=== PATIENT | female | born 1955 | race Two or more races ===

== ENCOUNTER → 2020-02-27 14:37 | Outpatient (BNVA) | payer OTHER, SELFPAY | PROVIDERS: PCP Internal Medicine; Visit Provider Internal Medicine Cardiovascular Disease | DX: R07.89 Other chest pain (principal) | CPT/HCPCS: Q3014 ==

== ENCOUNTER 2020-04-01 10:39 | Outpatient (REF) | payer OTHER, SELFPAY ==
--- NOTE | 2020-04-01 | MM_ITS ---
EXAMINATION: MM SCREENING DIGITAL BREAST TOMOSYNTHESIS, BILATERAL CLINICAL INFORMATION: Screening. Asymptomatic. The lifetime risk of breast cancer based on the Tyrer-Cuzick Model is 5.8%. COMPARISON: Mammography: None TECHNIQUE: Digital breast tomosynthesis is performed in both the craniocaudal and mediolateral oblique views along with computer-aided detection (CAD). Synthesized 2D images are generated from the tomosynthesis. FINDINGS: There are scattered areas of fibroglandular density (ACR BI-RADS breast composition Category b). There is multiplicity and bilaterality of calcifications within both breasts. Within the right breast inferiorly approximately 5 cm from nipple there is a lobulated density which is well-circumscribed measuring approximately 7 x 3 mm in size. There are at least 3 well-circumscribed densities within the left breast one deep laterally measuring approximately 7 cm from the nipple, one centrally to approximately 3 cm from nipple, and a third medially approximately 6 cm from the nipple. MM/MM tomosynthesis screening BI IMPRESSION: Multiplicity and bilaterality of similar-appearing calcifications some of which are scattered and some which are grouped. Bilateral circumscribed densities for which ultrasound evaluation is recommended. ASSESSMENT: BI-RADS 0: Incomplete - Need Additional Imaging Evaluation RECOMMENDATION: Targeted ultrasound of both breasts. Radiology department staff will contact the patient for additional imaging.
== END 2020-04-01 10:40 | disposition home or self-care (01) ==
LOC: HO.MAMMO 10:39
PROVIDERS: Visit Provider Internal Medicine
DX: Z12.31 Encounter for screening mammogram for malignant neoplasm of breast (principal)
CPT/HCPCS: 77063; 77067

== ENCOUNTER 2020-04-12 13:21 | Outpatient (REF) | payer OTHER, SELFPAY ==
--- NOTE | ~2020-04-12 | US_ITS ---
EXAMINATION: US DIAGNOSTIC ULTRASOUND BREAST, RIGHT US DIAGNOSTIC ULTRASOUND BREAST, LEFT CLINICAL INFORMATION: Recall from screening for small bilateral nodularity. COMPARISON: Digital breast tomosynthesis 04/01/2020. TECHNIQUE: Ultrasound of the bilateral breasts is performed using grayscale imaging and color Doppler without and with harmonics. Right breast is targeted to the 6:00 to 7:00 position and left breast is targeted to the 3:00, 7:00, 9:00 position, respectively. FINDINGS: Right: There is an incidental circumscribed cyst 7:00 position 4 cm from nipple measuring 6 mm in greatest dimension. There is a punctate peripheral calcification. No internal solid component. There is increased through-transmission of sound and no associated color flow. There is no focal suspicious finding. There is no solid mass, architectural abnormality, duct ectasia, or edema in the soft tissue planes. Left: There are scattered small circumscribed cysts left breast at the targeted areas, most under 5 mm and anechoic, circumscribed, with increased through-transmission of sound and no color flow. The largest cyst has a punctate rim calcification and measures 7 x 3 mm. There is no focal suspicious finding. There is no solid mass, architectural abnormality, duct ectasia, or edema in the soft tissue planes. Results are discussed with the patient and her daughter at time of visit. Patient has prior outside mammography from [facility]. If the outside exams are made available, we will be able to provide mammographic comparison in an addendum report. Otherwise, the ultrasound findings are unremarkable and routine annual mammography is recommended in one year. US/US breast LT limited IMPRESSION: Incidental small bilateral cysts corresponding to the fibronodular parenchymal pattern on recent mammography. ASSESSMENT: BI-RADS 2: Benign RECOMMENDATION: 1. Routine annual mammography screening. 2. If prior outside mammography is made available, comparison will be performed in an addendum report. This patient's information was entered into a reminder system with a target due date for their next mammogram.
[2020-04-12 14:31] LABS: Hematocrit 40.7 % (37-47); Mean Corpuscular HGB Conc 31.9 g/dl (31.0-35.0); Mean Corpuscular Volume 87.7 fL (80-98); Mean Platelet Volume 12.4 fL (9.4-12.3); Platelet Count 257 X10*3/uL (160-400); Red Blood Count 4.64 X10*6/uL (4.20-5.50); Red Cell Distribution Width 13.6 % (11.0-16.0); White Blood Count 7.1 X10*3/uL (4.8-10.8)
[2020-04-12 15:01] LABS: Alanine Aminotransferase 11 U/L (0-31); Albumin Level 4.3 g/dL (3.5-5.0); Alkaline Phosphatase 102 U/L (39-117); Anion Gap 13 (12-20); Aspartate Amino Transferase 17 U/L (5-31); Bilirubin Direct 0.2 mg/dL (0.0-0.5); Bilirubin Total 0.6 mg/dL (0.0-1.0); Blood Urea Nitrogen 13 mg/dL (9-16); Calcium 9.7 mg/dL (8.4-10.2); Carbon Dioxide 28 mmol/L (22-29); Chloride 106 mmol/L (96-108); Cholesterol 191 mg/dL; Estimated Glomerular Filt Rate > 60; Glucose Random 95 mg/dL (60-115); HDL Cholesterol 55 mg/dL; LDL Cholesterol Calculated 115 mg/dl; Potassium 4.9 mmol/L (3.3-5.1); Sodium 142 mmol/L (135-145); Total Protein 7.6 g/dL (6.5-8.0); Triglycerides 105 mg/dL
[2020-04-12 15:22] LABS: Thyroid Stimulating Hormone 1.22 uIU/mL (0.32-4.0)
== END 2020-04-12 13:22 | disposition home or self-care (01) ==
LOC: HO.MAMMO 13:21
PROVIDERS: Visit Provider Internal Medicine
DX: R92.2 Inconclusive mammogram (principal); E78.00 Pure hypercholesterolemia, unspecified
CPT/HCPCS: 36415; 76642; 80048; 80061; 80076; 84443; 85027

== ENCOUNTER 2020-05-21 23:06 | Outpatient (REF) | payer OTHER, SELFPAY ==
[2020-05-22 00:55] LABS: Influenza A PCR NEGATIVE (Negative); Influenza B PCR NEGATIVE (Negative); Resp Syncy Virus RNA Qual PCR NEGATIVE (Negative); SARS COV2 PCR INHOUSE NEGATIVE (Negative)
== END 2020-05-21 23:07 | disposition home or self-care (01) ==
LOC: HO.LAB 23:06
PROVIDERS: Visit Provider Internal Medicine
DX: Z20.822 Contact with and (suspected) exposure to COVID-19 (principal)
CPT/HCPCS: 0241U; 36415

== ENCOUNTER 2020-11-05 11:11 | Outpatient (RCR) | payer OTHER, SELFPAY ==
--- NOTE | 2020-11-05 12:50 | MHC.PT.EP ---
[facility] [place] [facility] [place] [facility] [place] [facility] [address] [place] [address] Dr Tish Banegas [address] [phone] F: [phone] F: [phone] F: [phone] F: [phone] Physical Therapy Plan of Care Date of Evaluation: Date of Surgery: NA . HX OF SURGERY TO REMOVE LIPOMA R UT AREA IN PAST Diagnosis: CERVICAL SPINE SPRAIN Assessment: Pt IS 65 YO F REFERRED TO PT FROM DR WESTFALL WITH CERVICAL STRAIN. PRESENTS WITH POOR POSTURE, GOOD CERV ROM AND SHLDER ROM , WKNESS L UE, PAIN L UT AND L SHLDER WITH REPORT OF REFERRAL INTO L UE. Pt ALSO REPORTS SOME MILLER SXS TO L SIDE OF HEAD, L EYE, AND L EAR. Pt REPORTS SIMILAR SXS IN PAST WITH INJECTIONS/PT WITHOUT RELIEF FOR A PERIOD OF TIME AND THEN FOUND TO HAVE A LIPOMA AND AFTER IT WAS REMOVED PROGRESSED TO IMPROVEMENT. SHOULD BENEFIT FROM PT TO ADDRESS THESE ISSUES WITH ST WORK, STRETCH/STRENGTHEN PROGRAM AND POSTURE WORK. SHOULD BENEFIT FROM MRI TO R/O LIPOMA (PAST HX) Frequency and Duration: The patient will be seen 2X/WK X 4 WKS Short Term Goals: 1. IMPROVED POSTURE AWARENESS AND AWARNESS NECK CARE 2. CENTRALIZE SXS 3. IMPROVED SLEEP System Configuration Specialist Goals: 1. I HEP WITH DC EX PLAN 2. DECREASED PAIN AT LEAST 50% L UT/CERV AREA WITH ADLS Treatment Plan: Modalities to reduce pain, spasms and effusion. Manual therapy to restore motion and function. Therapeutic exercise to improve strength and flexibility. Neuromuscular re-education for posture and balance. Therapeutic activities to return to functional activities of daily living. Electronically signed by: ENDY REYES PT Please sign and return to therapist. Thank you for your referral.
--- NOTE | 2020-12-26 10:04 | MHC.PT.DC ---
[facility] [place] Office [place] Office [place] Office [address] [place] [address] Dr Tish Banegas [address] [phone] F: [phone] F: [phone] F: [phone] F: [phone] Physical Therapy Discharge Report Diagnosis: CERVICAL SPINE SPRAIN Date of Surgery: NA . HX OF SURGERY TO REMOVE LIPOMA R UT AREA IN PAST Date of Evaluation: 11/05/20 Date of Discharge: 12/26/20 Treatments to Date: 1 Cancellations to Date: No Shows to Date: Discharge Status: Discharge Summary: Pt SEEN FOR INITIAL EVALUATION ONLY. SAW DR BHATT A WALK IN AFTER PT EVAL (PER REQUEST FROM HER SON). NO FURTHER PT VISITS MADE. PER ASSESSMENT FROM EVAL: 'Pt IS 65 YO F REFERRED TO PT FROM DR WESTFALL WITH CERVICAL STRAIN. PRESENTS WITH POOR POSTURE, GOOD CERV ROM AND SHLDER ROM , WKNESS L UE, PAIN L UT AND L SHLDER WITH REPORT OF REFERRAL INTO L UE. Pt ALSO REPORTS SOME MILLER SXS TO L SIDE OF HEAD, L EYE, AND L EAR. Pt REPORTS SIMILAR SXS IN PAST WITH INJECTIONS/PT WITHOUT RELIEF FOR A PERIOD OF TIME AND THEN FOUND TO HAVE A LIPOMA AND AFTER IT WAS REMOVED PROGRESSED TO IMPROVEMENT. SHOULD BENEFIT FROM PT TO ADDRESS THESE ISSUES WITH ST WORK, STRETCH/STRENGTHEN PROGRAM AND POSTURE WORK. SHOULD BENEFIT FROM MRI TO R/O LIPOMA (PAST HX)' Electronically signed by: ENDY REYES PT Please sign and return to therapist. Thank you for your referral.
== END 2020-12-26 10:05 | disposition home or self-care (01) ==
LOC: HO.PTWFD 11:11
PROVIDERS: PCP Internal Medicine; Visit Provider Internal Medicine
DX: S13.9XXD Sprain of joints and ligaments of unspecified parts of neck, subsequent encounter (principal)
CPT/HCPCS: 97110; 97162; 97535

== ENCOUNTER 2020-11-05 14:55 | Outpatient (REF) | payer OTHER, SELFPAY ==
--- NOTE | ~2020-11-05 | XR_ITS ---
EXAMINATION: CERVICAL SPINE AND LEFT SHOULDER. CLINICAL INFORMATION: Neck pain and left shoulder pain. COMPARISON: None TECHNIQUE: 3 views left shoulder and three-view cervical spine. FINDINGS: CERVICAL SPINE: There is normal cervical lordosis. The vertebral heights and alignment is normal. There is no visible acute fracture, dislocation or subluxation seen. There is a small anterior C5-C6 enthesophyte. Fracture, dislocation or subluxation seen. The prevertebral soft tissues are normal. LEFT SHOULDER: The glenohumeral joint space is normal. There is loss of left AC joint space with spurring. No visible acute fracture or dislocation seen. There is no lytic process. XR/XR cervical spine 2V IMPRESSION: Small anterior inferior C5-C6 vertebral enthesophyte. Otherwise unremarkable cervical spine exam.
--- NOTE | ~2020-11-05 | XR_ITS ---
EXAMINATION: CERVICAL SPINE AND LEFT SHOULDER. CLINICAL INFORMATION: Neck pain and left shoulder pain. COMPARISON: None TECHNIQUE: 3 views left shoulder and three-view cervical spine. FINDINGS: CERVICAL SPINE: There is normal cervical lordosis. The vertebral heights and alignment is normal. There is no visible acute fracture, dislocation or subluxation seen. There is a small anterior C5-C6 enthesophyte. Fracture, dislocation or subluxation seen. The prevertebral soft tissues are normal. LEFT SHOULDER: The glenohumeral joint space is normal. There is loss of left AC joint space with spurring. No visible acute fracture or dislocation seen. There is no lytic process. XR/XR shoulder LT min 2V IMPRESSION: Small anterior inferior C5-C6 vertebral enthesophyte. Otherwise unremarkable cervical spine exam.
== END 2020-11-05 14:56 | disposition home or self-care (01) ==
LOC: HO.HMGCX 14:55
PROVIDERS: PCP Internal Medicine; Visit Provider Family Medicine
DX: Z13.89 Encounter for screening for other disorder (principal)
CPT/HCPCS: 72040; 73030

== ENCOUNTER 2020-12-04 21:22 | Emergency (ER) | payer OTHER, SELFPAY ==
--- NOTE | ~2020-12-04 | CT_ITS ---
EXAMINATION: CT ABDOMEN AND PELVIS WITH CONTRAST CLINICAL INFORMATION: Left lower quadrant pain and rectal bleeding. COMPARISON: None TECHNIQUE: Multidetector volumetric images were obtained from the superior aspect of the liver through the pubic symphysis following administration 85 mL of Omnipaque 350 intravenous contrast. Sagittal and coronal reformatted images were obtained on the technologist's workstation. Oral contrast: No This CT examination was performed using dose optimization techniques as appropriate, variously including the following: *Automated exposure control *Adjustment of mA and/or kV according to patient size (this includes techniques or standardized protocols for targeted exams where dose is matched to indication/reason for exam; i.e. extremities or head) *Use of iterative reconstruction technique DLP: 636 mGy-cm FINDINGS: LUNG BASES: Subtle cystic lucencies in the lung bases are indeterminate and could be related with early emphysematous changes. There is a small calcified granuloma in the right lower lobe (200, 4). Mild subsegmental atelectasis. No focal airspace opacity or pleural effusion. LIVER, GALLBLADDER, AND BILIARY TREE: There is an indeterminate 3.3 cm lesion in the liver adjacent to the gallbladder demonstrating heterogeneous enhancement which appears somewhat peripheral and discontinuous. No other focal liver lesions. The gallbladder is unremarkable. There is no intrahepatic biliary ductal dilatation. The CBD is slightly dilated measuring up to 8 mm and at the level of the ampulla, there is indeterminate soft tissue fullness (images 32 and 33:6) that narrows the lumen of the CBD. PANCREAS: Tiny indeterminate hypodensity in the uncinate process (33:3). No pancreatic ductal dilatation. No peripancreatic free fluid or fat stranding. SPLEEN: Unremarkable. ADRENAL GLANDS: Unremarkable. KIDNEYS AND URETERS: A too small to characterize hypodensity in the lateral surface of the upper pole of the right kidney (30:3) appears to measure fat in attenuation and could represent a small angiomyolipoma. The kidneys are normal in size, shape and attenuation. No hydronephrosis or renal calculi. No perinephric fat stranding. BLADDER: Unremarkable. GASTROINTESTINAL TRACT: Small hiatal hernia. There are a few hyperemic and fluid-filled loops of small bowel in the mid abdomen (for instance coronal image 22:6) which could be seen in the setting of gastroenteritis. There are no significant associated inflammatory changes. In the upper abdomen there is subtle swirling of the mesenteric vessels (38:3) which could reflect some degree of malrotation or internal hernia. However, there is no bowel obstruction. The distal colon is under distended which limits assessment of wall thickening but there are no associated inflammatory changes to suspect colitis or diverticulitis. The appendix is unremarkable. ABDOMINAL WALL: Midline surgical scar. Small fat-containing umbilical hernia. LYMPH NODES: No lymphadenopathy by size criteria. VASCULAR: Scattered atherosclerotic disease. No aneurysmal dilatation of the abdominal aorta. PELVIC VISCERA: Unremarkable. OSSEOUS STRUCTURES: No acute or aggressive osseous abnormalities. CT/CT abdomen pelvis w con IMPRESSION: Mildly hyperemic and fluid distended loops of the small bowel could be seen with gastroenteritis in the appropriate clinical setting. No active pericolic inflammatory changes to suggest diverticulitis or colitis. No bowel obstruction. Indeterminate enhancing liver lesion which could represent a hemangioma, although it is incompletely characterize in this single phase study and should be further evaluated with a dynamic MR of the liver. There is mild dilatation of the CBD up to the periampullary region where there is a questionable soft tissue lesion. As above, this could be further characterize with a dynamic abdominal MR with MRCP. Tiny hypodensity in the uncinate process of the pancreas could be related with a dilated side branch or volume averaging. This could be also further evaluated with the above recommended dynamic abdominal MR/MRCP.
[2020-12-04 21:35] VITALS: BP 112/76; PULSE 94; RESP 16; TEMP 37; O2SAT 97; BMI 28.0
[2020-12-04 22:25] LABS: MANUAL DIFF FLAG NO
[2020-12-04 22:27] LABS: Basophils Percent Auto 0.3 % (0-2); Eosinophils Absolute Auto 0.2 X10*3/uL (0.0-0.4); Eosinophils Percent Auto 2.5 % (0-4); Hematocrit 39.7 % (37-47); Hemoglobin 13.2 g/dl (12.0-16.0); Imm Gran Abs Auto 0.02 X10*3/uL (0.00-0.03); Imm Gran Pct Auto 0.3 % (0.0-0.4); Lymphocytes Absolute Auto 2.1 X10*3/uL (1.2-4.9); Lymphocytes Percent Auto 28.2 % (20-40); Mean Corpuscular HGB Conc 33.2 g/dl (31.0-35.0); Mean Corpuscular Hemoglobin 28.5 pg (27.0-33.0); Mean Corpuscular Volume 85.7 fL (80-98); Mean Platelet Volume 11.6 fL (9.4-12.3); Monocytes Absolute Auto 0.7 X10*3/uL (0.1-1.2); Neutrophils Absolute Auto 4.5 X10*3/uL (2.0-8.3); Neutrophils Percent Auto 59.7 % (45-73); Platelet Count 235 X10*3/uL (160-400); Red Blood Count 4.63 X10*6/uL (4.20-5.50); Red Cell Distribution Width 13.2 % (11.0-16.0); White Blood Count 7.5 X10*3/uL (4.8-10.8)
[2020-12-04 22:35] LABS: INTERNATIONAL NORM RATIO 1.1 (0.9-1.1); Prothrombin Time 12.5 SEC (9.9-13.0)
[2020-12-04 22:45] LABS: Alanine Aminotransferase 18 U/L (0-31); Albumin Level 4.1 g/dL (3.5-5.0); Alkaline Phosphatase 102 U/L (39-117); Anion Gap 11 (12-20); Aspartate Amino Transferase 21 U/L (5-31); Bilirubin Total 0.2 mg/dL (0.0-1.0); Blood Urea Nitrogen 11 mg/dL (9-16); Calcium 9.5 mg/dL (8.4-10.2); Carbon Dioxide 28 mmol/L (22-29); Chloride 106 mmol/L (96-108); Creatinine Clr Calc Pharmacy 70.9; Estimated Glomerular Filt Rate > 60; Glucose Random 124 mg/dL (60-115); Potassium 5.3 mmol/L (3.3-5.1); Sodium 140 mmol/L (135-145); Total Protein 7.4 g/dL (6.5-8.0)
[2020-12-04 22:49] VITALS: BP 133/60; PULSE 70; RESP 16; TEMP 36.7; O2SAT 97
--- NOTE | 2020-12-04 22:52 | ED_ITS ---
HPI - General Adult General Chief complaint: General Medical Stated complaint: Rectal bleeding Time Seen by Provider: 12/04/20 21:26 Source: patient Mode of arrival: ambulatory Limitations: no limitations History of Present Illness HPI narrative: Patient has history of chronic constipation been having increased constipation last 3-4 days history of hemorrhoids but not bleeding in the past, noticed increased bright red blood for last 3 days whenever she moves her bowels. Getting worse last bowel movement was soft with some clots also patient complaining of lower abdominal pain mostly on the left side felt dizzy and weak. Patient never had colonoscopy in the past plan to have pronounced copy next week no history of ulcers no melena Related Data Previous Rx's Medication Instructions Recorded multivitamin with minerals-folic 1 tab PO .QD #90 tab 05/10/20 acid 0.4 mg tablet (Adult One Daily Multivitamin) cholecalciferol (vitamin D3) 1,250 1,250 mcg PO QWEEK #14 cap 09/16/20 mcg (50,000 unit) capsule docusate sodium 100 mg capsule 100 mg PO DAILY #90 cap 09/16/20 multivitamin (Daily Multi-Vitamin) 1 tab PO DAILY #90 tab 09/16/20 naproxen 500 mg tablet 500 mg PO BID #28 tab 09/16/20 gabapentin 300 mg capsule 300 mg PO BID 30 Days #60 cap 11/05/20 hydrocortisone acetate 25 mg 25 mg DE BEDTIME #12 ea 12/03/20 rectal suppository (Anusol-HC) polyethylene glycol 3350 17 17 g PO DAILY #510 g 12/05/20 gram/dose oral powder (Miralax) Allergies Allergy/AdvReac Type Severity Reaction Status Date / Time paraben Allergy Severe urticaria Verified 11/13/20 13:47 Sulfa (Sulfonamide Allergy Mild HIVES Verified 11/13/20 13:47 Antibiotics) [SULFA (SULFONAMIDE ANTIBIOTICS)] sulfacetamide Allergy Unknown hives Verified 11/13/20 13:47 sulfur Allergy Unknown hives Verified 11/13/20 13:47 Latex, Natural Rubber AdvReac Unknown Verified 11/13/20 13:47 Review of Systems Review of Systems: Yes all other systems are reviewed and are negative PMFSH Past Medical History Medical History Hypercholesterolemia Surgical History History of cataract surgery Hx of cardiac cath Family History Family History Mother No problems noted. Father No problems noted. Father CVD (cardiovascular disease) Mother CVD (cardiovascular disease) Social History Social History Housing: House Alcohol intake: never Patient Tobacco Use Status: Never used Tobacco Use of substances other than those prescribed or required for medical reasons: No Advance Directives: No Advance Directives Information Provided: No service: No Current occupational status: retired Physical Exam Vital Signs: Vital Signs: Last Vital Signs Temp 98 F 12/05/20 00:05 Pulse 69 12/05/20 00:05 Resp 18 12/05/20 00:05 BP 122/69 12/05/20 00:05 Pulse Ox 98 12/05/20 00:05 Body Mass Index 28.0 Appearance: Alert. Oriented X3. No acute distress. Eyes: No pallor or icterus ENT: Pharynx normal. Oral Mucosa moist Neck: Normal inspection. Neck supple. CVS: Normal heart rate and rhythm. Pulses normal. Respiratory: No respiratory distress. Equal air entry bilateral, no wheezing/rales/rhonchi Abdomen: Soft and mild tenderness left lower quadrant no rebound tenderness or guarding Bowel sounds are present, no mass palpable, no CVA tenderness Skin: Skin warm and dry. Normal skin color. Normal skin turgor. Extremities: No lower extremity edema. No calf tenderness Rectal: Deferred per patient request Neuro: Oriented X 3. Medical Decision Making [facility] Narrative Medical decision making narrative: Patient with lower GI bleed likely hemorrhoidal possible AV malformation H&H is stable blood pressure stable patient plan to see material preparation worker next week advised to continue MiraLax and report to ER in case bleeding gets worse Lab Data Lab results reviewed: Yes I reviewed the patient's lab results. Result diagrams: 12/04/20 22:22 12/04/20 22:22 Labs: Lab Results 12/04/20 12/04/20 12/04/20 Range/Units 22:22 22:22 22:22 WBC 7.5 (4.8-10.8) X10*3/uL RBC 4.63 (4.20-5.50) X10*6/uL Hgb 13.2 (12.0-16.0) g/dl Hct 39.7 (37-47) % MCV 85.7 (80-98) fL MCH 28.5 (27.0-33.0) pg MCHC 33.2 (31.0-35.0) g/dl RDW 13.2 (11.0-16.0) % Plt Count 235 (160-400) X10*3/uL MPV 11.6 (9.4-12.3) fL Immature Gran % (Auto) 0.3 (0.0-0.4) % Neut % (Auto) 59.7 (45-73) % Lymph % (Auto) 28.2 (20-40) % [place] % (Auto) 9.0 (2-11) % Eos % (Auto) 2.5 (0-4) % Baso % (Auto) 0.3 (0-2) % Lymph # (Auto) 2.1 (1.2-4.9) X10*3/uL [place] # (Auto) 0.7 (0.1-1.2) X10*3/uL Eos # (Auto) 0.2 (0.0-0.4) X10*3/uL Baso # (Auto) 0.0 (0.0-0.2) X10*3/uL Abs Immat Gran (auto) 0.02 (0.00-0.03) X10*3/uL Absolute Neuts (auto) 4.5 (2.0-8.3) X10*3/uL Absolute Nucleated RBC 0.000 (0.0-0.012) X10*3/uL Nucleated RBC % (auto) 0.0 (0.0-0.2) /100WBC PT 12.5 (9.9-13.0) SEC INR 1.1 (0.9-1.1) APTT 36.0 (24.1-38.0) SEC Sodium 140 (135-145) mmol/L Potassium 5.3 H (3.3-5.1) mmol/L Chloride 106 (96-108) mmol/L Carbon Dioxide 28 (22-29) mmol/L Anion Gap 11 L (12-20) BUN 11 (9-16) mg/dL Creatinine 0.78 (0.5-1.4) mg/dL Estim Creat Clear Calc 70.9 Estimated GFR > 60 Random Glucose 124 H (60-115) mg/dL Calcium 9.5 (8.4-10.2) mg/dL Total Bilirubin 0.2 (0.0-1.0) mg/dL AST 21 (5-31) U/L ALT 18 (0-31) U/L Alkaline Phosphatase 102 (39-117) U/L Total Protein 7.4 (6.5-8.0) g/dL Albumin 4.1 (3.5-5.0) g/dL Discharge Plan Discharge Clinical Impression: Rectal bleeding Patient Disposition: Home, Self-Care Instructions: Rectal Bleeding (ED) Additional Instructions: Avoid constipation Stool softener as advised Your bleeding is likely from hemorrhoids but need further evaluation including Colonoscopy Follow-up with material preparation worker as scheduled Report to the ER/PCP if increased rectal bleed Prescriptions: New polyethylene glycol 3350 [Miralax] 17 gram/dose powder 17 g PO DAILY Qty: 510 RF: 0 No Action Adult One Daily Multivitamin 0.4 mg tablet 1 tab PO .QD Qty: 90 RF: 1 hydrocortisone acetate [Anusol-HC] 25 mg suppository 25 mg DE BEDTIME Qty: 12 RF: 0 naproxen 500 mg tablet 500 mg PO BID Qty: 28 RF: 0 cholecalciferol (vitamin D3) 1,250 mcg (50,000 unit) capsule 1,250 mcg PO QWEEK Qty: 14 RF: 0 docusate sodium 100 mg capsule 100 mg PO DAILY Qty: 90 RF: 0 multivitamin [Daily Multi-Vitamin] Tablet 1 tab PO DAILY Qty: 90 RF: 0 gabapentin 300 mg capsule 300 mg PO BID 30 Days Qty: 60 RF: 0 Interventions: ED Discharge Assessment Last Done: 12/05/20 00:12 Discharge Date/Time: 12/05/20 00:17
[2020-12-04] MEDS: iohexoL 350 MG/ML 100 ML INFUS..BTL IV (23:49)
[2020-12-05 00:05] VITALS: BP 122/69; PULSE 69; RESP 18; TEMP 36.6; O2SAT 98
--- NOTE | 2020-12-05 00:16 | PC.NURSE ---
Pt alert and oriented x4, calm and cooperative. Pt denies pain. Pt states she is ready for dc. IV removed, vitals stable. Pt educated on results and dc teaching. Pt ambulated out to private car with family member.
== END 2020-12-05 00:17 | disposition home or self-care (01) ==
PROVIDERS: Emergency Provider Internal Medicine; PCP Family Medicine
DX: K62.5 Hemorrhage of anus and rectum (principal); K59.00 Constipation, unspecified
CPT/HCPCS: 36415; 74177; 80053; 85025; 85610; 85730; 99284; Q9967

== ENCOUNTER 2020-12-08 22:37 | Inpatient (IN) | payer OTHER, SELFPAY ==
--- NOTE | ~2020-12-08 | CT_ITS ---
EXAMINATION: CT ANGIOGRAM ABDOMEN AND PELVIS CLINICAL INFORMATION: Bright red blood per rectum COMPARISON: None TECHNIQUE: Multiple axial images were obtained through the abdomen and pelvis following the administration of 80 mL of Omnipaque 350 intravenous contrast. Maximal intensity projection images were created on an independent workstation. This CT examination was performed using dose optimization techniques as appropriate, variously including the following: *Automated exposure control *Adjustment of mA and/or kV according to patient size (this includes techniques or standardized protocols for targeted exams where dose is matched to indication/reason for exam; i.e. extremities or head) *Use of iterative reconstruction technique DLP: 503 mGy-cm FINDINGS: VASCULAR: Aorta is atherosclerotic but normal caliber. No dissection. Patent celiac axis, superior mesenteric and inferior mesenteric arteries. Patent bilateral single renal arteries. HEPATOBILIARY: Liver normal in size, contour and morphology. There is a 3.2 cm hypodense lesion within hepatic segment 5 inferiorly demonstrating discontinuous peripheral nodular enhancement matching that of blood pool most compatible with a hemangioma. No suspicious lesions. No intrahepatic biliary dilation. Common bile duct measures up to 10 mm tapering to the ampulla. Gallbladder unremarkable. PANCREAS: The previously seen 3 mm cyst within the uncinate is faintly appreciated. SPLEEN: Unremarkable. ADRENAL GLANDS: Unremarkable. KIDNEYS: Kidneys normal in size, axis and morphology demonstrating symmetric enhancement. No suspicious renal cysts or masses. No hydronephrosis or perinephric abnormality.. GASTROINTESTINAL TRACT: There is hyperdensity along the right lateral aspect of the low rectum as seen on series 6, image 656. Unfortunately, unenhanced images were not obtained to confirm whether this represents a site of active bleeding. No additional sites of intraluminal hypodensity identified within the colon to suggest an alternative etiology of the patient's primary blood per rectum. Stomach and small bowel unremarkable. PELVIC VISCERA: Uterus and adnexa unremarkable. LYMPH NODES: No lymphadenopathy. PERITONEUM/BODY WALL: Unremarkable. OSSEOUS STRUCTURES: No acute or suspicious osseous abnormalities. CT/CT angio abdomen pelvis IMPRESSION: * There is hyperdensity along the low rectum along the right lateral aspect likely representing site of active bleeding, perhaps related to internal hemorrhoids. Further assessment limited in the absence of a nonenhanced phase of the examination. * There is a 3.2 cm hemangioma within hepatic segment 5, benign. * Mild dilatation of the common bile duct to 10 mm, tapering to the ampulla. Faint 3 mm cyst within the uncinate. As recommended previously, these findings can be further assessed by MRI/MRCP without and with contrast on a nonemergent basis.
[2020-12-08 22:39] VITALS: BP 121/77; PULSE 99; RESP 16; TEMP 36.4; O2SAT 98; BMI 28.0
--- NOTE | 2020-12-08 22:46 | ED_ITS ---
HPI - GI Bleed General Chief complaint: GI Bleed Stated complaint: Rectal bleeding Time Seen by Provider: 12/08/20 22:46 Source: patient Mode of arrival: ambulatory Limitations: no limitations History of Present Illness HPI Narrative: Patient history of constipation been having bright red rectal bleeding for last 4 days was seen here on 12/04 for same. Since then patient continued to have rectal bleeding , having soft bowel movements blood is mostly bright red with some clots also has some left lower abdominal discomfort patient not been eating much having only soft diet only and today she did have any food have a clear liquids patient never had colonoscopy in the past. No history of diverticulitis or hemorrhoids in the past. 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 Sutherland appointment on 12/12 who advised her to come to the hospital as bleeding is heavy and continued. Patient not on any anticoagulant or antiplatelet medication and never had similar episode in the p ast Related Data Home Medications Medication Instructions Recorded Confirmed cholecalciferol (vitamin D3) 1,250 1 cap PO QWEEK 12/09/20 12/09/20 mcg (50,000 unit) capsule docusate sodium 100 mg capsule 1 cap PO DAILY 12/09/20 12/09/20 (Stool Softener) hydrocortisone acetate 25 mg 1 supp IA BEDTIME 12/09/20 12/09/20 rectal suppository multivitamin with folic acid 400 1 tab PO DAILY 12/09/20 12/09/20 mcg tablet (Daily-Josue (with folic acid)) Allergies Allergy/AdvReac Type Severity Reaction Status Date / Time paraben Allergy Severe urticaria Verified 12/09/20 00:21 Sulfa (Sulfonamide Allergy Mild HIVES Verified 12/09/20 00:21 Antibiotics) [SULFA (SULFONAMIDE ANTIBIOTICS)] sulfacetamide Allergy Unknown hives Verified 12/09/20 00:21 sulfur Allergy Unknown hives Verified 12/09/20 00:21 Latex, Natural Rubber AdvReac Unknown Verified 12/09/20 00:21 Review of Systems Review of Systems: Yes all other systems are reviewed and are negative [facility] Past Medical History Medical History Hypercholesterolemia Surgical History History of cataract surgery Hx of cardiac cath Family History Family History Mother No problems noted. Father No problems noted. Father CVD (cardiovascular disease) Mother CVD (cardiovascular disease) Social History Social History Housing: House Alcohol intake: never Patient Tobacco Use Status: Never used Tobacco Advance Directives: No Advance Directives Information Provided: No service: No Current occupational status: retired Physical Exam Vital Signs: Vital Signs: Last Vital Signs Temp 98.0 F 12/09/20 00:20 Pulse 77 12/09/20 00:20 Resp 14 12/09/20 00:20 BP 133/72 12/09/20 00:20 Pulse Ox 99 12/09/20 00:20 Body Mass Index 28.0 Appearance: Alert. Oriented X3. No acute distress. Eyes: Pallor+ ENT: Pharynx normal. Oral Mucosa moist Neck: Normal inspection. Neck supple. CVS: Normal heart rate and rhythm. Pulses normal. Respiratory: No respiratory distress. Equal air entry bilateral, no wheezing/rales/rhonchi Abdomen: Soft, mild tenderness left lower quadrant Bowel sounds are present, no mass palpable, no CVA tenderness Rectal: Deferred per family request. Pictures of blood seen on the cellphone Skin: Skin warm and dry. Normal skin color. Normal skin turgor. Extremities: No lower extremity edema. No calf tenderness Neuro: Oriented X 3. MDM - GI Bleed MDM Narrative Medical decision making narrative: Patient with lower GI bleed with significant drop in H&H from 13.2/39.7 on 12/04 to 9.3/28.8 today. Not on any anti coagulant, Case discussed with Dr. lopez route rider supervisor plan to do colonoscopy in the morning will prep for the colonoscopy tonight. NPO after 04:00 patient INR was 1.1 on 12/04 Differential Diagnosis Differential diagnosis: Likely Lower gastrointestinal hemorrhage Lab Data Attestation: I reviewed the patient's lab results. Result diagrams: 12/08/20 23:10 12/08/20 23:10 Labs: Lab Results 12/08/20 12/08/20 12/08/20 Range/Units 23:10 23:10 23:10 WBC 9.7 (4.8-10.8) X10*3/uL RBC 3.27 L D (4.20-5.50) X10*6/uL Hgb 9.3 L D (12.0-16.0) g/dl Hct 28.8 L D (37-47) % MCV 88.1 (80-98) fL MCH 28.4 (27.0-33.0) pg MCHC 32.3 (31.0-35.0) g/dl RDW 13.4 (11.0-16.0) % Plt Count 247 (160-400) X10*3/uL MPV 11.6 (9.4-12.3) fL Immature Gran % (Auto) 0.3 (0.0-0.4) % Neut % (Auto) 51.3 (45-73) % Lymph % (Auto) 37.2 (20-40) % [place] % (Auto) 7.8 (2-11) % Eos % (Auto) 3.1 (0-4) % Baso % (Auto) 0.3 (0-2) % Lymph # (Auto) 3.6 (1.2-4.9) X10*3/uL [place] # (Auto) 0.8 (0.1-1.2) X10*3/uL Eos # (Auto) 0.3 (0.0-0.4) X10*3/uL Baso # (Auto) 0.0 (0.0-0.2) X10*3/uL Abs Immat Gran (auto) 0.03 (0.00-0.03) X10*3/uL Absolute Neuts (auto) 5.0 (2.0-8.3) X10*3/uL Absolute Nucleated RBC 0.000 (0.0-0.012) X10*3/uL Nucleated RBC % (auto) 0.0 (0.0-0.2) /100WBC Sodium 140 (135-145) mmol/L Potassium 4.5 (3.3-5.1) mmol/L Chloride 107 (96-108) mmol/L Carbon Dioxide 25 (22-29) mmol/L Anion Gap 13 (12-20) BUN 5 L D (9-16) mg/dL Creatinine 0.97 (0.5-1.4) mg/dL Estim Creat Clear Calc 57.0 Estimated GFR 58 Random Glucose 141 H (60-115) mg/dL Calcium 8.5 D (8.4-10.2) mg/dL Total Bilirubin 0.3 (0.0-1.0) mg/dL AST 21 (5-31) U/L ALT 16 (0-31) U/L Alkaline Phosphatase 85 (39-117) U/L Total Protein 6.4 L (6.5-8.0) g/dL Albumin 3.6 (3.5-5.0) g/dL Blood Type B Positive Antibody Screen NEGATIVE Discharge Plan Discharge Clinical Impression: Lower gastrointestinal hemorrhage Anemia Qualifiers: Anemia type: other cause Other causes of anemia: acute posthemorrhagic Qualified Code(s): D62 - Acute posthemorrhagic anemia Patient Disposition: Admitted As Inpatient
[2020-12-08 23:15] LABS: MANUAL DIFF FLAG NO
[2020-12-08 23:28] LABS: Basophils Percent Auto 0.3 % (0-2); Eosinophils Absolute Auto 0.3 X10*3/uL (0.0-0.4); Eosinophils Percent Auto 3.1 % (0-4); Hematocrit 28.8 % (37-47); Hemoglobin 9.3 g/dl (12.0-16.0); Imm Gran Abs Auto 0.03 X10*3/uL (0.00-0.03); Imm Gran Pct Auto 0.3 % (0.0-0.4); Lymphocytes Absolute Auto 3.6 X10*3/uL (1.2-4.9); Lymphocytes Percent Auto 37.2 % (20-40); Mean Corpuscular HGB Conc 32.3 g/dl (31.0-35.0); Mean Corpuscular Hemoglobin 28.4 pg (27.0-33.0); Mean Corpuscular Volume 88.1 fL (80-98); Mean Platelet Volume 11.6 fL (9.4-12.3); Monocytes Absolute Auto 0.8 X10*3/uL (0.1-1.2); Monocytes Percent Auto 7.8 % (2-11); Neutrophils Percent Auto 51.3 % (45-73); Platelet Count 247 X10*3/uL (160-400); Red Blood Count 3.27 X10*6/uL (4.20-5.50); Red Cell Distribution Width 13.4 % (11.0-16.0); White Blood Count 9.7 X10*3/uL (4.8-10.8)
[2020-12-08 23:36] LABS: Alanine Aminotransferase 16 U/L (0-31); Albumin Level 3.6 g/dL (3.5-5.0); Alkaline Phosphatase 85 U/L (39-117); Anion Gap 13 (12-20); Aspartate Amino Transferase 21 U/L (5-31); Bilirubin Total 0.3 mg/dL (0.0-1.0); Blood Urea Nitrogen 5 mg/dL (9-16); Calcium 8.5 mg/dL (8.4-10.2); Carbon Dioxide 25 mmol/L (22-29); Chloride 107 mmol/L (96-108); Estimated Glomerular Filt Rate 58; Glucose Random 141 mg/dL (60-115); Potassium 4.5 mmol/L (3.3-5.1); Sodium 140 mmol/L (135-145); Total Protein 6.4 g/dL (6.5-8.0)
[2020-12-09] VITALS (21 sets, daily range): BP systolic 96–170; BP diastolic 41–101; PULSE 71–100; RESP 12–18; TEMP 36.5–37.1; O2SAT 96–100
[2020-12-09] MEDS: bisacodyL 5 MG TABLET.DR 10 MG PO (00:03)
[2020-12-09] MEDS: 0.9 % Sodium Chloride 1,000 ML 999 ML IVCONT (00:17)
[2020-12-09] MEDS: Pantoprazole Sodium 40 MG/10 ML VIAL IVPUSH ×3 (00:32→16:19)
[2020-12-09 00:50] LABS: COVID-19 Test Negative (Negative)
--- NOTE | 2020-12-09 00:52 | PC.NURSE ---
Pt's gavilyte unavailable at time of order. RN reservations sales supervisor notified, to get medication from PACU. Pt's son at bedside stating he would gladly go to nearby pharmacy to oyster picker medication as it is important pt takes it as ordered. This RN explains to pt that this is a logistical issue that is being addressed at this time. Pt's son expresses understanding of plan. RN reservations sales supervisor able to obtain medication from PACU, given to CARMEN Rosa who prepared it and provided it to patient at this time. Pt, and son, educated on medication's use. Pt, and son who is to remain at bedside, express understanding. Call whitman within reach of patient, stretcher low and locked, rails raised.
[2020-12-09] MEDS: PEG 3350/Na Sulf,Bicarb,Cl/KCL 4,000 ML SOLN.RECON 240 ML PO ×17 (00:59→02:26)
--- NOTE | 2020-12-09 01:00 | PC.NURSE ---
Pt and son made aware that rectal effluent needs to be clear, or 4L needs to be consumed, whichever happens first. Pt and son expresses understanding. Pt with fall precautions in place. Red fall wrist band, red fall prevention socks, and red fall star posted outside of room.
[2020-12-09] MEDS: ondansetron HCL 4 MG/2 ML VIAL IVPUSH (01:50)
--- NOTE | 2020-12-09 01:51 | PC.NURSE ---
Dr Diaz to bedside. Pt reports nausea to Dr Diaz. Dr Diaz ordered zofran. This RN to bedside to medicate. Unable to scan med as computer system was not working at that time.
--- NOTE | 2020-12-09 03:10 | PC.NURSE ---
Dr Jordan made aware of pt's BM which was reportedly a lot blood, per Tish, GABRIELLE. This RN asked Dr Jordan if she wants a repeat H&H. Dr Jordan agrees, places order. Phlebotomy made aware.
[2020-12-09 03:29] LABS: Hematocrit 26.1 % (37-47); Hemoglobin 8.6 g/dl (12.0-16.0)
--- NOTE | 2020-12-09 03:40 | PC.NURSE ---
This RN to bedside to place patient back on bedside cardiac rn as this RN had pt attached previously, but son had detached pt from the monitor. Pt and son informed of need to remain on cardiac rn, both express understanding of importance, and are agreeable to plan. This RN places commode at bedside so that pt does not need to be removed from monitor in order to go to bathroom. Phleb at bedside collecting repeat H&H which has since resulted. Dr Jordan made aware that H&H is 8.6 and 26.1. Stretcher remains in low locked position, call whitman within reach, son remaining at bedside.
--- NOTE | 2020-12-09 05:31 | PC.NURSE ---
Pt completed bowel prep at 0445.
--- NOTE | 2020-12-09 06:31 | PC.NURSE ---
Pt asleep on stretcher in between care. Son asleep on recliner at bedside until awoken by this RN providing pt care in room. Pt medicated per APR. Pt denies pain/discomfort at this time. Pt reports last BM was at 0430, reports she feels better. Pt reassured that VS are stable. Pt's stretcher remains in low, locked position. Call whitman within reach.
[2020-12-09 07:13] LABS: MANUAL DIFF FLAG NO
[2020-12-09 07:15] LABS: Basophils Percent Auto 0.2 % (0-2); Eosinophils Absolute Auto 0.2 X10*3/uL (0.0-0.4); Eosinophils Percent Auto 3.2 % (0-4); Hematocrit 22.9 % (37-47); Hemoglobin 7.4 g/dl (12.0-16.0); Imm Gran Abs Auto 0.04 X10*3/uL (0.00-0.03); Imm Gran Pct Auto 0.6 % (0.0-0.4); Lymphocytes Percent Auto 30.9 % (20-40); Mean Corpuscular HGB Conc 32.3 g/dl (31.0-35.0); Mean Corpuscular Hemoglobin 28.1 pg (27.0-33.0); Mean Corpuscular Volume 87.1 fL (80-98); Mean Platelet Volume 11.1 fL (9.4-12.3); Monocytes Absolute Auto 0.7 X10*3/uL (0.1-1.2); Neutrophils Absolute Auto 3.7 X10*3/uL (2.0-8.3); Neutrophils Percent Auto 55.1 % (45-73); Platelet Count 170 X10*3/uL (160-400); Red Blood Count 2.63 X10*6/uL (4.20-5.50); Red Cell Distribution Width 13.3 % (11.0-16.0); White Blood Count 6.6 X10*3/uL (4.8-10.8)
--- NOTE | 2020-12-09 07:18 | PM.IMHP ---
History of Present Illness Date of Service: 12/08/20 Chief Complaint: GI bleed 65-year-old female with past medical history of hyperlipidemia presents to the hospital with complaints of GI bleed. Her son is at bedside gives most of the history. According to the patient and son at bedside patient has been experiencing bright red blood per rectum almost with every bowel movement. This is been going on for the past 15 days and has worsened over the past 3 days. They tried Sitz baths and Epsom salts with no relief. Patient reports abdominal pain in the left lower quadrant, nonradiating, 6/10, associated with nausea with no vomiting. Patient son reports that prior to the GI bleed starting patient was constipated, took milk of magnesia and then developed diarrhea. Patient at this time denies any chest pain, feels dizzy, numbness and tingling in her hands, denies any shortness of breath, reports urinary frequency and no lower extremity edema. On arrival to the ED vitals reviewed unremarkable Labs show hemoglobin of 9.3 that dropped from 13.2 on 12/04, labs otherwise unremarkable Review of Systems Review of Systems: Yes all other systems are reviewed and are negative [facility] Medical History Hypercholesterolemia Family History Mother No problems noted. Father No problems noted. Father CVD (cardiovascular disease) Mother CVD (cardiovascular disease) Pertinent family history: Non pertinent Surgical History History of cataract surgery Hx of cardiac cath Social History Housing: House Alcohol intake: never Patient Tobacco Use Status: Never used Tobacco Advance Directives: No Advance Directives Information Provided: No service: No Current occupational status: retired Meds Allergies Allergy/AdvReac Type Severity Reaction Status Date / Time paraben Allergy Severe urticaria Verified 12/09/20 00:21 Sulfa (Sulfonamide Allergy Mild HIVES Verified 12/09/20 00:21 Antibiotics) [SULFA (SULFONAMIDE ANTIBIOTICS)] sulfacetamide Allergy Unknown hives Verified 12/09/20 00:21 sulfur Allergy Unknown hives Verified 12/09/20 00:21 Latex, Natural Rubber AdvReac Unknown Verified 12/09/20 00:21 Active Medications: Current Medications Acetaminophen (Acetaminophen 325 Mg Tablet) 650 mg PO Q6H PRN PRN Reason: Pain, Mild (Pain Scale 1-3) Docusate Sodium (Docusate Sodium 100 Mg Capsule) 100 mg PO DAILY PRN PRN Reason: Constipation Ondansetron HCl (Ondansetron Hcl 4 Mg/2 Ml Vial) 4 mg IVPUSH Q8H PRN PRN Reason: Nausea and Vomiting Pantoprazole Sodium (Pantoprazole Sodium 40 Mg/10 Ml Vial) 40 mg IVPUSH BID@0630,1630 [facility] Last Admin: 12/09/20 06:23 Dose: 40 mg Documented by: Sodium Chloride (0.9 % Sodium Chloride Flush 3 Ml Syringe) 3 ml IVFLUSH QSHIFT [facility] Last Admin: 12/09/20 00:24 Dose: Not Given Documented by: Home Medications Medication Instructions Recorded Confirmed Last Taken Type cholecalciferol (vitamin D3) 1,250 1 cap PO QWEEK 12/09/20 12/09/20 Unknown History mcg (50,000 unit) capsule docusate sodium 100 mg capsule 1 cap PO DAILY 12/09/20 12/09/20 Unknown History (Stool Softener) hydrocortisone acetate 25 mg 1 supp [place] BEDTIME 12/09/20 12/09/20 Unknown History rectal suppository multivitamin with folic acid 400 1 tab PO DAILY 12/09/20 12/09/20 Unknown History mcg tablet (Daily-Josue (with folic acid)) Physical Exam Vital Signs and Narrative: Vital Signs: Last Vital Signs Temp 97.9 F 12/09/20 03:38 Pulse 84 12/09/20 06:00 Resp 15 12/09/20 06:00 BP 110/54 L 12/09/20 06:00 Pulse Ox 96 12/09/20 06:00 Body Mass Index 28.0 Const: General: cooperative and no acute distress Orientation/consciousness: patient oriented x3 Eyes: General: appearance normal, both eyes and all related structures Pupils: Equal, round and reactive pupils present Resp: Effort & Inspection: normal respiratory effort Auscultation: clear to auscultation bilaterally Cardio: Rate: regular rate Rhythm: regular rhythm GI: Other: Mild tenderness in the left lower quadrant, No rebound or guarding Palpation (GI): Soft to palpation Auscultation: normal bowel sounds Skin: General skin exam: no rashes or lesions noted Neuro: General: patient oriented x3 Cranial nerves: Yes Equal, round and reactive pupils present Cognition (Neuro): normal cognition Extrem: General: Yes normal to inspection and Yes no pedal edema Results Labs CBC and Chem 7: 12/09/20 07:09 12/08/20 23:10 Labs: Laboratory Results - last 24 hr 12/08/20 12/08/20 12/08/20 23:10 23:10 23:10 MCV 88.1 MCH 28.4 MCHC 32.3 RDW 13.4 Plt Count 247 MPV 11.6 Immature Gran % (Auto) 0.3 Neut % (Auto) 51.3 Lymph % (Auto) 37.2 [place] % (Auto) 7.8 Eos % (Auto) 3.1 Baso % (Auto) 0.3 Lymph # (Auto) 3.6 [place] # (Auto) 0.8 Eos # (Auto) 0.3 Baso # (Auto) 0.0 Abs Immat Gran (auto) 0.03 Absolute Neuts (auto) 5.0 Absolute Nucleated RBC 0.000 Nucleated RBC % (auto) 0.0 Anion Gap 13 Estim Creat Clear Calc 57.0 Estimated GFR 58 Random Glucose 141 H Calcium 8.5 D Total Bilirubin 0.3 AST 21 ALT 16 Alkaline Phosphatase 85 Total Protein 6.4 L Albumin 3.6 COVID-19 ([place]) COVID-19 Clin Com Blood Type B Positive Antibody Screen NEGATIVE 12/09/20 12/09/20 00:02 07:09 MCV 87.1 MCH 28.1 MCHC 32.3 RDW 13.3 Plt Count 170 D MPV 11.1 Immature Gran % (Auto) 0.6 H Neut % (Auto) 55.1 Lymph % (Auto) 30.9 [place] % (Auto) 10.0 Eos % (Auto) 3.2 Baso % (Auto) 0.2 Lymph # (Auto) 2.0 [place] # (Auto) 0.7 Eos # (Auto) 0.2 Baso # (Auto) 0.0 Abs Immat Gran (auto) 0.04 H Absolute Neuts (auto) 3.7 Absolute Nucleated RBC 0.000 Nucleated RBC % (auto) 0.0 Anion Gap Estim Creat Clear Calc Estimated GFR Random Glucose Calcium Total Bilirubin AST ALT Alkaline Phosphatase Total Protein Albumin COVID-19 ([place]) Negative COVID-19 Clin Com See Note Blood Type Antibody Screen Assessment and Plan (1) Lower gastrointestinal hemorrhage: Status: Acute (2) Anemia: Qualifiers: Anemia type: other cause Other causes of anemia: acute posthemorrhagic Qualified Code(s): D62 - Acute posthemorrhagic anemia Status: Acute 65-year-old female with no significant past medical history who presents to the hospital with GI bleed # GI bleed most likely lower - hemodynamically stable - hemoglobin did drop few units within few days - no abnormal vitals - GI was consulted by the ED physician and patient plan for colonoscopy in the morning - continue GoLYTELY - monitor H&H - transfusion threshold of hemoglobin less than 7 - IV PPI b.i.d. # anemia - secondary to GI bleed - will transfuse 2 unit of PRBC - follow CBC - pending colonoscopy DVT prophylaxis: SCDs Quality Stroke Does the patient have a stroke diagnosis?: No VTE Prior VTE?: No VTE Risk Level:: Medical - moderate - high VTE Device Contraindication: N/A - Device Ordered VTE Drug Contraindication: Treatment Not Indicated
[2020-12-09 07:30] LABS: Anion Gap 9 (12-20); Blood Urea Nitrogen 5 mg/dL (9-16); Calcium 7.9 mg/dL (8.4-10.2); Carbon Dioxide 28 mmol/L (22-29); Chloride 110 mmol/L (96-108); Creatinine Clr Calc Pharmacy 70.8; Estimated Glomerular Filt Rate > 60; Glucose Random 117 mg/dL (60-115); Potassium 4.5 mmol/L (3.3-5.1); Sodium 142 mmol/L (135-145)
--- NOTE | 2020-12-09 07:41 | PC.NURSE ---
PT OOB TO COMMODE NEEDS BEING MET
[2020-12-09 07:56] LABS: Appearance Urine CLEAR; Color Urine YELLOW; Glucose Urine UA NEG (NEG); Leukocyte Esterase Urine NEG (NEG); Nitrite Urine NEG (NEG); Specific Gravity - Urine >= 1.030 (1.005-1.025); Urine Blood 1+ (NEG); Urine Ketones NEG (NEG); Urine Protein NEG (NEG-TRACE)
[2020-12-09 08:02] LABS: RBC Urine 0-2 /HPF (0)
[2020-12-09 08:03] LABS: Mucus Urine 1+ /LPF; Squamous Epithelial Cell Urine TRACE /LPF
--- NOTE | 2020-12-09 08:51 | PM.GICN ---
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 12/04 for same.? Since then patient continued to have rectal bleeding , having soft bowel movements blood is mostly bright red with some clots also has some left lower abdominal discomfort patient not been eating much having only soft diet only and today she did have any food have a clear liquids patient never had colonoscopy in the past.? No history of diverticulitis or hemorrhoids in the past.? Patient had a CT scan abdomen on 12/04 which showed few hyperemic and fluid-filled loops of small intestine possibility of gastroenteritis no diverticulosis was seen for last 24 hours patient has been having more bleeding feeling dizzy and lightheaded earlier today and feeling very weak and hence she came to the ER for further evaluation patient has air technician Dr. Sutherland appointment on 12/12 who advised her to come to the hospital as bleeding is heavy and continued.? Patient not on any anticoagulant or antiplatelet medication and never had similar episode in the past Patient gives a hx of chronic constipation. She took some MOM and noted rectal bleeding after straining to have a BM. She was advised sitz baths and hydrocortisone suppositories after phone consultation with Dr Sutherland. She has continued to have 3-4 episodes of rectal bleeding after doing sitz baths. Blood is bright red and maroon and she has noted passage of clots. Since yesterday she is having increased bleeding and is feeling fatigued, dizzy and having some chills. After arrival in the ER, pt was given Golytely prep overnight which she finished at 5 am today. BMs were initaillay bloody and then started to clear. Last BM was at 4:30 am. Before coming to [facility], pt had issues with chest discomfort and was admitted to the hospital in [place]. She was noted to have elevated troponin subsequently had cardiac catheterization. Was told that she had nonobstructive coronary artery disease and question takotsubo cardiomyopathy. Patient has a hx of loud snoring and is suspected to have sleep apnea Denies problems with anesthesia in the past. Denies being on chronic anticoagulation. Pt denies smoking or ETOH abuse. Patient is and has 2 childern. Her son had precancerous polyps at age 25 yrs. Pt denies known family history of colon cancer or other GI malignancies. IMAGING STUDIES: 12/04/[address] SCAN SHOWED: Mildly hyperemic and fluid distended loops of the small bowel could be seen with gastroenteritis in the appropriate clinical setting. No active pericolic inflammatory changes to suggest diverticulitis or colitis. ?No bowel obstruction. ?Indeterminate enhancing liver lesion which could represent a hemangioma, although it is incompletely characterize in this single phase study and should be further evaluated with a dynamic MR of the liver. There is mild dilatation of the CBD up to the periampullary region where there is a questionable soft tissue lesion. As above, this could be further characterize with a dynamic abdominal MR with MRCP. Tiny hypodensity in the uncinate process of the pancreas could be related with a dilated side branch or volume averaging. This could be also further evaluated with the above recommended dynamic abdominal MR/MRCP.? ENDOSCOPIC STUDIES: None in the past PAST GI HISTORY BY REVIEW OF MEDICAL RECORDS: Review of Systems Constitutional: Constitutional: Reports chills, Reports fatigue, Denies fever(s), Denies headache(s), Reports weakness, Reports weight gain and Denies weight loss Eyes: Eyes: Denies eye discharge and Denies irritation ENT: Reports Normal hearing present, Denies dysphagia, Denies dizziness and Denies headache(s) Cardiovascular: Cardiovascular: Denies chest pain, Denies leg edema and Denies dyspnea on exertion Respiratory: Respiratory: Denies cough and Denies dyspnea on exertion Gastrointestinal: Gastrointestinal: Reports abdominal pain, Reports hematochezia, Denies change in bowel habits, Denies dysphagia and Denies heartburn Genitourinary: Genitourinary: Denies difficulty voiding and Denies dysuria Musculoskeletal: Musculoskeletal: Denies back pain and Denies arthralgias Integumentary/Breasts: Skin/Breast: Denies pruritus, Denies rash and Denies jaundice Neurologic: Reports Normal hearing present, Denies Abnormal speech present, Denies dizziness, Denies headache(s), Denies seizure-like activity and Reports weakness Psychiatric: Psychiatric: Denies anxiety, Denies depression and Denies panic attacks Endocrine: Endocrine: Denies cold intolerance, Reports fatigue, Denies flushing and Denies heat intolerance Hematologic/Lymphatic: Hematologic/Lymphatic: Denies easy bleeding and Denies easy bruising PMFSH Past Medical History Medical History (Updated 12/09/20 @ 09:44 by Nahum Kapoor MD) Hypercholesterolemia Takotsubo cardiomyopathy Family History Family History Mother No problems noted. Father No problems noted. Father CVD (cardiovascular disease) Mother CVD (cardiovascular disease) Surgical History Surgical History History of cataract surgery Hx of cardiac cath Social History Social History Housing: House Alcohol intake: never Patient Tobacco Use Status: Never used Tobacco service: No Current occupational status: retired [employer] Allergies Allergy/AdvReac Type Severity Reaction Status Date / Time paraben Allergy Severe urticaria Verified 12/09/20 00:21 Sulfa (Sulfonamide Allergy Mild HIVES Verified 12/09/20 00:21 Antibiotics) [SULFA (SULFONAMIDE ANTIBIOTICS)] sulfacetamide Allergy Unknown hives Verified 12/09/20 00:21 sulfur Allergy Unknown hives Verified 12/09/20 00:21 Latex, Natural Rubber AdvReac Unknown Verified 12/09/20 00:21 Active Medications: Current Medications Acetaminophen (Acetaminophen 325 Mg Tablet) 650 mg PO Q6H PRN PRN Reason: Pain, Mild (Pain Scale 1-3) Docusate Sodium (Docusate Sodium 100 Mg Capsule) 100 mg PO DAILY PRN PRN Reason: Constipation Multivitamins/Vitamin C (Multivitamin Tablet) 1 tab PO DAILY [facility] Ondansetron HCl (Ondansetron Hcl 4 Mg/2 Ml Vial) 4 mg IVPUSH Q8H PRN PRN Reason: Nausea and Vomiting Pantoprazole Sodium (Pantoprazole Sodium 40 Mg/10 Ml Vial) 40 mg IVPUSH BID@0630,1630 [facility] Last Admin: 12/09/20 06:23 Dose: 40 mg Documented by: Sodium Chloride (0.9 % Sodium Chloride Flush 3 Ml Syringe) 3 ml IVFLUSH QSHIFT [facility] Last Admin: 12/09/20 00:24 Dose: Not Given Documented by: Home Medications Medication Instructions Recorded Confirmed Last Taken Type cholecalciferol (vitamin D3) 1,250 1 cap PO QWEEK 12/09/20 12/09/20 Unknown History mcg (50,000 unit) capsule docusate sodium 100 mg capsule 1 cap PO DAILY 12/09/20 12/09/20 Unknown History (Stool Softener) hydrocortisone acetate 25 mg 1 supp [place] BEDTIME 12/09/20 12/09/20 Unknown History rectal suppository multivitamin with folic acid 400 1 tab PO DAILY 12/09/20 12/09/20 Unknown History mcg tablet (Daily-Josue (with folic acid)) Physical Exam Vital Signs: Vital Signs: Last Vital Signs Temp 98 F 12/09/20 08:04 Pulse 98 12/09/20 08:04 Resp 16 12/09/20 08:04 BP 108/52 L 12/09/20 08:04 Pulse Ox 96 12/09/20 06:00 Body Mass Index 28.0 Const: General: healthy appearing and no acute distress Nutritional Appearance: overweight Orientation/consciousness: patient oriented x3 Limitations: no limitations HENMT: Head: Yes normal to inspection Ears: hearing grossly normal bilaterally Mouth: Normal oral and palatal mucosa present Eyes: Sclerae: sclerae normal Pupils: Equal, round and reactive pupils present Neck: Neck: Yes normal visual inspection Chest: Chest palpation & inspection: normal inspection of the chest Resp: Effort & Inspection: normal respiratory effort Auscultation: clear to auscultation bilaterally Cardio: Palpation: normal PMI Rate: regular rate Rhythm: regular rhythm Heart sounds: S1 normal heart sound present, S2 normal heart sound present and no murmurs GI: Inspection: Yes scar (lower midline scar of past ) Palpation (GI): Soft to palpation, Tenderness to palpation present (GI) (minimal LLQ tenderness) and No hepatosplenomegaly present Auscultation: normal bowel sounds Rectal Exam - Female: deferred Skin: General skin exam: no rashes or lesions noted Neuro: General: patient oriented x3, gait normal and moves all extremities Cranial nerves: Yes Equal, round and reactive pupils present and Yes Normal hearing present Speech: No Abnormal speech present Psych: Appearance: grossly normal Mental Status: mental status grossly normal Results Labs CBC & Chem 7: 12/09/20 07:09 12/09/20 07:09 Labs: Short CBC 12/08/20 12/09/20 12/09/20 Range/Units 23:10 03:25 07:09 WBC 9.7 6.6 (4.8-10.8) X10*3/uL Hgb 9.3 L D 8.6 L 7.4 L (12.0-16.0) g/dl Hct 28.8 L D 26.1 L 22.9 L (37-47) % Plt Count 247 170 D (160-400) X10*3/uL BMP 12/08/20 12/09/20 23:10 07:09 Sodium 140 142 Potassium 4.5 4.5 Chloride 107 110 H Carbon Dioxide 25 28 BUN 5 L D 5 L Creatinine 0.97 0.78 Calcium 8.5 D 7.9 L D Liver Function 12/08/20 Range/Units 23:10 Total Bilirubin 0.3 (0.0-1.0) mg/dL AST 21 (5-31) U/L ALT 16 (0-31) U/L Alkaline Phosphatase 85 (39-117) U/L Albumin 3.6 (3.5-5.0) g/dL Urine 12/09/20 Range/Units 07:33 Urine Color YELLOW Urine Appearance CLEAR Urine pH 6.0 (5.0-8.0) Ur Specific [place] >= 1.030 H (1.005-1.025) Urine Protein NEG (NEG-TRACE) MG/DL Urine Glucose (UA) NEG (NEG) MG/DL Assessment and Plan (1) Lower gastrointestinal hemorrhage: Status: Acute (2) Anemia: Qualifiers: Anemia type: other cause Other causes of anemia: acute posthemorrhagic Qualified Code(s): D62 - Acute posthemorrhagic anemia Status: Acute (3) Constipation: Status: Acute 65 YF with hypercholestrolemia, atypical chest pain and chronic constipation admitted with 10 day hx of LGI bleeding. Pt denies having a colonoscopy in the past. ABD CT scan showed mildly hyperemic and fluid distended loops of the small bowel felt to be gastroenteritis in the appropriate clinical setting. No active pericolic inflammatory changes to suggest diverticulitis or colitis. LGIB can be diverticular, large colon polyp or mass, AVM. RECOMMENDATIONS: 1. Agree with blood transfusion for anemia 2. Monitor H & H post blood transfusion 3. Proceed with colonoscopy as scheduled this am. Colonoscopy procedure and potential complications including bleeding, perforation, reaction to anesthetics were reviewed with the patient and his son. 4. Pt needs to be scheduled for dynamic abdominal MR/MRCP to FU on liver and pancreatic lesions noted on abd CT scan (can be scheduled as an outpatient) once GI bleeding has subsided. Procedures Date of Service Date of Service: 12/09/20
--- NOTE | 2020-12-09 10:07 | PC.NURSE ---
PT CURRENTLY IN OR FOR COLONOSCOPY
--- NOTE | 2020-12-09 10:15 | P.BOP_ITS ---
Brief Operative Note Date of Service: 12/09/20 Pre-op diagnosis: LGI Bleeding, anemia Post-op diagnosis: other (Colon polyps, diverticulosis, hemorrhoids) Procedure: COLONOSCOPY TILL CECUM WITH SNARE POLYPECTOMY Consent: Indications for the procedure and potential complications of bleeding, perforation, reaction to medications and missed diagnosis were discussed with the patient and informed consent was obtained. Instrument: Olympus PCF H 190 L variable stiffness pediatric colonoscope Monitoring: Vital signs and clinical assessment, intermittent blood pressure monitoring, continuous EKG monitoring, Pulse oximetry and Carbon Dioxide monitoring were done throughout the procedure. Colon withdrawl time was 34 minutes. Procedure: The patient was placed in the left lateral decubitis position and pre-procedure medications were administered. After a digital rectal examination of the ano-rectum, the video colonoscope was inserted into the rectum and advanced through the colon to the cecum. The colonoscope was slowly withdrawn in a retrograde panoramic fashion and the colon mucosa was carefully examined including a retroflexed view of the rectum. Findings and interventions are described below. Procedure Difficulty: Without difficulty Findings: Terminal Ileum: TI was briefly intubated and appeared normal Cecum: Normal Ascending Colon: A 10-12 mm sessile polyp removed with a cold snare Transverse Colon: Two 8-12 mm sessile polyps in the proximal transverse colon removed with a cold snare Descending Colon: Normal Sigmoid Colon: A 15 mm sessile polyp at 60 cm removed with a hot snare Minimal diverticulosis Rectum: Normal Ano-rectum: Large non bleeding internal hemorrhoids Colon preparation: Excellent Impression and Post Procedure Diagnosis: Colonoscopy Findings: Four medium sized polyps removed Minimal diverticulosis seen in the sigmoid colon Large non-bleeding hemorrhoids on retroflexed exam. No active bleeding or blood seen in the colon or TI during colonoscopy - LGI bleeding likely colon irritation from constipation (which has resolved) versus hemorrhoids versus small bowel source of bleeding. Plan: Await pathology results - I will send a letter with biopsy results. Monitor H&H 2 hrs post transfusion. If CBC remains stable without recurrent bleeding, pt can be discharged home tomorrow. If she has recurrent bleeding, obtain a CT angiogram to determine location of bleeding. If no further bleeding, schedule a CT enterography in the am to fu on small bowel abnormality seen on recent CT scan. Repeat Colonoscopy interval based on path results - in 3 years if polyps are megan nomatous and 10 years if polyps are hyperplastic. Above findings were reviewed with the patient, her son and Dr Garcia (pt's hospitalist) and colon polyps and diverticulosis handouts were given in the discharge area Surgeon: Nahum Kapoor MD Anesthesia: MAC (Dr Sharpe) Was an Bindery Operator used for this Procedure?: Yes Bindery Operator: Julee Paz Estimated blood loss (mL): 0 Pathology: other (a: polyp hepatic flexure b: transverse colon polyps c: sigmoid polyp) Condition: stable Disposition: PACU
--- NOTE | 2020-12-09 10:17 | W.PM.OPN ---
Operative Note Operative Note Date of Service: 12/09/20 Narrative: Pre-op diagnosis:?LGI Bleeding, anemia Post-op diagnosis:?other (Colon polyps, diverticulosis, hemorrhoids) Procedure:? COLONOSCOPY TILL CECUM WITH SNARE POLYPECTOMY Consent: Indications for the procedure and potential complications of bleeding, perforation, reaction to medications and missed diagnosis were discussed with the patient and informed consent was obtained. Instrument: Olympus PCF H 190 L variable stiffness pediatric colonoscope Monitoring: Vital signs and clinical assessment, intermittent blood pressure monitoring, continuous EKG monitoring, Pulse oximetry and Carbon Dioxide monitoring were done throughout the procedure. Colon withdrawl time was 34 minutes. Procedure: The patient was placed in the left lateral decubitis position and pre-procedure medications were administered. After a digital rectal examination of the ano-rectum, the video colonoscope was inserted into the rectum and advanced through the colon to the cecum. The colonoscope was slowly withdrawn in a retrograde panoramic fashion and the colon mucosa was carefully examined including a retroflexed view of the rectum. Findings and interventions are described below. Procedure Difficulty: Without difficulty Findings: Terminal Ileum: TI was briefly intubated and appeared normal Cecum:? Normal Ascending Colon:? A 10-12 mm sessile polyp removed with a cold snare Transverse Colon:? Two 8-12 mm sessile polyps in the proximal transverse colon removed with a cold snare Descending Colon:? Normal Sigmoid Colon:? A 15 mm sessile polyp at 60 cm removed with a hot snare? Minimal diverticulosis Rectum:? Normal Ano-rectum:? Large non bleeding internal hemorrhoids Colon preparation: Excellent ? Impression and Post Procedure Diagnosis: Colonoscopy Findings: Four medium sized polyps removed Minimal diverticulosis seen in the sigmoid colon Large non-bleeding hemorrhoids on retroflexed exam. No active bleeding or blood seen in the colon or TI during colonoscopy - LGI bleeding likely colon irritation from constipation (which has resolved) versus hemorrhoids versus small bowel source of bleeding. Plan: Await pathology results - I will send a letter with biopsy results. Monitor H&H 2 hrs post transfusion.? If CBC remains stable without recurrent bleeding, pt can be discharged home tomorrow. If she has recurrent bleeding, obtain a CT angiogram to determine location of bleeding. If no further bleeding, schedule a CT enterography in the am to fu on small bowel abnormality seen on recent CT scan. Repeat Colonoscopy interval based on path results - in 3 years if polyps are adenomatous and 10 years if polyps are hyperplastic. Above findings were reviewed with the patient, her son and Dr Garcia (pt's hospitalist) and colon polyps and diverticulosis handouts were given in the discharge area Surgeon:?Nahum Kapoor MD Anesthesia:?MAC (Dr Sharpe) Was an Jewelry Department Supervisor used for this Procedure?:?No Jewelry Department Supervisor:?Julee Paz Estimated blood loss (mL):?0 Pathology:?other (a: polyp hepatic flexure? b: transverse colon polyps? c: sigmoid polyp) Condition:?stable Disposition:?PACU
--- NOTE | 2020-12-09 11:12 | HO.ANESPROP2 ---
[facility] Active Problems Active Problems: All Active Problems (Updated 12/09/20 @ 09:44 by Nahum Kapoor MD) Lower gastrointestinal hemorrhage (Acute) Anemia (Acute) Constipation (Acute) Anemia (Acute) Left shoulder pain (Acute) Neck pain (Acute) Sprain of cervical neck (Acute) Atypical chest pain (Acute) Hypercholesterolemia (Acute) Past Medical History Medical History (Updated 12/09/20 @ 09:44 by Nahum Kapoor MD) Hypercholesterolemia Takotsubo cardiomyopathy Patient : No Family History Family History Mother No problems noted. Father No problems noted. Father CVD (cardiovascular disease) Mother CVD (cardiovascular disease) Family history of problems with anesthesia: No Surgical History Surgical History History of cataract surgery Hx of cardiac cath History of Problems with Anesthesia: No Social History Social History Housing: House Alcohol intake: never Patient Tobacco Use Status: Never used Tobacco Advance Directives: No Advance Directives Information Provided: No Patient : No service: No Current occupational status: retired Meds Allergies Allergy/AdvReac Type Severity Reaction Status Date / Time paraben Allergy Severe urticaria Verified 12/09/20 00:21 Sulfa (Sulfonamide Allergy Mild HIVES Verified 12/09/20 00:21 Antibiotics) [SULFA (SULFONAMIDE ANTIBIOTICS)] sulfacetamide Allergy Unknown hives Verified 12/09/20 00:21 sulfur Allergy Unknown hives Verified 12/09/20 00:21 Latex, Natural Rubber AdvReac Unknown Verified 12/09/20 00:21 Active Medications: Current Medications Acetaminophen (Acetaminophen 325 Mg Tablet) 650 mg PO Q6H PRN PRN Reason: Pain, Mild (Pain Scale 1-3) Docusate Sodium (Docusate Sodium 100 Mg Capsule) 100 mg PO DAILY PRN PRN Reason: Constipation Multivitamins/Vitamin C (Multivitamin Tablet) 1 tab PO DAILY EYAD Ondansetron HCl (Ondansetron Hcl 4 Mg/2 Ml Vial) 4 mg IVPUSH Q8H PRN PRN Reason: Nausea and Vomiting Pantoprazole Sodium (Pantoprazole Sodium 40 Mg/10 Ml Vial) 40 mg IVPUSH BID@8930,3340 [facility] Last Admin: 12/09/20 06:23 Dose: 40 mg Documented by: Sodium Chloride (0.9 % Sodium Chloride Flush 3 Ml Syringe) 3 ml IVFLUSH QSHIFT [facility] Last Admin: 12/09/20 00:24 Dose: Not Given Documented by: Home Medications Medication Instructions Recorded Confirmed Last Taken Type cholecalciferol (vitamin D3) 1,250 1 cap PO QWEEK 12/09/20 12/09/20 Unknown History mcg (50,000 unit) capsule docusate sodium 100 mg capsule 1 cap PO DAILY 12/09/20 12/09/20 Unknown History (Stool Softener) hydrocortisone acetate 25 mg 1 supp AK BEDTIME 12/09/20 12/09/20 Unknown History rectal suppository multivitamin with folic acid 400 1 tab PO DAILY 12/09/20 12/09/20 Unknown History mcg tablet (Daily-Josue (with folic acid)) Exam Exam Date and Time: December 09, 2020 1112 Height,Weight and Vital Signs: Height 5 ft 4 in Weight 74 kg Last Vital Signs Temp 98 F 12/09/20 09:35 Pulse 87 12/09/20 09:20 Resp 16 12/09/20 09:35 BP 135/69 12/09/20 09:35 Pulse Ox 96 12/09/20 06:00 Pertinent Lab Results Pertinent Lab Results: Laboratory Tests 12/08/20 12/08/20 12/08/20 23:10 23:10 23:10 WBC 9.7 RBC 3.27 L D Hgb 9.3 L D Hct 28.8 L D MCV 88.1 MCH 28.4 MCHC 32.3 RDW 13.4 Plt Count 247 MPV 11.6 Immature Gran % (Auto) 0.3 Neut % (Auto) 51.3 Lymph % (Auto) 37.2 [place] % (Auto) 7.8 Eos % (Auto) 3.1 Baso % (Auto) 0.3 Lymph # (Auto) 3.6 [place] # (Auto) 0.8 Eos # (Auto) 0.3 Baso # (Auto) 0.0 Abs Immat Gran (auto) 0.03 Absolute Neuts (auto) 5.0 Absolute Nucleated RBC 0.000 Nucleated RBC % (auto) 0.0 Sodium 140 Potassium 4.5 Chloride 107 Carbon Dioxide 25 Anion Gap 13 BUN 5 L D Creatinine 0.97 Estim Creat Clear Calc 57.0 Estimated GFR 58 Random Glucose 141 H Calcium 8.5 D Total Bilirubin 0.3 AST 21 ALT 16 Alkaline Phosphatase 85 Total Protein 6.4 L Albumin 3.6 Urine Color Urine Appearance Urine pH Ur Specific [place] Urine Protein Urine Glucose (UA) Urine Ketones Urine Blood Urine Nitrite Ur Leukocyte Esterase Urine RBC Urine WBC Ur Squamous Epith Cells Urine Bacteria Urine Mucus COVID-19 ([place]) COVID-19 Clin Com Blood Type B Positive Antibody Screen NEGATIVE Crossmatch See Detail 12/09/20 12/09/20 12/09/20 00:02 03:25 07:09 WBC 6.6 RBC 2.63 L Hgb 8.6 L 7.4 L Hct 26.1 L 22.9 L MCV 87.1 MCH 28.1 MCHC 32.3 RDW 13.3 Plt Count 170 D MPV 11.1 Immature Gran % (Auto) 0.6 H Neut % (Auto) 55.1 Lymph % (Auto) 30.9 [place] % (Auto) 10.0 Eos % (Auto) 3.2 Baso % (Auto) 0.2 Lymph # (Auto) 2.0 [place] # (Auto) 0.7 Eos # (Auto) 0.2 Baso # (Auto) 0.0 Abs Immat Gran (auto) 0.04 H Absolute Neuts (auto) 3.7 Absolute Nucleated RBC 0.000 Nucleated RBC % (auto) 0.0 Sodium Potassium Chloride Carbon Dioxide Anion Gap BUN Creatinine Estim Creat Clear Calc Estimated GFR Random Glucose Calcium Total Bilirubin AST ALT Alkaline Phosphatase Total Protein Albumin Urine Color Urine Appearance Urine pH Ur Specific [place] Urine Protein Urine Glucose (UA) Urine Ketones Urine Blood Urine Nitrite Ur Leukocyte Esterase Urine RBC Urine WBC Ur Squamous Epith Cells Urine Bacteria Urine Mucus COVID-19 ([place]) Negative COVID-19 Clin Com See Note Blood Type Antibody Screen Crossmatch 12/09/20 12/09/20 07:09 07:33 WBC RBC Hgb Hct MCV MCH MCHC RDW Plt Count MPV Immature Gran % (Auto) Neut % (Auto) Lymph % (Auto) [place] % (Auto) Eos % (Auto) Baso % (Auto) Lymph # (Auto) [place] # (Auto) Eos # (Auto) Baso # (Auto) Abs Immat Gran (auto) Absolute Neuts (auto) Absolute Nucleated RBC Nucleated RBC % (auto) Sodium 142 Potassium 4.5 Chloride 110 H Carbon Dioxide 28 Anion Gap 9 L BUN 5 L Creatinine 0.78 Estim Creat Clear Calc 70.8 Estimated GFR > 60 Random Glucose 117 H Calcium 7.9 L D Total Bilirubin AST ALT Alkaline Phosphatase Total Protein Albumin Urine Color YELLOW Urine Appearance CLEAR Urine pH 6.0 Ur Specific [place] >= 1.030 H Urine Protein NEG Urine Glucose (UA) NEG Urine Ketones NEG Urine Blood 1+ H Urine Nitrite NEG Ur Leukocyte Esterase NEG Urine RBC 0-2 Urine WBC 5-9 H Ur Squamous Epith Cells TRACE Urine Bacteria NONE Urine Mucus 1+ COVID-19 ([place]) COVID-19 Clin Com Blood Type Antibody Screen Crossmatch Airway Mallampati Class: II TM Dist: >3cm Neck ROM: Full Heart: RRR Lungs: CTA Assessment and Plan Final Anesthetic Review Family History of Problems with Anesthesia: No History of Problems with Anesthesia: No
--- NOTE | 2020-12-09 13:27 | P.PNIM_ITS ---
Subjective Subjective Date of Service: 12/09/20 Interval History: No acute events since admission; tolerated colonoscopy prep without issue Review of Systems Denies chest pain Denies shortness of breath Denies nausea vomiting diarrhea Physical Exam Vital Signs: Vital Signs: Last Vital Signs Temp 98.6 F 12/09/20 13:08 Pulse 77 12/09/20 13:08 Resp 17 12/09/20 13:08 BP 149/67 H 12/09/20 13:08 Pulse Ox 99 12/09/20 11:59 Body Mass Index 28.0 Const: Other: Awake alert oriented x3 no acute distress HENMT: Other: Membranes moist; oropharynx clear Resp: Other: Clear escalation all adams; no rales rhonchi wheezes Cardio: Other: No S4; S1-S2; no S3 murmurs rubs or gallops GI: Other: Soft nontender nondistended with normoactive bowel sounds. There are no overt peritoneal signs Extrem: Other: No edema bilaterally; normal to inspection Objective Data Active Medications Acetaminophen (Acetaminophen 325 Mg Tablet) 650 mg PO Q6H PRN PRN Reason: Pain, Mild (Pain Scale 1-3) Docusate Sodium (Docusate Sodium 100 Mg Capsule) 100 mg PO DAILY PRN PRN Reason: Constipation Multivitamins/Vitamin C (Multivitamin Tablet) 1 tab PO DAILY [facility] Last Admin: 12/09/20 12:06 Dose: Not Given Documented by: VANCE Non-Admin Reason: Off Unit: Surgery Ondansetron HCl (Ondansetron Hcl 4 Mg/2 Ml Vial) 4 mg IVPUSH Q8H PRN PRN Reason: Nausea and Vomiting Pantoprazole Sodium (Pantoprazole Sodium 40 Mg/10 Ml Vial) 40 mg IVPUSH BID@0630,1630 [facility] Last Admin: 12/09/20 06:23 Dose: 40 mg Documented by: KAYLA Sodium Chloride (0.9 % Sodium Chloride Flush 3 Ml Syringe) 3 ml IVFLUSH QSHIFT [facility] Last Admin: 12/09/20 12:06 Dose: Not Given Documented by: VANCE Non-Admin Reason: Off Unit: Surgery Labs CBC & Chem 7: 12/09/20 07:09 12/09/20 07:09 Labs: Laboratory Results - last 24 hr 12/08/20 12/08/20 12/08/20 23:10 23:10 23:10 MCV 88.1 MCH 28.4 MCHC 32.3 RDW 13.4 Plt Count 247 MPV 11.6 Immature Gran % (Auto) 0.3 Neut % (Auto) 51.3 Lymph % (Auto) 37.2 [place] % (Auto) 7.8 Eos % (Auto) 3.1 Baso % (Auto) 0.3 Lymph # (Auto) 3.6 [place] # (Auto) 0.8 Eos # (Auto) 0.3 Baso # (Auto) 0.0 Abs Immat Gran (auto) 0.03 Absolute Neuts (auto) 5.0 Absolute Nucleated RBC 0.000 Nucleated RBC % (auto) 0.0 Anion Gap 13 Estim Creat Clear Calc 57.0 Estimated GFR 58 Random Glucose 141 H Calcium 8.5 D Total Bilirubin 0.3 AST 21 ALT 16 Alkaline Phosphatase 85 Total Protein 6.4 L Albumin 3.6 Urine Color Urine Appearance Urine pH Ur Specific [place] Urine Protein Urine Glucose (UA) Urine Ketones Urine Blood Urine Nitrite Ur Leukocyte Esterase Urine RBC Urine WBC Ur Squamous Epith Cells Urine Bacteria Urine Mucus COVID-19 ([place]) COVID-19 Clin Com Blood Type B Positive Antibody Screen NEGATIVE Crossmatch See Detail 12/09/20 12/09/20 12/09/20 00:02 07:09 07:09 MCV 87.1 MCH 28.1 MCHC 32.3 RDW 13.3 Plt Count 170 D MPV 11.1 Immature Gran % (Auto) 0.6 H Neut % (Auto) 55.1 Lymph % (Auto) 30.9 [place] % (Auto) 10.0 Eos % (Auto) 3.2 Baso % (Auto) 0.2 Lymph # (Auto) 2.0 [place] # (Auto) 0.7 Eos # (Auto) 0.2 Baso # (Auto) 0.0 Abs Immat Gran (auto) 0.04 H Absolute Neuts (auto) 3.7 Absolute Nucleated RBC 0.000 Nucleated RBC % (auto) 0.0 Anion Gap 9 L Estim Creat Clear Calc 70.8 Estimated GFR > 60 Random Glucose 117 H Calcium 7.9 L D Total Bilirubin AST ALT Alkaline Phosphatase Total Protein Albumin Urine Color Urine Appearance Urine pH Ur Specific [place] Urine Protein Urine Glucose (UA) Urine Ketones Urine Blood Urine Nitrite Ur Leukocyte Esterase Urine RBC Urine WBC Ur Squamous Epith Cells Urine Bacteria Urine Mucus COVID-19 ([place]) Negative COVID-19 Clin Com See Note Blood Type Antibody Screen Crossmatch 12/09/20 07:33 MCV MCH MCHC RDW Plt Count MPV Immature Gran % (Auto) Neut % (Auto) Lymph % (Auto) [place] % (Auto) Eos % (Auto) Baso % (Auto) Lymph # (Auto) [place] # (Auto) Eos # (Auto) Baso # (Auto) Abs Immat Gran (auto) Absolute Neuts (auto) Absolute Nucleated RBC Nucleated RBC % (auto) Anion Gap Estim Creat Clear Calc Estimated GFR Random Glucose Calcium Total Bilirubin AST ALT Alkaline Phosphatase Total Protein Albumin Urine Color YELLOW Urine Appearance CLEAR Urine pH 6.0 Ur Specific [place] >= 1.030 H Urine Protein NEG Urine Glucose (UA) NEG Urine Ketones NEG Urine Blood 1+ H Urine Nitrite NEG Ur Leukocyte Esterase NEG Urine RBC 0-2 Urine WBC 5-9 H Ur Squamous Epith Cells TRACE Urine Bacteria NONE Urine Mucus 1+ COVID-19 ([place]) COVID-19 Clin Com Blood Type Antibody Screen Crossmatch Assessment and Plan (1) Lower gastrointestinal hemorrhage: Status: Acute (2) Anemia: Status: Acute (3) Hypercholesterolemia: Status: Acute Assessment and Plan: 65 YF with hypercholestrolemia, atypical chest pain and chronic constipation admitted with 10 day hx of LGI bleeding. Pt denies having a colonoscopy in the past. ABD CT scan showed mildly hyperemic and fluid distended loops of the small bowel felt to be gastroenteritis in the appropriate clinical setting. No active pericolic inflammatory changes to suggest diverticulitis or colitis 1. LGIB Appreciate 's input. Colonoscopy essentially unremarkable. Will complete transfusion of 2 units of packed red blood cells As per GI; willing to be scheduled for dynamic abdominal MR MRCP to follow- up lesions noted on CT scan (can be scheduled as outpatient if needed) Add PPI to regimen 2. Anemia Secondary to active GI bleed. 2 units of red cells to be given; Follow-up CBC in a.m. 3. Full code/Venodyne boots Quality Stroke Does the patient have a stroke diagnosis?: No VTE Prior VTE?: No VTE Risk Level:: Medical - moderate - high VTE Device Contraindication: N/A - Device Ordered VTE Drug Contraindication: Treatment Not Indicated
[2020-12-09] MEDS: 0.9 % Sodium Chloride Flush 3 ML SYRINGE IVFLUSH ×2 (16:19→19:58)
--- NOTE | 2020-12-09 22:04 | PM.EVENT ---
Event Note Date of Service: 12/10/20 Event Note: GI Bleed: pt had 2 episodes of BRBPR; pt denies lightheadedness. BP is 163/83. Discussed with Dr Kapoor -> pt had colonscopy ->noted small polyps; noted hemorrhoids; and minimal diverticulosis. Repeat CBC Transfuse prn if HBG<7. CT angio abd stat: Bleeding into the intestine near the hemorrhoids; concern for possible hemorrhoidal bleeding. Discussed with Dr. Kapoor who suggested general surgery follow-up in the morning. Follow-up H&H stable Will continue to monitor. Notified General surgery Dr. Elian Dominguez,mentioned he will pt in AM.
[2020-12-09 22:14] LABS: MANUAL DIFF FLAG NO
[2020-12-09 22:16] LABS: Basophils Percent Auto 0.4 % (0-2); Eosinophils Absolute Auto 0.2 X10*3/uL (0.0-0.4); Eosinophils Percent Auto 2.6 % (0-4); Hematocrit 32.8 % (37-47); Hemoglobin 11.1 g/dl (12.0-16.0); Imm Gran Abs Auto 0.04 X10*3/uL (0.00-0.03); Imm Gran Pct Auto 0.5 % (0.0-0.4); Lymphocytes Absolute Auto 2.3 X10*3/uL (1.2-4.9); Lymphocytes Percent Auto 28.7 % (20-40); Mean Corpuscular HGB Conc 33.8 g/dl (31.0-35.0); Mean Corpuscular Hemoglobin 29.7 pg (27.0-33.0); Mean Corpuscular Volume 87.7 fL (80-98); Mean Platelet Volume 11.4 fL (9.4-12.3); Monocytes Absolute Auto 0.8 X10*3/uL (0.1-1.2); Monocytes Percent Auto 9.3 % (2-11); Neutrophils Absolute Auto 4.7 X10*3/uL (2.0-8.3); Neutrophils Percent Auto 58.5 % (45-73); Platelet Count 203 X10*3/uL (160-400); Red Blood Count 3.74 X10*6/uL (4.20-5.50); Red Cell Distribution Width 13.4 % (11.0-16.0); White Blood Count 8.1 X10*3/uL (4.8-10.8)
[2020-12-09 22:28] LABS: Blood Urea Nitrogen 6 mg/dL (9-16); Creatinine Clr Calc Pharmacy 73.6; Estimated Glomerular Filt Rate > 60
[2020-12-09 22:37] LABS: Lactic Acid 1.9 mmol/L (0.5-2.0)
[2020-12-09] MEDS: iohexoL 350 MG/ML 100 ML INFUS..BTL 80 ML IV (23:18)
[2020-12-09] MEDS: Melatonin 3 MG TABLET 6 MG PO (23:49)
[2020-12-10] VITALS (7 sets, daily range): BP systolic 118–174; BP diastolic 58–82; PULSE 72–88; RESP 16–18; TEMP 36.6–37.2; O2SAT 96–100
[2020-12-10] MEDS: Pantoprazole Sodium 40 MG/10 ML VIAL IVPUSH ×2 (05:52→16:30)
[2020-12-10 07:19] LABS: MANUAL DIFF FLAG NO
[2020-12-10 07:22] LABS: Basophils Percent Auto 0.2 % (0-2); Eosinophils Absolute Auto 0.2 X10*3/uL (0.0-0.4); Eosinophils Percent Auto 2.7 % (0-4); Hematocrit 29.9 % (37-47); Hemoglobin 10.2 g/dl (12.0-16.0); Imm Gran Abs Auto 0.04 X10*3/uL (0.00-0.03); Imm Gran Pct Auto 0.6 % (0.0-0.4); Lymphocytes Absolute Auto 2.1 X10*3/uL (1.2-4.9); Lymphocytes Percent Auto 31.3 % (20-40); Mean Corpuscular HGB Conc 34.1 g/dl (31.0-35.0); Mean Corpuscular Hemoglobin 29.9 pg (27.0-33.0); Mean Corpuscular Volume 87.7 fL (80-98); Mean Platelet Volume 11.1 fL (9.4-12.3); Monocytes Absolute Auto 0.7 X10*3/uL (0.1-1.2); Monocytes Percent Auto 9.9 % (2-11); Neutrophils Absolute Auto 3.7 X10*3/uL (2.0-8.3); Neutrophils Percent Auto 55.3 % (45-73); Platelet Count 170 X10*3/uL (160-400); Red Blood Count 3.41 X10*6/uL (4.20-5.50); Red Cell Distribution Width 13.5 % (11.0-16.0); White Blood Count 6.7 X10*3/uL (4.8-10.8)
[2020-12-10 07:26] LABS: INTERNATIONAL NORM RATIO 1.1 (0.9-1.1)
[2020-12-10] MEDS: 0.9 % Sodium Chloride Flush 3 ML SYRINGE IVFLUSH ×2 (07:42→16:31)
[2020-12-10 07:43] LABS: Alanine Aminotransferase 17 U/L (0-31); Albumin Level 3.3 g/dL (3.5-5.0); Alkaline Phosphatase 79 U/L (39-117); Anion Gap 7 (12-20); Aspartate Amino Transferase 18 U/L (5-31); Bilirubin Total 0.5 mg/dL (0.0-1.0); Blood Urea Nitrogen 5 mg/dL (9-16); Calcium 8.4 mg/dL (8.4-10.2); Carbon Dioxide 28 mmol/L (22-29); Chloride 110 mmol/L (96-108); Creatinine Clr Calc Pharmacy 76.8; Estimated Glomerular Filt Rate > 60; Glucose Random 116 mg/dL (60-115); Potassium 4.2 mmol/L (3.3-5.1); Sodium 141 mmol/L (135-145); Total Protein 5.5 g/dL (6.5-8.0)
--- NOTE | 2020-12-10 09:24 | MHC.CM.PN ---
PATIENT LIVES WITH HER SON (IN ROOM) NO DME OR VNA SERVICES IN THE HOME. SHE IS INDEPENDENT WITH WALKING AND SELF-CARE. PATIENT GIVES PERMISSION FOR THIS WRITE TO SPEAK WITH SON. BED-SIDE SCOPE PLANNED TODAY CASE MANAGEMENT FOLLOWING FOR DISCHARGE PLANS OR NEEDS. CASE MANAGEMENT TO ALSO DISCUSS POSSIBILITY OF AN EXISTING HCP DOCUMENTATION AT A TIME WHEN PATIENT IS FEELING MORE AWAKE
[2020-12-10] MEDS: Multivitamin TABLET 1 TAB PO (10:35)
--- NOTE | 2020-12-10 11:38 | P.PNIM_ITS ---
Subjective Subjective Date of Service: 12/10/20 Interval History: Notable fatigue this a.m.. States still passing blood in toilet. Review of Systems Denies chest pain Denies shortness of breath Denies nausea vomiting diarrhea Physical Exam Vital Signs: Vital Signs: Last Vital Signs Temp 97.9 F 12/10/20 07:50 Pulse 74 12/10/20 07:50 Resp 18 12/10/20 07:50 BP 136/70 12/10/20 07:50 Pulse Ox 97 12/10/20 07:50 Body Mass Index 28.0 Const: Other: Awake alert oriented x3 no acute distress HENMT: Other: Membranes moist; oropharynx clear Resp: Other: Clear to auscultation all adams; no rales rhonchi wheezes Cardio: Other: No S4; S1-S2; no S3 murmurs rubs or gallops RRR GI: Other: Soft nontender nondistended with normoactive bowel sounds. There are no overt peritoneal signs Extrem: Other: No edema bilaterally; normal to inspection Objective Data Active Medications Acetaminophen (Acetaminophen 325 Mg Tablet) 650 mg PO Q6H PRN PRN Reason: Pain, Mild (Pain Scale 1-3) Docusate Sodium (Docusate Sodium 100 Mg Capsule) 100 mg PO DAILY PRN PRN Reason: Constipation Melatonin (Melatonin 3 Mg Tablet) 6 mg PO BEDTIME PRN PRN Reason: Insomnia Last Admin: 12/09/20 23:49 Dose: 6 mg Documented by: FARHEEN Multivitamins/Vitamin C (Multivitamin Tablet) 1 tab PO DAILY [facility] Last Admin: 12/10/20 10:35 Dose: 1 tab Documented by: BELLO Ondansetron HCl (Ondansetron Hcl 4 Mg/2 Ml Vial) 4 mg IVPUSH Q8H PRN PRN Reason: Nausea and Vomiting Ondansetron HCl (Ondansetron Hcl 4 Mg/2 Ml Vial) 4 mg IVPUSH Q4H PRN PRN Reason: Nausea and Vomiting Pantoprazole Sodium (Pantoprazole Sodium 40 Mg/10 Ml Vial) 40 mg IVPUSH BID@0630,1630 [facility] Last Admin: 12/10/20 05:52 Dose: 40 mg Documented by: FARHEEN Sodium Chloride (0.9 % Sodium Chloride Flush 3 Ml Syringe) 3 ml IVFLUSH QSHIFT [facility] Last Admin: 12/10/20 07:42 Dose: 3 ml Documented by: BELLO Labs CBC & Chem 7: 12/10/20 07:14 12/10/20 07:14 Labs: Laboratory Results - last 24 hr 12/08/20 12/09/20 12/09/20 23:10 22:09 22:09 MCV 87.7 MCH 29.7 MCHC 33.8 RDW 13.4 Plt Count 203 MPV 11.4 Immature Gran % (Auto) 0.5 H Neut % (Auto) 58.5 Lymph % (Auto) 28.7 [place] % (Auto) 9.3 Eos % (Auto) 2.6 Baso % (Auto) 0.4 Lymph # (Auto) 2.3 [place] # (Auto) 0.8 Eos # (Auto) 0.2 Baso # (Auto) 0.0 Abs Immat Gran (auto) 0.04 H Absolute Neuts (auto) 4.7 Absolute Nucleated RBC 0.000 Nucleated RBC % (auto) 0.0 PT INR Anion Gap Estim Creat Clear Calc Estimated GFR Random Glucose Lactic Acid 1.9 Calcium Total Bilirubin AST ALT Alkaline Phosphatase Total Protein Albumin Blood Type B Positive Antibody Screen NEGATIVE Crossmatch See Detail 12/09/20 12/10/20 12/10/20 22:09 07:14 07:14 MCV MCH MCHC RDW Plt Count MPV Immature Gran % (Auto) Neut % (Auto) Lymph % (Auto) Catron % (Auto) Eos % (Auto) Baso % (Auto) Lymph # (Auto) Cat[place] # (Auto) Eos # (Auto) Baso # (Auto) Abs Immat Gran (auto) Absolute Neuts (auto) Absolute Nucleated RBC Nucleated RBC % (auto) PT 12.0 INR 1.1 Anion Gap 7 L Estim Creat Clear Calc 73.6 76.8 Estimated GFR > 60 > 60 Random Glucose 116 H Lactic Acid Calcium 8.4 D Total Bilirubin 0.5 AST 18 ALT 17 Alkaline Phosphatase 79 Total Protein 5.5 L Albumin 3.3 L Blood Type Antibody Screen Crossmatch 12/10/20 07:14 MCV 87.7 MCH 29.9 MCHC 34.1 RDW 13.5 Plt Count 170 MPV 11.1 Immature Gran % (Auto) 0.6 H Neut % (Auto) 55.3 Lymph % (Auto) 31.3 Cat[place] % (Auto) 9.9 Eos % (Auto) 2.7 Baso % (Auto) 0.2 Lymph # (Auto) 2.1 [place] # (Auto) 0.7 Eos # (Auto) 0.2 Baso # (Auto) 0.0 Abs Immat Gran (auto) 0.04 H Absolute Neuts (auto) 3.7 Absolute Nucleated RBC 0.000 Nucleated RBC % (auto) 0.0 PT INR Anion Gap Estim Creat Clear Calc Estimated GFR Random Glucose Lactic Acid Calcium Total Bilirubin AST ALT Alkaline Phosphatase Total Protein Albumin Blood Type Antibody Screen Crossmatch Assessment and Plan (1) Lower gastrointestinal hemorrhage: Status: Acute Assessment and Plan: 65 YF with hypercholestrolemia, atypical chest pain and chronic constipation admitted with 10 day hx of LGI bleeding. Pt denies having a colonoscopy in the past. ABD CT scan showed mildly hyperemic and fluid distended loops of the small bowel felt to be gastroenteritis in the appropriate clinical setting. No active pericolic inflammatory changes to suggest diverticulitis or colitis 1. LGIB Appreciate 's input. Colonoscopy essentially unremarkable. Continue with mild rectal bleeding overnight; seen by Dr. Plummer this a.m.; will proctoscope at bedside. Question exam under anesthesia in a.m.. Check CBC in a.m. Needs to be scheduled for dynamic abdominal MR/MRCP to follow-up on liver and pancreatic lesions; can be done as an outpatient per GI 2. Anemia Secondary to active GI bleed. 2 units of red cells to be given; Follow-up CBC in a.m. 3. Full code/Venodyne boots Quality Stroke Does the patient have a stroke diagnosis?: No VTE Prior VTE?: No VTE Risk Level:: Medical - moderate - high VTE Device Contraindication: N/A - Device Ordered VTE Drug Contraindication: Treatment Not Indicated
--- NOTE | 2020-12-10 11:54 | PC.NURSE ---
Skin assessment completed. No skin issues noted at this time. Patient does move on own and is reminded to turn.
--- NOTE | 2020-12-10 13:53 | MHC.CM.PN ---
PLAN IS FOR O.R. TOMORROW FOR HEMMORHOIDECTOMY. POSSIBLE DC THAT AFTERNOON OR BY WEDNESDAY
--- NOTE | 2020-12-10 14:23 | HO.POSTANES ---
Post Anesthesia Evaluation Post Anesthesia Evaluation Vital Signs: Vital Signs Temp Pulse Resp BP Pulse Ox 12/10/20 11:36 97.9 F 87 18 118/74 96 12/10/20 07:50 97.9 F 74 18 136/70 97 12/10/20 04:00 98.4 F 84 17 156/70 H 97 Anesthesia: Monitored Mental Status: Awake Pain Control: Satisfactory Nausea/Vomiting: None Hydration: Adequate Anesthesia-Related Issues: No Anes. Related Issues
--- NOTE | 2020-12-10 14:36 | P.CONGS_ITS ---
History of Present Illness Consult details Consult date: 12/10/20 Narrative: 65-year-old female referred for bleeding per rectum. She describes having passage of bright blood per rectum with bowel movements for about 10 days now. She does state that she had been recently constipated consistently before that. She says that the bleeding had been heavy in the past 3 days prior to admission. She eventually came to the emergency room on the online education manager of December 09. She had to be transfused 2 units of packed RBC because of significant drop in her hemoglobin to 7.4. She underwent a colonoscopy as day which did not reveal any pathology in the colon. There was note of a large hem orrhoids however. There was no blood seen in the entire colon and there was occasional diverticuli without bleeding She denies any pain with passage of stool. She denies any abdominal pain. She says that sometimes, she would see that the bleeding is very heavy after BMs. Review of Systems Constitutional: Constitutional: Denies chills and Denies fever(s) Cardiovascular: Cardiovascular: Denies chest pain, Denies dyspnea and Denies dyspnea on exertion Respiratory: Respiratory: Denies cough, Denies dyspnea and Denies dyspnea on exertion Gastrointestinal: Gastrointestinal: Reports hematochezia, Denies change in bowel habits and Reports constipation Genitourinary: Genitourinary: Denies hematuria Musculoskeletal: Musculoskeletal: Denies back pain and Denies limited range of motion Neurologic: Denies focal weakness and Denies convulsions Psychiatric: Psychiatric: Denies depression and Denies mood swings PMFSH Past Medical History Medical History Hypercholesterolemia Takotsubo cardiomyopathy Family History Family History Mother No problems noted. Father No problems noted. Father CVD (cardiovascular disease) Mother CVD (cardiovascular disease) Surgical History Surgical History History of cataract surgery Hx of cardiac cath Social History Social History Household Members: Family Housing: House Do you presently have visiting nurse or other home services: No Alcohol intake: never Patient Tobacco Use Status: Never used Tobacco service: No Current occupational status: retired Meds Allergies Allergy/AdvReac Type Severity Reaction Status Date / Time paraben Allergy Severe urticaria Verified 12/09/20 00:21 Sulfa (Sulfonamide Allergy Mild HIVES Verified 12/09/20 00:21 Antibiotics) [SULFA (SULFONAMIDE ANTIBIOTICS)] sulfacetamide Allergy Unknown hives Verified 12/09/20 00:21 sulfur Allergy Unknown hives Verified 12/09/20 00:21 Latex, Natural Rubber AdvReac Unknown Verified 12/09/20 00:21 Active Medications: Current Medications Acetaminophen (Acetaminophen 325 Mg Tablet) 650 mg PO Q6H PRN PRN Reason: Pain, Mild (Pain Scale 1-3) Docusate Sodium (Docusate Sodium 100 Mg Capsule) 100 mg PO DAILY PRN PRN Reason: Constipation Melatonin (Melatonin 3 Mg Tablet) 6 mg PO BEDTIME PRN PRN Reason: Insomnia Last Admin: 12/09/20 23:49 Dose: 6 mg Documented by: Multivitamins/Vitamin C (Multivitamin Tablet) 1 tab PO DAILY [facility] Last Admin: 12/10/20 10:35 Dose: 1 tab Documented by: Ondansetron HCl (Ondansetron Hcl 4 Mg/2 Ml Vial) 4 mg IVPUSH Q8H PRN PRN Reason: Nausea and Vomiting Ondansetron HCl (Ondansetron Hcl 4 Mg/2 Ml Vial) 4 mg IVPUSH Q4H PRN PRN Reason: Nausea and Vomiting Pantoprazole Sodium (Pantoprazole Sodium 40 Mg/10 Ml Vial) 40 mg IVPUSH BID@0630,1630 [facility] Last Admin: 12/10/20 05:52 Dose: 40 mg Documented by: Sodium Chloride (0.9 % Sodium Chloride Flush 3 Ml Syringe) 3 ml IVFLUSH QSHIFT [facility] Last Admin: 12/10/20 07:42 Dose: 3 ml Documented by: Home Medications Medication Instructions Recorded Confirmed Last Taken Type cholecalciferol (vitamin D3) 1,250 1 cap PO QWEEK 12/09/20 12/09/20 Unknown History mcg (50,000 unit) capsule docusate sodium 100 mg capsule 1 cap PO DAILY 12/09/20 12/09/20 Unknown History (Stool Softener) hydrocortisone acetate 25 mg 1 supp IN BEDTIME 12/09/20 12/09/20 Unknown History rectal suppository multivitamin with folic acid 400 1 tab PO DAILY 12/09/20 12/09/20 Unknown History mcg tablet (Daily-Josue (with folic acid)) Physical Exam Vital Signs: Vital Signs: Last Vital Signs Temp 97.9 F 12/10/20 11:36 Pulse 87 12/10/20 11:36 Resp 18 12/10/20 11:36 BP 118/74 12/10/20 11:36 Pulse Ox 96 12/10/20 11:36 Body Mass Index 28.0 Const: General: comfortable and no acute distress Orientation/consciousness: patient oriented x3 Neck: Neck: Yes no lymphadenopathy Resp: Auscultation: clear to auscultation bilaterally Cardio: Rhythm: regular rhythm GI: Other: Anoscopy done as described on the procedure note Palpation (GI): Soft to palpation, nontender and no guarding Neuro: General: patient oriented x3 Results Labs Result diagrams: 12/10/20 07:14 12/10/20 07:14 Labs: Abnormal lab results 12/08/20 12/09/20 12/09/20 Range/Units 23:10 22:09 22:09 RBC 3.74 L D (4.20-5.50) X10*6/uL Hgb 11.1 L D (12.0-16.0) g/dl Hct 32.8 L D (37-47) % Immature Gran % (Auto) 0.5 H (0.0-0.4) % Abs Immat Gran (auto) 0.04 H (0.00-0.03) X10*3/uL Chloride (96-108) mmol/L Anion Gap (12-20) BUN 6 L (9-16) mg/dL Random Glucose (60-115) mg/dL Total Protein (6.5-8.0) g/dL Albumin (3.5-5.0) g/dL Crossmatch See Detail 12/10/20 12/10/20 Range/Units 07:14 07:14 RBC 3.41 L (4.20-5.50) X10*6/uL Hgb 10.2 L (12.0-16.0) g/dl Hct 29.9 L (37-47) % Immature Gran % (Auto) 0.6 H (0.0-0.4) % Abs Immat Gran (auto) 0.04 H (0.00-0.03) X10*3/uL Chloride 110 H (96-108) mmol/L Anion Gap 7 L (12-20) BUN 5 L (9-16) mg/dL Random Glucose 116 H (60-115) mg/dL Total Protein 5.5 L (6.5-8.0) g/dL Albumin 3.3 L (3.5-5.0) g/dL Crossmatch Short CBC 12/09/20 12/10/20 Range/Units 22:09 07:14 WBC 8.1 6.7 (4.8-10.8) X10*3/uL Hgb 11.1 L D 10.2 L (12.0-16.0) g/dl Hct 32.8 L D 29.9 L (37-47) % Plt Count 203 170 (160-400) X10*3/uL BMP 12/09/20 12/10/20 22:09 07:14 Sodium 141 Potassium 4.2 Chloride 110 H Carbon Dioxide 28 BUN 6 L 5 L Creatinine 0.75 0.72 Calcium 8.4 D Liver Function 12/10/20 Range/Units 07:14 Total Bilirubin 0.5 (0.0-1.0) mg/dL AST 18 (5-31) U/L ALT 17 (0-31) U/L Alkaline Phosphatase 79 (39-117) U/L Albumin 3.3 L (3.5-5.0) g/dL Urine 12/09/20 Range/Units 07:33 Urine Color YELLOW Urine Appearance CLEAR Urine pH 6.0 (5.0-8.0) Ur Specific Milnor >= 1.030 H (1.005-1.025) Urine Protein NEG (NEG-TRACE) MG/DL Urine Glucose (UA) NEG (NEG) MG/DL All other labs normal. Assessment and Plan (1) Lower gastrointestinal hemorrhage: Status: Acute [age] year-old female with passage of bright per rectum, often heavy, with note of anemia yesterday requiring transfusion of 2 units of packed RBC. Examination with an anoscope shows large hemorrhoids which appeared to bleed easily and heavily. She had a colonoscopy as well as surgery which showed mild diverticulosis, with no blood in the colon. She did have large hemorrhoids seen. Overall clinical picture is suggestive of outlet bleeding with her hemorrhoids. I have therefore explained to her the option of proceeding with exam under anesthesia and hemorrhoidectomy. I reviewed the risks including but not limited to infections, postop pain, persistent bleeding, as well as the benefits and alternatives. She understands and wants to proceed. We will put her on the add on schedule for tomorrow. Her son was with her during the examination and is aware of the plan. Procedures Date of Service Date of Service: 12/10/20 Procedure Note Procedure Note: Procedure: Anoscopy The patient was placed in left lateral decubitus, knee-chest position. The anoscope was gently inserted through the anal orifice and advanced. A full examination of the anal canal was done. There was note of a large hemorrhoid that seemed to bleed easily on the right anal canal. There were no other lesions seen in the anal canal or the distal rectum. There was no blood seen in the rectum either. There was no induration on digital exam. There was no fissure
[2020-12-10 16:32] LABS: Hematocrit 30.3 % (37-47); Hemoglobin 10.2 g/dl (12.0-16.0); Mean Corpuscular HGB Conc 33.7 g/dl (31.0-35.0); Mean Corpuscular Hemoglobin 29.5 pg (27.0-33.0); Mean Corpuscular Volume 87.6 fL (80-98); Mean Platelet Volume 11.6 fL (9.4-12.3); Platelet Count 185 X10*3/uL (160-400); Red Blood Count 3.46 X10*6/uL (4.20-5.50); Red Cell Distribution Width 13.8 % (11.0-16.0)
[2020-12-11] VITALS (17 sets, daily range): BP systolic 115–180; BP diastolic 61–89; PULSE 66–87; RESP 15–18; TEMP 36.1–36.8; O2SAT 9–100
[2020-12-11] MEDS: 0.9 % Sodium Chloride Flush 3 ML SYRINGE IVFLUSH ×3 (01:31→19:50)
[2020-12-11 05:42] LABS: MANUAL DIFF FLAG NO
[2020-12-11 05:46] LABS: Basophils Percent Auto 0.3 % (0-2); Eosinophils Absolute Auto 0.3 X10*3/uL (0.0-0.4); Eosinophils Percent Auto 4.5 % (0-4); Hemoglobin 10.9 g/dl (12.0-16.0); Imm Gran Abs Auto 0.02 X10*3/uL (0.00-0.03); Imm Gran Pct Auto 0.3 % (0.0-0.4); Lymphocytes Absolute Auto 1.7 X10*3/uL (1.2-4.9); Lymphocytes Percent Auto 29.3 % (20-40); Mean Corpuscular Hemoglobin 29.2 pg (27.0-33.0); Mean Corpuscular Volume 88.5 fL (80-98); Mean Platelet Volume 11.3 fL (9.4-12.3); Monocytes Absolute Auto 0.7 X10*3/uL (0.1-1.2); Monocytes Percent Auto 11.7 % (2-11); Neutrophils Absolute Auto 3.1 X10*3/uL (2.0-8.3); Neutrophils Percent Auto 53.9 % (45-73); Platelet Count 190 X10*3/uL (160-400); Red Blood Count 3.73 X10*6/uL (4.20-5.50); Red Cell Distribution Width 13.8 % (11.0-16.0); White Blood Count 5.8 X10*3/uL (4.8-10.8)
[2020-12-11 06:00] LABS: Alanine Aminotransferase 17 U/L (0-31); Albumin Level 3.4 g/dL (3.5-5.0); Alkaline Phosphatase 80 U/L (39-117); Anion Gap 11 (12-20); Aspartate Amino Transferase 17 U/L (5-31); Bilirubin Total 0.5 mg/dL (0.0-1.0); Blood Urea Nitrogen 6 mg/dL (9-16); Calcium 8.9 mg/dL (8.4-10.2); Carbon Dioxide 27 mmol/L (22-29); Chloride 106 mmol/L (96-108); Creatinine Clr Calc Pharmacy 75.7; Estimated Glomerular Filt Rate > 60; Glucose Fasting 115 mg/dL (60-99); Sodium 140 mmol/L (135-145); Total Protein 5.8 g/dL (6.5-8.0)
[2020-12-11] MEDS: Pantoprazole Sodium 40 MG/10 ML VIAL IVPUSH (06:19)
--- NOTE | 2020-12-11 11:57 | HO.PM.IMPN ---
Subjective Subjective Date of Service: 12/11/20 Interval History: cC: brbpr interval : had more blood in stool today, significant amounts Cardiovascular Cardiovascular: Reports no additional cardiovascular complaints Respiratory Respiratory: Reports no additional respiratory complaints Physical Exam Vital Signs: Vital Signs: Last Vital Signs Temp 98.2 F 12/11/20 11:50 Pulse 69 12/11/20 11:50 Resp 18 12/11/20 11:50 BP 118/72 12/11/20 11:50 Pulse Ox 98 12/11/20 11:50 Body Mass Index 28.0 General: AO X 3, no acute distress Resp: CTA bilateral, no accessory muscles used CVS: S1,S2,RRR GI: soft, non tender, non distended Neuro: motor grossly intact, alert Psych: appropriate affect, appropriate insight Objective Data Active Medications Acetaminophen (Acetaminophen 325 Mg Tablet) 650 mg PO Q6H PRN PRN Reason: Pain, Mild (Pain Scale 1-3) Docusate Sodium (Docusate Sodium 100 Mg Capsule) 100 mg PO DAILY PRN PRN Reason: Constipation Cefotetan Disodium 2 gm/ (Sodium Chloride) 50 mls @ 100 mls/hr IV PREOP ONE Stop: 12/11/20 13:26 Melatonin (Melatonin 3 Mg Tablet) 6 mg PO BEDTIME PRN PRN Reason: Insomnia Last Admin: 12/09/20 23:49 Dose: 6 mg Documented by: FARHEEN Multivitamins/Vitamin C (Multivitamin Tablet) 1 tab PO DAILY [facility] Last Admin: 12/11/20 07:56 Dose: Not Given Documented by: MELANIE Non-Admin Reason: NPO Ondansetron HCl (Ondansetron Hcl 4 Mg/2 Ml Vial) 4 mg IVPUSH Q8H PRN PRN Reason: Nausea and Vomiting Ondansetron HCl (Ondansetron Hcl 4 Mg/2 Ml Vial) 4 mg IVPUSH Q4H PRN PRN Reason: Nausea and Vomiting Sodium Chloride (0.9 % Sodium Chloride Flush 3 Ml Syringe) 3 ml IVFLUSH QSHIFT [facility] Last Admin: 12/11/20 07:58 Dose: 3 ml Documented by: MELANIE Labs CBC & Chem 7: 12/11/20 05:20 12/11/20 05:20 Labs: Laboratory Results - last 24 hr 12/10/20 12/11/20 12/11/20 16:04 05:20 05:20 MCV 87.6 88.5 MCH 29.5 29.2 MCHC 33.7 33.0 RDW 13.8 13.8 Plt Count 185 190 MPV 11.6 11.3 Immature Gran % (Auto) 0.3 Neut % (Auto) 53.9 Lymph % (Auto) 29.3 [place] % (Auto) 11.7 H Eos % (Auto) 4.5 H Baso % (Auto) 0.3 Lymph # (Auto) 1.7 [place] # (Auto) 0.7 Eos # (Auto) 0.3 Baso # (Auto) 0.0 Abs Immat Gran (auto) 0.02 Absolute Neuts (auto) 3.1 Absolute Nucleated RBC 0.000 0.000 Nucleated RBC % (auto) 0.0 0.0 Anion Gap 11 L Estim Creat Clear Calc 75.7 Estimated GFR > 60 Fasting Glucose 115 H Calcium 8.9 Total Bilirubin 0.5 AST 17 ALT 17 Alkaline Phosphatase 80 Total Protein 5.8 L Albumin 3.4 L Assessment and Plan (1) Lower gastrointestinal hemorrhage: Status: Acute Assessment and Plan: 65 YF with hypercholestrolemia, atypical chest pain and chronic constipation admitted with 10 day hx of LGI bleeding. Pt denies having a colonoscopy in the past. ABD CT scan showed mildly hyperemic and fluid distended loops of the small bowel felt to be gastroenteritis in the appropriate clinical setting. No active pericolic inflammatory changes to suggest diverticulitis or colitis Acute blood loss anemia due to likely hemorrhoidal bleed Required 2 units of PRBC Hemoglobin josé miguel of 7.4 on 12/09 Currently 10.9 Continues to bleed, will continue to monitor H&H Plan for hemorrhoidectomy today Indeterminate liver lesions Outpatient MRI/MRCP DVT prophylaxis-mechanical due to GI bleed Quality Stroke Does the patient have a stroke diagnosis?: No VTE Prior VTE?: No VTE Risk Level:: Medical - moderate - high VTE Device Contraindication: N/A - Device Ordered VTE Drug Contraindication: Treatment Not Indicated
--- NOTE | 2020-12-11 13:44 | P.CONAN_ITS ---
[facility] Active Problems Active Problems: All Active Problems (Updated 12/09/20 @ 09:44 by Nahum Kapoor MD) Lower gastrointestinal hemorrhage (Acute) Anemia (Acute) Constipation (Acute) Anemia (Acute) Left shoulder pain (Acute) Neck pain (Acute) Sprain of cervical neck (Acute) Atypical chest pain (Acute) Hypercholesterolemia (Acute) Past Medical History Medical History Hypercholesterolemia Takotsubo cardiomyopathy Family History Family History Mother No problems noted. Father No problems noted. Father CVD (cardiovascular disease) Mother CVD (cardiovascular disease) Family history of problems with anesthesia: No Surgical History Surgical History History of cataract surgery Hx of cardiac cath History of Problems with Anesthesia: No Social History Social History Household Members: Family Housing: House Do you presently have visiting nurse or other home services: No Alcohol intake: never Patient Tobacco Use Status: Never used Tobacco service: No Current occupational status: retired [employer] Allergies Allergy/AdvReac Type Severity Reaction Status Date / Time paraben Allergy Severe urticaria Verified 12/09/20 00:21 Sulfa (Sulfonamide Allergy Mild HIVES Verified 12/09/20 00:21 Antibiotics) [SULFA (SULFONAMIDE ANTIBIOTICS)] sulfacetamide Allergy Unknown hives Verified 12/09/20 00:21 sulfur Allergy Unknown hives Verified 12/09/20 00:21 Latex, Natural Rubber AdvReac Unknown Verified 12/09/20 00:21 Active Medications: Current Medications Acetaminophen (Acetaminophen 325 Mg Tablet) 650 mg PO Q6H PRN PRN Reason: Pain, Mild (Pain Scale 1-3) Docusate Sodium (Docusate Sodium 100 Mg Capsule) 100 mg PO DAILY PRN PRN Reason: Constipation Fentanyl (Fentanyl Citrate/Pf 100 Mcg/2 Ml Vial) 50 mcg IVPUSH Q5M PRN; Protocol PRN Reason: Pain, Severe (Pain Scale 7-10) Lactated Ringer's (Lr) 1,000 mls @ 50 mls/hr IVCONT .Q20H EYAD Promethazine HCl 12.5 mg/ (Sodium Chloride) 50.5 mls @ 202 mls/hr IV ONCE PRN PRN Reason: Nausea and Vomiting Melatonin (Melatonin 3 Mg Tablet) 6 mg PO BEDTIME PRN PRN Reason: Insomnia Last Admin: 12/09/20 23:49 Dose: 6 mg Documented by: Multivitamins/Vitamin C (Multivitamin Tablet) 1 tab PO DAILY [facility] Last Admin: 12/11/20 07:56 Dose: Not Given Documented by: Ondansetron HCl (Ondansetron Hcl 4 Mg/2 Ml Vial) 4 mg IVPUSH Q8H PRN PRN Reason: Nausea and Vomiting Ondansetron HCl (Ondansetron Hcl 4 Mg/2 Ml Vial) 4 mg IVPUSH Q4H PRN PRN Reason: Nausea and Vomiting Oxycodone HCl (Oxycodone Hcl Immed Release 5 Mg Tablet) 5 mg PO ONCE PRN PRN Reason: Pain, Severe (Pain Scale 7-10) Sodium Chloride (0.9 % Sodium Chloride Flush 3 Ml Syringe) [facility] Last Admin: 12/11/20 07:58 Dose: 3 ml Documented by: Home Medications Medication Instructions Recorded Confirmed Last Taken Type cholecalciferol (vitamin D3) 1,250 1 cap PO QWEEK 12/09/20 12/09/20 Unknown History mcg (50,000 unit) capsule docusate sodium 100 mg capsule 1 cap PO DAILY 12/09/20 12/09/20 Unknown History (Stool Softener) hydrocortisone acetate 25 mg 1 supp AK BEDTIME 12/09/20 12/09/20 Unknown History rectal suppository multivitamin with folic acid 400 1 tab PO DAILY 12/09/20 12/09/20 Unknown History mcg tablet (Daily-Josue (with folic acid)) Exam Exam Date and Time: December 11, 2020 1344 Height,Weight and Vital Signs: Height 5 ft 4 in Weight 74 kg Last Vital Signs Temp 98.2 F 12/11/20 11:50 Pulse 69 12/11/20 11:50 Resp 18 12/11/20 11:50 BP 118/72 12/11/20 11:50 Pulse Ox 98 12/11/20 11:50 Pertinent Lab Results Pertinent Lab Results: Laboratory Tests 12/08/20 12/08/20 12/08/20 23:10 23:10 23:10 WBC 9.7 RBC 3.27 L D Hgb 9.3 L D Hct 28.8 L D MCV 88.1 MCH 28.4 MCHC 32.3 RDW 13.4 Plt Count 247 MPV 11.6 Immature Gran % (Auto) 0.3 Neut % (Auto) 51.3 Lymph % (Auto) 37.2 [facility] % (Auto) 7.8 Eos % (Auto) 3.1 Baso % (Auto) 0.3 Lymph # (Auto) 3.6 [facility] # (Auto) 0.8 Eos # (Auto) 0.3 Baso # (Auto) 0.0 Abs Immat Gran (auto) 0.03 Absolute Neuts (auto) 5.0 Absolute Nucleated RBC 0.000 Nucleated RBC % (auto) 0.0 PT INR Sodium 140 Potassium 4.5 Chloride 107 Carbon Dioxide 25 Anion Gap 13 BUN 5 L D Creatinine 0.97 Estim Creat Clear Calc 57.0 Estimated GFR 58 Random Glucose 141 H Fasting Glucose Lactic Acid Calcium 8.5 D Total Bilirubin 0.3 AST 21 ALT 16 Alkaline Phosphatase 85 Total Protein 6.4 L Albumin 3.6 Urine Color Urine Appearance Urine pH Ur Specific [place] Urine Protein Urine Glucose (UA) Urine Ketones Urine Blood Urine Nitrite Ur Leukocyte Esterase Urine RBC Urine WBC Ur Squamous Epith Cells Urine Bacteria Urine Mucus COVID-19 ([place]ORIA) COVID-19 Clin Com Blood Type B Positive Antibody Screen NEGATIVE Crossmatch See Detail 12/09/20 12/09/20 12/09/20 00:02 03:25 07:09 WBC 6.6 RBC 2.63 L Hgb 8.6 L 7.4 L Hct 26.1 L 22.9 L MCV 87.1 MCH 28.1 MCHC 32.3 RDW 13.3 Plt Count 170 D MPV 11.1 Immature Gran % (Auto) 0.6 H Neut % (Auto) 55.1 Lymph % (Auto) 30.9 [facility] % (Auto) 10.0 Eos % (Auto) 3.2 Baso % (Auto) 0.2 Lymph # (Auto) 2.0 [facility] # (Auto) 0.7 Eos # (Auto) 0.2 Baso # (Auto) 0.0 Abs Immat Gran (auto) 0.04 H Absolute Neuts (auto) 3.7 Absolute Nucleated RBC 0.000 Nucleated RBC % (auto) 0.0 PT INR Sodium Potassium Chloride Carbon Dioxide Anion Gap BUN Creatinine Estim Creat Clear Calc Estimated GFR Random Glucose Fasting Glucose Lactic Acid Calcium Total Bilirubin AST ALT Alkaline Phosphatase Total Protein Albumin Urine Color Urine Appearance Urine pH Ur Specific [place] Urine Protein Urine Glucose (UA) Urine Ketones Urine Blood Urine Nitrite Ur Leukocyte Esterase Urine RBC Urine WBC Ur Squamous Epith Cells Urine Bacteria Urine Mucus COVID-19 ([place]IA) Negative COVID-19 Clin Com See Note Blood Type Antibody Screen Crossmatch 12/09/20 12/09/20 12/09/20 07:09 07:33 22:09 WBC 8.1 RBC 3.74 L D Hgb 11.1 L D Hct 32.8 L D MCV 87.7 MCH 29.7 MCHC 33.8 RDW 13.4 Plt Count 203 MPV 11.4 Immature Gran % (Auto) 0.5 H Neut % (Auto) 58.5 Lymph % (Auto) 28.7 [facility] % (Auto) 9.3 Eos % (Auto) 2.6 Baso % (Auto) 0.4 Lymph # (Auto) 2.3 [facility] [place] # (Auto) 0.8 Eos # (Auto) 0.2 Baso # (Auto) 0.0 Abs Immat Gran (auto) 0.04 H Absolute Neuts (auto) 4.7 Absolute Nucleated RBC 0.000 Nucleated RBC % (auto) 0.0 PT INR Sodium 142 Potassium 4.5 Chloride 110 H Carbon Dioxide 28 Anion Gap 9 L BUN 5 L Creatinine 0.78 Estim Creat Clear Calc 70.8 Estimated GFR > 60 Random Glucose 117 H Fasting Glucose Lactic Acid Calcium 7.9 L D Total Bilirubin AST ALT Alkaline Phosphatase Total Protein Albumin Urine Color YELLOW Urine Appearance CLEAR Urine pH 6.0 Ur Specific [place] >= 1.030 H Urine Protein NEG Urine Glucose (UA) NEG Urine Ketones NEG Urine Blood 1+ H Urine Nitrite NEG Ur Leukocyte Esterase NEG Urine RBC 0-2 Urine WBC 5-9 H Ur Squamous Epith Cells TRACE Urine Bacteria NONE Urine Mucus 1+ COVID-19 ([place]IA) COVID-19 Clin Com Blood Type Antibody Screen Crossmatch 12/09/20 12/09/20 12/10/20 22:09 22:09 07:14 WBC RBC Hgb Hct MCV MCH MCHC RDW Plt Count MPV Immature Gran % (Auto) Neut % (Auto) Lymph % (Auto) [facility] [place] % (Auto) Eos % (Auto) Baso % (Auto) Lymph # (Auto) [facility] [place] # (Auto) Eos # (Auto) Baso # (Auto) Abs Immat Gran (auto) Absolute Neuts (auto) Absolute Nucleated RBC Nucleated RBC % (auto) PT INR Sodium 141 Potassium 4.2 Chloride 110 H Carbon Dioxide 28 Anion Gap 7 L BUN 6 L 5 L Creatinine 0.75 0.72 Estim Creat Clear Calc 73.6 76.8 Estimated GFR > 60 > 60 Random Glucose 116 H Fasting Glucose Lactic Acid 1.9 Calcium 8.4 D Total Bilirubin 0.5 AST 18 ALT 17 Alkaline Phosphatase 79 Total Protein 5.5 L Albumin 3.3 L Urine Color Urine Appearance Urine pH Ur Specific [place] Urine Protein Urine Glucose (UA) Urine Ketones Urine Blood Urine Nitrite Ur Leukocyte Esterase Urine RBC Urine WBC Ur Squamous Epith Cells Urine Bacteria Urine Mucus COVID-19 ([place]) COVID-19 [facility] Com Blood Type Antibody Screen Crossmatch 12/10/20 12/10/20 12/10/20 07:14 07:14 16:04 WBC 6.7 6.0 RBC 3.41 L 3.46 L Hgb 10.2 L 10.2 L Hct 29.9 L 30.3 L MCV 87.7 87.6 MCH 29.9 29.5 MCHC 34.1 33.7 RDW 13.5 13.8 Plt Count 170 185 MPV 11.1 11.6 Immature Gran % (Auto) 0.6 H Neut % (Auto) 55.3 Lymph % (Auto) 31.3 [facility] % (Auto) 9.9 Eos % (Auto) 2.7 Baso % (Auto) 0.2 Lymph # (Auto) 2.1 [facility] [place] # (Auto) 0.7 Eos # (Auto) 0.2 Baso # (Auto) 0.0 Abs Immat Gran (auto) 0.04 H Absolute Neuts (auto) 3.7 Absolute Nucleated RBC 0.000 0.000 Nucleated RBC % (auto) 0.0 0.0 PT 12.0 INR 1.1 Sodium Potassium Chloride Carbon Dioxide Anion Gap BUN Creatinine Estim Creat Clear Calc Estimated GFR Random Glucose Fasting Glucose Lactic Acid Calcium Total Bilirubin AST ALT Alkaline Phosphatase Total Protein Albumin Urine Color Urine Appearance Urine pH Ur Specific [place] Urine Protein Urine Glucose (UA) Urine Ketones Urine Blood Urine Nitrite Ur Leukocyte Esterase Urine RBC Urine WBC Ur Squamous Epith Cells Urine Bacteria Urine Mucus COVID-19 ([place]IA) COVID-19 [facility] Com Blood Type Antibody Screen Crossmatch 12/11/20 12/11/20 05:20 05:20 WBC 5.8 RBC 3.73 L Hgb 10.9 L Hct 33.0 L MCV 88.5 MCH 29.2 MCHC 33.0 RDW 13.8 Plt Count 190 MPV 11.3 Immature Gran % (Auto) 0.3 Neut % (Auto) 53.9 Lymph % (Auto) 29.3 [facility] [place] % (Auto) 11.7 H Eos % (Auto) 4.5 H Baso % (Auto) 0.3 Lymph # (Auto) 1.7 [facility] [place] [facility] # (Auto) 0.7 Eos # (Auto) 0.3 Baso # (Auto) 0.0 Abs Immat Gran (auto) 0.02 Absolute Neuts (auto) 3.1 Absolute Nucleated RBC 0.000 Nucleated RBC % (auto) 0.0 PT INR Sodium 140 Potassium 4.0 Chloride 106 Carbon Dioxide 27 Anion Gap 11 L BUN 6 L Creatinine 0.73 Estim Creat Clear Calc 75.7 Estimated GFR > 60 Random Glucose Fasting Glucose 115 H Lactic Acid Calcium 8.9 Total Bilirubin 0.5 AST 17 ALT 17 Alkaline Phosphatase 80 Total Protein 5.8 L Albumin 3.4 L Urine Color Urine Appearance Urine pH Ur Specific [place] Urine Protein Urine Glucose (UA) Urine Ketones Urine Blood Urine Nitrite Ur Leukocyte Esterase Urine RBC Urine WBC Ur Squamous Epith Cells Urine Bacteria Urine Mucus COVID-19 ([place]IA) COVID-19 Clin Com Blood Type Antibody Screen Crossmatch Airway Mallampati Class: II (Top right implant) TM Dist: >3cm Neck ROM: Full Heart: rrr Lungs: cta Assessment and Plan Assessment Anesthesia Assessment: Anesthesia Plan Discussed and Chart Reviewed Final Anesthetic Review Family History of Problems with Anesthesia: No History of Problems with Anesthesia: No NPO: Yes ASA Class: II Final Preanesthetic Review: No Changes in Pt Med Stat, Meds/Allgs Chart Reviewed and Consent Obtained/Reviewed Patient Risk: Intermediate Procedure Risk: Intermediate Anesthetic Plan Anesthetic Plan: GA Disposition: Standard PACU
[2020-12-11] MEDS: Lactated Ringers 1,000 ML 50 ML IVCONT (14:14)
[2020-12-11 14:15] LABS: Hematocrit 35.8 % (37-47); Hemoglobin 11.9 g/dl (12.0-16.0)
--- NOTE | 2020-12-11 15:21 | W.PM.OPN ---
Operative Note Operative Note Date of Service: 12/11/20 Narrative: Preop diagnosis: Bleeding hemorrhoids Postop diagnosis: Bleeding hemorrhoids, internal and external Procedure: Exam under anesthesia, hemorrhoidectomy x2 columns Surgeon: Alberto Plummer MD The patient is a 58-year-old female who had been admitted because of passage of bright blood per rectum. She also noted to be anemic and required transfusion of 2 units of packed RBC. She had colonoscopy done which did not reveal any blood. However she did have hemorrhoidal columns which appeared to be the source of her bleeding. In view of these hemorrhoids, with at the absence of any other likely etiology of her bright blood per rectum, she was referred to me for hemorrhoidectomy. She understood the technique of the procedure as well as the risks, benefits, and alternatives. I had done an endoscopy at bedside which showed prominent hemorrhoidal columns which appeared to bleed easily, mostly on the right side She was brought to the operating room placed in prone yudy-knife position under general anesthesia via endotracheal tube. The buttocks were retracted with wide tape laterally. The perianal area was prepped and draped in the usual sterile fashion. A surgical time-out was done. The patient received Cefotan 2 g IV preoperatively. I infiltrated the perianal area with lidocaine 1% generously. I inserted abuse Oliveira retractor and examined the anal canal circumferentially. Again there were very prominent hemorrhoidal columns, mix of internal and external, 1 up appeared to be on the posterior area on the right, and another 1 on the anterior area on the right as well. Both of these seemed to bleed easily with retraction. There was no other areas of bleeding. There was no bright blood in the rectum. I applied a Ferro grasper at the hemorrhoidal column on the right anterior area. I made a [id number] stitch at the pedicle proximal to the dentate line. I then made an incision around this hemorrhoidal column to the perianal skin using blade 15. I excised this hemorrhoidal column above the plane of sphincters using scissors. I closed this incision with a running chromic 3-0 stitch. Multiple [id number] hemostatic sutures were applied for further hemostasis. I then proceeded to apply a Ferro grasper again at the hemorrhoidal column on the right posterior. I made a jvdfoi-[id number] stitch at the pedicle past the dentate line with chromic 3-0. I made an incision around this hemorrhoidal column to the perianal skin using blade 15 and excised this hemorrhoidal column above the plane of sphincters using Metzenbaum scissors. I closed this incision with a running chromic 3-0 stitch Multiple additional [id number]-ww-feqch sutures were placed for further hemostasis I then observed for hemostasis for about 2 minutes. Once hemostasis was ensured, proceeded to infiltrate the perianal area with Marcaine 0.5% for postop analgesia I rolled Gelfoam was applied for additional hemostasis.. The procedure was then completed. The patient tolerated the procedure well. There were no complications noted. Initial and final counts of sponges and instruments were correct. Estimated blood loss was about 25 cc. The patient was extubated without difficulty and transferred to the recovery room with stable vital signs.
--- NOTE | 2020-12-11 15:21 | PM.OP ---
Brief Operative Note Date of Service: 12/11/20 Pre-op diagnosis: Bleeding hemorrhoids Post-op diagnosis: same Procedure: Exam under anesthesia, hemorrhoidectomy x2 Surgeon: Alberto Plummer MD Anesthesia: GETA Was an Wind Tunnel Technician used for this Procedure?: No Estimated blood loss (mL): 25 Pathology: other (Hemorrhoids) Condition: stable Disposition: PACU
[2020-12-11] MEDS: fentaNYL citrate/PF 100 MCG/2 ML VIAL 50 MCG IVPUSH ×2 (15:48→16:09)
[2020-12-11] MEDS: oxyCODONE HCl Immed Release 5 MG TABLET 10 MG PO ×3 (15:57→23:50)
--- NOTE | 2020-12-11 17:09 | PM.EVENT ---
Event Note Date of Service: 12/11/20 Event Note: Seen postop - underwent hemorrhoidectomy earlier Some pain No bleeding Stable vital signs Pain management Add ibuprofen She has a packing in place - this will past with BM or flatus Discussed with son at bedside
[2020-12-11] MEDS: Ibuprofen 600 MG TABLET PO (18:02)
[2020-12-11] MEDS: Docusate Sodium 100 MG CAPSULE PO (19:45)
[2020-12-12 05:17] VITALS: BP 118/52; PULSE 74; RESP 18; TEMP 36.8; O2SAT 99
[2020-12-12] MEDS: oxyCODONE HCl Immed Release 5 MG TABLET 10 MG PO ×3 (06:28→23:53)
[2020-12-12] MEDS: Docusate Sodium 100 MG CAPSULE PO ×3 (06:29→20:52)
--- NOTE | 2020-12-12 06:35 | MHC.PIE ---
p: c/o rectum pain and no BM for few days. I: Patient medicated w/ 10mg PO oxycodone, PRN colace, and given cup of prune juice.
--- NOTE | 2020-12-12 06:48 | HO.POSTANES ---
Post Anesthesia Evaluation Post Anesthesia Evaluation Vital Signs: Vital Signs Temp Pulse Resp BP Pulse Ox 12/12/20 05:17 98.2 F 74 18 118/52 L 99 12/11/20 23:18 98.3 F 82 18 115/75 98 12/11/20 19:17 97.5 F 71 15 130/78 99 Anesthesia: General Mental Status: Awake Pain Control: Satisfactory Nausea/Vomiting: None Hydration: Adequate Anesthesia-Related Issues: No Anes. Related Issues
[2020-12-12 07:59] VITALS: BP 124/60; PULSE 78; RESP 18; TEMP 36.7; O2SAT 100
[2020-12-12 08:06] LABS: Hematocrit 32.8 % (37-47); Hemoglobin 10.7 g/dl (12.0-16.0); Mean Corpuscular HGB Conc 32.6 g/dl (31.0-35.0); Mean Corpuscular Hemoglobin 29.1 pg (27.0-33.0); Mean Corpuscular Volume 89.1 fL (80-98); Mean Platelet Volume 11.7 fL (9.4-12.3); Platelet Count 221 X10*3/uL (160-400); Red Blood Count 3.68 X10*6/uL (4.20-5.50); Red Cell Distribution Width 13.9 % (11.0-16.0); White Blood Count 12.1 X10*3/uL (4.8-10.8)
[2020-12-12 08:22] LABS: Anion Gap 13 (12-20); Blood Urea Nitrogen 10 mg/dL (9-16); Calcium 8.8 mg/dL (8.4-10.2); Carbon Dioxide 25 mmol/L (22-29); Chloride 103 mmol/L (96-108); Creatinine Clr Calc Pharmacy 63.5; Estimated Glomerular Filt Rate > 60; Glucose Random 148 mg/dL (60-115); Potassium 4.7 mmol/L (3.3-5.1); Sodium 136 mmol/L (135-145)
[2020-12-12] MEDS: Ibuprofen 600 MG TABLET PO ×3 (08:36→20:50)
[2020-12-12] MEDS: 0.9 % Sodium Chloride Flush 3 ML SYRINGE IVFLUSH ×3 (08:37→23:54)
[2020-12-12] MEDS: Multivitamin TABLET 1 TAB PO (08:37)
[2020-12-12] MEDS: Morphine Sulfate 2 MG/ML CARTRIDGE IVPUSH (09:08)
[2020-12-12] MEDS: polyethylene glycoL 3350 17 GM POWD.PACK PO (09:12)
[2020-12-12 12:00] VITALS: BP 105/54; PULSE 78; RESP 18; TEMP 36.9; O2SAT 99
--- NOTE | 2020-12-12 12:35 | HO.PM.IMPN ---
Subjective Subjective Date of Service: 12/12/20 Interval History: cc: brbpr interval history: no further bleeding post op, severe pain Cardiovascular Cardiovascular: Reports no additional cardiovascular complaints Respiratory Respiratory: Reports no additional respiratory complaints Physical Exam Vital Signs: Vital Signs: Last Vital Signs Temp 98.5 F 12/12/20 12:00 Pulse 78 12/12/20 12:00 Resp 18 12/12/20 12:00 BP 105/54 L 12/12/20 12:00 Pulse Ox 99 12/12/20 12:00 Oxygen Flow Rate 2 12/11/20 15:32 Body Mass Index 28.0 General: AO X 3, no acute distress Resp: CTA bilateral, no accessory muscles used CVS: S1,S2,RRR GI: soft, non tender, non distended Neuro: motor grossly intact, alert Psych: appropriate affect, appropriate insight Objective Data Active Medications Acetaminophen (Acetaminophen 325 Mg Tablet) 650 mg PO Q6H PRN PRN Reason: Pain, Mild (Pain Scale 1-3) Docusate Sodium (Docusate Sodium 100 Mg Capsule) 100 mg PO DAILY PRN PRN Reason: Constipation Last Admin: 12/12/20 06:29 Dose: 100 mg Documented by: ENRIQUETA Docusate Sodium (Docusate Sodium 100 Mg Capsule) 100 mg PO BID EYAD Last Admin: 12/12/20 08:37 Dose: 100 mg Documented by: MELANIE Fentanyl (Fentanyl Citrate/Pf 100 Mcg/2 Ml Vial) 50 mcg IVPUSH Q5M PRN; Protocol PRN Reason: Pain, Severe (Pain Scale 7-10) Last Admin: 12/11/20 16:09 Dose: 50 mcg Documented by: ASHA Promethazine HCl 12.5 mg/ (Sodium Chloride) 50.5 mls @ 202 mls/hr IV ONCE PRN PRN Reason: Nausea and Vomiting Ibuprofen (Ibuprofen 600 Mg Tablet) 600 mg PO Q6H PRN PRN Reason: Pain, Moderate (Pain Scale 4-6 Last Admin: 12/12/20 08:36 Dose: 600 mg Documented by: MELANIE Melatonin (Melatonin 3 Mg Tablet) 6 mg PO BEDTIME PRN PRN Reason: Insomnia Last Admin: 12/09/20 23:49 Dose: 6 mg Documented by: FARHEEN Morphine Sulfate (Morphine Sulfate 2 Mg/Ml Cartridge) 2 mg IVPUSH Q3H PRN; Protocol PRN Reason: Pain, Severe (Pain Scale 7-10) Last Admin: 12/12/20 09:08 Dose: 2 mg Documented by: MELANIE Multivitamins/Vitamin C (Multivitamin Tablet) 1 tab PO DAILY [facility] Last Admin: 12/12/20 08:37 Dose: 1 tab Documented by: MELANIE Ondansetron HCl (Ondansetron Hcl 4 Mg/2 Ml Vial) 4 mg IVPUSH Q8H PRN PRN Reason: Nausea and Vomiting Ondansetron HCl (Ondansetron Hcl 4 Mg/2 Ml Vial) 4 mg IVPUSH Q4H PRN PRN Reason: Nausea and Vomiting Oxycodone HCl (Oxycodone Hcl Immed Release 5 Mg Tablet) 5 mg PO ONCE PRN PRN Reason: Pain, Severe (Pain Scale 7-10) Oxycodone HCl (Oxycodone Hcl Immed Release 5 Mg Tablet) 10 mg PO Q4H PRN PRN Reason: Pain, Moderate (Pain Scale 4-6 Last Admin: 12/12/20 06:28 Dose: 10 mg Documented by: ENRIQUETA Oxycodone HCl (Oxycodone Hcl Immed Release 5 Mg Tablet) 10 mg PO ONCE PRN PRN Reason: Pain, Severe (Pain Scale 7-10) Polyethylene Glycol (Polyethylene Glycol 3350 17 Gm Powd.Pack) 17 gm PO DAILY [facility] Last Admin: 12/12/20 09:12 Dose: 17 gm Documented by: MELANIE Sodium Chloride (0.9 % Sodium Chloride Flush 3 Ml Syringe) 3 ml IVFLUSH QSHIFT [facility] Last Admin: 12/12/20 08:37 Dose: 3 ml Documented by: MELANIE Labs CBC & Chem 7: 12/12/20 07:36 12/12/20 07:36 Labs: Laboratory Results - last 24 hr 12/12/20 12/12/20 07:36 07:36 MCV 89.1 MCH 29.1 MCHC 32.6 RDW 13.9 Plt Count 221 MPV 11.7 Absolute Nucleated RBC 0.000 Nucleated RBC % (auto) 0.0 Anion Gap 13 Estim Creat Clear Calc 63.5 Estimated GFR > 60 Random Glucose 148 H Calcium 8.8 Assessment and Plan (1) Lower gastrointestinal hemorrhage: Status: Acute Assessment and Plan: 65 YF with hypercholestrolemia, atypical chest pain and chronic constipation admitted with 10 day hx of LGI bleeding. Pt denies having a colonoscopy in the past. ABD CT scan showed mildly hyperemic and fluid distended loops of the small bowel felt to be gastroenteritis in the appropriate clinical setting. No active pericolic inflammatory changes to suggest diverticulitis or colitis Acute blood loss anemia due to likely hemorrhoidal bleed Required 2 units of PRBC Hemoglobin josé miguel of 7.4 on 12/09 Currently 10.7 pod 1 hemorrhoidectomy pain control, monitor cbc Indeterminate liver lesions Outpatient MRI/MRCP DVT prophylaxis-mechanical due to GI bleed Quality Stroke Does the patient have a stroke diagnosis?: No VTE Prior VTE?: No VTE Risk Level:: Medical - moderate - high VTE Device Contraindication: N/A - Device Ordered VTE Drug Contraindication: Treatment Not Indicated
[2020-12-12] MEDS: oxyCODONE HCl Immed Release 5 MG TABLET PO (12:37)
--- NOTE | 2020-12-12 12:38 | PM.PNGS ---
Subjective Subjective Date of Service: 12/12/20 Interval history: Has periods of pain No significant bleeding postop On diet Physical Exam Vital Signs: Vital Signs: Last Vital Signs Temp 98.5 F 12/12/20 12:00 Pulse 78 12/12/20 12:00 Resp 18 12/12/20 12:00 BP 105/54 L 12/12/20 12:00 Pulse Ox 99 12/12/20 12:00 Oxygen Flow Rate 2 12/11/20 15:32 Body Mass Index 28.0 Chemistry 12/09/20 12/10/20 12/11/20 22:09 07:14 05:20 Sodium 141 140 Potassium 4.2 4.0 Carbon Dioxide 28 27 BUN 6 L 5 L 6 L Creatinine 0.75 0.72 0.73 Calcium 8.4 D 8.9 12/12/20 07:36 Sodium 136 Potassium 4.7 Carbon Dioxide 25 BUN 10 D Creatinine 0.87 Calcium 8.8 Hematology 12/09/20 12/10/20 12/10/20 22:09 07:14 16:04 WBC 8.1 6.7 6.0 Hgb 11.1 L D 10.2 L 10.2 L Plt Count 203 170 185 12/11/20 12/11/20 12/12/20 05:20 14:05 07:36 WBC 5.8 12.1 H Hgb 10.9 L 11.9 L 10.7 L Plt Count 190 221 Const: General: no acute distress Resp: Effort & Inspection: normal respiratory effort GI: Other: Rectal exam - no bleeding, some edema from residual external hemorrhoid, no induration, no drainage Palpation (GI): Soft to palpation Procedures Date of Service Date of Service: 12/12/20 Progress Note: A&P Assessment and plan (1) Bleeding hemorrhoids: Status: Acute Assessment and Plan: Status post hemorrhoidectomy x2 columns No significant bleeding postop Hemoglobin stable Pain management Stool softeners Hot Sitz baths She feels she is not ready to be discharged because of pain Will continue to follow Fall Risk Details Current Medications: Current Medications Acetaminophen (Acetaminophen 325 Mg Tablet) 650 mg PO Q6H PRN PRN Reason: Pain, Mild (Pain Scale 1-3) Docusate Sodium (Docusate Sodium 100 Mg Capsule) 100 mg PO DAILY PRN PRN Reason: Constipation Last Admin: 12/12/20 06:29 Dose: 100 mg Documented by: Docusate Sodium (Docusate Sodium 100 Mg Capsule) 100 mg PO BID [facility] Last Admin: 12/12/20 08:37 Dose: 100 mg Documented by: Fentanyl (Fentanyl Citrate/Pf 100 Mcg/2 Ml Vial) 50 mcg IVPUSH Q5M PRN; Protocol PRN Reason: Pain, Severe (Pain Scale 7-10) Last Admin: 12/11/20 16:09 Dose: 50 mcg Documented by: Promethazine HCl 12.5 mg/ (Sodium Chloride) 50.5 mls @ 202 mls/hr IV ONCE PRN PRN Reason: Nausea and Vomiting Ibuprofen (Ibuprofen 600 Mg Tablet) 600 mg PO Q6H PRN PRN Reason: Pain, Moderate (Pain Scale 4-6 Last Admin: 12/12/20 08:36 Dose: 600 mg Documented by: Melatonin (Melatonin 3 Mg Tablet) 6 mg PO BEDTIME PRN PRN Reason: Insomnia Last Admin: 12/09/20 23:49 Dose: 6 mg Documented by: Morphine Sulfate (Morphine Sulfate 2 Mg/Ml Cartridge) 2 mg IVPUSH Q3H PRN; Protocol PRN Reason: Pain, Severe (Pain Scale 7-10) Last Admin: 12/12/20 09:08 Dose: 2 mg Documented by: Multivitamins/Vitamin C (Multivitamin Tablet) 1 tab PO DAILY [facility] Last Admin: 12/12/20 08:37 Dose: 1 tab Documented by: Ondansetron HCl (Ondansetron Hcl 4 Mg/2 Ml Vial) 4 mg IVPUSH Q8H PRN PRN Reason: Nausea and Vomiting Ondansetron HCl (Ondansetron Hcl 4 Mg/2 Ml Vial) 4 mg IVPUSH Q4H PRN PRN Reason: Nausea and Vomiting Oxycodone HCl (Oxycodone Hcl Immed Release 5 Mg Tablet) 10 mg PO Q4H PRN PRN Reason: Pain, Moderate (Pain Scale 4-6 Last Admin: 12/12/20 06:28 Dose: 10 mg Documented by: Oxycodone HCl (Oxycodone Hcl Immed Release 5 Mg Tablet) 10 mg PO ONCE PRN PRN Reason: Pain, Severe (Pain Scale 7-10) Polyethylene Glycol (Polyethylene Glycol 3350 17 Gm Powd.Pack) 17 gm PO DAILY [facility] Last Admin: 12/12/20 09:12 Dose: 17 gm Documented by: Sodium Chloride (0.9 % Sodium Chloride Flush 3 Ml Syringe) 3 ml IVFLUSH QSHIFT EYAD Last Admin: 12/12/20 08:37 Dose: 3 ml Documented by: Time Spent With Patient Time: Total time spent is greater than 50% in coordination of care (as documented) at patient's floor/unit and/or counseling patient: Time with patient: 15 - 24 minutes Quality Stroke Does the patient have a stroke diagnosis?: No VTE Prior VTE?: No VTE Risk Level:: Medical - moderate - high VTE Device Contraindication: N/A - Device Ordered VTE Drug Contraindication: Treatment Not Indicated
[2020-12-12 15:39] VITALS: BP 120/61; PULSE 72; RESP 16; TEMP 36.6; O2SAT 97
--- NOTE | 2020-12-12 15:46 | PC.NURSE ---
amy bath done at 1530. family assited pt.
[2020-12-12 19:36] VITALS: BP 137/62; PULSE 70; RESP 16; TEMP 36.8; O2SAT 97
[2020-12-13] VITALS: BP 124/60; PULSE 67; RESP 16; TEMP 36.9; O2SAT 98
[2020-12-13 01:02] VITALS: RESP 20
[2020-12-13 03:58] VITALS: BP 140/76; PULSE 79; RESP 18; TEMP 36.6; O2SAT 98
[2020-12-13] MEDS: oxyCODONE HCl Immed Release 5 MG TABLET 10 MG PO ×3 (04:35→13:42)
[2020-12-13 05:48] LABS: Hematocrit 32.2 % (37-47); Hemoglobin 10.4 g/dl (12.0-16.0); Mean Corpuscular HGB Conc 32.3 g/dl (31.0-35.0); Mean Corpuscular Hemoglobin 29.2 pg (27.0-33.0); Mean Corpuscular Volume 90.4 fL (80-98); Mean Platelet Volume 11.1 fL (9.4-12.3); Platelet Count 224 X10*3/uL (160-400); Red Blood Count 3.56 X10*6/uL (4.20-5.50); Red Cell Distribution Width 14.4 % (11.0-16.0); White Blood Count 7.3 X10*3/uL (4.8-10.8)
[2020-12-13 06:11] LABS: Anion Gap 11 (12-20); Blood Urea Nitrogen 9 mg/dL (9-16); Calcium 8.8 mg/dL (8.4-10.2); Carbon Dioxide 29 mmol/L (22-29); Chloride 104 mmol/L (96-108); Estimated Glomerular Filt Rate > 60; Glucose Fasting 120 mg/dL (60-99); Potassium 4.8 mmol/L (3.3-5.1); Sodium 139 mmol/L (135-145)
[2020-12-13 08:00] VITALS: BP 140/60; PULSE 74; RESP 18; TEMP 36.7; O2SAT 100
--- NOTE | 2020-12-13 08:10 | P.PNGS_ITS ---
Subjective Subjective Date of Service: 12/13/20 Interval history: Says she has had multiple bowel movements overnight and this morning No bleeding noted Pain control much better Physical Exam Vital Signs: Vital Signs: Last Vital Signs Temp 98.0 F 12/13/20 08:00 Pulse 74 12/13/20 08:00 Resp 18 12/13/20 08:00 BP 140/60 H 12/13/20 08:00 Pulse Ox 100 12/13/20 08:00 Oxygen Flow Rate 2 12/11/20 15:32 Body Mass Index 28.0 Const: Other: Chemistry 12/11/20 12/12/20 12/13/20 05:20 07:36 05:18 Sodium 140 136 139 Potassium 4.0 4.7 4.8 Carbon Dioxide 27 25 29 BUN 6 L 10 D 9 Creatinine 0.73 0.87 0.80 Calcium 8.9 8.8 8.8 Hematology 12/10/20 12/11/20 12/11/20 16:04 05:20 14:05 WBC 6.0 5.8 Hgb 10.2 L 10.9 L 11.9 L Plt Count 185 190 12/12/20 12/13/20 07:36 05:18 WBC 12.1 H 7.3 Hgb 10.7 L 10.4 L Plt Count 221 224 General: comfortable and no acute distress Resp: Effort & Inspection: normal respiratory effort Cardio: Rate: regular rate GI: Other: Rectal exam - hemorrhoidectomy site clean and dry, some edema of residual external hemorrhoid, no induration, no redness Palpation (GI): Soft to palpation and nontender Procedures Date of Service Date of Service: 12/13/20 Progress Note: A&P Assessment and plan (1) Bleeding hemorrhoids: Status: Acute Assessment and Plan: Status post hemorrhoidectomy Has had BMs, no further bleeding Hemoglobin stable Good pain control Okay to DC home today Instructed hot Sitz baths, high-fiber diet Will see in the office for follow-up Fall Risk Details Current Medications: Current Medications Acetaminophen (Acetaminophen 325 Mg Tablet) 650 mg PO Q6H PRN PRN Reason: Pain, Mild (Pain Scale 1-3) Docusate Sodium (Docusate Sodium 100 Mg Capsule) 100 mg PO DAILY PRN PRN Reason: Constipation Last Admin: 12/12/20 06:29 Dose: 100 mg Documented by: Docusate Sodium (Docusate Sodium 100 Mg Capsule) 100 mg PO BID [facility] Last Admin: 12/12/20 20:52 Dose: 100 mg Documented by: Fentanyl (Fentanyl Citrate/Pf 100 Mcg/2 Ml Vial) 50 mcg IVPUSH Q5M PRN; Protoco l PRN Reason: Pain, Severe (Pain Scale 7-10) Last Admin: 12/11/20 16:09 Dose: 50 mcg Documented by: Promethazine HCl 12.5 mg/ (Sodium Chloride) 50.5 mls @ 202 mls/hr IV ONCE PRN PRN Reason: Nausea and Vomiting Ibuprofen (Ibuprofen 600 Mg Tablet) 600 mg PO Q6H PRN PRN Reason: Pain, Moderate (Pain Scale 4-6 Last Admin: 12/12/20 20:50 Dose: 600 mg Documented by: Melatonin (Melatonin 3 Mg Tablet) 6 mg PO BEDTIME PRN PRN Reason: Insomnia Last Admin: 12/09/20 23:49 Dose: 6 mg Documented by: Morphine Sulfate (Morphine Sulfate 2 Mg/Ml Cartridge) 2 mg IVPUSH Q3H PRN; Protocol PRN Reason: Pain, Severe (Pain Scale 7-10) Last Admin: 12/12/20 09:08 Dose: 2 mg Documented by: Multivitamins/Vitamin C (Multivitamin Tablet) 1 tab PO DAILY [facility] Last Admin: 12/12/20 08:37 Dose: 1 tab Documented by: Ondansetron HCl (Ondansetron Hcl 4 Mg/2 Ml Vial) 4 mg IVPUSH Q8H PRN PRN Reason: Nausea and Vomiting Ondansetron HCl (Ondansetron Hcl 4 Mg/2 Ml Vial) 4 mg IVPUSH Q4H PRN PRN Reason: Nausea and Vomiting Oxycodone HCl (Oxycodone Hcl Immed Release 5 Mg Tablet) 10 mg PO Q4H PRN PRN Reason: Pain, Moderate (Pain Scale 4-6 Last Admin: 12/13/20 04:35 Dose: 10 mg Documented by: Oxycodone HCl (Oxycodone Hcl Immed Release 5 Mg Tablet) 10 mg PO ONCE PRN PRN Reason: Pain, Severe (Pain Scale 7-10) Polyethylene Glycol (Polyethylene Glycol 3350 17 Gm Powd.Pack) 17 gm PO DAILY [facility] Last Admin: 12/12/20 09:12 Dose: 17 gm Documented by: Sodium Chloride (0.9 % Sodium Chloride Flush 3 Ml Syringe) 3 ml IVFLUSH QSHIFT [facility] Last Admin: 12/12/20 23:54 Dose: 3 ml Documented by: Time Spent With Patient Time: Total time spent is greater than 50% in coordination of care (as documented) at patient's floor/unit and/or counseling patient: Time with patient: 15 - 24 minutes Quality Stroke Does the patient have a stroke diagnosis?: No VTE Prior VTE?: No VTE Risk Level:: Medical - moderate - high VTE Device Contraindication: N/A - Device Ordered VTE Drug Contraindication: Treatment Not Indicated
[2020-12-13] MEDS: Lactated Ringers 1,000 ML 100 ML IVCONT (08:42)
[2020-12-13] MEDS: Multivitamin TABLET 1 TAB PO (09:38)
[2020-12-13] MEDS: Morphine Sulfate 2 MG/ML CARTRIDGE IVPUSH (10:19)
--- NOTE | 2020-12-13 10:42 | P.PNIM_ITS ---
Subjective Subjective Date of Service: 12/13/20 Interval History: cc: brbpr interval history: diarrhea, weakness, no further bleeding, pain is better controlled Cardiovascular Cardiovascular: Reports no additional cardiovascular complaints Respiratory Respiratory: Reports no additional respiratory complaints Physical Exam Vital Signs: Vital Signs: Last Vital Signs Temp 98.0 F 12/13/20 08:00 Pulse 74 12/13/20 08:00 Resp 18 12/13/20 08:00 BP 140/60 H 12/13/20 08:00 Pulse Ox 100 12/13/20 08:00 Oxygen Flow Rate 2 12/11/20 15:32 Body Mass Index 28.0 General: AO X 3, no acute distress Resp: CTA bilateral, no accessory muscles used CVS: S1,S2,RRR GI: soft, non tender, non distended Neuro: motor grossly intact, alert Psych: appropriate affect, appropriate insight Objective Data Active Medications Acetaminophen (Acetaminophen 325 Mg Tablet) 650 mg PO Q6H PRN PRN Reason: Pain, Mild (Pain Scale 1-3) Docusate Sodium (Docusate Sodium 100 Mg Capsule) 100 mg PO DAILY PRN PRN Reason: Constipation Last Admin: 12/12/20 06:29 Dose: 100 mg Documented by: ENRIQUETA Docusate Sodium (Docusate Sodium 100 Mg Capsule) 100 mg PO BID [facility] Last Admin: 12/13/20 09:34 Dose: Not Given Documented by: MIKA Non-Admin Reason: Patient Refused Fentanyl (Fentanyl Citrate/Pf 100 Mcg/2 Ml Vial) 50 mcg IVPUSH Q5M PRN; Protocol PRN Reason: Pain, Severe (Pain Scale 7-10) Last Admin: 12/11/20 16:09 Dose: 50 mcg Documented by: ASHA Promethazine HCl 12.5 mg/ (Sodium Chloride) 50.5 mls @ 202 mls/hr IV ONCE PRN PRN Reason: Nausea and Vomiting Lactated Ringer's (Lr) 1,000 mls @ 100 mls/hr IVCONT .Q10H [facility] Last Admin: 12/13/20 08:42 Dose: 100 mls/hr Documented by: LESTER Ibuprofen (Ibuprofen 600 Mg Tablet) 600 mg PO Q6H PRN PRN Reason: Pain, Moderate (Pain Scale 4-6 Last Admin: 12/12/20 20:50 Dose: 600 mg Documented by: JER Melatonin (Melatonin 3 Mg Tablet) 6 mg PO BEDTIME PRN PRN Reason: Insomnia Last Admin: 12/09/20 23:49 Dose: 6 mg Documented by: CASTILVee Morphine Sulfate (Morphine Sulfate 2 Mg/Ml Cartridge) 2 mg IVPUSH Q3H PRN; Protocol PRN Reason: Pain, Severe (Pain Scale 7-10) Last Admin: 12/13/20 10:19 Dose: 2 mg Documented by: MIKA Multivitamins/Vitamin C (Multivitamin Tablet) 1 tab PO DAILY [facility] Last Admin: 12/13/20 09:38 Dose: 1 tab Documented by: MIKA Ondansetron HCl (Ondansetron Hcl 4 Mg/2 Ml Vial) 4 mg IVPUSH Q8H PRN PRN Reason: Nausea and Vomiting Ondansetron HCl (Ondansetron Hcl 4 Mg/2 Ml Vial) 4 mg IVPUSH Q4H PRN PRN Reason: Nausea and Vomiting Oxycodone HCl (Oxycodone Hcl Immed Release 5 Mg Tablet) 10 mg PO Q4H PRN PRN Reason: Pain, Moderate (Pain Scale 4-6 Last Admin: 12/13/20 09:38 Dose: 10 mg Documented by: MIKA Oxycodone HCl (Oxycodone Hcl Immed Release 5 Mg Tablet) 10 mg PO ONCE PRN PRN Reason: Pain, Severe (Pain Scale 7-10) Sodium Chloride (0.9 % Sodium Chloride Flush 3 Ml Syringe) 3 ml IVFLUSH QSHIFT [facility] Last Admin: 12/13/20 09:39 Dose: Not Given Documented by: MIKA Non-Admin Reason: IV Running Labs CBC & Chem 7: 12/13/20 05:18 12/13/20 05:18 Labs: Laboratory Results - last 24 hr 12/13/20 12/13/20 05:18 05:18 MCV 90.4 MCH 29.2 MCHC 32.3 RDW 14.4 Plt Count 224 MPV 11.1 Absolute Nucleated RBC 0.000 Nucleated RBC % (auto) 0.0 Anion Gap 11 L Estim Creat Clear Calc 69.0 Estimated GFR > 60 Fasting Glucose 120 H Calcium 8.8 Assessment and Plan (1) Lower gastrointestinal hemorrhage: Status: Acute Assessment and Plan: 65 YF with hypercholestrolemia, atypical chest pain and chronic constipation admitted with 10 day hx of LGI bleeding. Pt denies having a colonoscopy in the past. ABD CT scan showed mildly hyperemic and fluid distended loops of the small bowel felt to be gastroenteritis in the appropriate clinical setting. No active pericolic inflammatory changes to suggest diverticulitis or colitis Acute blood loss anemia due to likely hemorrhoidal bleed Required 2 units of PRBC Hemoglobin josé miguel of 7.4 on 12/09 Currently 10.4 pod 2 hemorrhoidectomy pain control, monitor cbc diarrhea IVF check cdif, if negative - imodium Indeterminate liver lesions Outpatient MRI/MRCP DVT prophylaxis-mechanical due to GI bleed Quality Stroke Does the patient have a stroke diagnosis?: No VTE Prior VTE?: No VTE Risk Level:: Medical - moderate - high VTE Device Contraindication: N/A - Device Ordered VTE Drug Contraindication: Treatment Not Indicated
[2020-12-13] MEDS: Ibuprofen 600 MG TABLET PO (11:57)
[2020-12-13 12:00] VITALS: BP 132/60; PULSE 79; RESP 18; TEMP 37.2; O2SAT 98
--- NOTE | 2020-12-13 15:09 | PM.DS ---
DS: Providers Provider Date of Service: 12/13/20 Date of admission: 12/08/20 23:55 Primary care physician: Maira Rivero MD Consults: 12/10/20 00:32 Consult to General Surgery Routine Consulting Provider: Alberto Plummer Reason for consultation: BRBPR; hemorrhoids bleeding. DS: Diagnosis Discharge Diagnosis (1) Lower gastrointestinal hemorrhage: Status: Acute DS: Summary Hospital Course Hospital Course: patient was admitted for acute blood loss anemia due to hemorrhoidal bleed. she required 2 units prbc, hgb josé miguel was 7.4 on 12/09/20. hgb is now stable at discharge between 12-09. patient underwent hemorrhoidectomy and has not had bleeding since. she is feeling much better and will be discharged home. she should follow up with general surgery. incidentaly noted on her CT was: Indeterminate enhancing liver lesion which could represent a hemangioma, although it is incompletely characterize in this single phase study and should be further evaluated with a dynamic MR of the liver. ? There is mild dilatation of the CBD up to the periampullary region where there is a questionable soft tissue lesion. As above, this could be further characterize with a dynamic abdominal MR with MRCP. ? Tiny hypodensity in the uncinate process of the pancreas could be related with a dilated side branch or volume averaging. This could be also further evaluated with the above recommended dynamic abdominal MR/MRCP.? MRCP should be followed up as outpatient. Time Spent with Patient Time attestation: Total time spent providing and/or coordinating discharge services: Discharge coordination time: Greater than 30 minutes Quality: Stroke Does the patient have a stroke diagnosis?: No Physical Exam Vital Signs: Vital Signs: Last Vital Signs Temp 98.9 F 12/13/20 12:00 Pulse 79 12/13/20 12:00 Resp 18 12/13/20 12:00 BP 132/60 12/13/20 12:00 Pulse Ox 98 12/13/20 12:00 Oxygen Flow Rate 2 12/11/20 15:32 Body Mass Index 28.0 General: AO X 3, no acute distress Resp: CTA bilateral, no accessory muscles used CVS: S1,S2,RRR GI: soft, non tender, non distended Neuro: motor grossly intact, alert Psych: appropriate affect, appropriate insight DS: Data Data Completed and Pending Completed studies during hospitalization [Text1]: Pending at discharge 12/09/20 10:38 Surgical [PTH] Routine 12/11/20 15:02 Surgical [PTH] Routine Labs on day of discharge: Laboratory Results - last 24 hr 12/13/20 12/13/20 05:18 05:18 WBC 7.3 RBC 3.56 L Hgb 10.4 L Hct 32.2 L MCV 90.4 MCH 29.2 MCHC 32.3 RDW 14.4 Plt Count 224 MPV 11.1 Absolute Nucleated RBC 0.000 Nucleated RBC % (auto) 0.0 Sodium 139 Potassium 4.8 Chloride 104 Carbon Dioxide 29 Anion Gap 11 L BUN 9 Creatinine 0.80 Estim Creat Clear Calc 69.0 Estimated GFR > 60 Fasting Glucose 120 H Calcium 8.8 Discharge Plan Discharge Patient Disposition: Home, Self-Care Discharge Diagnosis: hemmeroidal bleed Referrals: Alberto Plummer MD [Physician] - 1 Week Maira Rivero MD [Primary Care Provider] - 1 Week Discharge Medications: New oxycodone 5 mg Tablet 10 mg PO Q4H PRN (Reason: Pain, Moderate (Pain Scale 4-6) Qty: 20 RF: 0 Continued hydrocortisone acetate 25 mg suppository 1 supp SD BEDTIME RF: 0 docusate sodium [Stool Softener] 100 mg capsule 1 cap PO DAILY RF: 0 multivitamin with folic acid [Daily-Josue (with folic acid)] 400 mcg tablet 1 tab PO DAILY RF: 0 cholecalciferol (vitamin D3) 1,250 mcg (50,000 unit) capsule 1 cap PO QWEEK RF: 0 Discharge Orders: Discharge Order (Routine); Ordered 12/13/20 Ordered By: Jama Cruz Diet: advance to usual diet Activity on Discharge: As tolerated Stand Alone Forms: Patient Portal Discharge page Care Plan Goals: recovery Health Concerns: gi bleed Plan of Treatment: pain control, watch for constipation while on oxycodone, follow up with dr plummer Assessment: see above
--- NOTE | 2020-12-13 15:20 | MHC.CM.PN ---
PATIENT IS DISCHARGED HOME - SELF CARE. SON (IN ROOM) TO TRANSPORT
[2020-12-13 15:54] VITALS: BP 130/63; PULSE 79; RESP 18; TEMP 36.6; O2SAT 96
== END 2020-12-13 16:41 | disposition home or self-care (01) | DRG 226 ==
LOC: HO.ED 23:55 → HO.EDOVER 12-09 00:06 → HO.S3 12-09 10:02
PROVIDERS: Hospitalist; Internal Medicine Gastroenterology; Surgery; Admitting Provider Internal Medicine; Emergency Provider Internal Medicine; PCP Student in an Organized Health Care Education/Training Program; Visit Provider Internal Medicine
PROC: 0DJD8ZZ Inspection of Lower Intestinal Tract, Via Natural or Artificial Opening Endoscopic (ICD-10-PCS; CPT 45378; principal; 2020-12-09 10:00)
DX: K64.8 Other hemorrhoids (principal); K57.31 Diverticulosis of large intestine without perforation or abscess with bleeding; D62 Acute posthemorrhagic anemia; K63.5 Polyp of colon; K76.9 Liver disease, unspecified; E78.5 Hyperlipidemia, unspecified; K59.00 Constipation, unspecified; R19.7 Diarrhea, unspecified; Z20.822 Contact with and (suspected) exposure to COVID-19; Z79.1 Long term (current) use of non-steroidal anti-inflammatories (NSAID); Z88.2 Allergy status to sulfonamides; Z79.899 Other long term (current) drug therapy
CPT/HCPCS: 36415; 74174; 80048; 80053; 81001; 82565; 83605; 84520; 85014; 85018; 85025; 85027; 85610; 86850; 86900; 86901; 86923; 87635; 88304; 88305; 96361; 96374; 99024; 99285; J1100; J2250; J2270; J2370; J2405; J3010; P9016; Q9967

== ENCOUNTER 2020-12-25 09:10 | Outpatient (REF) | payer OTHER, SELFPAY ==
[2020-12-25 10:27] LABS: MANUAL DIFF FLAG NO
[2020-12-25 11:06] LABS: Basophils Percent Auto 0.6 % (0-2); Eosinophils Absolute Auto 0.7 X10*3/uL (0.0-0.4); Eosinophils Percent Auto 9.8 % (0-4); Hematocrit 36.6 % (37-47); Hemoglobin 11.7 g/dl (12.0-16.0); Imm Gran Abs Auto 0.03 X10*3/uL (0.00-0.03); Imm Gran Pct Auto 0.4 % (0.0-0.4); Lymphocytes Absolute Auto 1.4 X10*3/uL (1.2-4.9); Lymphocytes Percent Auto 20.3 % (20-40); Mean Corpuscular Volume 90.8 fL (80-98); Mean Platelet Volume 11.1 fL (9.4-12.3); Monocytes Absolute Auto 0.6 X10*3/uL (0.1-1.2); Monocytes Percent Auto 9.1 % (2-11); Neutrophils Absolute Auto 4.2 X10*3/uL (2.0-8.3); Neutrophils Percent Auto 59.8 % (45-73); Platelet Count 274 X10*3/uL (160-400); Red Blood Count 4.03 X10*6/uL (4.20-5.50); White Blood Count 7.1 X10*3/uL (4.8-10.8)
[2020-12-25 11:33] LABS: Estimated Average Glucose 103 mg/dL; Hemoglobin A1c % 5.2 %
[2020-12-25 11:39] LABS: Alanine Aminotransferase 14 U/L (0-31); Albumin Level 4.2 g/dL (3.5-5.0); Alkaline Phosphatase 106 U/L (39-117); Anion Gap 13 (12-20); Aspartate Amino Transferase 16 U/L (5-31); Bilirubin Total 0.3 mg/dL (0.0-1.0); Blood Urea Nitrogen 11 mg/dL (9-16); Calcium 9.5 mg/dL (8.4-10.2); Carbon Dioxide 26 mmol/L (22-29); Chloride 104 mmol/L (96-108); Estimated Glomerular Filt Rate > 60; Glucose Random 103 mg/dL (60-115); Iron 47 mcg/dL (30-160); Percent Iron Saturation 13 % (15-50); Potassium 4.5 mmol/L (3.3-5.1); Sodium 138 mmol/L (135-145); Total Iron Binding Capacity 361 mcg/dL (228-428); Total Protein 7.4 g/dL (6.5-8.0); Unsaturated Iron Binding 314 ug/dL
[2020-12-25 12:06] LABS: Erythrocyte Sedimentation Rate 44 MM/HR (0-20)
[2020-12-25 13:14] LABS: Ferritin 32 ng/mL (10-250)
== END 2020-12-25 09:11 | disposition home or self-care (01) ==
LOC: HO.LAB 09:10
PROVIDERS: Family Medicine; Internal Medicine Gastroenterology; PCP Student in an Organized Health Care Education/Training Program; Visit Provider Surgery
DX: Z00.00 Encounter for general adult medical examination without abnormal findings (principal); M25.512 Pain in left shoulder; M54.2 Cervicalgia; D64.9 Anemia, unspecified; Z79.899 Other long term (current) drug therapy; Z48.815 Encounter for surgical aftercare following surgery on the digestive system; Z87.19 Personal history of other diseases of the digestive system
CPT/HCPCS: 36415; 80053; 82728; 83036; 83540; 85025; 85652; 86141; 99212

== ENCOUNTER → 2021-01-08 09:17 | Outpatient (BNVA) | payer OTHER, SELFPAY | PROVIDERS: PCP Student in an Organized Health Care Education/Training Program; Visit Provider Surgery | DX: Z48.815 Encounter for surgical aftercare following surgery on the digestive system (principal); Z87.19 Personal history of other diseases of the digestive system | CPT/HCPCS: 99212 ==

== ENCOUNTER 2022-06-07 22:56 | Emergency (ER) | payer OTHER, SELFPAY ==
--- NOTE | ~2022-06-07 | XR_ITS ---
EXAMINATION: XR CHEST CLINICAL INFORMATION: Persistent cough. COMPARISON: None available. TECHNIQUE: 2 views of the chest were obtained. FINDINGS: No significant cardiomediastinal contour abnormality. No focal airspace opacity, pleural effusion or pneumothorax. No acute osseous findings. XR/XR chest 2V IMPRESSION: No acute cardiopulmonary findings.
[2022-06-07 23:01] VITALS: BP 136/81; PULSE 91; RESP 18; TEMP 36.2; O2SAT 97; BMI 27.6
[2022-06-07 23:50] LABS: MANUAL DIFF FLAG NO
[2022-06-07 23:53] LABS: Basophils Percent Auto 0.3 % (0-2); Eosinophils Absolute Auto 0.1 X10*3/uL (0.0-0.4); Eosinophils Percent Auto 1.8 % (0-4); Hematocrit 41.3 % (37.0-47.0); Hemoglobin 13.7 g/dl (12.0-16.0); Imm Gran Abs Auto 0.01 X10*3/uL (0.00-0.03); Imm Gran Pct Auto 0.1 % (0.0-0.4); Lymphocytes Absolute Auto 2.5 X10*3/uL (1.2-4.9); Lymphocytes Percent Auto 32.9 % (20-40); Mean Corpuscular HGB Conc 33.2 g/dl (31.0-35.0); Mean Corpuscular Hemoglobin 28.1 pg (27.0-33.0); Mean Corpuscular Volume 84.6 fL (80.0-98.0); Mean Platelet Volume 11.8 fL (9.4-12.3); Monocytes Absolute Auto 0.8 X10*3/uL (0.1-1.2); Monocytes Percent Auto 10.6 % (2-11); Neutrophils Absolute Auto 4.1 x10*3/uL (2.0-8.3); Neutrophils Percent Auto 54.3 % (45-73); Platelet Count 193 X10*3/uL (160-400); Red Blood Count 4.88 X10*6/uL (4.20-5.50); Red Cell Distribution Width 13.5 % (11.0-16.0); White Blood Count 7.6 X10*3/uL (4.8-10.8)
--- NOTE | 2022-06-07 23:55 | ED_ITS ---
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 no leg swelling no chest pain no fever or chills cough is mostly dry no significant cardiac disease no acid reflux no abdominal pain Related Data Home Medications Medication Instructions Recorded Confirmed cholecalciferol (vitamin D3) 1,250 1 cap PO QWEEK 12/09/20 12/25/20 mcg (50,000 unit) capsule docusate sodium 100 mg capsule 1 cap PO DAILY 12/09/20 12/25/20 (Stool Softener) hydrocortisone acetate 25 mg 1 supp PA BEDTIME 12/09/20 12/25/20 rectal suppository multivitamin with folic acid 400 1 tab PO DAILY 12/09/20 12/25/20 mcg tablet (Daily-Josue (with folic acid)) nitrofurantoin 1 cap PO BID 12/25/20 12/25/20 monohydrate/macrocrystals 100 mg capsule Previous Rx's Medication Instructions Recorded ibuprofen 600 mg tablet 600 mg PO Q6H PRN Pain, Moderate 12/13/20 (Pain Scale 4-6 #15 tabs ondansetron 4 mg disintegrating 4 mg PO Q8H #14 tabs 12/13/20 tablet oxycodone 5 mg tablet 10 mg PO Q4H PRN Pain, Moderate 12/13/20 (Pain Scale 4-6 #20 tabs phenyleph-shark liver 1 appl PA DAILY PRN hemorrhoids 12/13/20 [id number] rectal cream #54 grams (Hemorrhoidal cream) menthol 0.44 %-zinc oxide 20.6 % 1 appl topical QID PRN wound 01/09/21 topical ointment (Calmoseptine) healing #113 grams bismuth subsalicylate 262 mg 2 tab PO QID 14 days #112 tabs 04/11/21 chewable tablet doxycycline hyclate 100 mg tablet 100 mg PO BID 2 weeks #28 tabs 04/11/21 metronidazole 500 mg tablet 500 mg PO TID 14 days #42 tabs 04/11/21 pantoprazole 20 mg tablet,delayed 20 mg PO BID 2 weeks #28 tabs 04/11/21 release levalbuterol tartrate 45 2 inh inhalation .qhs #15 grams 06/08/22 mcg/actuation aerosol inhaler (Xopenex HFA) pantoprazole 40 mg tablet,delayed 40 mg PO DAILY #30 tabs 06/08/22 release (Protonix) Allergies Allergy/AdvReac Type Severity Reaction Status Date / Time paraben Allergy Severe urticaria Verified 06/07/22 23:01 Sulfa (Sulfonamide Allergy Mild HIVES Verified 06/07/22 23:01 Antibiotics) [SULFA (SULFONAMIDE ANTIBIOTICS)] sulfacetamide Allergy Unknown hives Verified 06/07/22 23:01 sulfur Allergy Unknown hives Verified 06/07/22 23:01 Latex, Natural Rubber AdvReac Unknown Verified 06/07/22 23:01 Review of Systems Review of Systems: Yes all other systems are reviewed and are negative PMFSH Past Medical History Medical History Bleeding hemorrhoids Hypercholesterolemia Takotsubo cardiomyopathy Surgical History History of cataract surgery History of hemorrhoidectomy Hx of cardiac cath Family History Family History Mother No problems noted. Father No problems noted. Father CVD (cardiovascular disease) Mother CVD (cardiovascular disease) Social History Social History Household Members: Family Housing: House Do you presently have visiting nurse or other home services: No Alcohol intake: never Patient Tobacco Use Status: Never used Tobacco Advance Directives: No Advance Directives Information Provided: Yes service: No Current occupational status: retired Physical Exam Vital Signs: Vital Signs: Last Vital Signs Temp 97.2 F 06/07/22 23:01 Pulse 91 06/07/22 23:01 Resp 18 06/07/22 23:01 BP 136/81 06/07/22 23:01 Pulse Ox 97 06/07/22 23:01 O2 Del Method Room Air 06/07/22 23:01 BMI result Body Mass Index 27.6 Appearance: Alert. Oriented X3. No acute distress. Eyes: PERRLA, No Nystagmus ENT: Pharynx normal. Oral Mucosa moist Neck: Normal inspection. Neck supple. CVS: Normal heart rate and rhythm. Pulses normal. Respiratory: No respiratory distress. Equal air entry bilateral, no wheezing/rales/rhonchi Abdomen: Soft and nontender. Bowel sounds are present, no mass palpable, no CVA tenderness Skin: Skin warm and dry. Normal skin color. Normal skin turgor. Extremities: No lower extremity edema. No calf tenderness Neuro: Oriented X 3. No motor deficit. Medications Administered Discontinued Medications Generic Name Dose Route Start Last Admin Trade Name Freq PRN Reason Stop Dose Admin Omeprazole 40 mg 06/07/22 23:43 06/08/22 00:06 Omeprazole [address] LUGO 06/07/22 23:44 40 mg ONCE ONE Administration Medical Decision Making Medical Decision Making [facility] Narrative: Patient with chronic bronchitis labs are stable normal BNP clinically likely has gastric reflux disease causing the acid in esophagus and cough will discharge patient home on Protonix and Xopenex inhaler Differential Diagnosis Chronic bronchitis/pneumonia/aspiration pneumonia/ CHF Lab Data [facility] Lab Attestation statement: I reviewed the patient's lab results. 06/07/22 23:43 06/07/22 23:43 Labs: Lab Results 06/07/22 06/07/22 06/07/22 Range/Units 23:43 23:43 23:43 WBC 7.6 (4.8-10.8) X10*3/uL RBC 4.88 (4.20-5.50) X10*6/uL Hgb 13.7 (12.0-16.0) g/dl Hct 41.3 (37.0-47.0) % MCV 84.6 (80.0-98.0) fL MCH 28.1 (27.0-33.0) pg MCHC 33.2 (31.0-35.0) g/dl RDW 13.5 (11.0-16.0) % Plt Count 193 (160-400) X10*3/uL MPV 11.8 (9.4-12.3) fL Immature Gran % (Auto) 0.1 (0.0-0.4) % Neut % (Auto) 54.3 (45-73) % Lymph % (Auto) 32.9 (20-40) % Wagoner % (Auto) 10.6 (2-11) % Eos % (Auto) 1.8 (0-4) % Baso % (Auto) 0.3 (0-2) % Lymph # (Auto) 2.5 (1.2-4.9) X10*3/uL Wagoner # (Auto) 0.8 (0.1-1.2) X10*3/uL Eos # (Auto) 0.1 (0.0-0.4) X10*3/uL Baso # (Auto) 0.0 (0.0-0.2) X10*3/uL Abs Immat Gran (auto) 0.01 (0.00-0.03) X10*3/uL Absolute Neuts (auto) 4.1 (2.0-8.3) x10*3/uL Absolute Nucleated RBC 0.000 (0.0-0.012) X10*3/uL Nucleated RBC % (auto) 0.0 (0.0-0.2) /100WBC Sodium (135-145) mmol/L Potassium (3.3-5.1) mmol/L Chloride (96-108) mmol/L Carbon Dioxide (22-29) mmol/L Anion Gap (12-20) BUN (9-16) mg/dL Creatinine (0.5-1.4) mg/dL Estim Creat Clear Calc Estimated GFR Random Glucose (60-115) mg/dL Calcium (8.4-10.2) mg/dL Total Bilirubin (0.0-1.0) mg/dL AST (5-31) U/L ALT (0-31) U/L Alkaline Phosphatase (39-117) U/L B-Natriuretic Peptide 17 (<100) pg/mL Total Protein (6.5-8.0) g/dL Albumin (3.5-5.0) g/dL Influenza Type A (PCR) NEGATIVE (Negative) Influenza Type B (PCR) NEGATIVE (Negative) RSV RNA Qual (PCR) NEGATIVE (Negative) SARS-CoV-2 RNA (RT-PCR) NEGATIVE (Negative) 06/07/22 Range/Units 23:43 WBC (4.8-10.8) X10*3/uL RBC (4.20-5.50) X10*6/uL Hgb (12.0-16.0) g/dl Hct (37.0-47.0) % MCV (80.0-98.0) fL MCH (27.0-33.0) pg MCHC (31.0-35.0) g/dl RDW (11.0-16.0) % Plt Count (160-400) X10*3/uL MPV (9.4-12.3) fL Immature Gran % (Auto) (0.0-0.4) % Neut % (Auto) (45-73) % Lymph % (Auto) (20-40) % Wagoner % (Auto) (2-11) % Eos % (Auto) (0-4) % Baso % (Auto) (0-2) % Lymph # (Auto) (1.2-4.9) X10*3/uL Wagoner # (Auto) (0.1-1.2) X10*3/uL Eos # (Auto) (0.0-0.4) X10*3/uL Baso # (Auto) (0.0-0.2) X10*3/uL Abs Immat Gran (auto) (0.00-0.03) X10*3/uL Absolute Neuts (auto) (2.0-8.3) x10*3/uL Absolute Nucleated RBC (0.0-0.012) X10*3/uL Nucleated RBC % (auto) (0.0-0.2) /100WBC Sodium 139 (135-145) mmol/L Potassium 5.3 H (3.3-5.1) mmol/L Chloride 106 (96-108) mmol/L Carbon Dioxide 24 (22-29) mmol/L Anion Gap 14 (12-20) BUN 16 (9-16) mg/dL Creatinine 0.81 (0.5-1.4) mg/dL Estim Creat Clear Calc 66.8 Estimated GFR > 60 Random Glucose 87 (60-115) mg/dL Calcium 9.4 (8.4-10.2) mg/dL Total Bilirubin 0.5 (0.0-1.0) mg/dL AST 22 (5-31) U/L ALT 12 (0-31) U/L Alkaline Phosphatase 87 (39-117) U/L B-Natriuretic Peptide (<100) pg/mL Total Protein 7.7 (6.5-8.0) g/dL Albumin 4.0 (3.5-5.0) g/dL Influenza Type A (PCR) (Negative) Influenza Type B (PCR) (Negative) RSV RNA Qual (PCR) (Negative) SARS-CoV-2 RNA (RT-PCR) (Negative) Discharge Plan Discharge Clinical Impression: Chronic bronchitis Patient Disposition: Home, Self-Care Instructions: Chronic Bronchitis (ED) Additional Instructions: Take Protonix for acid reflux Sleep with head Elevation Xopenex inhaler 2 puffs every night before going to bed Follow with PCP if not better Prescriptions: New levalbuterol tartrate [Xopenex HFA] 45 mcg/actuation HFA aerosol inhaler 2 inh inhalation .qhs Qty: 15 0RF pantoprazole [Protonix] 40 mg tablet,delayed release (DR/EC) 40 mg PO DAILY Qty: 30 0RF No Action oxycodone 5 mg tablet 10 mg PO Q4H PRN (Reason: Pain, Moderate (Pain Scale 4-6) Qty: 20 0RF ondansetron 4 mg tablet,disintegrating 4 mg PO Q8H Qty: 14 0RF metronidazole 500 mg tablet 500 mg PO TID 14 Days Qty: 42 0RF bismuth subsalicylate 262 mg tablet,chewable 2 tab PO QID 14 Days Qty: 112 0RF pantoprazole 20 mg tablet,delayed release (DR/EC) 20 mg PO BID 14 Days Qty: 28 0RF doxycycline hyclate 100 mg tablet 100 mg PO BID 14 Days Qty: 28 0RF hydrocortisone acetate 25 mg suppository 1 supp PA BEDTIME docusate sodium [Stool Softener] 100 mg capsule 1 cap PO DAILY multivitamin with folic acid [Daily-Josue (with folic acid)] 400 mcg tablet 1 tab PO DAILY cholecalciferol (vitamin D3) 1,250 mcg (50,000 unit) capsule 1 cap PO QWEEK Rx Instructions: wednesday ibuprofen 600 mg Tablet 600 mg PO Q6H PRN (Reason: Pain, Moderate (Pain Scale 4-6) Qty: 15 0RF Hemorrhoidal Cream 1 appl PA DAILY PRN (Reason: hemorrhoids) Qty: 54 0RF nitrofurantoin monohyd/m-cryst 100 mg capsule 1 cap PO BID menthol-zinc oxide [Calmoseptine] 0.44-20.6 % ointment 1 appl topical QID PRN (Reason: wound healing) Qty: 113 0RF Interventions: ED Discharge Assessment Last Done: 06/08/22 00:36 Discharge Date/Time: 06/08/22 00:37
[2022-06-08] MEDS: Omeprazole 40 MG CAPSULE.DR PO (00:06)
[2022-06-08 00:14] LABS: Alanine Aminotransferase 12 U/L (0-31); Alkaline Phosphatase 87 U/L (39-117); Anion Gap 14 (12-20); Aspartate Amino Transferase 22 U/L (5-31); Bilirubin Total 0.5 mg/dL (0.0-1.0); Blood Urea Nitrogen 16 mg/dL (9-16); Calcium 9.4 mg/dL (8.4-10.2); Carbon Dioxide 24 mmol/L (22-29); Chloride 106 mmol/L (96-108); Creatinine Clr Calc Pharmacy 66.8; Estimated Glomerular Filt Rate > 60; Glucose Random 87 mg/dL (60-115); Potassium 5.3 mmol/L (3.3-5.1); Sodium 139 mmol/L (135-145); Total Protein 7.7 g/dL (6.5-8.0)
[2022-06-08 00:16] LABS: B Type Natriuretic Peptide 17 pg/mL (<100)
[2022-06-08 00:35] LABS: Influenza A PCR NEGATIVE (Negative); Influenza B PCR NEGATIVE (Negative); Resp Syncy Virus RNA Qual PCR NEGATIVE (Negative); SARS COV2 PCR INHOUSE NEGATIVE (Negative)
== END 2022-06-08 00:37 | disposition home or self-care (01) ==
PROVIDERS: Emergency Provider Internal Medicine; PCP Internal Medicine
DX: J42 Unspecified chronic bronchitis (principal); R05.9 Cough, unspecified; R06.02 Shortness of breath; Z20.822 Contact with and (suspected) exposure to COVID-19; Z20.828 Contact with and (suspected) exposure to other viral communicable diseases; Z79.899 Other long term (current) drug therapy
CPT/HCPCS: 0241U; 36415; 71046; 80053; 83880; 85025; 99283

== ENCOUNTER 2022-07-11 19:06 | Emergency (ER) | payer OTHER, SELFPAY ==
--- NOTE | ~2022-07-11 | XR_ITS ---
EXAMINATION: XR LUMBOSACRAL SPINE CLINICAL INFORMATION: Low back pain COMPARISON: None available. TECHNIQUE: Three views of the lumbosacral spine. FINDINGS: No acute fracture or dislocation. Mild dextroconvex lumbar scoliosis. Small endplate ossified present throughout the lumbar spine. Mild loss of disc space height at L5-S1. Moderate facet arthropathy at L5-S1 and to lesser extent L4-L5. Mild bilateral sacroiliac arthrosis. XR/XR lumbar spine 2-3V IMPRESSION: * No acute findings. * Lumbar spondylosis as described.
--- NOTE | ~2022-07-11 | CT_ITS ---
EXAMINATION: CT ABDOMEN AND PELVIS WITHOUT CONTRAST CLINICAL INFORMATION: Nonspecific right flank pain. COMPARISON: Multiple priors with last abdomen and pelvic CT of 12/09/2020. TECHNIQUE: Multidetector volumetric imaging was performed from the superior aspect of the liver through the pubic symphysis. Sagittal and coronal reformatted images were obtained on the technologist's workstation. This CT examination was performed using dose optimization techniques as appropriate, variously including the following: *Automated exposure control *Adjustment of mA and/or kV according to patient size (this includes techniques or standardized protocols for targeted exams where dose is matched to indication/reason for exam; i.e. extremities or head) *Use of iterative reconstruction technique DLP: 624 mGy-cm FINDINGS: LUNG BASES: The visualized lung bases are unremarkable. LIVER, GALLBLADDER, AND BILIARY TREE: The liver is normal in size, shape and attenuation. A 2.7 cm hypodense lesion in the liver adjacent to the gallbladder is a stable finding since previous CT scan of 12/04/2020. The finding demonstrates imaging features consistent with hemangioma on previous CT scan of 12/04/2020 demonstrating peripheral discontiguous nodular enhancement. No additional focal liver lesions are seen. No intrahepatic biliary ductal dilatation. Stable, and bile ductal dilatation measuring 1 cm. No radiopaque filling defect is noted in the common bile duct. The gallbladder is unremarkable with no evidence of radiopaque gallstones, gallbladder wall thickening, or obvious pericholecystic inflammatory changes. PANCREAS: Unremarkable. SPLEEN: Unremarkable. ADRENAL GLANDS: Unremarkable. KIDNEYS AND URETERS: The kidneys are normal in size, shape, and attenuation. No hydronephrosis, hydroureter, or calculi seen. No perinephric stranding. BLADDER: Underdistended and therefore not optimally evaluated. No radiopaque calculi are seen. GASTROINTESTINAL TRACT: No abnormal dilatation of stomach or small bowel. Colon is normal in caliber. No evidence of colonic wall thickening or pericolonic fat stranding. Moderate stool burden in the colon. An appendix is normal. ABDOMINAL WALL: No significant hernia is appreciated. LYMPH NODES: No evidence of pathologically enlarged lymph nodes. VASCULAR: The aortoiliac vessels are normal in caliber. Mild scattered calcific atherosclerosis of the aortoiliac vessels. PELVIC VISCERA: Unremarkable. OSSEOUS STRUCTURES: Facet arthropathy in the lower lumbar spine. There is stable mild grade 1 anterolisthesis of L5 over S1. No acute or suspicious osseous abnormality. CT/CT abdomen pelvis wo IV con IMPRESSION: No evidence of radiopaque urinary tract calculi, hydroureteronephrosis or perinephric stranding. Normal appendix. Moderate stool burden in the colon. No acute abnormality is identified to explain patient's symptoms. Fleischner guidelines were followed.
[2022-07-11 19:22] VITALS: BP 150/81; PULSE 83; RESP 18; TEMP 37.1; O2SAT 96; BMI 29.7
[2022-07-11 19:42] LABS: Appearance Urine Clear; Color Urine Yellow; Glucose Urine UA Negative (Negative); Leukocyte Esterase Urine Trace (Negative); Nitrite Urine Negative (Negative); Specific Gravity - Urine <= 1.005 (1.005-1.025); UMIC TRIGGER UACC YES; Urine Blood Negative (Negative); Urine Ketones Negative (Negative); Urine Protein Negative (Neg-Trace)
--- NOTE | 2022-07-11 19:44 | ED.BACK ---
HPI - Back Pain/Injury General Chief Complaint: Back Pain/Injury Stated Complaint: Back pain radiating to center+lower back Time Seen by Provider: 07/11/22 19:13 Source: patient Mode of arrival: ambulatory Limitations: no limitations History of Present Illness HPI Narrative: Patient no significant past back problems complaining of pain right-sided low back pain for last 10 days noticed history of trauma had dysuria earlier not any more no hematuria patient tried Flexeril without much relief Related Data Home Medications Medication Instructions Recorded Confirmed cholecalciferol (vitamin D3) 1,250 1 cap PO QWEEK 12/09/20 12/25/20 mcg (50,000 unit) capsule docusate sodium 100 mg capsule 1 cap PO DAILY 12/09/20 12/25/20 (Stool Softener) hydrocortisone acetate 25 mg 1 supp NV BEDTIME 12/09/20 12/25/20 rectal suppository multivitamin with folic acid 400 1 tab PO DAILY 12/09/20 12/25/20 mcg tablet (Daily-Josue (with folic acid)) nitrofurantoin 1 cap PO BID 12/25/20 12/25/20 monohydrate/macrocrystals 100 mg capsule Previous Rx's Medication Instructions Recorded ibuprofen 600 mg tablet 600 mg PO Q6H PRN Pain, Moderate 12/13/20 (Pain Scale 4-6 #15 tabs ondansetron 4 mg disintegrating 4 mg PO Q8H #14 tabs 12/13/20 tablet oxycodone 5 mg tablet 10 mg PO Q4H PRN Pain, Moderate 12/13/20 (Pain Scale 4-6 #20 tabs phenyleph-shark liver 1 appl NV DAILY PRN hemorrhoids 12/13/20 [id number] rectal cream #54 grams (Hemorrhoidal cream) menthol 0.44 %-zinc oxide 20.6 % 1 appl topical QID PRN wound 01/09/21 topical ointment (Calmoseptine) healing #113 grams bismuth subsalicylate 262 mg 2 tab PO QID 14 days #112 tabs 04/11/21 chewable tablet doxycycline hyclate 100 mg tablet 100 mg PO BID 2 weeks #28 tabs 04/11/21 metronidazole 500 mg tablet 500 mg PO TID 14 days #42 tabs 04/11/21 pantoprazole 20 mg tablet,delayed 20 mg PO BID 2 weeks #28 tabs 04/11/21 release levalbuterol tartrate 45 2 inh inhalation .qhs #15 grams 06/08/22 mcg/actuation aerosol inhaler (Xopenex HFA) pantoprazole 40 mg tablet,delayed 40 mg PO DAILY #30 tabs 06/08/22 release (Protonix) cyclobenzaprine 5 mg tablet 5 mg PO TID PRN muscle spasm #30 07/11/22 tabs lidocaine 4 % topical patch 1 patch topical DAILY PRN pain #30 07/11/22 (Salonpas (lidocaine)) ea naproxen 500 mg tablet (Naprosyn) 500 mg PO BID PRN pain #60 tabs 07/11/22 Allergies Allergy/AdvReac Type Severity Reaction Status Date / Time paraben Allergy Severe urticaria Verified 07/11/22 19:25 Sulfa (Sulfonamide Allergy Mild HIVES Verified 07/11/22 19:25 Antibiotics) [SULFA (SULFONAMIDE ANTIBIOTICS)] sulfacetamide Allergy Unknown hives Verified 07/11/22 19:25 sulfur Allergy Unknown hives Verified 07/11/22 19:25 Latex, Natural Rubber AdvReac Unknown Verified 07/11/22 19:25 Review of Systems Review of Systems: Yes all other systems are reviewed and are negative PMF Past Medical History Medical History Bleeding hemorrhoids Hypercholesterolemia Takotsubo cardiomyopathy Surgical History History of cataract surgery History of hemorrhoidectomy Hx of cardiac cath Family History Family History Mother No problems noted. Father No problems noted. Father CVD (cardiovascular disease) Mother CVD (cardiovascular disease) Social History Social History Household Members: Family Housing: House Do you presently have visiting nurse or other home services: No Alcohol intake: never Patient Tobacco Use Status: Never used Tobacco Advance Directives: No Advance Directives Information Provided: Yes service: No Current occupational status: retired Physical Exam Vital Signs: Vital Signs: Last Vital Signs Temp 98.7 F 07/11/22 19:22 Pulse 83 05/13/23 19:22 Resp 18 07/11/22 19:22 BP 150/81 H 07/11/22 19:22 Pulse Ox 96 07/11/22 19:22 O2 Del Method Room Air 07/11/22 19:22 BMI result Body Mass Index 29.7 Appearance: Alert. Oriented X3. No acute distress. Eyes: PERRLA, No Nystagmus ENT: Pharynx normal. Oral Mucosa moist Neck: Normal inspection. Neck supple. CVS: Normal heart rate and rhythm. Pulses normal. Respiratory: No respiratory distress. Equal air entry bilateral, no wheezing/rales/rhonchi Abdomen: Soft and nontender. Bowel sounds are present, no mass palpable, no CVA tenderness Skin: Skin warm and dry. Normal skin color. Normal skin turgor. Extremities: No lower extremity edema. No calf tenderness Neuro: Oriented X 3. No motor deficit. No sensory deficit.No cerebellar signs , cranial nerves II-XII intact Medical Decision Making Medical Decision Making MDM Narrative: Patient on specific muscle pain urine negative x-ray negative CT scan was also negative for any acute pathology shows constipation will discharge patient home on naproxen and Flexeril Differential Diagnosis Differential Diagnoses: The differential diagnosis associated with the presentation includes Kidney stone/muscular pain Lab Data [facility] Lab Attestation statement: I reviewed the patient's lab results. Labs: Lab Results 07/11/22 Range/Units 19:34 Urine Color Yellow Urine Appearance Clear Urine pH 7.0 (5.0-9.0) Ur Specific Pioneer <= 1.005 (1.005-1.025) Urine Protein Negative (Neg-Trace) mg/dL Urine Glucose (UA) Negative (Negative) mg/dL Urine Ketones Negative (Negative) mg/dL Urine Blood Negative (Negative) Urine Nitrite Negative (Negative) Ur Leukocyte Esterase Trace H (Negative) Urine RBC 0-2 (0-2) /HPF Urine WBC 0-5 (0-5) /HPF Ur Squamous Epith Cells 0-2 (0-2) /HPF Urine Bacteria None Seen (None Seen) Hyaline Casts 0-2 (0-2) /LPF Discharge Plan Discharge Clinical Impression: Strain of lumbar region Patient Disposition: Home, Self-Care Instructions: Low Back Strain (ED) Additional Instructions: Apply ice pack Rest Naproxen for pain Flexeril for muscle relaxation Apply Lidoderm patch daily for 12 hours Follow with PCP if not better Prescriptions: New naproxen [Naprosyn] 500 mg tablet 500 mg PO BID PRN (Reason: pain) Qty: 60 0RF lidocaine [Salonpas (lidocaine)] 4 % adhesive patch,medicated 1 patch topical DAILY PRN (Reason: pain) Qty: 30 0RF Rx Instructions: may leave on for up to 12 hrs cyclobenzaprine 5 mg tablet 5 mg PO TID PRN (Reason: muscle spasm) Qty: 30 0RF No Action oxycodone 5 mg tablet 10 mg PO Q4H PRN (Reason: Pain, Moderate (Pain Scale 4-6) Qty: 20 0RF ondansetron 4 mg tablet,disintegrating 4 mg PO Q8H Qty: 14 0RF metronidazole 500 mg tablet 500 mg PO TID 14 Days Qty: 42 0RF bismuth subsalicylate 262 mg tablet,chewable 2 tab PO QID 14 Days Qty: 112 0RF pantoprazole 20 mg tablet,delayed release (DR/EC) 20 mg PO BID 14 Days Qty: 28 0RF doxycycline hyclate 100 mg tablet 100 mg PO BID 14 Days Qty: 28 0RF hydrocortisone acetate 25 mg suppository 1 supp NV BEDTIME docusate sodium [Stool Softener] 100 mg capsule 1 cap PO DAILY multivitamin with folic acid [Daily-Josue (with folic acid)] 400 mcg tablet 1 tab PO DAILY cholecalciferol (vitamin D3) 1,250 mcg (50,000 unit) capsule 1 cap PO QWEEK Rx Instructions: wednesday ibuprofen 600 mg Tablet 600 mg PO Q6H PRN (Reason: Pain, Moderate (Pain Scale 4-6) Qty: 15 0RF Hemorrhoidal Cream 1 appl NV DAILY PRN (Reason: hemorrhoids) Qty: 54 0RF levalbuterol tartrate [Xopenex HFA] 45 mcg/actuation HFA aerosol inhaler 2 inh inhalation .qhs Qty: 15 0RF pantoprazole [Protonix] 40 mg tablet,delayed release (DR/EC) 40 mg PO DAILY Qty: 30 0RF nitrofurantoin monohyd/m-cryst 100 mg capsule 1 cap PO BID menthol-zinc oxide [Calmoseptine] 0.44-20.6 % ointment 1 appl topical QID PRN (Reason: wound healing) Qty: 113 0RF Interventions: ED Discharge Assessment Last Done: 07/11/22 20:42 Discharge Date/Time: 07/11/22 20:43
[2022-07-11 19:47] LABS: Bacteria Urine None Seen (None Seen); Hyaline Casts Urine 0-2 /LPF (0-2); RBC Urine 0-2 /HPF (0-2); Squamous Epithelial Cell Urine 0-2 /HPF (0-2); WBC Urine 0-5 /HPF (0-5)
== END 2022-07-11 20:43 | disposition home or self-care (01) ==
PROVIDERS: Emergency Provider Internal Medicine; PCP Internal Medicine
DX: S39.012A Strain of muscle, fascia and tendon of lower back, initial encounter (principal); X58.XXXA Exposure to other specified factors, initial encounter; R30.0 Dysuria; Y93.9 Activity, unspecified; Y92.019 Unspecified place in single-family (private) house as the place of occurrence of the external cause; Y99.9 Unspecified external cause status; Z79.899 Other long term (current) drug therapy
CPT/HCPCS: 72100; 74176; 81001; 99282; 99284

== ENCOUNTER 2023-03-15 09:41 | Outpatient (REF) | payer OTHER, SELFPAY | END 2023-03-15 09:42 | disposition home or self-care (01) | LOC: HO.HOSX 09:41 | PROVIDERS: Visit Provider Orthopaedic Surgery | DX: Z13.89 Encounter for screening for other disorder (principal) ==

== ENCOUNTER 2023-03-29 14:56 | Outpatient (AMB) | payer OTHER, SELFPAY ==
--- NOTE | 2023-03-29 14:57 | A.OFFVIS_ITS ---
Intake Vital Signs 03/29/23 14:58 Height 5 ft 4 in Weight 160 lb 14.999 oz BMI 27.6 BP 100/64 Blood Pressure Location Lt brachial Position Sitting Pulse 59 Intake Visit Reasons: Follow Up Intake Note: Follow-up c/o high bp and heavniess chest It Support Analyst: It Support Analyst Present Accompanied by: Daughter Allergies paraben Allergy (Severe, Verified 07/11/22 19:25) urticaria Sulfa (Sulfonamide Antibiotics) [SULFA (SULFONAMIDE ANTIBIOTICS)] Allergy (Mild, Verified 07/11/22 19:25) HIVES sulfacetamide Allergy (Unknown, Verified 07/11/22 19:25) hives sulfur Allergy (Unknown, Verified 07/11/22 19:25) hives Latex, Natural Rubber Adverse Reaction (Verified 07/11/22 19:25) Unknown Medication List - Last Reconciled 03/29/23 by Srinivas Romeo MD bismuth subsalicylate 2 tabs PO QID cholecalciferol (vitamin D3) 1,250 mcg PO QWEEK 28 days cyclobenzaprine 5 mg PO TID PRN docusate sodium (Stool Softener) 1 cap PO DAILY hydrocortisone acetate 1 supp DC BEDTIME ibuprofen 600 mg PO Q6H PRN metoprolol succinate ER 25 mg PO DAILY rosuvastatin 10 mg PO BEDTIME valsartan-hydrochlorothiazide 160-12.5 mg 1 tab PO DAILY HPI HPI Comments History of Present Illness Details Mrs Galindo comes after a long gap. Since I last saw her, she has been going back and forth to [place]. More recently in the last 6 months she was having issues with red eyes. Subsequently spd manager suggested to check a blood pressure a blood pressure was significantly elevated as systolic 170s. Since then she saw a primary montessori teacher locally in [facility] in [place] who prescribed her metoprolol. However blood pressure remained labile. Blood pressure was elevated in the morning and then usually gets lower by afternoon or evening time. She does not have the exact records for it. She then continued to have symptoms with elevated blood pressure and saw a primary montessori teacher in [place] who prescribed her with valsartan/hydrochlorothiazide continue with metoprolol. This has led to better blood pressure control although she says she gets nervous a lot hearing about her grandchildren's health and she then gets panicky and short of breath and gets chest pressure usually a blood pressure is elevated at that time. She is very concerned about the symptoms and was advised to seek primary montessori teacher in [place] because of her insurance issues. She came in today. EKG shows normal sinus rhythm with poor R-wave progression due to lead placement with nonspecific ST T wave changes. She denies any palpitations, including prolonged palpitation irregular heartbeat. Denies any lighthea dedness, syncope. Denies any orthopnea, PND. She says she sleeps poorly because she is worried about peripheral issues. She also was diagnosed with hyperlipidemia and was started on rosuvastatin therapy [facility] Medical History (Updated 03/29/23 @ 15:49 by Srinivas Romeo MD) HTN (hypertension) Bleeding hemorrhoids Takotsubo cardiomyopathy Hypercholesterolemia Surgical History History of hemorrhoidectomy Hx of cardiac cath History of cataract surgery Family History Mother No problems noted. Father No problems noted. Father CVD (cardiovascular disease) Mother CVD (cardiovascular disease) Social History Household Members: Family Housing: House Do you presently have visiting nurse or other home services: No Alcohol intake: never Patient Tobacco Use Status: Never used Tobacco service: No Current occupational status: retired Review of Systems Const Denies chills, Denies fatigue, Denies fever(s), Denies frequent falls, Denies weakness, Denies weight gain and Denies weight loss ENT Denies dizziness Card Denies chest pain, Denies leg edema, Denies lightheadedness, Denies palpitations, Denies dyspnea, Denies dyspnea on exertion, Denies orthopnea and Denies other (loss of consciousness) Resp Denies cough, Denies dyspnea and Denies dyspnea on exertion GI Denies hematochezia and Denies change in stool character Musc Denies abnormal gait, Denies muscle weakness, Denies numbness, Denies radiating pain into limb and Denies tingling Neuro Denies abnormal gait, Denies dizziness, Denies frequent falls, Denies numbness, Denies tingling and Denies weakness Endo Denies fatigue and Denies palpitations Physical Exam Vital Signs: Last Vital Signs Pulse 59 03/29/23 14:58 BP 100/64 03/29/23 14:58 BMI result Body Mass Index 27.6 Const General: cooperative, comfortable, no acute distress, alert, awake, Physically active and well groomed Nutritional Appearance: overweight Orientation/consciousness: patient oriented x3 Limitations: no limitations HEENT Head: Yes normocephalic and Yes atraumatic Neck Neck: Yes trachea midline, Yes supple and Yes no JVD Resp Effort & Inspection: normal respiratory effort Auscultation: clear to auscultation bilaterally Cardio Jugular venous distension: no JVD Palpation: normal PMI Rate: regular rate Rhythm: regular rhythm Heart sounds: S1 normal heart sound present, S2 normal heart sound present, no click, no gallops, no murmurs and no rubs GI Auscultation: normal bowel sounds Neuro General: patient oriented x3 and no focal motor deficits Extrem General: Yes no clubbing, cyanosis or edema Office Procedures EKG Details: EKG shows normal sinus rhythm with poor R-wave progression with ST T wave changes suggestive of repolarization abnormality [id number], Complete Assessment & Plan Assessment & Plan (1) Atypical chest pain: Code(s): R07.89 - Other chest pain Plan: Patient with atypical chest pain with symptoms when she is anxious and has elevated blood pressure. This could be related to elevated blood pressure subendocardial ischemia. Although given her risk factors obstructive coronary artery disease needs to be ruled out. She has knee issues and can not exercise on treadmill and will suggest a vasodilating myocardial perfusion imaging to evaluate for the same. Also suggest an echocardiogram to evaluate for hypertensive heart disease and LV systolic and diastolic function. These tests will be scheduled in near future. Further treatment based on the findings of the test results. Meanwhile I have strongly suggested to participate in stress mitigation strategies as she has has prior history of takotsubo cardiomyopathy and also have suggested her to focus on other activities that may make her less anxious. Advised to participate in regular physical activity. (2) HTN (hypertension): Code(s): I10 - Essential (primary) hypertension Plan: Labile blood pressure but today's blood pressure looks well controlled on current therapy. Advised to monitor blood pressure on a more regular basis at different times a day maintain a log. Low-salt diet was discussed. Stress mitigation strategies was discussed. Further treatment based on findings of the test results. Will follow up in the clinic in 6 weeks time, sooner p.r.n.. Thank you for allowing me to partake in the care Medications: Changed From bismuth subsalicylate 2 tabs PO QID 14 days 112 tabs 0RF To bismuth subsalicylate 2 tabs PO QID Coding Level of Care Code New Pt Level 4 (93762) Diagnoses Atypical chest pain R07.89 HTN (hypertension) I10 CPT Codes EKG - CPT: 42761-[id number], Complete ([id number])
[2023-03-29 14:58] VITALS: BP 100/64; PULSE 59; BMI 27.6
== END 2023-03-29 15:50 | disposition home or self-care (01) ==
PROVIDERS: PCP Student in an Organized Health Care Education/Training Program; Visit Provider Internal Medicine Cardiovascular Disease
DX: R07.89 Other chest pain (principal); I10 Essential (primary) hypertension
CPT/HCPCS: 93010; 99204

== ENCOUNTER → 2023-03-29 14:56 | Outpatient (BNVA) | payer OTHER, SELFPAY | PROVIDERS: PCP Student in an Organized Health Care Education/Training Program; Visit Provider Internal Medicine Cardiovascular Disease | DX: R07.89 Other chest pain (principal); I10 Essential (primary) hypertension | CPT/HCPCS: 93005; 99202 ==

== ENCOUNTER 2023-04-05 13:01 | Outpatient (AMB) | payer OTHER, SELFPAY ==
--- NOTE | 2023-04-05 13:03 | MHC.OFFVIS ---
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 Left shoulder wores than right. Hx of cortisone injection that was not helpful. She has increased pain when picking up her grandchildren. PT was not helpful and increased her pain. 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 She complains of pain with daily activity, worse with lifting or overhead activities. She says she is unable to lift her grandchildren without pain. She has a hx of steroid injections in the past, with no relief, and she reports PT made her pain worse. She would like to discuss alternative treatment options. [facility] Medical History (Updated 04/05/23 @ 13:31 by Clyde Erazo MD) HTN (hypertension) Bleeding hemorrhoids Takotsubo cardiomyopathy Hypercholesterolemia Surgical History History of hemorrhoidectomy Hx of cardiac cath History of cataract surgery Family History Mother No problems noted. Father No problems noted. Father CVD (cardiovascular disease) Mother CVD (cardiovascular disease) Social History Household Members: Family Housing: House Do you presently have visiting nurse or other home services: No Alcohol intake: never Patient Tobacco Use Status: Never used Tobacco service: No Current occupational status: retired Review of Systems Const All systems reviewed & are unremarkable except as noted in HPI and below Physical Exam Const General: no acute distress, alert and awake Orientation/consciousness: patient oriented x3 HEENT Head: Yes normocephalic and Yes atraumatic Eyes EOM: EOMs intact bilaterally Resp Effort & Inspection: normal respiratory effort and able to speak in complete sentences Cardio Jugular venous distension: no JVD Skin General skin exam: turgor normal Rashes: no rashes Neuro General: patient oriented x3 Extrem Other: + H/N bilaterally 5/5 EC ER to 45 bilaterally with painful but full abduction Psych Appearance: grossly normal Affect: normal affect Attitude: cooperative Office Procedures Joint Injection/Drain Joint Injection/Drain Details: Injected 1 mL of Decadron and 3 mL 1% lidocaine and 3 mL of 0.25% Marcaine. Site was prepped using aseptic technique. Patient tolerated the procedure well. Primary Site: right shoulder Secondary Site: left shoulder Approach Used: posterolateral Coding 93337 - Large joint 44539 - Glenohumeral/Tronchanteric Bursa/Intraarticular Procedure code (CPT) selection complete Results Reviewed Results Reviewed: Left shoulder radiographs unremarkable Assessment & Plan Assessment & Plan (1) Incomplete rotator cuff tear: Code(s): M75.110 - Incomplete rotator cuff tear or rupture of unspecified shoulder, not specified as traumatic Plan: I injected both shoulders today. An rx for PT was written Plan Prepared for Clyde Erazo MD by Kevin eMlendrez, medical staffing coordinator, on 04/05/23 at 1:12 PM, EST. Orders: Orders PT Evaluation and Treatment 04/05/23 M75.110 - Incomplete rotator cuff tear or rupture of unspecified shoulder, not specified as traumatic Coding Level of Care Code New Pt Level 3 (66676) Diagnoses Incomplete rotator cuff tear M75.110 CPT Codes Coding - 30745 Large joint: 05707 - Large joint ([id number]) Coding - Joint 7: 84261 - Glenohumeral/Tronchanteric Bursa/Intraarticular ([id number])
== END 2023-04-05 14:06 | disposition home or self-care (01) ==
PROVIDERS: PCP Student in an Organized Health Care Education/Training Program; Visit Provider Orthopaedic Surgery
DX: M25.512 Pain in left shoulder (principal); M25.511 Pain in right shoulder
CPT/HCPCS: 20610; 99203

== ENCOUNTER → 2023-04-05 13:01 | Outpatient (BNVA) | payer OTHER, SELFPAY | PROVIDERS: PCP Student in an Organized Health Care Education/Training Program; Visit Provider Orthopaedic Surgery | DX: M25.511 Pain in right shoulder (principal); M25.512 Pain in left shoulder; M75.110 Incomplete rotator cuff tear or rupture of unspecified shoulder, not specified as traumatic | CPT/HCPCS: 20610; 99202; J0665; J1100 ==

== ENCOUNTER → 2023-04-23 11:09 | Outpatient (REF) | payer OTHER, SELFPAY ==
--- NOTE | 2023-04-23 11:13 | CA_ITS ---
Transthoracic Echocardiogram Patient (Last, First, Middle): Charlee Galindo N Gender: Female Date of : 1955 Age: 67 Procedure Date: 04/23/2023 Procedure Type: Transthoracic Echocardiogram Location: OP Height: 162.56 cm Weight: 79.83 kg BSA: 1.85 m2 Heart Rate: bpm BP: 130 / 80 mmHg Forestry Biology Specialist: TO Referring MD: Srinivas Romeo MD Manager Child: Srinivas Romeo MD Symptoms: R07.89 - Other chest pain Study Quality: Fair/Contrast ECG Rhythm: Sinus Conclusions: - 1. Normal LV systolic function with LVEF of 65-70% with impaired relaxation filling pattern 2. Mild aortic regurgitation 3. Mildly dilated ascending aorta at 4 cm 4. Normal RV systolic pressure 5. No pericardial effusion Findings Procedure Information Contrast agent, definity, is being given per protocol without apparent complications. Left Ventricle Normal left ventricular size, thickness, and systolic function. The visually estimated ejection fraction is between 65-70%. Spectral Doppler is indicative of an impaired relaxation filling pattern. E/E prime ratio is between 8 and 15 consistent with indeterminate filling pressures. Peak GLS is -22%, within normal limits Right Ventricle Normal right ventricular cavity size and systolic function. Atria The left atrium is likely dilated. There is no evidence of interatrial shunt. The right atrium is normal in size. Aortic Valve Normal aortic valve structure and function. There is no aortic valve stenosis. There is mild aortic valve regurgitation. Mitral Valve Normal mitral valve structure and function. There is trace mitral valve regurgitation. There is no mitral valve stenosis. Pulmonic Valve The pulmonic valve is likely normal. Tricuspid Valve Normal tricuspid valve structure. There is trace tricuspid valve regurgitation. The right ventricular systolic pressure is normal. The right ventricular systolic pressure is 19 mmHg. Normal right atrial pressure. There is no evidence of pulmonary hypertension. Great Vessels The pulmonary artery was not well visualized. There is mild dilatation of the ascending aorta measuring 4.00 cm. Venous The inferior vena cava is normal in size and collapses greater than 50% with inspiration. Pericardium/Pleural There is no evidence of pericardial effusion. Prior Study Comparison Changes noted compared to prior study dated: 08/25/2019. Ascending aorta is mildly dilated and mild aortic regurgitation is noted Measurements 2D Linear Measurements IVSd: 1.15 0.6-0.9/0.6-1.0 cm LVIDd: 4.20 3.9-5.3/4.2-5.9 cm LVIDd Index: 2.27 2.4-3.2/2.2-3.1 cm/m2 LVIDs: 2.49 2.0-3.6 cm LVPWd: 0.75 0.7-1.1 cm LA Diam: 3.40 2.7-3.8/3.0-4.0 cm LAIDs Index: 1.84 1.5-2.3 cm/m2 LV Mass: 159.36 67-162/88-224 g LV Mass Index: 86.14 43-95/49-115 g/m2 LVOT Diam: 2.00 3.0+(-)1.3 cm 2D Systolic Function EF 4C: 68.10 >55% EF 2C: 63.20 >55% EF BiP: 67.20 >55% Mitral Valve MV Pk E: 0.69 MV PK A: 0.66 MV Decel Time: 193.00 E/A: 1.10 E'Lateral: 7.29 E'Medial: 5.00 E/E' Med: 13.80 E/E' Lat: 9.50 PHT: 56.00 MVA PHT: 3.93 Decel [place]: 3.58 Aortic Valve AoV Pk Fer: 1.45 AoV Mn Fer: 0.98 AoV VTI: 0.36 AoV Pk Grad: 8.00 Aov Mn Grad: 4.00 YIMI Cont.VTI: 2.45 AI Pk Fer: 3.90 AI VTI: 2.22 AI [place]: 2.05 LVOT LVOT Pk Fer: 1.07 LVOT Mn Fer: 0.71 LVOT VTI: 0.28 LVOT Pk Grad: 5.00 LVOT Mn Grad: 2.00 LVOT Diam: 2.00 LVOT Area: 3.14 Diastolic Function MV Pk E: 0.69 MV Pk A: 0.66 E/A: 1.10 E'Medial: 5.00 E/E' Med: 13.80 E' Laterial: 7.29 E/E' Lat: 9.50 Right Ventricle TAPSE (mm): 27.70 TVS' Fer: 10.80 Tricuspid Valve TR Pk Fer: 2.00 TR Pk Grad: 16.00 RA Press: 3.00 RVSP: 19.00 Great Vessels Aorta Sinus of Valsalva: 3.20 2.0-3.5 cm Ao Asc: 4.00 2.1-3.4 cm Ao Arch: 3.50 Updated in Other Vendor System with Status of Final Srinivas Romeo MD electronically signed on 04/24/2023 11:36:24 AM with status of Final
== END ==
LOC: HO.CARD 11:09
PROVIDERS: PCP Student in an Organized Health Care Education/Training Program; Visit Provider Internal Medicine Cardiovascular Disease
DX: R07.89 Other chest pain (principal)
CPT/HCPCS: 93306; 93356; Q9957

== ENCOUNTER → 2023-04-23 11:13 | Outpatient (BNV) | payer OTHER, SELFPAY | PROVIDERS: PCP Student in an Organized Health Care Education/Training Program; Visit Provider Internal Medicine Cardiovascular Disease | DX: I35.8 Other nonrheumatic aortic valve disorders (principal); R07.89 Other chest pain | CPT/HCPCS: 93306 ==

== ENCOUNTER 2023-04-27 14:35 | Outpatient (AMB) | payer OTHER, SELFPAY ==
[2023-04-27 14:48] VITALS: BP 135/70; PULSE 66; BMI 27.6
--- NOTE | 2023-04-27 14:48 | A.OFFVIS_ITS ---
Intake Vital Signs 04/27/23 14:48 04/27/23 14:54 04/27/23 14:55 Height 5 ft 4 in Weight 160 lb 14.999 oz BMI 27.6 BP 135/70 134/74 146/79 H Blood Pressure Location Lt brachial Lt brachial Lt brachial Position Supine Sitting Standing Pulse 66 69 75 Intake Visit Reasons: [place]/04-25/High BP Intake Note: Follow-up high bp over 200 in ED at [facility] feeling good better Thermal Cutter Hand Required: No Dormitory Keeper: Dormitory Keeper Present Accompanied by: Daughter Allergies paraben Allergy (Severe, Verified 04/05/23 13:10) urticaria Sulfa (Sulfonamide Antibiotics) [SULFA (SULFONAMIDE ANTIBIOTICS)] Allergy (Mild, Verified 04/05/23 13:10) HIVES sulfacetamide Allergy (Unknown, Verified 04/05/23 13:10) hives sulfur Allergy (Unknown, Verified 04/05/23 13:10) hives Latex, Natural Rubber Adverse Reaction (Verified 04/05/23 13:10) Unknown Medication List - Last Reconciled 04/27/23 by Srinivas Romeo MD aspirin (Adult Aspirin Regimen) 81 mg PO DAILY bismuth subsalicylate 2 tabs PO QID cholecalciferol (vitamin D3) 1,250 mcg PO QWEEK 28 days cyclobenzaprine 5 mg PO TID PRN docusate sodium (Stool Softener) 1 cap PO DAILY hydrocortisone acetate 1 supp UT BEDTIME ibuprofen 600 mg PO Q6H PRN rosuvastatin 10 mg PO BEDTIME valsartan 80 mg PO BEDTIME HPI HPI Comments History of Present Illness Details Charlee comes for follow-up as 2 days ago she had an acute hypertensive reaction that ended up having to go to [facility] in [place]. She says she was doing well the whole day and since switch to valsartan 80 mg at nighttime she has been feeling well and her blood pressures been generally well controlled. However that day she fasted all day and then had a evening meal outside and following that she came to her son's house in [place] and they recorded a blood pressure to be elevated in the 170 range. She then started laying down but then started getting anxious and felt scared and then started having symptoms of chest pressure and feeling overall anxious reaction with coldness in her whole body and shivering. They then called 911 and on route they gave her 3 baby aspirin and in the emergency room taking sublingual nitroglycerin and then she burped and his symptoms gradually got better with improving blood pressure. Troponins were negative. BNP was borderline elevated. She had a recent echocardiogram which shows normal LV ejection fraction with mildly dilated ascending aorta. She comes for urgent evaluation. She is scheduled for myocardial perfusion imaging in near future. She says she gets anxious a lot, given that she does not have a lot of her independent like she has in her home country in [place]. FORMERLY [facility], [facility] Medical History HTN (hypertension) Bleeding hemorrhoids Takotsubo cardiomyopathy Hypercholesterolemia Surgical History History of hemorrhoidectomy Hx of cardiac cath History of cataract surgery Family History Mother No problems noted. Father No problems noted. Father CVD (cardiovascular disease) Mother CVD (cardiovascular disease) Social History Household Members: Family Housing: House Do you presently have visiting nurse or other home services: No Alcohol intake: never Patient Tobacco Use Status: Never used Tobacco service: No Current occupational status: retired Review of Systems Const Denies chills, Denies fatigue, Denies fever(s), Denies frequent falls, Denies weakness, Denies weight gain and Denies weight loss ENT Denies dizziness Card Denies chest pain, Denies leg edema, Denies lightheadedness, Denies palpitations, Denies dyspnea, Denies dyspnea on exertion, Denies orthopnea and Denies other (loss of consciousness) Resp Denies cough, Denies dyspnea and Denies dyspnea on exertion GI Denies hematochezia and Denies change in stool character Musc Denies abnormal gait, Denies muscle weakness, Denies numbness, Denies radiating pain into limb and Denies tingling Neuro Denies abnormal gait, Denies dizziness, Denies frequent falls, Denies numbness, Denies tingling and Denies weakness Endo Denies fatigue and Denies palpitations Physical Exam Vital Signs: Last Vital Signs Pulse 75 04/27/23 14:55 BP 146/79 H 04/27/23 14:55 BMI result Body Mass Index 27.6 Assessment & Plan Assessment & Plan (1) HTN (hypertension): Code(s): I10 - Essential (primary) hypertension Plan: Hypertension with labile blood pressure changes with marked blood pressure elevation recently most likely exacerbated by anxiety reaction. She does have general anxiety disorder. I have taken the liberty to start sertraline 12.5 mg for her but have advised her to follow-up with your office for further management of her general anxiety disorder. We discussed about stress mitigation strategies. Meanwhile for acute blood pressure greater than 160 I am going to give hydralazine 10 mg p.o.. Discussed with management of blood pressure. Advised to avoid sudden stressful situations. Continue valsartan the rapy which she is tolerating well otherwise. (2) Thoracic aortic aneurysm: Code(s): I71.20 - Thoracic aortic aneurysm, without rupture, unspecified Plan: Mild thoracic aortic aneurysm, most likely related to longstanding hypertension. Importance of good blood pressure control was discussed. Continue valsartan 80 mg at bedtime which she is tolerating well. Advised to monitor blood pressure at home and target goal blood pressure generally less than systolic 130. Occasional blood pressure up to 150 does not need to be treated. Low-salt diet was discussed. Continue statin therapy with target goal LDL less than 70 mg/dL Will follow up in the clinic in 4 weeks time, sooner p.r.n.. Thank you for allowing me to partake in her care Medications: New hydralazine 10 mg PO ONCE PRN 20 tabs 0RF hypertension, SBP > 160 sertraline 12.5 mg (1/2 x 25 mg) PO DAILY 30 tabs 1RF Coding Level of Care Code Est Pt Level 4 (17836) Diagnoses HTN (hypertension) I10 Thoracic aortic aneurysm I71.20
[2023-04-27 14:54] VITALS: BP 134/74; PULSE 69
[2023-04-27 14:55] VITALS: BP 146/79; PULSE 75
== END 2023-04-27 15:32 | disposition home or self-care (01) ==
PROVIDERS: PCP Student in an Organized Health Care Education/Training Program; Referring Provider Student in an Organized Health Care Education/Training Program; Visit Provider Internal Medicine Cardiovascular Disease
DX: I10 Essential (primary) hypertension (principal); I71.20 Thoracic aortic aneurysm, without rupture, unspecified
CPT/HCPCS: 99214

== ENCOUNTER → 2023-04-27 14:35 | Outpatient (BNVA) | payer OTHER, SELFPAY | PROVIDERS: PCP Student in an Organized Health Care Education/Training Program; Visit Provider Internal Medicine Cardiovascular Disease | DX: I10 Essential (primary) hypertension (principal); I71.20 Thoracic aortic aneurysm, without rupture, unspecified | CPT/HCPCS: 99212 ==

== ENCOUNTER → 2023-04-28 09:29 | Outpatient (REF) | payer OTHER, SELFPAY ==
--- NOTE | ~2023-04-28 | NM_ITS ---
Myocardial perfusion study Indication: Chest pain with hypertension to evaluate for myocardial ischemia Technique: The patient was brought in for a Lexiscan perfusion study on 04/28/2023. Patient performed low-level exercise and was injected 0.4 mg of Lexiscan intravenously. Within a minute of injection, 25 mCi of sestamibi was given intravenously. Images were obtained using the SPECT gamma camera interlaced with the gating device. Images were obtained in supine position. Resting perfusion study was performed on 04/30/2023. Patient was administered 25 mCi of sestamibi intravenously at rest. Images were then obtained in supine position. Images obtained with and without CT attenuation. Total DLP 90 mGy-cm. Images were processed with the software and compared side to side in short axis, horizontal long axis and vertical long axis views. Findings: Both stress and rest perfusion study is limited due to intense subdiaphragmatic uptake. Inferior inferoseptal uptake of the LV myocardium. The stress perfusion study showed non attenuated images show mildly reduced uptake in the basal inferior wall of the LV myocardium. Remainder of the LV myocardium is normally perfused. Attenuated corrected images show diffusely reduced uptake related to the normal uptake interfering with q. Day. The gated study shows normal LV systolic function with calculated LVEF of 73%. LV cavity is normal in size. The gated study shows normal systolic wall thickening and contraction of segments. Resting study shows non attenuated images show minimally reduced uptake in the basal inferior wall of the LV myocardium.. Gating at rest reveals systolic wall motion with ejection fraction at 74%. The findings are consistent with no clear reversible defect suggestive of ischemia. Mild basal inferior fixed defect. Most likely due to soft tissue. NM/NM musa perf SPECT rest & str Impression: 1. Myocardial perfusion imaging study shows likely normal myocardial perfusion 2. Gated LVEF is 73% 3. Transient ischemic dilatation not present EKG is nondiagnostic for ischemia
--- NOTE | 2023-04-28 09:34 | CA_ITS ---
Acquisition Time: 2023-04-28 09:52:04 Total Exercise Time: 00:02:00 Test Indications: ATYPICAL CHEST PAIN Medications: SEE MED SHEET Protocol: LEXISCAN Max HR: 127 BPM 83% of Pred: 153 BPM Max BP: 126/074 mmHG Max Work Load: 1.0 METS Pharmacological stress test with Lexiscan injection while sitting and kicking her legs, with moderate SOB, 5-6/10 chest pressure, withouit arrhythymias, with normotensive response to injection, with downsloping ST in V3-V6. Aminophylline 75mg IVP given to reverse Lexiscan. Chest pressure resolved in recovery. Nuclear images pending. Test reviewed with Dr. Cohen. Referred By: Srinivas Romeo Overread By: Alayna Zhou
== END ==
LOC: HO.CARD 09:29
PROVIDERS: PCP Student in an Organized Health Care Education/Training Program; Visit Provider Internal Medicine Cardiovascular Disease
DX: R07.89 Other chest pain (principal)
CPT/HCPCS: 78452; 93017; A9500; J0280; J2785

== ENCOUNTER → 2023-04-28 09:34 | Outpatient (BNV) | payer OTHER, SELFPAY | PROVIDERS: PCP Student in an Organized Health Care Education/Training Program; Visit Provider Nurse Practitioner | DX: R07.89 Other chest pain (principal) | CPT/HCPCS: 78452; 93016; 93018 ==

== ENCOUNTER 2023-05-05 08:34 | Outpatient (AMB) | payer OTHER, SELFPAY ==
[2023-05-05 08:37] VITALS: BP 160/74; PULSE 72; BMI 27.2
--- NOTE | 2023-05-05 08:37 | A.OFFVIS_ITS ---
Intake Vital Signs 05/05/23 08:37 Height 5 ft 4 in Weight 158 lb 11.725 oz BMI 27.2 BP 160/74 H Blood Pressure Location Lt brachial Position Sitting Pulse 72 Intake Visit Reasons: High BP Intake Note: Follow-up after stress test c/o HTN at night Humanities Department Chair Required: No Licensed Physical Therapy Assistant: Licensed Physical Therapy Assistant Present Accompanied by: Son Allergies paraben Allergy (Severe, Verified 04/05/23 13:10) urticaria Sulfa (Sulfonamide Antibiotics) [SULFA (SULFONAMIDE ANTIBIOTICS)] Allergy (Mild, Verified 04/05/23 13:10) HIVES sulfacetamide Allergy (Unknown, Verified 04/05/23 13:10) hives sulfur Allergy (Unknown, Verified 04/05/23 13:10) hives Latex, Natural Rubber Adverse Reaction (Verified 04/05/23 13:10) Unknown Medication List - Last Reconciled 05/05/23 by Srinivas Romeo MD aspirin (Adult Aspirin Regimen) 81 mg PO DAILY bismuth subsalicylate 2 tabs PO QID cyclobenzaprine 5 mg PO TID PRN docusate sodium (Stool Softener) 1 cap PO DAILY hydralazine 10 mg PO ONCE PRN hydrocortisone acetate 1 supp AR BEDTIME ibuprofen 600 mg PO Q6H PRN rosuvastatin 10 mg PO BEDTIME sertraline 12.5 mg (1/2 x 25 mg) PO DAILY valsartan 80 mg PO BEDTIME HPI HPI Comments History of Present Illness Details Charlee comes for follow-up. She continues to remain anxious. She says a blood pressure throughout the day starts rising by the evening it is in the [address] sometimes 190 range. She then takes hydralazine 10 mg. She does not measure blood pressure right away but in the morning then sometimes when she wakes up a blood pressure is 110 systolic and she gets lightheaded. Her recent myocardial perfusion imaging was within normal limits. As you know her echocardiogram was within normal limits. She has no new symptoms at current point time. She says systolic blood pressure remains elevated although the son who was present says that she also gets very anxious when they measured a blood pressure and that raises a blood pressure. She is also having some GI side effects related to aspirin therapy. She has some acid reflux symptoms. FORMERLY [facility] Medical History HTN (hypertension) Bleeding hemorrhoids Takotsubo cardiomyopathy Hypercholesterolemia Surgical History History of hemorrhoidectomy Hx of cardiac cath History of cataract surgery Family History Mother No problems noted. Father No problems noted. Father CVD (cardiovascular disease) Mother CVD (cardiovascular disease) Social History Household Members: Family Housing: House Do you presently have visiting nurse or other home services: No Alcohol intake: never Patient Tobacco Use Status: Never used Tobacco service: No Current occupational status: retired Review of Systems Const Denies chills, Denies fatigue, Denies fever(s), Denies frequent falls, Denies weakness, Denies weight gain and Denies weight loss ENT Denies dizziness Card Denies chest pain, Denies leg edema, Denies lightheadedness, Denies palpitations, Denies dyspnea, Denies dyspnea on exertion, Denies orthopnea and Denies other (loss of consciousness) Resp Denies cough, Denies dyspnea and Denies dyspnea on exertion GI Denies hematochezia and Denies change in stool character Musc Denies abnormal gait, Denies muscle weakness, Denies numbness, Denies radiating pain into limb and Denies tingling Neuro Denies abnormal gait, Denies dizziness, Denies frequent falls, Denies numbness, Denies tingling and Denies weakness Endo Denies fatigue and Denies palpitations Physical Exam Vital Signs: Last Vital Signs Pulse 72 05/05/23 08:37 BP 160/74 H 05/05/23 08:37 BMI result Body Mass Index 27.2 Const General: cooperative, comfortable, no acute distress, alert, awake, Physically active and well groomed Nutritional Appearance: overweight Orientation/consciousness: patient oriented x3 Limitations: no limitations HEENT Head: Yes normocephalic and Yes atraumatic Neck Neck: Yes trachea midline, Yes supple and Yes no JVD Resp Effort & Inspection: normal respiratory effort Auscultation: clear to auscultation bilaterally Cardio Jugular venous distension: no JVD Palpation: normal PMI Rate: regular rate Rhythm: regular rhythm Heart sounds: S1 normal heart sound present, S2 normal heart sound present, no click, no gallops, no murmurs and no rubs GI Auscultation: normal bowel sounds Neuro General: patient oriented x3 and no focal motor deficits Extrem General: Yes no clubbing, cyanosis or edema Assessment & Plan Assessment & Plan (1) HTN (hypertension): Code(s): I10 - Essential (primary) hypertension Plan: Hypertension which has been complex to treat. Seems like she might have had uncontrolled hypertension for a long time as she gets symptomatic with lightheadedness due to cerebral autoregulation blood flow when her blood pressures are normotensive range. I have advised a gradual reduction of blood pressure. Advised to increase valsartan to 80 mg b.i.d.. I have advised not to check the blood pressure by herself but let her family members check a blood pressure she not be aware of it. Advised her to maintain adequate hydration. Gradual reduction in blood pressure to normotensive range will be pursued. She strongly needs to participate in stress mitigation strategies and anxiety prevention. She is started on sertraline therapy and this should be pursued through your office to maximize medications to treat her general anxiety disorder. Other methods of behavioral modifications were discussed with her. She is encouraged to increase activity level. Son does say that patient snores a lot and does have some apneic episodes. Will test her with home sleep study. (2) Thoracic aortic aneurysm: Code(s): I71.20 - Thoracic aortic aneurysm, without rupture, unspecified Plan: Mild thoracic aortic aneurysm which appears to be related to mcc uncontrolled hypertension. Management as above. Gradual lowering of her blood pressure will be pursued. Continue statin therapy with target goal LDL less than 100 mg/dL. Follow-up echocardiogram in 1 year's time. If she remains symptomatic with chest discomfort or develops exertional chest discomfort, will pursue further anatomic imaging of coronary arteries. Her chest pressure/pain currently appears to be related to hypertension/anxiety. Will follow up in the clinic in 3 months time, sooner p.r.n.. Thank you for allowing me to partake in the care Orders: Orders RT home sleep study Today I10 - Essential (primary) hypertension, R06.81 - Apnea, not elsewhere classified Medications: Changed From valsartan 80 mg PO BEDTIME 30 tabs 5RF To valsartan 80 mg PO BID 60 tabs 5RF Coding Level of Care Code Est Pt Level 4 (08343) Diagnoses HTN (hypertension) I10 Thoracic aortic aneurysm I71.20
== END 2023-05-05 09:09 | disposition home or self-care (01) ==
PROVIDERS: PCP Student in an Organized Health Care Education/Training Program; Referring Provider Student in an Organized Health Care Education/Training Program; Visit Provider Internal Medicine Cardiovascular Disease
DX: I10 Essential (primary) hypertension (principal); I71.20 Thoracic aortic aneurysm, without rupture, unspecified
CPT/HCPCS: 99214

== ENCOUNTER → 2023-05-05 08:34 | Outpatient (BNVA) | payer OTHER, SELFPAY | PROVIDERS: PCP Student in an Organized Health Care Education/Training Program; Visit Provider Internal Medicine Cardiovascular Disease | DX: I10 Essential (primary) hypertension (principal); I71.20 Thoracic aortic aneurysm, without rupture, unspecified | CPT/HCPCS: 99212 ==

== ENCOUNTER 2023-05-14 09:04 | Outpatient (AMB) | payer OTHER, SELFPAY ==
--- NOTE | 2023-05-14 09:10 | A.OFFVIS_ITS ---
Intake Vital Signs 05/14/23 09:12 Height 5 ft 4 in Weight 154 lb 5.177 oz BMI 26.5 BP 118/70 Blood Pressure Location Lt brachial Position Sitting Pulse 74 Intake Visit Reasons: Gastroesophageal reflux disease (GERD) Intake Note: Charlee presents in the office as a new patient. CC: She is here today for acid reflux. Pains in the stomach, she also gets constipation. She gets swelling in her feet as well. Allergies paraben Allergy (Severe, Verified 05/14/23 09:13) urticaria Sulfa (Sulfonamide Antibiotics) [SULFA (SULFONAMIDE ANTIBIOTICS)] Allergy (Mild, Verified 05/14/23 09:13) HIVES sulfacetamide Allergy (Unknown, Verified 05/14/23 09:13) hives sulfur Allergy (Unknown, Verified 05/14/23 09:13) hives Latex, Natural Rubber Adverse Reaction (Verified 05/14/23 09:13) Unknown HPI Gastroesophageal reflux disease (GERD) HPI Details 67 yr old f w/ hx of constipation here f or f/u she has been having ongoing issues with constipation she can sit and takes time for stool to come out she has bilateral flank and side pain, for 10 days she has occ dysuria she has been having issues with hypertension she has swelling in the feet she has been taking rosuvastatin daily she has been taking pantoprazole and helsp reflux she has been drinking plenty of fluids she has general non localized stomach discomfort she has nausea, no vomiting she has burning in the feet, she tried miralax and it never really worked COlonoscopy: 2020--- adenomatous polyps removed Constitutional : No Weight loss, No Fever, No Chills ENT/Mouth : No sore throat, No Rhinorrhea Eyes: No Swelling, No Redness Cardiovascular : No Chest Pain, No SOB, No Edema Respiratory : No Cough, No Sputum, No Wheezing Gastrointestinal : see HPI Genitourinary : + Dysuria, No Urinary Frequency, No Hematuria, No Urgency Musculoskeletal : + joint pain, No Myalgias, No Joint Swelling Skin : No Skin Lesions, No rash Neuro : No Weakness, No Numbness, No Dizziness, No Headache Psych : No Anxiety/Panic, No Depression Heme/Lymph: No Bruising, No Lymphadenopathy Endocrine : No Polyuria, No Polydipsia All other systems reviewed and are negative. EXAM: GENERAL: The patient is well developed and nontoxic. VITAL SIGNS:see workflow HEENT: Nonicteric sclerae, PERRLA, EOMI. Oropharynx clear. Moist mucous membranes. Conjunctivae appear well perfused. No thyroid mass. CHEST: Chest wall is nontender. HEART: Regular rate and rhythm without murmurs. LUNGS: Clear to auscultation bilaterally. ABDOMEN: Soft, positive bowel sounds, tender epigastrium and suprapubic area, no organomegaly.no flank tenderness SKIN: No rash, no excessive bruising, petechiae, or purpura. NEUROLOGIC: Cranial nerves II-XII intact without motor/sensory deficit. Psych: normal affect A/P: 1/ Constipation, probable slow transit, ddx: pelvic floor dysfunction, dysautonomia loan as she has what sounds like neuropathy 2/ epigastric tenderness, burping PLAN: 1/ labs and nutrient screen, myeloma scr een 2/ sitz marker KUB 3/ EGD and colo, bx for h pylori --supre p 4/ consider neuro referral if ongoing sx 5/ trial of low dose linaclotide PFSH Medical History HTN (hypertension) Bleeding hemorrhoids Takotsubo cardiomyopathy Hypercholesterolemia Surgical History History of hemorrhoidectomy Hx of cardiac cath History of cataract surgery Family History Mother No problems noted. Father No problems noted. Father CVD (cardiovascular disease) Mother CVD (cardiovascular disease) Social History Household Members: Family Housing: House Do you presently have visiting nurse or other home services: No Alcohol intake: never Patient Tobacco Use Status: Never used Tobacco service: No Current occupational status: retired Physical Exam Vital Signs: Last Vital Signs Pulse 74 05/14/23 09:12 BP 118/70 05/14/23 09:12 BMI result Body Mass Index 26.5 Assessment & Plan Assessment & Plan (1) Epigastric abdominal pain: Code(s): R10.13 - Epigastric pain Plan: PLAN: 1/ labs and nutrient screen, myeloma screen 2/ sitz marker KUB 3/ EGD and colo, bx for h pylori --suprep 4/ consider neuro referral if ongoing sx (2) HTN (hypertension): Code(s): I10 - Essential (primary) hypertension Plan: PLAN: 1/ labs and nutrient screen, myeloma screen 2/ sitz marker KUB 3/ EGD and colo, bx for h pylori --suprep 4/ consider neuro referral if ongoing sx (3) Lower gastrointestinal hemorrhage: Code(s): K92.2 - Gastrointestinal hemorrhage, unspecified Plan: PLAN: 1/ labs and nutrient screen, myeloma screen 2/ sitz marker KUB 3/ EGD and colo, bx for h pylori --suprep 4/ consider neuro referral if ongoing sx (4) Constipation: Code(s): K59.00 - Constipation, unspecified Plan: PLAN: 1/ labs and nutrient screen, myeloma screen 2/ sitz marker KUB 3/ EGD and colo, bx for h pylori --suprep 4/ consider neuro referral if ongoing sx (5) Anemia: Code(s): D64.9 - Anemia, unspecified Qualifiers: Anemia type: other cause Other causes of anemia: acute posthemorrhagic Qualified Code(s): D62 - Acute posthemorrhagic anemia Plan: PLAN: 1/ labs and nutrient screen, myeloma screen 2/ sitz marker KUB 3/ EGD and colo, bx for h pylori --suprep 4/ consider neuro referral if ongoing sx (6) Constipation by delayed colonic transit: Code(s): K59.01 - Slow transit constipation Plan: PLAN: 1/ labs and nutrient screen, myeloma screen 2/ sitz marker KUB 3/ EGD and colo, bx for h pylori --suprep 4/ consider neuro referral if ongoing sx Orders: Orders Complete Blood Count Auto Diff Today D64.9 - Anemia, unspecified, I10 - Essential (primary) hypertension, K59.00 - Constipation, unspecified, K59.01 - Slow transit constipation, K92.2 - Gastrointestinal hemorrhage, unspecified, R10.13 - Epigastric pain Comprehensive Met. Panel Today D64.9 - Anemia, unspecified, I10 - Essential (primary) hypertension, K59.00 - Constipation, unspecified, K59.01 - Slow transit constipation, K75.81 - Nonalcoholic steatohepatitis (FERRERA), K92.2 - Gastrointestinal hemorrhage, unspecified, R10.13 - Epigastric pain Vitamin B12 and Folate Today D64.9 - Anemia, unspecified, I10 - Essential (primary) hypertension, K59.00 - Constipation, unspecified, K59.01 - Slow transit constipation, K92.2 - Gastrointestinal hemorrhage, unspecified, R10.13 - Epigastric pain Vitamin C Today D64.9 - Anemia, unspecified, I10 - Essential (primary) hypertension, K59.00 - Constipation, unspecified, K59.01 - Slow transit constipation, K92.2 - Gastrointestinal hemorrhage, unspecified, R10.13 - Epigastric pain Vitamin E Today D64.9 - Anemia, unspecified, I10 - Essential (primary) hypertension, K59.00 - Constipation, unspecified, K59.01 - Slow transit constipation, K92.2 - Gastrointestinal hemorrhage, unspecified, R10.13 - Epigastric pain Zinc Today D64.9 - Anemia, unspecified, I10 - Essential (primary) hypertension, K59.00 - Constipation, unspecified, K59.01 - Slow transit constipation, K92.2 - Gastrointestinal hemorrhage, unspecified, R10.13 - Epigastric pain Ferritin Today D64.9 - Anemia, unspecified, I10 - Essential (primary) hypertension, K59.00 - Constipation, unspecified, K59.01 - Slow transit constipation, K92.2 - Gastrointestinal hemorrhage, unspecified, R10.13 - Epigastric pain UA CC w/rflx Micro + Cult Today D64.9 - Anemia, unspecified, I10 - Essential (primary) hypertension, K59.00 - Constipation, unspecified, K59.01 - Slow transit constipation, K92.2 - Gastrointestinal hemorrhage, unspecified, R10.13 - Epigastric pain, R30.0 - Dysuria Transglutaminase Ab IgG Today D64.9 - Anemia, unspecified, G89.29 - Other chronic pain, I10 - Essential (primary) hypertension, K59.00 - Constipation, unspecified, K59.01 - Slow transit constipation, K92.2 - Gastrointestinal hemorrhage, unspecified, R10.13 - Epigastric pain, R10.33 - Periumbilical pain Cortisol Random Today D64.9 - Anemia, unspecified, I10 - Essential (primary) hypertension, K59.00 - Constipation, unspecified, K59.01 - Slow transit constipation, K92.2 - Gastrointestinal hemorrhage, unspecified, R10.13 - Epigastric pain XR abdomen 1V Today K59.01 - Slow transit constipation Vitamin B1 Today D64.9 - Anemia, unspecified, I10 - Essential (primary) hypertension, K59.00 - Constipation, unspecified, K59.01 - Slow transit constipation, K92.2 - Gastrointestinal hemorrhage, unspecified, R10.13 - Epigastric pain Vitamin A Today D64.9 - Anemia, unspecified, I10 - Essential (primary) hypertension, K59.00 - Constipation, unspecified, K59.01 - Slow transit constipation, K92.2 - Gastrointestinal hemorrhage, unspecified, R10.13 - Epigastric pain Vitamin B3 (Niacin) Today D64.9 - Anemia, unspecified, I10 - Essential (primary) hypertension, K59.00 - Constipation, unspecified, K59.01 - Slow transit constipation, K92.2 - Gastrointestinal hemorrhage, unspecified, R10.13 - Epigastric pain Vitamin B5 (Pantothenic Acid) Today D64.9 - Anemia, unspecified, I10 - Essential (primary) hypertension, K59.00 - Constipation, unspecified, K59.01 - Slow transit constipation, K92.2 - Gastrointestinal hemorrhage, unspecified, R10.13 - Epigastric pain Vitamin B6 Today D64.9 - Anemia, unspecified, I10 - Essential (primary) hypertension, K59.00 - Constipation, unspecified, K59.01 - Slow transit constipation, K92.2 - Gastrointestinal hemorrhage, unspecified, R10.13 - Epigastric pain Vitamin D 25-OH Total Today D64.9 - Anemia, unspecified, I10 - Essential (primary) hypertension, K59.00 - Constipation, unspecified, K59.01 - Slow transit constipation, K92.2 - Gastrointestinal hemorrhage, unspecified, R10.13 - Epigastric pain TSH reflex Free T4 Today D64.9 - Anemia, unspecified, I10 - Essential (primary) hypertension, K59.00 - Constipation, unspecified, K59.01 - Slow transit const ipation, K92.2 - Gastrointestinal hemorrhage, unspecified, R10.13 - Epigastric pain Hemoglobin A1c Today D64.9 - Anemia, unspecified, I10 - Essential (primary) hypertension, K59.00 - Constipation, unspecified, K59.01 - Slow transit constipation, K92.2 - Gastrointestinal hemorrhage, unspecified, R10.13 - Epigastric pain Aldolase Today D64.9 - Anemia, unspecified, I10 - Essential (primary) hypertension, K59.00 - Constipation, unspecified, K59.01 - Slow transit constipation, K92.2 - Gastrointestinal hemorrhage, unspecified, R10.13 - Epigastric pain ANCA Vasculitides Today D64.9 - Anemia, unspecified, I10 - Essential (primary) hypertension, K59.00 - Constipation, unspecified, K59.01 - Slow transit constipation, K92.2 - Gastrointestinal hemorrhage, unspecified, R10.13 - Epigastric pain TESSA Reflex Titer and Pattern Today D64.9 - Anemia, unspecified, I10 - Essential (primary) hypertension, K59.00 - Constipation, unspecified, K59.01 - Slow transit constipation, K92.2 - Gastrointestinal hemorrhage, unspecified, R10.13 - Epigastric pain, R79.82 - Elevated C-reactive protein (CRP) C Reactive Protein Today D64.9 - Anemia, unspecified, I10 - Essential (primary) hypertension, K59.00 - Constipation, unspecified, K59.01 - Slow transit constipation, K92.2 - Gastrointestinal hemorrhage, unspecified, R10.13 - Epigastric pain Creatine Kinase Total Today D64.9 - Anemia, unspecified, I10 - Essential (primary) hypertension, K59.00 - Constipation, unspecified, K59.01 - Slow transit constipation, K92.2 - Gastrointestinal hemorrhage, unspecified, R10.13 - Epigastric pain Erythrocyte Sedimentation Rate Today D64.9 - Anemia, unspecified, I10 - Essential (primary) hypertension, K59.00 - Constipation, unspecified, K59.01 - Slow transit constipation, K92.2 - Gastrointestinal hemorrhage, unspecified, R10.13 - Epigastric pain Protein Electrophoresis, Serum Today D64.9 - Anemia, unspecified, I10 - Essential (primary) hypertension, K59.00 - Constipation, unspecified, K59.01 - Slow transit constipation, K92.2 - Gastrointestinal hemorrhage, unspecified, R10.13 - Epigastric pain Protein Electrophoresis,Ran Ur Today D64.9 - Anemia, unspecified, I10 - Essenti al (primary) hypertension, K59.00 - Constipation, unspecified, K59.01 - Slow transit constipation, K92.2 - Gastrointestinal hemorrhage, unspecified, R10.13 - Epigastric pain XR KUB Today D64.9 - Anemia, unspecified, I10 - Essential (primary) hypertension, K59.00 - Constipation, unspecified, K59.01 - Slow transit constipation, K92.2 - Gastrointestinal hemorrhage, unspecified, R10.13 - Epigastric pain Medications: New linaclotide 72 mcg PO DAILY 30 caps 3RF sodium,potassium,mag sulfates 17.5-3.13-1.6 gram (Suprep Bowel Prep Kit) DILUTE; drink 1/2 at 6-8 pm and half at 11 PM- 1AM 354 mL 0RF Coding Level of Care Code Est Pt Level 4 (90513) Diagnoses Epigastric abdominal pain R10.13 HTN (hypertension) I10 Lower gastrointestinal hemorrhage K92.2 Constipation K59.00 Anemia D62 Anemia type: other cause Other causes of anemia: acute posthemorrhagic Constipation by delayed colonic transit K59.01
[2023-05-14 09:12] VITALS: BP 118/70; PULSE 74; BMI 26.5
== END 2023-05-14 09:47 | disposition home or self-care (01) ==
PROVIDERS: PCP Student in an Organized Health Care Education/Training Program; Visit Provider Internal Medicine Gastroenterology
DX: R10.13 Epigastric pain (principal); I10 Essential (primary) hypertension; K92.2 Gastrointestinal hemorrhage, unspecified; K59.00 Constipation, unspecified; D62 Acute posthemorrhagic anemia; K59.01 Slow transit constipation
CPT/HCPCS: 99214

== ENCOUNTER 2023-05-14 09:04 | Outpatient (REF) | payer OTHER, SELFPAY ==
[2023-05-14 10:15] LABS: MANUAL DIFF FLAG NO
[2023-05-14 10:22] LABS: Basophils Percent Auto 0.2 % (0-2); Eosinophils Percent Auto 0.7 % (0-4); Hematocrit 39.5 % (37.0-47.0); Hemoglobin 13.1 g/dl (12.0-16.0); Imm Gran Abs Auto 0.02 X10*3/uL (0.00-0.03); Imm Gran Pct Auto 0.4 % (0.0-0.4); Lymphocytes Absolute Auto 1.3 X10*3/uL (1.2-4.9); Lymphocytes Percent Auto 24.5 % (20-40); Mean Corpuscular HGB Conc 33.2 g/dl (31.0-35.0); Mean Corpuscular Hemoglobin 29.1 pg (27.0-33.0); Mean Corpuscular Volume 87.8 fL (80.0-98.0); Mean Platelet Volume 11.3 fL (9.4-12.3); Monocytes Absolute Auto 0.4 X10*3/uL (0.1-1.2); Monocytes Percent Auto 8.1 % (2-11); Neutrophils Absolute Auto 3.6 x10*3/uL (2.0-8.3); Neutrophils Percent Auto 66.1 % (45-73); Platelet Count 256 X10*3/uL (160-400); Red Cell Distribution Width 13.4 % (11.0-16.0); White Blood Count 5.4 X10*3/uL (4.8-10.8)
[2023-05-14 10:34] LABS: Estimated Average Glucose 114 mg/dL; Hemoglobin A1c % 5.6 % (<6.0)
[2023-05-14 10:58] LABS: Alanine Aminotransferase 13 U/L (0-31); Albumin Level 4.3 g/dL (3.5-5.0); Alkaline Phosphatase 81 U/L (39-117); Anion Gap 14 (12-20); Aspartate Amino Transferase 17 U/L (5-31); Bilirubin Total 0.7 mg/dL (0.0-1.0); Blood Urea Nitrogen 8 mg/dL (9-16); C Reactive Protein 0.49 mg/dL (< or = 0.50); Calcium 9.7 mg/dL (8.4-10.2); Carbon Dioxide 24 mmol/L (22-29); Chloride 106 mmol/L (96-108); Estimated Glomerular Filt Rate > 60; Glucose Random 117 mg/dL (60-115); Potassium 4.9 mmol/L (3.3-5.1); Sodium 139 mmol/L (135-145); Total Protein 7.6 g/dL (6.5-8.0)
[2023-05-14 11:00] LABS: Erythrocyte Sedimentation Rate 31 MM/HR (0-20)
[2023-05-14 11:11] LABS: Cortisol Random 10.5 ug/dL
[2023-05-14 11:13] LABS: Ferritin 81 ng/mL (10-250); TSH reflex Free T4 0.88 uIU/mL (0.32-4.0); Vitamin D 25-OH Total 16.9 ng/mL (>30)
[2023-05-14 11:26] LABS: Folate 8.7 ng/mL (> or = 4.0); Vitamin B12 252 pg/mL (200-900)
[2023-05-14 12:47] LABS: Appearance Urine Clear; Color Urine Yellow; Glucose Urine UA Negative (Negative); Leukocyte Esterase Urine Negative (Negative); Nitrite Urine Negative (Negative); Specific Gravity - Urine <= 1.005 (1.005-1.025); Urine Blood Negative (Negative); Urine Ketones Negative (Negative); Urine Protein Negative (Neg-Trace)
[2023-05-17 21:04] LABS: Prot Elec - Albumin 4.2 g/dL (3.8-4.8); Prot Elec - Alpha1 0.3 g/dL (0.2-0.3); Prot Elec - Alpha2 0.9 g/dL (0.5-0.9); Prot Elec - Beta 1 0.5 g/dL (0.4-0.6); Prot Elec - Beta 2 0.3 g/dL (0.2-0.5); Prot Elec - Gamma 1.4 g/dL (0.8-1.7); Prot Elec - Total Protein 7.6 g/dL (6.1-8.1)
[2023-05-18 03:13] LABS: Zinc 86 mcg/dL (60-130)
[2023-05-18 11:04] LABS: PEU-Protein Creat Ratio Rand NOTE (0.024-0.184); PEU-Rand. Prot/Creat Ratio NOTE mg/g creat (24-184); PEU-Random Ur. Gamma Globulin 0 %; PEU-Random Urine A1 Globulin 0 %; PEU-Random Urine A2 Globulin 0 %; PEU-Random Urine Albumin 0 %; PEU-Random Urine Beta Globulin 0 %; PEU-Random Urine Creatinine 52 mg/dL (20-275); PEU-Random Urine Protein <4 mg/dL (5-24)
[2023-05-18 14:09] LABS: Anti Nuclear Antibody Screen NEGATIVE (NEGATIVE)
[2023-05-18 14:33] LABS: Myeloperoxidase Antibody <1.0 AI; Proteinase 3 PR3 Antibodies <1.0 AI
[2023-05-18 20:54] LABS: Transglutaminase Ab IgG <1.0 U/mL
[2023-05-19 01:14] LABS: Alpha-Tocopherol 9.4 mg/L (5.7-19.9); Beta-Gamma Tocopherol <1.0 mg/L (<=4.3)
[2023-05-19 14:13] LABS: Vitamin B6 7.2 ng/mL (2.1-21.7)
[2023-05-19 16:02] LABS: Vitamin A 53 mcg/dL (38-98); Vitamin B1 10 nmol/L (8-30)
[2023-05-20 20:54] LABS: Aldolase 4.2 U/L (<=8.1)
[2023-05-21 10:39] LABS: Vitamin C 0.3 mg/dL (0.3-2.7)
[2023-05-23 20:34] LABS: Nicotinamide 31 ng/mL; Vit B3 - Nicotinic Acid <20 ng/mL
[2023-05-23 23:43] LABS: Vitamin B5 (Pantothenic Acid) 58 ng/mL (<275)
== END 2023-05-14 09:05 | disposition home or self-care (01) ==
LOC: HO.LAB 09:04
PROVIDERS: PCP Student in an Organized Health Care Education/Training Program; Visit Provider Internal Medicine Gastroenterology
DX: R10.13 Epigastric pain (principal); I10 Essential (primary) hypertension; K92.2 Gastrointestinal hemorrhage, unspecified; K59.00 Constipation, unspecified; K59.01 Slow transit constipation; R30.0 Dysuria; R10.33 Periumbilical pain; G89.29 Other chronic pain; R79.82 Elevated C-reactive protein (CRP); K75.81 Nonalcoholic steatohepatitis (NASH); K21.9 Gastro-esophageal reflux disease without esophagitis; D62 Acute posthemorrhagic anemia
CPT/HCPCS: 80053; 81003; 82085; 82180; 82306; 82533; 82550; 82570; 82607; 82728; 82746; 83036; 84156; 84165; 84166; 84207; 84425; 84443; 84446; 84590; 84591; 84630; 85025; 85652; 86021; 86038; 86140; 86364; 99212

== ENCOUNTER 2023-07-12 13:14 | Outpatient (AMB) | payer OTHER, SELFPAY ==
[2023-07-12 13:20] VITALS: BMI 26.9
--- NOTE | 2023-07-12 13:20 | A.OFFVIS_ITS ---
Vital Signs 07/12/23 13:20 Height 5 ft 4 in Weight 157 lb BMI 26.9 Intake Visit Reasons: ov- -B/L shoulder pain last injection 04/05/23 Intake Note: Charlee is a 67 year old right hand dominant female who presents today for a follow up of her bilateral shoulder pain. Last injections were administered bilaterally on 04/05/23. Patient reports that the left shoulder is worse than the right. She is interested in trying another cortisone injection today Allergies paraben Allergy (Severe, Verified 05/14/23 09:13) urticaria Sulfa (Sulfonamide Antibiotics) [SULFA (SULFONAMIDE ANTIBIOTICS)] Allergy (Mild, Verified 05/14/23 09:13) HIVES sulfacetamide Allergy (Unknown, Verified 05/14/23 09:13) hives sulfur Allergy (Unknown, Verified 05/14/23 09:13) hives Latex, Natural Rubber Adverse Reaction (Verified 05/14/23 09:13) Unknown HPI HPI ov- -B/L shoulder pain last injection 04/05/23: Details: Charlee is a 67 year old right hand dominant female who presents today for a follow up of her bilateral shoulder pain. Last injections were administered b ilaterally on 04/05/23. Patient reports that the left shoulder is worse than the right. She is interested in trying another cortisone injection today. The last injection was not helpful at all. She now describes pain adjacent to her cervicothoracic spine. She denies numbness and tingling PFSH Medical History HTN (hypertension) Bleeding hemorrhoids Takotsubo cardiomyopathy Hypercholesterolemia Surgical History History of hemorrhoidectomy Hx of cardiac cath History of cataract surgery Family History Mother No problems noted. Father No problems noted. Father CVD (cardiovascular disease) Mother CVD (cardiovascular disease) Social History Household Members: Family Housing: House Do you presently have visiting nurse or other home services: No Alcohol intake: never Patient Tobacco Use Status: Never used Tobacco service: No Current occupational status: retired Physical Exam Vital Signs: BMI result Body Mass Index 26.9 Const General: cooperative, healthy appearing, no acute distress and well groomed Orientation/consciousness: oriented to person and oriented to place HEENT Head: Yes normal to inspection, Yes normocephalic and Yes atraumatic Eyes General: appearance normal, both eyes and all related structures Alignment and Position: alignment normal Conjunctivae: conjunctivae normal EOM: EOMs intact bilaterally Neck Neck: Yes normal visual inspection and Yes trachea midline Resp Other: No rerpiratory distress Effort & Inspection: normal respiratory effort and able to speak in complete sentences Cardio Other: Palpable radial pulse with no appreciable rythmic abnormalities GI Other: No abdominal distension Back/Spine/Pelvis Cervical Spine: normal cervical lordosis and cervical ROM normal Skin General skin exam: no rashes or lesions noted Neuro General: oriented to person, oriented to place and gait normal Extrem Other: full rom neg EC/H/N ttp pericervical musculature Assessment & Plan Assessment & Plan (1) Neck pain: Code(s): M54.2 - Cervicalgia Category: Medical Plan: 67 yo with left cervicothoracic neck pain Pain management as shoulder injections were not helpful. PT HEP Orders: Orders PT Evaluation and Treatment Today M54.2 - Cervicalgia Referrals Pain Management Referral M54.2 - Cervicalgia Coding Level of Care Code Est Pt Level 4 (90835) Diagnoses Neck pain M54.2
== END 2023-07-12 14:02 | disposition home or self-care (01) ==
PROVIDERS: PCP Student in an Organized Health Care Education/Training Program; Visit Provider Orthopaedic Surgery
DX: M54.2 Cervicalgia (principal)
CPT/HCPCS: 99213

== ENCOUNTER → 2023-07-12 13:14 | Outpatient (BNVA) | payer OTHER, SELFPAY | PROVIDERS: PCP Student in an Organized Health Care Education/Training Program; Visit Provider Orthopaedic Surgery | DX: M54.2 Cervicalgia (principal) | CPT/HCPCS: 99212 ==

== ENCOUNTER 2023-07-14 13:30 | Outpatient (REF) | payer OTHER, SELFPAY ==
--- NOTE | ~2023-07-14 | US_ITS ---
EXAMINATION: MM DIAGNOSTIC DIGITAL BREAST TOMOSYNTHESIS, BILATERAL US BREAST LIMITED, BILATERAL MAMMOGRAPHY: CLINICAL INFORMATION: Patient complaining of left breast upper outer quadrant mass and right breast tenderness whole breast . Patient cannot discretely identify the palpable left breast upper outer quadrant focus. Patient has history of bilateral small cysts on prior diagnostic bilateral ultrasound 04/12/2020. COMPARISON: Mammography: 04/01/2020. TECHNIQUE: Digital breast tomosynthesis is performed in both the craniocaudal and mediolateral oblique views along with computer-aided detection (CAD). Synthesized 2D images are generated from the tomosynthesis. In addition, 3-D full-field right mediolateral view and left mediolateral view were also obtained. FINDINGS: There are scattered areas of fibroglandular density (ACR BI-RADS breast composition Category b). There are bilateral regional calcifications which have a benign morphology and are likely related to adenosis and/or dystrophic, the majority being punctate and rounded. There is no tight grouping or pleomorphism. These appear unchanged without aggressive features. There are 2 slightly enlarged oval circumscribed masses in the left breast lower inner quadrant, and right breast lower outer quadrant when compared with the prior examination, and these findings will be evaluated by ultrasound. Background stromal appears to have numerous small circumscribed oval nodules in a mirror like distribution, most likely small cysts as seen on prior bilateral ultrasound. There are no suspicious masses, or areas of architectural distortion in either breast. ULTRASOUND: CLINICAL INFORMATION: Evaluate enlarging circumscribed nodules left breast lower inner quadrant, right breast lower outer quadrant, both middle one third. COMPARISON: Bilateral breast ultrasound 04/12/2020. TECHNIQUE: Targeted sonographic evaluation was performed using a high frequency linear transducer. Selected archived documentation. FINDINGS: RIGHT BREAST: -Right breast demonstrates a dominant simple cyst at the 8:00 axis measuring 8 x 8 x 6 mm with good through transmission. -In the 11:00 axis there is a 7 x 4 mm simple cyst. -There are numerous smaller additional simple cysts consistent with fibrocystic changes. -There are no suspicious masses or abnormal shadowing. LEFT BREAST: -Left breast demonstrates a simple cyst retroareolar 12:00 axis measuring 7 x 7 x 9 mm. -There is a smaller cyst at 3:00 measuring 6 mm in diameter. -There are numerous smaller additional cysts consistent with fibrocystic changes. -There are no suspicious masses or abnormal shadowing. US/US breast BI limited mamm only IMPRESSION: -Slightly enlarging cysts in both breasts as detailed above, benign. No findings suspicious for malignancy. -Fibrocystic nodular parenchyma, as seen previously, bilaterally. -Benign nonaggressive appearing calcifications in a regional mirror-image distribution, most likely adenosis/dystrophic. -Recommend this patient return to routine annual screening. OVERALL ASSESSMENT: Mammography: BI-RADS 2 - Benign Findings Ultrasound: BI-RADS 2 - Benign Findings RECOMMENDATION: 1 year F/U Results were provided to the patient at time of visit by the technologist. This patient's information was entered into a reminder system with a target due date for their next mammogram.
== END 2023-07-14 13:31 | disposition home or self-care (01) ==
LOC: HO.MAMMO 13:30
PROVIDERS: PCP Family Medicine; Visit Provider Family Medicine
DX: N63.21 Unspecified lump in the left breast, upper outer quadrant (principal); N60.02 Solitary cyst of left breast; N60.01 Solitary cyst of right breast
CPT/HCPCS: 76642; 77062; 77066

== ENCOUNTER → 2023-07-14 14:30 | Outpatient (BNV) | payer OTHER, SELFPAY | PROVIDERS: PCP Family Medicine; Visit Provider Radiology Diagnostic Radiology | DX: N64.4 Mastodynia (principal); N63.21 Unspecified lump in the left breast, upper outer quadrant | CPT/HCPCS: 76642; 77062; 77066 ==

== ENCOUNTER 2023-08-04 11:20 | Outpatient (AMB) | payer OTHER, SELFPAY ==
[2023-08-04 11:31] VITALS: BP 123/62; PULSE 76; RESP 14; O2SAT 96; BMI 26.9
--- NOTE | 2023-08-04 11:31 | A.OFFVIS_ITS ---
Vital Signs 08/04/23 11:31 Height 5 ft 4 in Weight 157 lb BMI 26.9 BP 123/62 Blood Pressure Location Lt brachial Position Sitting Respiration 14 Pulse 76 Pulse Source Pulse Oximeter Pulse Oximetry (%) 96 Oxygen Delivery Method Room Air Intake Visit Reasons: CERVICALGIA Allergies paraben Allergy (Severe, Verified 05/14/23 09:13) urticaria Sulfa (Sulfonamide Antibiotics) [SULFA (SULFONAMIDE ANTIBIOTICS)] Allergy (Mild, Verified 05/14/23 09:13) HIVES sulfacetamide Allergy (Unknown, Verified 05/14/23 09:13) hives sulfur Allergy (Unknown, Verified 05/14/23 09:13) hives Latex, Natural Rubber Adverse Reaction (Verified 05/14/23 09:13) Unknown HPI Comments Details: Mrs Galindo is a very pleasant 67-year-old female who presents to the office today for evaluation management of her chronic neck pain. Patient has been under the care of orthopedic surgeons, Dr. Erazo, for bilateral shoulder pain. Had received steroid injections without improvement of her pain. He referred her here to be evaluated for neck pain. Patient reports she has been suffering with this pain for greater than 1 year. Pain is over middle trapezius, bilaterally but left greater than right. No pain with cervical range of motion. Pain does not radiate down either arm. She had been taking nonsteroidal anti-inflammatory medication, metformin naproxen, for many months until her doctor told her she needs to stop due to her kidney function and changes in her blood pressure medication. She has not taking amlodipine and her PCP told her do not take any nonsteroidal anti- inflammatory medications while she has on the amlodipine. She try Tylenol, heat, Voltaren cream all without improvement of her symptoms. She has not tried any muscle relaxants. She has an appointment today to start physical therapy. Pain today is rated as an 8/10, constant. She reports pain is exacerbated by repetitive use of her arms and overhead use of her arms. In terms of muscle damage condition is described as aching, constant, throbbing, cramping, squeezing. Pain is negatively impacting patient's general activity, mood, normal work, recreational activities and sleeping Patient also complains of some pain to right and left lower back times one-week. For this she has not been evaluated or undergone any treatment. Also reports right knee pain if she states or the gating told her to speak to us about. Today her main focus was the chronic neck pain. Denies use of nicotine, tobacco, alcohol or illicit substances. Denies implantable devices, pacemaker or defibrillator Denies current use of anticoagulation medications. [facility], [facility] Medical History HTN (hypertension) Bleeding hemorrhoids Takotsubo cardiomyopathy Hypercholesterolemia Surgical History History of hemorrhoidectomy Hx of cardiac cath History of cataract surgery Family History Mother No problems noted. Father No problems noted. Father CVD (cardiovascular disease) Mother CVD (cardiovascular disease) Social History Household Members: Family Housing: House Do you presently have visiting nurse or other home services: No Alcohol intake: never Patient Tobacco Use Status: Never used Tobacco service: No Current occupational status: retired Physical Exam Vital Signs: Last Vital Signs Pulse 76 08/04/23 11:31 Resp 14 08/04/23 11:31 BP 123/62 08/04/23 11:31 Pulse Ox 96 08/04/23 11:31 Oxygen Delivery Method Room Air 08/04/23 11:31 BMI result Body Mass Index 26.9 General: awake, alert, oriented. Answers questions appropriately. Fully engaged in examination. Skin: warm, dry, intact HEENT: Normocephalic. Hearing intact. Cardiac: External chest normal in appearance. Respiratory: No cough, audible wheezing or stridor. Abdomen: without gross distension. MS: Cervical Spine: Visible inspection without gross abnormality Moderate tenderness throughout bilateral upper trapezius muscles, left worse than right Nontender to palpation over paraspinal muscles or midline cervical vertebrae Full cervical range of motion Spurling compression test negative. BUE strength 5/5 Neurological: Oriented to person, place, time and situation. Thought process intact. Psychiatric: Appropriate mood and affect. Good judgment and insight. Results Reviewed Results Reviewed: 11/05/20 CERVICAL SPINE: There is normal cervical lordosis. The vertebral heights and alignment is normal. There is no visible acute fracture, dislocation or subluxation seen. There is a small anterior C5-C6 enthesophyte. Fracture, dislocation or subluxation seen. The prevertebral soft tissues are normal. LEFT SHOULDER: The glenohumeral joint space is normal. There is loss of left AC joint space with spurring. No visible acute fracture or dislocation seen. There is no lytic process. IMPRESSION: Small anterior inferior C5-C6 vertebral enthesophyte. Otherwise unremarkable cervical spine exam. Assessment & Plan Assessment & Plan (1) Lumbar muscle pain: Code(s): M79.18 - Myalgia, other site Category: Medical (2) Cervical spondylosis: Code(s): M47.812 - Spondylosis without myelopathy or radiculopathy, cervical region Category: Medical (3) Right knee pain: Code(s): M25.561 - Pain in right knee Category: Medical (4) Trapezius muscle strain: Code(s): S46.819A - Strain of other muscles, fascia and tendons at shoulder and upper arm level, unspecified arm, initial encounter Category: Medical (5) Myofascial neck pain: Code(s): M54.2 - Cervicalgia Category: Medical Plan Patient presented the office today for evaluation management of her chronic neck pain. X-ray cervical spine ordered for further evaluation X-ray lumbar spine ordered for further evaluation X-ray right knee ordered for further evaluation Zynex tens unit ordered, patient was given a handout and instructions for use. She will await contact from the company to schedule delivery. She has been given contact information for a company to facilitate delivery of the device. New Rx: Methocarbamol 500 mg p.o. t.i.d. patient advised on cautions for use. No driving while taking this medication, do not take with alcohol or other [employer]ACH[employer] suppressants. Continue with PT as planned All questions and concerns were answered, patient agrees with the plan. Follow up after PT, sooner if needed. Orders: Orders XR cervical spine w flex/ext Today M47.812 - Spondylosis without myelopathy or radiculopathy, cervical region XR lumbar spine 4V min Today M79.18 - Myalgia, other site XR knee RT 4V Today M25.561 - Pain in right knee Medications: New methocarbamol No driving while taking this medication. Do no take with alcohol or other MACH[employer] Depressants 500 mg PO TID PRN 90 tabs 1RF muscle spasm methocarbamol Discontinue use of Cyclobenzaprine No driving while taking this medication. Do no take with alcohol or other MACH[employer] SH[employer] WORK[employer] Depressants 500 mg PO TID PRN 90 tabs 1RF muscle spasm Coding Level of Care Code New Pt Level 4 (55571) Diagnoses Lumbar muscle pain M79.18 Cervical spondylosis M47.812 Right knee pain M25.561 Trapezius muscle strain S46.819A Myofascial neck pain M54.2
== END 2023-08-04 12:01 | disposition home or self-care (01) ==
PROVIDERS: PCP Family Medicine; Referring Provider Orthopaedic Surgery; Visit Provider Registered Nurse Emergency
DX: M79.18 Myalgia, other site (principal); M47.812 Spondylosis without myelopathy or radiculopathy, cervical region; M25.561 Pain in right knee; S46.819A Strain of other muscles, fascia and tendons at shoulder and upper arm level, unspecified arm, initial encounter
CPT/HCPCS: 99204

== ENCOUNTER 2023-08-04 11:20 | Outpatient (REF) | payer OTHER, SELFPAY ==
--- NOTE | ~2023-08-04 | XR_ITS ---
EXAMINATION: XR cervical spine CLINICAL INFORMATION: Pain COMPARISON: Cervical spine radiographs 11/05/2020 TECHNIQUE: 5 views of the cervical spine were obtained. FINDINGS: The cervical spine is visualized to the level of C6-C7 on the lateral view. 3 mm anterolisthesis of C4 on C5 in flexion which is neutral and extension views. Vertebral body heights are maintained. Lateral masses of C1 are well aligned on C2. Visualized portion of the dens is intact. Mild multilevel degenerative disc disease with mild loss of disc space height, disc osteophyte complex and facet arthropathy similar to prior. No prevertebral soft tissue swelling. XR/XR cervical spine w flex/ext IMPRESSION: 1. 3 mm anterolisthesis of C4 on C5 in flexion which is neutral and extension views. 2. Mild multilevel degenerative disc disease similar to prior.
--- NOTE | ~2023-08-04 | XR_ITS ---
EXAMINATION: XR LUMBOSACRAL SPINE CLINICAL INFORMATION: Reason for Exam M79.18 - Myalgia, other site COMPARISON: Lumbar spine radiographs 07/11/2022 TECHNIQUE: 5 views of the lumbar spine FINDINGS: 5 nonrib-bearing lumbar-type vertebral bodies. Vertebral body heights are maintained. Grade 1 anterolisthesis of L5 on S1. No pars defects. Mild multilevel degenerative disc disease and loss of disc space height and facet arthropathy, slightly progressed from prior. Paravertebral soft tissues are unremarkable. XR/XR lumbar spine 4V min IMPRESSION: 1. Grade 1 anterolisthesis of L5 on S1. No pars defects. 2. Mild multilevel degenerative disc disease and loss of disc space height and facet arthropathy, slightly progressed from prior.
--- NOTE | ~2023-08-04 | XR_ITS ---
EXAMINATION: XR KNEE, RIGHT CLINICAL INFORMATION: Reason for Exam M25.561 - Pain in right knee COMPARISON: None TECHNIQUE: 4 views of the knee FINDINGS: No acute fracture or dislocation. Well corticated osseous fragment in the tibiofemoral compartment may reflect a loose body. Moderate degenerative changes of the knee with loss of medial joint space and bulky tricompartmental osteophytes.. No joint effusion. Soft tissues are unremarkable. XR/XR knee RT 4V IMPRESSION: 1. Moderate degenerative changes of the knee worst involving the medial compartment. 2. Well corticated osseous fragment in the tibiofemoral compartment may reflect a loose body.
== END 2023-08-04 11:21 | disposition home or self-care (01) ==
LOC: HO.XRAY 11:20
PROVIDERS: PCP Family Medicine; Referring Provider Orthopaedic Surgery; Visit Provider Registered Nurse Emergency
DX: M47.812 Spondylosis without myelopathy or radiculopathy, cervical region (principal); M79.18 Myalgia, other site; M25.561 Pain in right knee
CPT/HCPCS: 72052; 72110; 73564; 99202

== ENCOUNTER 2023-08-04 14:32 | Outpatient (AMB) | payer OTHER, SELFPAY ==
--- NOTE | 2023-08-04 14:33 | A.OFFVIS_ITS ---
Vital Signs 08/04/23 14:34 Height 5 ft 4 in Weight 157 lb BMI 26.9 Intake Visit Reasons: 04/26LVM+Letter [id number] Intake Note: Patient presents for GEOFFREY.. patient not sleeping sound, having issues falling asleep and staying asleep. Allergies paraben Allergy (Severe, Verified 08/04/23 14:40) urticaria Sulfa (Sulfonamide Antibiotics) [SULFA (SULFONAMIDE ANTIBIOTICS)] Allergy (Mild, Verified 08/04/23 14:40) HIVES sulfacetamide Allergy (Unknown, Verified 08/04/23 14:40) hives sulfur Allergy (Unknown, Verified 08/04/23 14:40) hives Latex, Natural Rubber Adverse Reaction (Verified 08/04/23 14:40) Unknown Medication List - Last Reconciled 08/04/23 by FROY Beltran amlodipine (Norvasc) 5 mg PO DAILY methocarbamol 500 mg PO TID PRN rosuvastatin 10 mg PO BEDTIME sodium,potassium,mag sulfates 17.5-3.13-1.6 gram (Suprep Bowel Prep Kit) DILUTE; drink 1/2 at 6-8 pm and half at 11 PM- 1AM HPI Comments Details: 67-yr-old female presents for new in-person patient visit for sleep consultation. Patient reports difficulty falling asleep and staying asleep, which started years ago but has been worsening over time. She also notes she has is prone to dry nose/mouth, nasal congestion, anxiety and ruminating thoughts. Lexie was helpful when in [place] but not here in the [place]. Sleep questionnaire: Have you ever been diagnosed with a sleep disorder? No Have you ever had a sleep study in the past? No Have you ever been treated for a sleep disorder? No Do you take medications for a sleep disorder? Yes- melatonin 3mg q 8:30pm. Do you snore? Yes Do you wake up gasping at night? Possibly Do you have episodes of apneas? Unsure If yes, are they witnessed? n/a Do you have episodes of nocturnal chest pain or dyspnea? SOB at night- thinks d/t dry mouth Do you have difficulty initiating sleep? yes Do you have difficulty maintaining sleep? Yes Do you wake up tired? sometimes Do you have headaches upon awakening? sometimes Do you wake up with dry mouth or throat? yes Do you have GERD? yes, also constipation Do you have nocturia? yes- 3-4 x's per night Do you have nocturnal leg cramps? yes, feet will swell if sitting for long Do you have symptoms of restless legs? Yes: Urge to move, Restlessness,Cramps. May have itchiness- generalized Do you act out your dreams? No Do you have sleep paralysis? No Do you have drop attacks? No Do you ever have hypnogenic hallucinations? No Hypersomnolence questionnaire: Do you have daytime tiredness or fatigue? yes Do you easily fall asleep when inactive? Avoids falling asleep- gets up and moves or keeps thinking. Have you ever had episodes of sudden weakness? No Have you ever had episodes of sudden weakness associated with strong emotions? No Sleep hygiene questionnaire: What is your usual sleep routine? Usual bedtime is at 10-11pm/12am; Usual wake- up time is at 9am, but wakes up to pray at sunrise. Do you take naps? avoids naps- because then she will not sleep at night Is your sleep environment cool, dark, and quiet? TV- watches TV before sleeping Do you exercise? not much, has cycler at home. Do you take caffeine or other stimulants? Black tea- 2-3 x's per day w/ milk. Do you use electronics in bed? TV, checks phone before bed- watches [facility] videos. 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 [employer] Medical History HTN (hypertension) Bleeding hemorrhoids Takotsubo cardiomyopathy Hypercholesterolemia Surgical History History of hemorrhoidectomy Hx of cardiac cath History of cataract surgery Family History Mother No problems noted. Father No problems noted. Father CVD (cardiovascular disease) Mother CVD (cardiovascular disease) Social History Household Members: Family Housing: House Do you presently have visiting nurse or other home services: No Alcohol intake: never Patient Tobacco Use Status: Never used Tobacco service: No Current occupational status: retired Physical Exam Vital Signs: BMI result Body Mass Index 26.9 Const General: no acute distress Orientation/consciousness: patient oriented x3 HEENT Other: Mallampati stage 4 Resp Effort & Inspection: normal respiratory effort and able to speak in complete sentences Auscultation: clear to auscultation bilaterally Cardio Rate: regular rate Rhythm: regular rhythm Heart sounds: S1 normal heart sound present and S2 normal heart sound present Neuro Other: Bilteral posterior cervical tightness General: patient oriented x3 and gait normal Cranial nerves: Yes CN's II-XII intact bilaterally Motor exam (neuro): 5/5 motor strength present throughout Psych Mental Status: mental status grossly normal Speech and movement: Clear speech present Attitude: cooperative Assessment & Plan Assessment & Plan (1) Snoring: Code(s): R06.83 - Snoring Category: Medical (2) Sleep difficulties: Code(s): G47.9 - Sleep disorder, unspecified Category: Medical (3) Fatigue: Code(s): R53.83 - Other fatigue Category: Medical Qualifiers: Encounter type: initial encounter Plan Pt is advised to undergo Home sleep study to assess for sleep apnea: Will f/u with pt after study to discuss results and appropriate treatment options. Information shared on strategies to optimize sleep hygiene and sleep quality. Try taking Melatonin 3mg at sunset. Try OTC saline spray and OTC ceritizine 10mg qhs prn. Pt to call with any worsening concerns or questions. f/u upon review of above an din-clinic in 6 months or sooner prn. Pt seen in c/w Dr Milena Reyes. Orders: Orders RT home sleep study Today G47.9 - Sleep disorder, unspecified, R06.83 - Snoring, R53.83 - Other fatigue Medications: New cetirizine (Zyrtec) 10 mg PO BEDTIME 30 days PRN 30 tabs 0RF allergy symptoms Coding Level of Care Code New Pt Level 4 (21349) Diagnoses Snoring R06.83 Sleep difficulties G47.9 Fatigue R53.83 Encounter type: initial encounter
[2023-08-04 14:34] VITALS: BMI 26.9
== END 2023-08-04 15:33 | disposition home or self-care (01) ==
PROVIDERS: PCP Student in an Organized Health Care Education/Training Program; Visit Provider Nurse Practitioner Family
DX: R06.83 Snoring (principal); G47.9 Sleep disorder, unspecified; R53.83 Other fatigue
CPT/HCPCS: 99204

== ENCOUNTER 2023-08-09 10:09 | Outpatient (AMB) | payer OTHER, SELFPAY ==
--- NOTE | 2023-08-09 10:16 | MHC.OFFVIS ---
Vital Signs 08/09/23 10:18 Height 5 ft 4 in Weight 149 lb 14.629 oz BMI 25.7 BP 120/72 Blood Pressure Location Lt brachial Position Sitting Pulse 78 Intake Visit Reasons: 3 mth f/ip sleep study Intake Note: 3 month follow-up going to [facility] for 3 month has booked sleep study in Oct Food Storeroom Clerk: Food Storeroom Clerk Present Accompanied by: Spouse Allergies paraben Allergy (Severe, Verified 08/04/23 14:40) urticaria Sulfa (Sulfonamide Antibiotics) [SULFA (SULFONAMIDE ANTIBIOTICS)] Allergy (Mild, Verified 08/04/23 14:40) HIVES sulfacetamide Allergy (Unknown, Verified 08/04/23 14:40) hives sulfur Allergy (Unknown, Verified 08/04/23 14:40) hives Latex, Natural Rubber Adverse Reaction (Verified 08/04/23 14:40) Unknown Medication List - Last Reconciled 08/09/23 by Srinivas Romeo MD amlodipine (Norvasc) 5 mg PO DAILY cetirizine (Zyrtec) 10 mg PO BEDTIME PRN 30 days ergocalciferol (vitamin D2) 50 mcg PO DAILY methocarbamol 500 mg PO TID PRN rosuvastatin 10 mg PO BEDTIME sodium,potassium,mag sulfates 17.5-3.13-1.6 gram (Suprep Bowel Prep Kit) DILUTE; drink 1/2 at 6-8 pm and half at 11 PM- 1AM HPI Comments Details: Charlee comes for follow-up. She says since been switched to amlodipine blood pressures been doing well. She has gastric issues which causes her to have heaviness in her chest. She denies any exertional chest pain. Denies any shortness of breath, orthopnea PND. Taking all her medications. Denies any prolonged palpitation irregular heartbeat. [facility] Medical History HTN (hypertension) Bleeding hemorrhoids Takotsubo cardiomyopathy Hypercholesterolemia Surgical History History of hemorrhoidectomy Hx of cardiac cath History of cataract surgery Family History Mother No problems noted. Father No problems noted. Father CVD (cardiovascular disease) Mother CVD (cardiovascular disease) Social History Household Members: Family Housing: House Do you presently have visiting nurse or other home services: No Alcohol intake: never Patient Tobacco Use Status: Never used Tobacco service: No Current occupational status: retired Review of Systems Const Denies chills, Denies fatigue, Denies fever(s), Denies frequent falls, Denies weakness, Denies weight gain and Denies weight loss ENT Denies dizziness Card Denies chest pain, Denies leg edema, Denies lightheadedness, Denies palpitations, Denies dyspnea, Denies dyspnea on exertion, Denies orthopnea and Denies other (loss of consciousness) Resp Denies cough, Denies dyspnea and Denies dyspnea on exertion GI Denies hematochezia and Denies change in stool character Musc Denies abnormal gait, Denies muscle weakness, Denies numbness, Denies radiating pain into limb and Denies tingling Neuro Denies abnormal gait, Denies dizziness, Denies frequent falls, Denies numbness, Denies tingling and Denies weakness Endo Denies fatigue and Denies palpitations Physical Exam Vital Signs: Last Vital Signs Pulse 78 08/09/23 10:18 BP 120/72 08/09/23 10:18 BMI result Body Mass Index 25.7 Const General: cooperative, comfortable, no acute distress, alert, awake, Physically active and well groomed Nutritional Appearance: overweight Orientation/consciousness: patient oriented x3 Limitations: no limitations HEENT Head: Yes normocephalic and Yes atraumatic Neck Neck: Yes trachea midline, Yes supple and Yes no JVD Resp Effort & Inspection: normal respiratory effort Auscultation: clear to auscultation bilaterally Cardio Jugular venous distension: no JVD Palpation: normal PMI Rate: regular rate Rhythm: regular rhythm Heart sounds: S1 normal heart sound present, S2 normal heart sound present, no click, no gallops, no murmurs and no rubs GI Auscultation: normal bowel sounds Neuro General: patient oriented x3 and no focal motor deficits Extrem General: Yes no clubbing, cyanosis or edema Assessment & Plan Assessment & Plan (1) HTN (hypertension): Code(s): I10 - Essential (primary) hypertension Category: Medical Plan: Hypertension which is well controlled now on amlodipine therapy. This has led to significant improvement in overall symptoms of lightheadedness chest pain. She is also trying stress mitigation strategies. Follow-up with sleep specialty after sleep study. Low-salt diet was discussed. Encouraged to continue to participate in physical activity as tolerated. Follow-up blood work in near future. Will follow up in the clinic in 6 months time, sooner p.r.n.. Thank you for allowing me to partake in her care Orders: Orders Basic Metabolic Panel Today I10 - Essential (primary) hypertension Magnesium Today I10 - Essential (primary) hypertension Lipid Panel Today I10 - Essential (primary) hypertension, I25.10 - Atherosclerotic heart disease of [place] coronary artery without angina pectoris Complete Blood Count no Diff Today I10 - Essential (primary) hypertension CRP High Sensitivity Today E78.5 - Hyperlipidemia, unspecified, I10 - Essential (primary) hypertension TSH reflex Free T4 Today I10 - Essential (primary) hypertension Medications: New rosuvastatin 10 mg PO BEDTIME 90 tabs 1RF Refilled amlodipine (Norvasc) 5 mg PO DAILY 90 tabs 1RF Coding Level of Care Code Est Pt Level 3 (33504) Diagnoses HTN (hypertension) I10
[2023-08-09 10:18] VITALS: BP 120/72; PULSE 78; BMI 25.7
== END 2023-08-09 10:37 | disposition home or self-care (01) ==
PROVIDERS: PCP Student in an Organized Health Care Education/Training Program; Visit Provider Internal Medicine Cardiovascular Disease
DX: I10 Essential (primary) hypertension (principal)
CPT/HCPCS: 99213

== ENCOUNTER → 2023-08-09 10:09 | Outpatient (BNVA) | payer OTHER, SELFPAY | PROVIDERS: PCP Student in an Organized Health Care Education/Training Program; Visit Provider Internal Medicine Cardiovascular Disease | DX: I10 Essential (primary) hypertension (principal) | CPT/HCPCS: 99212 ==

== ENCOUNTER 2023-08-13 09:56 | Outpatient (REF) | payer OTHER, SELFPAY ==
[2023-08-13 10:52] LABS: Hematocrit 38.1 % (37.0-47.0); Hemoglobin 12.5 g/dl (12.0-16.0); Mean Corpuscular HGB Conc 32.8 g/dl (31.0-35.0); Mean Corpuscular Hemoglobin 28.2 pg (27.0-33.0); Mean Corpuscular Volume 85.8 fL (80.0-98.0); Mean Platelet Volume 12.1 fL (9.4-12.3); Platelet Count 225 X10*3/uL (160-400); Red Blood Count 4.44 X10*6/uL (4.20-5.50); Red Cell Distribution Width 13.4 % (11.0-16.0); White Blood Count 5.7 X10*3/uL (4.8-10.8)
[2023-08-13 11:31] LABS: Anion Gap 11 (12-20); Blood Urea Nitrogen 8 mg/dL (9-16); Calcium 9.8 mg/dL (8.4-10.2); Carbon Dioxide 26 mmol/L (22-29); Chloride 108 mmol/L (96-108); Cholesterol 115 mg/dL (<200); Estimated Glomerular Filt Rate > 60; Glucose Random 98 mg/dL (60-115); HDL Cholesterol 45 mg/dL (>40); LDL Cholesterol Calculated 54 mg/dL (<100); Magnesium 2.2 mg/dL (1.6-2.6); Potassium 4.6 mmol/L (3.3-5.1); Sodium 140 mmol/L (135-145); Triglycerides 84 mg/dL (<150)
[2023-08-13 11:49] LABS: TSH reflex Free T4 1.58 uIU/mL (0.32-4.0)
[2023-08-16 17:18] LABS: CRP High Sensitivity 3.6 mg/L
== END 2023-08-13 09:57 | disposition home or self-care (01) ==
LOC: HO.LAB 09:56
PROVIDERS: PCP Student in an Organized Health Care Education/Training Program; Visit Provider Internal Medicine Cardiovascular Disease
DX: I10 Essential (primary) hypertension (principal); E78.5 Hyperlipidemia, unspecified; I25.10 Atherosclerotic heart disease of native coronary artery without angina pectoris
CPT/HCPCS: 36415; 80048; 80061; 83735; 84443; 85027; 86141

== ENCOUNTER 2023-08-13 11:00 | Outpatient (RCR) | payer OTHER, SELFPAY ==
--- NOTE | 2023-08-11 10:13 | MHC.PT.EP ---
[facility] [place] Office [place] Office [place] Office [address] Tish Banegas [address] [phone] F: [phone] F: [phone] F: [phone] F: [phone] Physical Therapy Plan of Care Date of Evaluation: 08/05/23 Date of Surgery: Diagnosis: Neck pain Assessment: Pt is a 67 yo female who was referred to PT for chronic and worsening neck pain, impacting her functional mobility and quality of life. PT exam reveals significant muscle tightness/tenderness, poor cervicothoracic posture, and weakness of periscap and deep neck flexors. Skilled PT indicated to address these impairments, teach her how to better manage her pain through HEP. Pt in agreement with POC and is motivated to participate. Frequency and Duration: The patient will be seen 2x/week x 2 weeks Short Term Goals: 1. In 1 week, patient will be I with phase 1 HEP including cervical stretching and isometric ex. 2. In 1 week, patient will be able to perform a chin tuck in supine and sitting through full ROM. Manager Labor Delivery Goals: 1. In 2 weeks, patient will report improved sleep position with reduced pain of her neck when she wakes in the morning. 2. In 2 weeks, patient will improve periscap strength 1/2 grade to promote postural maintenance. 3. In 2 weeks, improve deep neck flexor endurance to 10 seconds without use of compensatory muscles. Treatment Plan: Modalities to reduce pain, spasms and effusion. Manual therapy to restore motion and function. Therapeutic exercise to improve strength and flexibility. Neuromuscular re-education for posture and balance. Therapeutic activities to return to functional activities of daily living. Electronically signed by: Mary Neely PT, DPT Please sign and return to therapist. Thank you for your referral.
--- NOTE | 2024-01-05 11:54 | MHC.PT.DC ---
[facility] [place] Office [place] Office [place] Office [address] Tish Banegas [address] [phone] F: [phone] F: [phone] F: [phone] F: [phone] Physical Therapy Discharge Report Diagnosis: Neck pain Date of Surgery: Date of Evaluation: 08/05/23 Date of Discharge: 08/13/23 Treatments to Date: 3 Cancellations to Date: No Shows to Date: Discharge Status: Patient Elected to Stop Discharge Summary: Pt is a 67 yo female who was referred to PT for chronic and worsening neck pain, impacting her functional mobility and quality of life. PT exam reveals significant muscle tightness/tenderness, poor cervicothoracic posture, and weakness of periscap and deep neck flexors. Skilled PT indicated to address these impairments, teach her how to better manage her pain through HEP. Pt in agreement with POC and is motivated to participate. Pt participated in 3 treatment sessions prior to ending PT as she is travelling. Pt learned some therapeutic exercises to manage her pain, postural corrections, and how to apply her TENS unit. Recommend f/u with MD and request additional PT as needed. Thank you for this referral. Electronically signed by: Mary Neely PT, DPT Please sign and return to therapist. Thank you for your referral.
== END 2024-01-05 11:55 | disposition home or self-care (01) ==
LOC: HO.PT 11:00
PROVIDERS: PCP Family Medicine; Visit Provider Orthopaedic Surgery
DX: M54.2 Cervicalgia (principal)
CPT/HCPCS: 97014; 97110; 97140; 97161

== ENCOUNTER → 2023-12-02 20:30 | Outpatient (REF) | payer OTHER, SELFPAY | LOC: HO.SL 20:30 | PROVIDERS: PCP Student in an Organized Health Care Education/Training Program; Visit Provider Nurse Practitioner Family | DX: R06.83 Snoring (principal); R53.83 Other fatigue; G47.19 Other hypersomnia; G47.9 Sleep disorder, unspecified; I10 Essential (primary) hypertension | CPT/HCPCS: 95810 ==

== ENCOUNTER → 2023-12-02 21:44 | Outpatient (BNV) | payer OTHER, SELFPAY | PROVIDERS: PCP Student in an Organized Health Care Education/Training Program; Visit Provider Psychiatry & Neurology Neurology | DX: R06.83 Snoring (principal); G47.9 Sleep disorder, unspecified | CPT/HCPCS: 95810 ==

== ENCOUNTER 2023-12-21 07:48 | Outpatient (AMB) | payer OTHER, SELFPAY ==
[2023-12-21 07:57] VITALS: BMI 26.1
--- NOTE | 2023-12-21 07:57 | A.OFFVIS_ITS ---
Vital Signs 12/21/23 07:57 Height 5 ft 4 in Weight 152 lb BMI 26.1 Intake Visit Reasons: 4 month F/U Intake Note: Ranjeet presents for follow up. has not gotten sleep study results Allergies paraben Allergy (Severe, Verified 12/21/23 07:59) urticaria Sulfa (Sulfonamide Antibiotics) [SULFA (SULFONAMIDE ANTIBIOTICS)] Allergy (Mild, Verified 12/21/23 07:59) HIVES sulfacetamide Allergy (Unknown, Verified 12/21/23 07:59) hives sulfur Allergy (Unknown, Verified 12/21/23 07:59) hives Latex, Natural Rubber Adverse Reaction (Verified 12/21/23 07:59) Unknown Medication List - Last Reconciled 12/26/23 by FROY Beltran amlodipine (Norvasc) 5 mg PO DAILY cetirizine (Zyrtec) 10 mg PO BEDTIME PRN 30 days ergocalciferol (vitamin D2) 50 mcg PO DAILY methocarbamol 500 mg PO TID PRN rosuvastatin 10 mg PO BEDTIME sodium,potassium,mag sulfates 17.5-3.13-1.6 gram (Suprep Bowel Prep Kit) DILUTE; drink 1/2 at 6-8 pm and half at 11 PM- 1AM HPI Comments Details: 67-yr-old female presents for f/u visit of sleep difficulties. Pt had her in-lab sleep PSG study a few weeks ago. Unfortunately results are still pending. She states she did not sleep well due to all the equipment applied to her during the study. She continues to have sleep issues- staying asleep, dry mouth, anxiety. She would like to know the results of her sleep study prior to making further tx decisions. Initial HPI 08/04/2023 Patient reports difficulty falling asleep and staying asleep, which started years ago but has been worsening over time. She also notes she has is prone to dry nose/mouth, nasal congestion, anxiety and ruminating thoughts. Lexie was helpful when in [place] but not here in the [place]. Sleep questionnaire: Have you ever been diagnosed with a sleep disorder? No Have you ever had a sleep study in the past? No Have you ever been treated for a sleep disorder? No Do you take medications for a sleep disorder? Yes- melatonin 3mg q 8:30pm. Do you snore? Yes Do you wake up gasping at night? Possibly Do you have episodes of apneas? Unsure If yes, are they witnessed? n/a Do you have episodes of nocturnal chest pain or dyspnea? SOB at night- thinks d/t dry mouth Do you have difficulty initiating sleep? yes Do you have difficulty maintaining sleep? Yes Do you wake up tired? sometimes Do you have headaches upon awakening? sometimes Do you wake up with dry mouth or throat? yes Do you have GERD? yes, also constipation Do you have nocturia? yes- 3-4 x's per night Do you have nocturnal leg cramps? yes, feet will swell if sitting for long Do you have symptoms of restless legs? Yes: Urge to move, Restlessness,Cramps. May have itchiness- generalized Do you act out your dreams? No Do you have sleep paralysis? No Do you have drop attacks? No Do you ever have hypnogenic hallucinations? No Hypersomnolence questionnaire: Do you have daytime tiredness or fatigue? yes Do you easily fall asleep when inactive? Avoids falling asleep- gets up and moves or keeps thinking. Have you ever had episodes of sudden weakness? No Have you ever had episodes of sudden weakness associated with strong emotions? No Sleep hygiene questionnaire: What is your usual sleep routine? Usual bedtime is at 10-11pm/12am; Usual wake- up time is at 9am, but wakes up to pray at sunrise. Do you take naps? avoids naps- because then she will not sleep at night Is your sleep environment cool, dark, and quiet? TV- watches TV before sleeping Do you exercise? not much, has cycler at home. Do you take caffeine or other stimulants? Black tea- 2-3 x's per day w/ milk. Do you use electronics in bed? TV, checks phone before bed- watches [employer] videos. 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 [employer] Medical History HTN (hypertension) Bleeding hemorrhoids Takotsubo cardiomyopathy Hypercholesterolemia Surgical History History of hemorrhoidectomy Hx of cardiac cath History of cataract surgery Family History Mother No problems noted. Father No problems noted. Father CVD (cardiovascular disease) Mother CVD (cardiovascular disease) Social History Household Members: Family Housing: House Do you presently have visiting nurse or other home services: No Alcohol intake: never Patient Tobacco Use Status: Never used Tobacco service: No Current occupational status: retired Physical Exam Vital Signs: BMI result Body Mass Index 26.1 Const General: no acute distress Orientation/consciousness: patient oriented x3 Resp Effort & Inspection: normal respiratory effort and able to speak in complete sentences Neuro General: patient oriented x3, gait normal and moves all extremities Cranial nerves: Yes CN's II-XII intact bilaterally Motor exam (neuro): 5/5 motor strength present throughout Psych Appearance: grossly normal Mental Status: mental status grossly normal Speech and movement: Clear speech present Affect: normal affect Attitude: cooperative Thought content: Normal thought content present Insight: Good insight present (Psych) Judgement: Good judgement present (Psych) Assessment & Plan Assessment & Plan (1) Snoring: Code(s): R06.83 - Snoring Category: Medical (2) Sleep difficulties: Code(s): G47.9 - Sleep disorder, unspecified Category: Medical (3) Fatigue: Code(s): R53.83 - Other fatigue Category: Medical Qualifiers: Encounter type: initial encounter Plan Will request in-lab PSG results, once available f/u with pt after study to discuss results and appropriate treatment options. Melatonin 3mg at sunset. OTC saline spray qhs prn. Ceritizine 10mg qhs prn. f/u upon review of above an din-clinic in 6 months or sooner prn. Reviewed 12/22/2023 in-lab PSG results: normal study, w/ AHI 3.9/hr, O2 josé miguel 81% (SpO2 < 88% x's 2.9min), average SpO2 94%, mod-loud snoring, sleep efficiency 84% (WNL), pt slept for 369 min. Will refer pt for ENT consult to eval tx options for snoring, which may improve sleep quality. Orders: Referrals Ear/Nose/Throat Referral G47.9 - Sleep disorder, unspecified, R06.83 - Snoring Coding Level of Care Code Est Pt Level 3 (96035) Diagnoses Snoring R06.83 Sleep difficulties G47.9 Fatigue R53.83 Encounter type: initial encounter
== END 2023-12-21 08:14 | disposition home or self-care (01) ==
PROVIDERS: PCP Family Medicine; Visit Provider Nurse Practitioner Family
DX: R06.83 Snoring (principal); G47.9 Sleep disorder, unspecified; R53.83 Other fatigue
CPT/HCPCS: 99213

== ENCOUNTER → 2023-12-21 07:48 | Outpatient (BNVA) | payer OTHER, SELFPAY | PROVIDERS: PCP Family Medicine; Visit Provider Nurse Practitioner Family | DX: G47.9 Sleep disorder, unspecified (principal); R53.83 Other fatigue; R06.83 Snoring | CPT/HCPCS: 99212 ==

== ENCOUNTER 2023-12-30 11:19 | Day surgery (SDC) | payer OTHER, SELFPAY ==
[2023-12-28 09:30] VITALS: BMI 26.4
--- NOTE | 2023-12-29 10:29 | P.CONAN_ITS ---
Documented by User: Pallavi Jean NP 12/29/23 10:32 HPI - Anesthesia Eval Consult details Narrative: 68yo F for Upper Endoscopy and Colonoscopy [place] [facility] [place]. Work up for chest heaviness in early 2023 was negative. [facility] Active Problems Active Problems: All Active Problems Snoring (Acute) Fatigue (Acute) Sleep difficulties (Acute) Myofascial neck pain (Acute) Trapezius muscle strain (Acute) Right knee pain (Acute) Cervical spondylosis (Acute) Lumbar muscle pain (Acute) Constipation by delayed colonic transit (Acute) Thoracic aortic aneurysm (Acute) Incomplete rotator cuff tear (Acute) HTN (hypertension) (Acute) Epigastric abdominal pain (Acute) Bleeding hemorrhoids (Acute) Lower gastrointestinal hemorrhage (Acute) Anemia (Acute) Constipation (Acute) Anemia (Acute) Left shoulder pain (Acute) Neck pain (Acute) Sprain of cervical neck (Acute) Atypical chest pain (Acute) Hypercholesterolemia (Acute) Past Medical History Medical History HTN (hypertension) Bleeding hemorrhoids Takotsubo cardiomyopathy Hypercholesterolemia Family History Family History Mother No problems noted. Father No problems noted. Father CVD (cardiovascular disease) Mother CVD (cardiovascular disease) Family history of problems with anesthesia: No Surgical History Surgical History History of hemorrhoidectomy Hx of cardiac cath History of cataract surgery History of Problems with Anesthesia: No Social History Social History Household Members: Family Housing: House Do you presently have visiting nurse or other home services: No Alcohol intake: never Patient Tobacco Use Status: Never used Tobacco service: No Current occupational status: retired Meds Allergies Allergy/AdvReac Type Severity Reaction Status Date / Time paraben Allergy Severe urticaria Verified 12/21/23 07:59 Sulfa (Sulfonamide Allergy Mild HIVES Verified 12/21/23 07:59 Antibiotics) [SULFA (SULFONAMIDE ANTIBIOTICS)] sulfacetamide Allergy Unknown hives Verified 12/21/23 07:59 sulfur Allergy Unknown hives Verified 12/21/23 07:59 Latex, Natural Rubber AdvReac Unknown Verified 12/21/23 07:59 Home Medications ?Medication ?Instructions ?Recorded ?Confirmed ?Last Taken ?Type ergocalciferol (vitamin D2) 50 mcg 50 mcg PO DAILY 08/09/23 12/26/23 Unknown History (2,000 unit) capsule Exam Height,Weight and Vital Signs: Height 5 ft 4 in Weight 69.853 kg Pertinent Lab Results Pertinent Lab Results: Laboratory Tests 08/13/23 10:14 WBC 5.7 Hgb 12.5 Hct 38.1 Plt Count 225 Sodium 140 Potassium 4.6 Chloride 108 Carbon Dioxide 26 BUN 8 L Creatinine 0.73 Narrative Narrative: EKG 2023 normal sinus rhythm with poor R-wave progression with ST T wave changes suggestive of repolarization abnormality ECHO 2023 Conclusions: - 1. Normal LV systolic function with LVEF of 65-70% with impaired relaxation filling pattern 2. Mild aortic regurgitation 3. Mildly dilated ascending aorta at 4 cm 4. Normal RV systolic pressure 5. No pericardial effusion NM musa perf SPECT rest & str 2023 Impression: 1. Myocardial perfusion imaging study shows likely normal myocardial perfusion 2. Gated LVEF is 73% 3. Transient ischemic dilatation not present EKG is nondiagnostic for ischemia Assessment and Plan Assessment Anesthesia Assessment: Chart Reviewed Final Anesthetic Review Family History of Problems with Anesthesia: No History of Problems with Anesthesia: No Documented by User: Seven Mary MD 12/30/23 13:26 [facility] Past Medical History Medical History HTN (hypertension) Bleeding hemorrhoids Takotsubo cardiomyopathy Hypercholesterolemia Family History Family History Mother No problems noted. Father No problems noted. Father CVD (cardiovascular disease) Mother CVD (cardiovascular disease) Surgical History Surgical History History of hemorrhoidectomy Hx of cardiac cath History of cataract surgery Social History Social History Household Members: Family Housing: House Do you presently have visiting nurse or other home services: No Alcohol intake: never Patient Tobacco Use Status: Never used Tobacco service: No Current occupational status: retired Meds Allergies Allergy/AdvReac Type Severity Reaction Status Date / Time paraben Allergy Severe urticaria Verified 12/21/23 07:59 Sulfa (Sulfonamide Allergy Mild HIVES Verified 12/21/23 07:59 Antibiotics) [SULFA (SULFONAMIDE ANTIBIOTICS)] sulfacetamide Allergy Unknown hives Verified 12/21/23 07:59 sulfur Allergy Unknown hives Verified 12/21/23 07:59 Latex, Natural Rubber AdvReac Unknown Verified 12/21/23 07:59 Home Medications ?Medication ?Instructions ?Recorded ?Confirmed ?Last Taken ?Type ergocalciferol (vitamin D2) 50 mcg 50 mcg PO DAILY 08/09/23 12/26/23 Unknown History (2,000 unit) capsule Exam Airway Mallampati Class: II TM Dist: <=3cm Neck ROM: Full Loose/Missing/Broken Teeth: No Heart: ok Lungs: ok Assessment and Plan Assessment Anesthesia Assessment: Anesthesia Plan Discussed Final Anesthetic Review NPO: Yes ASA Class: II and III Final Preanesthetic Review: No Changes in Pt Med Stat, Meds/Allgs Chart Reviewed, Consent Obtained/Reviewed and Anes Risks/Benef Reviewed Patient Risk: Intermediate Procedure Risk: Intermediate Anesthetic Plan Anesthetic Plan: Agree w/ Assess. and Plan and TIVA Disposition: Standard PACU
[2023-12-30 11:59] VITALS: BP 134/75; PULSE 78; RESP 18; TEMP 36.4; O2SAT 97
[2023-12-30] MEDS: Lactated Ringers 1,000 ML 100 ML IVCONT (12:17)
--- NOTE | 2023-12-30 12:33 | MHC.SHP ---
Pre-Procedural Eval Section A - 24 Hr Update-Section A only Date of Service: 12/30/23 Section B - Complete if H&P > 30 days Chief Complaint: Gastrointestinal hemorrhage, unspecified Relevant Family History (Specify if Yes): No Relevant Social History: None Present Medications: see Short Stay Collaborative assessment Medical History: Significant History (HTN (hypertension) Bleeding hemorrhoids Takotsubo cardiomyopathy Hypercholesterolemia) History of Previous Operations: Relevant previous surgery/procedure and date(s) (History of hemorrhoidectomy Hx of cardiac cath History of cataract surgery) Allergies: Allergies Allergy/AdvReac Type Severity Reaction Status Date / Time paraben Allergy Severe urticaria Verified 12/21/23 07:59 Sulfa (Sulfonamide Allergy Mild HIVES Verified 12/21/23 07:59 Antibiotics) [SULFA (SULFONAMIDE ANTIBIOTICS)] sulfacetamide Allergy Unknown hives Verified 12/21/23 07:59 sulfur Allergy Unknown hives Verified 12/21/23 07:59 Latex, Natural Rubber AdvReac Unknown Verified 12/21/23 07:59 Review of Systems Sugical H&P ROS: Negative: Constitution, Cardiovascular, Respiratory, Neurological, Psychiatric, Hem-Onc, Allergic/Immunologic, Gastrointestinal, Genitourinary, Musculoskeletal, Integumentary, Endocrine and Eyes/Ears/Nose/Throat Exam Surgical H&P Exam: Normal: HEENT, Normal: Heart, Normal: Lungs, Normal: Extremities, Normal: Abdomen, Normal: Skin and Normal: Neurological Plan Diagnosis/Plan: Unchanged I have reviewed the history and physical and performed a pertinent physical examination on my patient. No changes have occurred unless specified. Time Spent With Patient Time: Total time managing care of this patient today ____ minutes.
--- NOTE | 2023-12-30 13:41 | HO.OPN-COLON ---
Colonoscopy Operative Note Operative Note Date of Service: 12/30/23 Narrative: Operative Information Procedure Description: EGD, Colonoscopy Indication: Gastritis and hx of colon polyps Anesthesia: MAC FLEXIBLE TRANSORAL UPPER GASTROINTESTINAL ENDOSCOPY AND COLONOSCOPY PROCEDURE NOTE UPPER ENDOSCOPY Consent: Indications for the procedure and potential complications of bleeding, perforation, reaction to medications and missed diagnosis were discussed with the patient and informed consent was obtained. Instrument: Olympus GIF H 190 J mid size upper endoscope Monitoring: Vital signs and clinical assessment, continuous EKG monitoring, Pulse oximetry, Carbon Dioxide monitoring and blood pressure monitoring were done throughout the procedure. Procedure: The patient was placed in the left lateral decubitis position and pre-procedure medications were administered and a bite block was placed. The endoscope was inserted into the mouth and advanced under direct vision to the third part of duodenum. A careful inspection was made as the upper endoscope was withdrawn including a retroflexed examination of the proximal stomach; Findings and interventions are described below. Findings: Larynx:normal Esophagus: GE junction at 35 cm, diaphragm hiatus at 35 cm, mild esophagitis at GEJ, bx taken from here and distal esophagus Stomach: Patchy erythema. Biopsies were obtained. Grade 2 flap valve on retroflexed examination of the cardia. Duodenum: Normal bulb and descending duodenum, bx taken Intervention: Biopsies as noted above, COLONOSCOPY Instrument: Olympus variable stiffness pediatric scope 190L Colonoscopy Monitoring: Vital signs and clinical assessment, continuous EKG monitoring, Pulse oximetry, Carbon Dioxide monitoring and blood pressure monitoring were done throughout the procedure. Colon withdrawal time was 20 minutes. Procedure: The patient was placed in the left lateral decubitis position and pre-procedure medications were administered. After a digital rectal examination of the ano-rectum, the video colonoscope was inserted into the rectum and advanced through the colon to the cecum/TI. The colonoscope was slowly withdrawn in a retrograde panoramic fashion and the colon mucosa was carefully examined including a retroflexed view of the rectum. Findings and interventions are described below. Procedure Difficulty:moderate Findings: Terminal Ileum-normal Cecum: 7-9 mm sessile polyp removed with cold snare Ascending Colon: 8-9 mm sessile polyp removed with cold snare Transverse Colon - x 2 sessile polyps 8-9 mm removed with cold snare, x 1 sessile polyp 4-5 mm removed with cold forceps Descending Colon:normal Sigmoid Colon: normal Rectum: Retroflexion with small internal hemorrhoids, grade I, 6-8 mm sessile polyp removed with cold snare Anorectum - normal Colon preparation: Daggett Bowel Preparation Scale Right colon; 2 Transverse colon: 2 Left colon; 2 (0 = Unprepared colon segment with mucosa not seen due to solid stool that cannot be cleared. 1 = Portion of mucosa of the colon segment seen, but other areas of the colon segment not well seen due to staining, residual stool and/or opaque liquid. 2 = Minor amount of residual staining, small fragments of stool and/or opaque liquid, but mucosa of colon segment seen well. 3 = Entire mucosa of colon segment seen well with no residual staining, small fragments of stool or opaque liquid) Impression and Post Procedure Diagnosis: Endoscopy Findings: gastritis mild esophagitis Colonoscopy Findings: colon polyps internal hemorrhoids Plan: Await Pathology results Repeat Colonoscopy in 1-2 years or earlier if clinically indicated High fiber diet leaflet avoid straining at stool, epsom salts and sitz bath, anusol supps or cream If h pylori pos treat Above findings were reviewed with the patient and relevant handouts were provided if indicated.
[2023-12-30 14:22] VITALS: BP 95/49; PULSE 63; RESP 16; TEMP 36.3; O2SAT 96
[2023-12-30 14:37] VITALS: BP 120/65; PULSE 61; RESP 16; TEMP 36.1; O2SAT 96
== END 2023-12-30 15:02 | disposition home or self-care (01) ==
PROVIDERS: PCP Student in an Organized Health Care Education/Training Program; Visit Provider Internal Medicine Gastroenterology
PROC: (CPT 43239; principal; 2023-12-30 13:10)
DX: K21.00 Gastro-esophageal reflux disease with esophagitis, without bleeding (principal); D12.0 Benign neoplasm of cecum; D12.2 Benign neoplasm of ascending colon; D12.3 Benign neoplasm of transverse colon; K64.0 First degree hemorrhoids; K62.1 Rectal polyp; Z86.0101 Personal history of adenomatous and serrated colon polyps; K59.01 Slow transit constipation; I10 Essential (primary) hypertension; E78.00 Pure hypercholesterolemia, unspecified; I51.81 Takotsubo syndrome
CPT/HCPCS: 43239; 45385; 45380; 88305; 88313; 88342; J1100; J2003; J2704; J3010

== ENCOUNTER → 2023-12-30 11:19 | Outpatient (BNV) | payer OTHER, SELFPAY | PROVIDERS: PCP Student in an Organized Health Care Education/Training Program; Visit Provider Internal Medicine Gastroenterology | DX: Z12.11 Encounter for screening for malignant neoplasm of colon (principal); Z86.0100 Personal history of colon polyps, unspecified; D12.0 Benign neoplasm of cecum; D12.3 Benign neoplasm of transverse colon; K62.1 Rectal polyp; K29.70 Gastritis, unspecified, without bleeding; K21.9 Gastro-esophageal reflux disease without esophagitis | CPT/HCPCS: 43239; 45380; 45385 ==

== ENCOUNTER 2024-01-20 11:04 | Outpatient (AMB) | payer OTHER, SELFPAY ==
--- NOTE | 2024-01-20 11:07 | MHC.OFFVIS ---
Intake Visit Reasons: OV-B/L shoulder pain last injection 07/12/23 Intake Note: Charlee is a 67 year old right hand dominant female who presents today for a new problem visit with complaints of bilateral knee pain, she would like to have an injection in both of her knees today. Allergies paraben Allergy (Severe, Verified 12/21/23 07:59) urticaria Sulfa (Sulfonamide Antibiotics) [SULFA (SULFONAMIDE ANTIBIOTICS)] Allergy (Mild, Verified 12/21/23 07:59) HIVES sulfacetamide Allergy (Unknown, Verified 12/21/23 07:59) hives sulfur Allergy (Unknown, Verified 12/21/23 07:59) hives Latex, Natural Rubber Adverse Reaction (Verified 12/21/23 07:59) Unknown HPI HPI OV-B/L shoulder pain last injection 07/12/23: Details: Charlee is a 67 year old right hand dominant female who presents today for a new problem visit with complaints of bilateral knee pain, she would like to have an injection in both of her knees today. [facility] Medical History HTN (hypertension) Bleeding hemorrhoids Takotsubo cardiomyopathy Hypercholesterolemia Surgical History History of hemorrhoidectomy Hx of cardiac cath History of cataract surgery Family History Mother No problems noted. Father No problems noted. Father CVD (cardiovascular disease) Mother CVD (cardiovascular disease) Social History Household Members: Family Housing: House Do you presently have visiting nurse or other home services: No Alcohol intake: never Patient Tobacco Use Status: Never used Tobacco service: No Current occupational status: retired Physical Exam Extrem Other: Medial compartment tenderness to palpation bilaterally. A mild effusion on the right full range of motion bilaterally Office Procedures Joint Inj/Aspir; Non-Pain Clin Joint Injection/Drain Details: Injected 1 mL of Decadron and 3 mL 1% lidocaine and 3 mL of 0.25% Marcaine. Site was prepped using aseptic technique. Patient tolerated the procedure well. Shoulders, Hips, Knees, Knee Large Joint Injection : Bilateral Knee Coding Procedure code (CPT) selection complete Assessment & Plan Assessment & Plan (1) Osteoarthritis of knees, bilateral: Code(s): M17.0 - Bilateral primary osteoarthritis of knee Category: Medical Plan: Injected bilateral knees. Coding Level of Care Code Est Pt Level 3 (78900) Diagnoses Osteoarthritis of knees, bilateral M17.0 CPT Codes Shoulders, Hips, Knees, - Knee Large Joint Injection : Bilateral Knee ([id number])
== END 2024-01-20 12:00 | disposition home or self-care (01) ==
PROVIDERS: PCP Student in an Organized Health Care Education/Training Program; Visit Provider Orthopaedic Surgery
DX: M17.0 Bilateral primary osteoarthritis of knee (principal)
CPT/HCPCS: 20610; 99213

== ENCOUNTER → 2024-01-20 11:04 | Outpatient (BNVA) | payer OTHER, SELFPAY | PROVIDERS: PCP Student in an Organized Health Care Education/Training Program; Visit Provider Orthopaedic Surgery | DX: M17.0 Bilateral primary osteoarthritis of knee (principal) | CPT/HCPCS: 20610; 99212; J0665; J1100; J2003 ==

== ENCOUNTER 2024-01-21 10:40 | Outpatient (REF) | payer OTHER, SELFPAY ==
--- NOTE | ~2024-01-21 | US_ITS ---
EXAMINATION: US ABDOMEN COMPLETE CLINICAL INFORMATION: Right upper quadrant pain, nausea, mild fevers. Evaluate for cholecystitis.. COMPARISON: CT scan of the abdomen and pelvis dated 07/11/2022. TECHNIQUE: Real-time imaging of the abdominal viscera. FINDINGS: The exam is technically difficult due to overlying bowel gas. PANCREAS: The pancreatic body is visualized and appears unremarkable. Remainder of the pancreas is obscured by overlying bowel gas. ABDOMINAL AORTA: The proximal, mid, and distal segments are normal in caliber. Mild atherosclerotic calcification in the distal aorta noted. INFERIOR VENA CAVA: Visualized portions are normal. LIVER: The liver is normal in size. The liver contour is normal. Parenchymal echogenicity is normal. The hypodense mass in the liver seen on CT scan is not visualized on this ultrasound. There is no intrahepatic biliary duct dilatation seen. With color Doppler imaging, normal hepatopedal flow within the main portal vein is seen. GALLBLADDER: The gallbladder is elongated with an apparent focal constriction in its mid segment and dilatation of the gallbladder fundus to approximately 2.6 x 1.5 x 2 cm. Similar findings were seen on the CT scan and findings are likely related to a prominent fold in the gallbladder versus subtle adenomyomatosis. without evidence of stones, sludge, polyps, wall thickening or pericholecystic fluid. COMMON BILE DUCT: Normal in caliber measuring 0.5 cm in diameter. RIGHT KIDNEY: Poorly visualized due to shadowing by overlying bowel gas.. No hydronephrosis. No renal calculi or focal parenchymal lesions. The kidney measures 8.5 cm in maximum dimension. LEFT KIDNEY: Normal. No hydronephrosis. No renal calculi or focal parenchymal lesions. There is a small echogenic focus in the lower pole of the left kidney, not demonstrating twinkle artifact with color Doppler assessment, most consistent with a prominent vascular interfaces rather than a tiny nonobstructing calculus. The kidney measures 10.7 cm in maximum dimension. SPLEEN: Normal. The spleen measures 9.7 cm in maximum dimension. FREE FLUID: None. US/US abdomen complete IMPRESSION: * No evidence of acute cholecystitis or biliary obstruction. * Incomplete view of the pancreas due to overlying bowel gas. Visualized portions of pancreas unremarkable. * Right kidney poorly visualized due to shadowing by overlying bowel gas. * Gallbladder findings are suggestive of focal adenomyomatosis. * The CT demonstrated liver mass/hemangioma is not seen on this ultrasound. * Mild atherosclerotic calcification of the distal aorta. Electronically signed by: Tami Lee MD 01/22/2024 01:25 AM [facility]
== END 2024-01-21 10:41 | disposition home or self-care (01) ==
LOC: HO.US 10:40
PROVIDERS: PCP Internal Medicine; Visit Provider Internal Medicine Gastroenterology
DX: R10.11 Right upper quadrant pain (principal)
CPT/HCPCS: 76700

== ENCOUNTER 2024-06-28 10:18 | Outpatient (REF) | payer MEDICAID, SELFPAY ==
[2024-06-28 11:04] LABS: MANUAL DIFF FLAG NO
--- OUTSIDE RECORDS SUMMARY | 2024-06-28 11:32 | XMS_ITS | Clinical Summary ---
Author Organization [facility] Address [address] [place] [address] Care Team Providers Care Personnel Counselor Name Role Phone Maira Rivero MD Primary Care Provider [phone] Allergies Active Allergy Reactions Criticality Noted Date Comments Latex 01/18/2023 Sulfa Antibiotics 01/18/2023 Medications Medication Sig Dispensed Refills Start Date End Date Status Melatonin 3 MG CAPS Take 1 capsule by mouth every night at bedtime as needed. 0 Active amLODIPine (NORVASC) tablet 5 mg Take 1 tablet (5 mg total) by mouth daily. 0 11/11/2023 Active rosuvastatin (CRESTOR) tablet 10 mg Take 1 tablet (10 mg total) by mouth daily. 0 11/09/2023 Active ALPRAZolam (Xanax) 0.25 MG tablet Take 1 tablet (0.25 mg total) by mouth daily as needed for anxiety. 14 tablet 0 11/15/2023 Active vitamin D3 (cholecalciferol) 10 MCG (400 UNIT) tablet Take 1 tablet (10 mcg total) by mouth daily. 150 tablet 0 11/15/2023 Active Active Problems Problem Noted Date Diagnosed Date Chest pain 11/15/2023 Essential hypertension, benign 01/18/2023 Chest discomfort 01/18/2023 Dyspnea on exertion 01/18/2023 Mixed hyperlipidemia 01/18/2023 Snoring 01/18/2023 Overweight (BMI 25.0-29.9) 01/18/2023 Family History Medical History Relation Name Comments Hypertension Brother 1 Coronary artery disease Brother 2 CABG Heart failure Brother 4 at 18 Hypertension Brother 5 Coronary artery disease Father Tona na, dide at 67 Cardiomyopathy Sister 1 Enlarged hear t Diabetes Sister 2 Diabetes Sister 3 Hypertension Sister 4 Relation Name Status Comments Brother 1 Alive Brother 2 Brother 3 Alive Brother 4 Brother 5 Alive Father Sister 1 Sister 2 Sister 3 Sister 4 Alive Social History Tobacco Use Types Packs/Day Years Used Date Smoking Tobacco: Never Tobacco Cessation:Counseling Given: Not Answered Alcohol Use Standard Drinks/Week Comments Never 0 (1 standard drink = 0.6 oz pur e alcohol) Sex and Gender Information Value Date Recorded Sex Assigned at Female 04/26/2023 1:05 AM EST Gender Identity Not on file Sexual Orientation Not on file Job Start Date Occupation Industry Not on file Not on file Not on file Last Filed Vital Signs Vital Sign Reading Time Taken Comments Blood Pressure 139/70 11/15/2023 2:19 PM EDT Pulse 71 11/15/2023 2:19 PM EDT Temperature 36.9 ??C (98.4 ??F) 11/15/2023 2:19 PM ED T Respiratory Rate 18 11/15/2023 2:19 PM EDT Oxygen Saturation 96% 11/15/2023 2:19 PM EDT Inhaled Oxygen Concentration - - Weight 69 kg (152 lb 1.6 oz) 11/15/2023 2:19 PM EDT Height 162.6 cm (5' 4 ) 11/15/2023 2:19 PM EDT Body Mass Index 26.11 11/15/2023 2:19 PM EDT Plan of Treatment Health Maintenance Due Date Last Done Comments Hepatitis C Screening 1955 Depression Screening 1967 Preventative Health Evaluation 08/29/1973 DTap / Tdap / Td (1 - Tdap) 08/29/1974 Colon Cancer Screening (Colonoscopy) 08/29/2000 Breast Cancer Screening (Mammogram) 08/29/2005 Fall Risk Assessment 08/29/2020 Osteoporosis Screening (DEXA Scan) 08/29/2020 Pneumococcal Vaccine (1 of 1 - PCV) 08/29/2020 Shingrix-Zoster Vaccine (2 of 2) 09/26/2021 08/02/19 COVID-19 Vaccine (2 - 2023-2 5 season) 2023 09/22/2021 Influenza Vaccine (#1) 2023 04/10/2021 RSV Adult > 60+ Yrs or Pregn ant (1 - 1-dose 75+ series) 08/29/2030 Hepatitis B Vaccines Aged Out No long er eligible based on patient's age to complete this topic RSV Ped < 20 months Aged Out No longe r eligible based on patient's age to complete this topic Advance Directives For more information, please contact: [phone] Latest Code Status on File Code Status Date Activated Date Inactivated Comments Full Code 11/15/2023 6:14 AM 11/16/2023 12:37 AM This code status was ascertained . Care Teams Personnel Counselor Relationship Specialty Start Date End Date Miara Rivero MD [address] [place] [address] [phone] PCP - General Adult Medicine 03/12/23
--- OUTSIDE RECORDS SUMMARY | 2024-06-28 11:32 | XMS_ITS | Clinical Summary ---
Author Organization [facility] Address [address] [place] [address] Care Team Providers Care Rag Baler Name Role Phone Maira Rivero Primary Care Provider [phone] Allergies Active Allergy Reactions Criticality Noted Date Comments Latex 05/25/2023 Sulfa (Sulfonamide Antibiotics) 04/30 Social History Tobacco Use Types Packs/Day Years Used Date Smoking Tobacco: Never Smokeless Tobacco: Never Tobacco Cessation:Counseling Given: Not Answered Alcohol Use Standard Drinks/Week Comments Not Currently 0 (1 standard drink = 0.6 oz pur e alcohol) Comments No Sex and Gender Information Value Date Recorded Sex Assigned at Not on file Legal Sex Female 2:26 PM EDT Gender Identity Not on file Sexual Orientation Not on file Last Filed Vital Signs Vital Sign Reading Time Taken Comments Blood Pressure 145/91 05/25/2023 6:52 PM EDT Pulse 73 05/25/2023 6:52 PM EDT Temperature 37.1 ??C (98.7 ??F) 05/25/2023 5:16 PM ED T Respiratory Rate 18 05/25/2023 6:52 PM EDT Oxygen Saturation 99% 05/25/2023 6:52 PM EDT Inhaled Oxygen Concentration - - Weight 75 kg (165 lb 5.5 oz) 05/25/2023 2:43 PM EDT Height 167.6 cm (5' 6 ) 05/25/2023 2:43 PM EDT Body Mass Index 26.69 05/25/2023 2:43 PM EDT Plan of Treatment Health Maintenance Due Date Last Done Comments Bone Density Screening 1955 Breast Cancer Screening 1955 CT Colonography 1955 Colonoscopy 1955 Colorectal Cancer Screening 1955 FIT-DNA (Cologuard) 1955 FIT 1955 FOBT 1955 Flex Sigmoidoscopy - 5y 1955 HIV Screening 1955 DTaP,Tdap,and Td Vaccines (1 - Tdap) 08/29/1973 Hepatitis C Screening 08/29/1973 Pneumococcal Vaccine, 50+ Ye ars (1 of 1 - PCV) 08/29/2005 Zoster Vaccines (1 of 2) 08/29/2005 COVID-19 Vaccine (2 - 2023-2 5 season) 2023 09/22/2021 Influenza Vaccine (Season Ended) 2024 HPV Vaccines Aged Out No longer eligi ble based on patient's age to complete this topic Hepatitis A Vaccines Aged Out No long er eligible based on patient's age to complete this topic Meningococcal Vaccine Aged Out No talia gualberto eligible based on patient's age to complete this topic [place] [address] [place] [address] [employer] Care Teams Rag Baler Relationship Specialty Start Date End Date Maira Rivero [address] [place] [address] [place] [id number] PCP - General 05/25/23
--- OUTSIDE RECORDS SUMMARY | 2024-06-28 11:32 | XMS_ITS | Encounter Summary ---
Author Organization [employer] Address [address] [facility] [address] [place] [address] Care Team Providers Care Desulphuring Operator Name Role Phone Andrew Sommer MD Primary Care Prov ider Encounter Details Date Type Department Care Team ([facility] st Contact Info) Description 06/01/2024 Orders Only [facility] [address] [place] [address] Andrew Sommer MD [address] [place] [address] Social History Tobacco Use Types Packs/Day Years Used Date Smoking Tobacco: Never Smokeless Tobacco: Never Comments Unknown Sex and Gender Information Value Date Recorded Sex Assigned at Female 12/29/2021 10:39 AM EDT Legal Sex Female 10:39 AM EDT Gender Identity Female 12/29/2021 10:39 AM EDT Sexual Orientation Straight 12/29/2021 10 :39 AM EDT documented as of this encounter Plan of Treatment Not on file documented as of this encounter Visit Diagnoses Not on filedocumented in this encounter Care Teams Desulphuring Operator Relationship Specialty Start Date End Date Andrew Sommer MD [address] [place] [address] PCP - General Internal Medicine 11/11/23 documented as of this encounter
--- OUTSIDE RECORDS SUMMARY | 2024-06-28 11:32 | XMS_ITS | Encounter Summary ---
Author Organization [employer] [facility] Address [address] [place] [address] [address] [place] [address] Care Team Providers Care Substance Abuse Prevention Coordinator Name Role Phone Andrew Sommer MD Primary Care Prov ider Reason for Referral * Consultation (Routine) - Closed Specialty Diagnoses / Procedures Referred By Janice ballard Referred To Contact Physical Therapy Diagnoses Chronic pain of both knees Andrew Sommer MD [address] [place] [address] Phone: tel: fax: [facility] Physical Therapy [address] [place] [address] Phone: tel: fax: Referral ID Status Reason Start Date Expiration Date V isits Requested Visits Authorized [id number] Closed Specialty Services Required 06/27/2024 06/27/2025 1 1 * Consultation (Routine) - Authorized Specialty Diagnoses / Procedures Referred By Janice ballard Referred To Contact Audiology Diagnoses Mixed conductive and sensorineural hearing loss of both ears Andrew Sommer MD [address] [place] [address] Phone: tel: fax: [facility] Audiology [address] [place], [place] Phone: tel: fax: Referral ID Status Reason Start Date Expiration Date Visits Requested Visits Authorized [id number] Authorized Specialty Services Required 06/27/2024 06/27/2025 1 1 Encounter Details Date Type Department Care Team (Latest Contact Info) Description 06/27/2024 1:45 PM EDT Telemedicine [facility] [address] [place] [address] Andrew Sommer MD [address] [place] [address] Essential hypertension, benign (Primary Dx); Acute viral syndrome; Chronic pain of both knees; Mixed conductive and sensorineural hearing loss of both ears; Vitamin D deficiency; Multiple joint pain Social History Tobacco Use Types Packs/Day Years Used Date Smoking Tobacco: Never Smokeless Tobacco: Never Comments Unknown Sex and Gender Information Value Date Recorded Sex Assigned at Female 12/29/2021 10:39 AM EDT Legal Sex Female 10:39 AM EDT Gender Identity Female 12/29/2021 10:39 AM EDT Sexual Orientation Straight 12/29/2021 10 :39 AM EDT documented as of this encounter Progress Notes * Andrew Bray MD - 06/27/2024 1:45 PM EDT Subjective Patient ID: Charlee Galindo is a 68 y.o. female who presents for No chief complaint on file.. Hypertension This is a chronic problem. Pertinent negatives include no chest pain, headaches, palpitations or shortness of breath. Review of Systems Respiratory: Negative for shortness of breath. Cardiovascular: Negative for chest pain and palpitations. Neurological: Negative for headaches. Objective Physical Exam Neurological: General: No focal deficit present. Mental Status: She is oriented to person, place, and time. Psychiatric: Mood and Affect: Mood normal. Behavior: Behavior normal. Assessment/Plan Problem List Items Addressed This Visit Essential hypertension, benign - Primary Could not provide me today result, refers has maintained below 140/90, keep bp log, keep low sodiumdiet and exercise as tolerated, new lans will be ordered Relevant Orders CBC auto differential Hemoglobin A1c Comprehensive Metabolic Panel Lipid Panel, Standard TSH W/Reflex to FT4 Acute viral syndrome Relevant Medications albuterol 108 (90 Base) MCG/ACT inhaler fluticasone furoate (Arnuity Ellipta) 100 MCG/ACT inhaler Chronic pain of both knees Will refer to PT, followed by ortho Relevant Orders Referral to Physical Therapy Mixed conductive and sensorineural hearing loss of both ears Will refer to audiology for hearing test Relevant Orders Referral to Audiology Multiple joint pain Will check for RA as she has fam hx of RA and is complaining of multiple joint pains with swelling Relevant Orders Rheumatoid Factor Cyclic Citrullinated Peptide (CCP) Antibody (IgG) Sed Rate by Modified Westergren C-reactive Protein Other Visit Diagnoses Vitamin D deficiency Relevant Orders Vitamin D, 25-Hydroxy, Total, Immunoassay documented in this encounter Miscellaneous Notes * Assessment & Plan Note - Andrew Bray MD - 06/27/2024 2:35 PM EDTAssociated Problem(s): Multiple joint pain Will check for RA as she has fam hx of RA and is complaining of multiple joint pains with swelling * Assessment & Plan Note - Andrew Bray MD - 06/27/2024 2:34 PM EDTAssociated Problem(s): Mixed conductive and sensorineural hearing loss of both ears Will refer to audiology for hearing test * Assessment & Plan Note - Andrew Bray MD - 06/27/2024 2:32 PM EDTAssociated Problem(s): Chronic pain of both knees Will refer to PT, followed by ortho * Assessment & Plan Note - Andrew Bray MD - 06/27/2024 2:32 PM EDTAssociated Problem(s): Essential hypertension, benign Could not provide me today result, refers has maintained below 140/90, keep bp log, keep low sodiumdiet and exercise as tolerated, new lans will be ordered documented in this encounter Plan of Treatment Scheduled Orders Name Type Priority Associated Diagnoses Orde r Schedule CBC auto differential Lab Routine Essential hypertension, benign Expected: 06/27/2024 (Approximate), Expires: 06/27/2025 Hemoglobin A1c Lab Routine Essential hypertension, benign Expected: 06/27/2024 (Approximate), Expires: 06/27/2025 Comprehensive Metabolic Panel Lab Routine Essential hypertension, benign Expected: 06/27/2024 (Approximate), Expires: 06/27/2025 Lipid Panel, Standard Lab Routine Essential hypertension, benign Expected: 06/27/2024 (Approximate), Expires: 06/27/2025 TSH W/Reflex to FT4 Lab Routine Essential hypertension, benign Expected: 06/27/2024 (Approximate), Expires: 06/27/2025 Vitamin D, 25-Hydroxy, Total, Immunoassay Lab Routine Vitamin D deficiency Expected: 06/27/2024 (Approximate), Expires: 06/27/2025 Rheumatoid Factor Lab Routine Multiple joint pain Expected: 06/27/2024, Expires: 06/27/2025 Cyclic Citrullinated Peptide (CCP) Antibody (IgG) Lab Routine Multiple joint pain Expected: 06/27/2024 (Approximate), Expires: 06/27/2025 Sed Rate by Modified Westergren Lab Routine Multiple joint pain Expected: 06/27/2024, Expires: 06/27/2025 C-reactive Protein Lab Routine Multiple joint pain Expected: 06/27/2024 (Approximate), Expires: 06/27/2025 Scheduled Referrals Name Type Priority Associated Diagnoses Orde r Schedule Referral to Audiology Outpatient Referral Routine Mixed conductive and sensorineural hearing loss of both ears Expected: 06/27/2024 (Approximate), Expires: 06/27/2025 Referral to Physical Therapy Outpatient Referral Routine Chronic pain of both knees Expected: 06/27/2024 (Approximate), Expires: 06/27/2025 documented as of this encounter Visit Diagnoses Diagnosis Essential hypertension, benign- Primary Acute viral syndrome Chronic pain of both knees Mixed conductive and sensorineural hearing loss of both ears Vitamin D deficiency Multiple joint pain Pain in joint, multiple sites documented in this encounter Care Teams Substance Abuse Prevention Coordinator Relationship Specialty Start Date End Date Andrew Sommer MD [address] [place] [id number] PCP - General Internal Medicine 11/11/23 documented as of this encounter
--- OUTSIDE RECORDS SUMMARY | 2024-06-28 11:32 | XMS_ITS | Encounter Summary ---
Author Organization [employer] [facility] Address [address] [facility] [address] [place] [address] Care Team Providers Care Tire Cord Weaver Name Role Phone Andrew Sommer MD Primary Care Prov ider Encounter Details Date Type Department Care Team (Latest Contact Info) Description 06/27/2024 Travel Social History Tobacco Use Types Packs/Day Years [...] on filedocumented in this encounter Care Teams Tire Cord Weaver Relationship Specialty Start Date End Date Andrew Sommer MD [address] [place] [address] PCP - General Internal Medicine 11/11/23 documented as of this encounter
--- OUTSIDE RECORDS SUMMARY | 2024-06-28 11:32 | XMS_ITS ---
Author Name [facility] Organization Unknown Results Test Name/Text Value Interpretation Date Range Source Troponin I SerPl HS-mCnc 9ng/L Normal [id number] 0 - 14 [facility] RBC NO. BLD AUTO 4.35M/uL Normal [id number] 4.2 - 5.4 [facility] BASOPHILS IN BLOOD BY AUTOMATED COUNT 0K/uL Normal [id number] 0 - 0.2 [facility] MCV RBC AUTO 85fL Normal [id number] 78 - 100 [facility] NEUTROPHILS NFR BLD AUTO 61.7% Normal [id number] 44 - 74 [facility] RDW RBC AUTO RTO 14.9% Normal [id number] 12.1 - 16.2 [facility] DIFFERENTIAL TYPE AUTOMATED Normal [id number] [facility] EOSINOPHIL NFR BLD AUTO 3.1% Normal [id number] 0 - 6 [facility] BASOPHILS NFR BLD AUTO 0.5% Normal [id number] 0 - 2 [facility] WBC NO. BLD AUTO 6.4K/uL Normal [id number] 4 - 10.5 [facility] NEUTROPHILS NO. BLD AUTO 3.9K/uL Normal [id number] 1.8 - 7.8 [facility] LYMPHOCYTES NFR BLD AUTO 24.4% Normal [id number] 20 - 48 [facility] MONOCYTES NFR BLD AUTO 10.3% Normal [id number] 2 - 12 [facility] MONOCYTES NO. BLD AUTO 0.7K/uL Normal [id number] 0 - 0.8 [facility] PLATELET NO. BLD AUTO 216K/uL Normal [id number] 150 - 450 [facility] HGB BLD MCNC 12.3g/dL Below low normal [id number] 12.5 - 16 [facility] HCT VFR BLD AUTO 36.9% Below low normal [id number] 37 - 47 [facility] MCH RBC QN AUTO 28.3pg Normal [id number] 25 - 33 C [facility] EOSINOPHIL NO. BLD AUTO 0.2K/uL Normal [id number] 0 - 0.5 [facility] MCHC RBC AUTO MCNC 33.3g/dL Normal [id number] 32 - 36 [facility] LYMPHOCYTES NO. BLD AUTO 1.6K/uL Normal [id number] 1 - 3.2 [facility] PMV BLD AUTO 10.3fL Normal [id number] 7.4 - 11.4 [facility] Troponin I SerPl HS-mCnc 7ng/L Normal 0 - 14 [facility] CHLORIDE SERPL SCNC 108mmol/L Above high normal [id number] 98 - 107 [facility] ANION GAP SERPL SCNC 8mmol/L Normal [id number] 5 - 14 [facility] GLUCOSE SERPL MCNC 125mg/dL Normal [id number] 70 - 199 [facility] Glomerular filtration rate/1.73 sq M. predicted 94 Normal [id number] 60 - [facility] BUN SERPL MCNC 16mg/dL Normal [id number] 7 - 17 [facility] CALCIUM SERPL MCNC 10mg/dL Normal [id number] 8.4 - 10 .2 [facility] CREAT SERPL MCNC 0.7mg/dL Normal [id number] 0.5 - 1 [facility] POTASSIUM SERPL SCNC 3.4mmol/L Below low normal [id number] 3.5 - 5.1 [facility] SODIUM SERPL SCNC 141mmol/L Normal [id number] 135 - 145 [facility] HCO3 SER SCNC 25mmol/L Normal [id number] 24 - 32 [facility] METANEPHRINES INTERPRETATION See Note Normal [facility] NORMETANEPHRINE 0.22nmol/L Normal 0 - 0.89 [facility] METANEPHRINE <0.10 Normal 0 - 0.49 [facility] TROPONIN I 0.01ng/mL Normal - [facility] LIPASE 13U/L Normal 8 - 51 [facility] AST (SGOT) 21U/L Normal [id number] 17 - 35 [facility] PROTEIN TOTAL 6.5g/dL Normal [id number] 6.2 - 8.1 [facility] CHLORIDE 102mmol/L Normal [id number] 100 - 111 [facility] ANION GAP 8mmol/L Normal [id number] 3 - 11 [facility] BILIRUBIN, TOTAL 0.5mg/dL Normal [id number] 0.1 - 1.2 [facility] POTASSIUM 4.1mmol/L Normal [id number] 3.6 - 5.1 [facility] ALT (SGPT) 13U/L Normal [id number] 8 - 39 [facility] BICARBONATE 20mmol/L Below low normal [id number] 23 - 32 [facility] CALCIUM, TOTAL 9.6mg/dL Normal [id number] 8.4 - 10.2 [facility] CREATININE 0.7mg/dL Normal [id number] 0.6 - 1.2 [facility] ALKALINE PHOSPHATASE 69U/L Normal [id number] 39 - 1 13 [facility] UREA NITROGEN 6mg/dL Below low normal [id number] 8 - 24 [facility] GLOMERULAR FILTRATION RATE ML/MIN/1.73 SQ M.PREDICTED 95mL/min/1.73m *2 Normal [id number] 60 - [facility] GLUCOSE 105mg/dL Normal [id number] 70 - 200 [facility] SODIUM 130mmol/L Below low normal [id number] 137 - 144 [facility] ALBUMIN, AUTOMATED 3.7g/dL Below low normal [id number] 3 .8 - 5.3 [facility] LACTIC ACID 1.1mmol/L Normal [id number] 0.5 - 1.9 [facility] IMMATURE GRANULOCYTE % 0.2% Normal [id number] 0 - 0.[address] [facility] [address] 010*3/uL Normal [id number] 0 - 0.3 [facility] PLATELET COUNT 81683*3/uL Normal [id number] 150 - 440 [facility] HEMATOCRIT 34.5% Below low normal [id number] 35 - 47 [facility] MCHC 33.3g/dL Normal [id number] 32 - [address] [facility] [address] 0.710*3/uL Normal [id number] 0.2 - 0.8 [facility] MCH 28.3pg Normal [id number] 26 - 34 [facility] AUTO NRBC % 0% Normal [id number] 0 - 0 [facility] LYMPHOCYTE % 15.1% Below low normal [id number] 20 - [address] [facility] [address] 1.210*3/uL Normal [id number] 0.7 - 4.5 [facility] NEUTROPHIL % 76.1% Above high normal [id number] 40 - 7 0 [facility] MONOCYTE % 8.3% Normal [id number] 4 - [address] [facility] [address] 6.210*3/uL Normal [id number] 1.4 - 6.3 [facility] EOSINOPHIL % 0.2% Normal [id number] 0 - 6 [facility] RED CELL COUNT 4.0710*6/???L Normal [id number] 3.8 - 5. 2 [facility] WHITE CELL COUNT 8.210*3/uL Normal [id number] 3.6 - 11 [facility] BASOPHILS % 0.1% Normal [id number] 0 - 2 [facility] HEMOGLOBIN 11.5g/dL Below low normal [id number] 12 - [address] [facility] [address] 010*3/uL Normal [id number] 0 - 0. 2 [facility] RBC DISTRIBUTION WIDTH 12.8% Normal [id number] 11.6 - 14.8 [facility] MCV 84.8fL Normal [id number] 80 - 100 [facility] INR PPP 1.1 Normal [id number] 0.8 - 1.1 [facility] PT TIME PPP 13.2sec Normal [id number] 10.5 - 13.3 [facility] Troponin I SerPl HS-mCnc 10ng/L Normal [id number] 0 - 14 [facility] LIPASE SERPL CCNC 16U/L Normal [id number] 11 - 82 [facility] LDH SERPL L TO P CCNC 151U/L Normal [id number] 125 - 220 [facility] AST SERPL CCNC 21U/L Normal [id number] 5 - 40 [facility] ALP SERPL-CCNC 76U/L Normal [id number] 34 - 104 [facility] ALT SERPL [facility]NC 14U/L Normal [id number] 7 - 52 [facility] AMYLASE SERPL CCNC 32U/L Normal [id number] 29 - 103 [facility] RBC NO. BLD AUTO 3.87M/uL Below low normal [id number] 4.2 - 5.4 [facility] NEUTROPHILS NO. BLD AUTO 3.4K/uL Normal [id number] 1.8 - 7.8 [facility] HCT VFR BLD AUTO 33.5% Below low normal [id number] 37 - 47 [facility] EOSINOPHIL NFR BLD AUTO 2.6% Normal [id number] 0 - 6 [facility] PLATELET NO. BLD AUTO 183K/uL Normal [id number] 150 - 450 [facility] LYMPHOCYTES NO. BLD AUTO 1.8K/uL Normal [id number] 1 - 3.2 [facility] EOSINOPHIL NO. BLD AUTO 0.2K/uL Normal [id number] 0 - 0.5 [facility] RDW RBC AUTO RTO 14.1% Normal [id number] 12.1 - 16.2 [facility] DIFFERENTIAL TYPE AUTOMATED Normal [id number] [facility] MONOCYTES NO. BLD AUTO 0.5K/uL Normal [id number] 0 - 0.8 [facility] LYMPHOCYTES NFR BLD AUTO 30% Normal [id number] 20 - 48 [facility] WBC NO. BLD AUTO 5.9K/uL Normal [id number] 4 - 10.5 [facility] NEUTROPHILS NFR BLD AUTO 57.7% Normal [id number] 44 - 74 [facility] MCHC RBC AUTO MCNC 34.1g/dL Normal [id number] 32 - 36 [facility] BASOPHILS NFR BLD AUTO 0.4% Normal [id number] 0 - 2 [facility] MONOCYTES NFR BLD AUTO 9.3% Normal [id number] 2 - 12 [facility] MCV RBC AUTO 86.5fL Normal [id number] 78 - 100 [facility] MCH RBC QN AUTO 29.5pg Normal [id number] 25 - 33 C [facility] BASOPHILS IN BLOOD BY AUTOMATED COUNT 0K/uL Normal [id number] 0 - 0.2 [facility] HGB BLD MCNC 11.4g/dL Below low normal [id number] 12.5 - 16 [facility] PMV BLD AUTO 9.9fL Normal [id number] 7.4 - 11.4 [facility] MAGNESIUM SERPL MCNC 2.1mg/dL Normal [id number] 1.7 - 2.8 [facility] CALCIUM SERPL MCNC 8.7mg/dL Normal [id number] 8.4 - 10 .2 [facility] POTASSIUM SERPL SCNC 3.7mmol/L Normal [id number] 3.5 - 5.1 [facility] BUN SERPL MCNC 15mg/dL Normal [id number] 7 - 17 [facility] CREAT SERPL MCNC 0.9mg/dL Normal [id number] 0.5 - 1 [facility] SODIUM SERPL SCNC 139mmol/L Normal [id number] 135 - 145 [facility] GLUCOSE SERPL MCNC 112mg/dL Normal [id number] 70 - 199 [facility] ANION GAP SERPL SCNC 8mmol/L Normal [id number] 5 - 14 [facility] HCO3 SER SCNC 22mmol/L Below low normal [id number] 24 - 3 2 [facility] Glomerular filtration rate/1.73 sq M. predicted 70 Normal [id number] 60 - [facility] CHLORIDE SERPL SCNC 109mmol/L Above high normal [id number] 98 - 107 [facility] Troponin I SerPl HS-mCnc 6ng/L Normal [id number] 0 - 14 [facility] BNP BLD MCNC 598pg/mL Above high normal [id number] 0 - 10 0 [facility] BILIRUB DIRECT SERPL MCNC 0.1mg/dL Normal [id number] 0 - 0.2 [facility] BILIRUB SERPL MCNC 0.3mg/dL Normal [id number] 0.3 - 1 [facility] History of Medication Use Medication Directions Dispensed Refills Start Date End Date Stat perflutren lipid microsphere (DEFINITY) IV contrast 0.5-10 mL, Intravenous, Once, On Wed11/15/23 at 1130, For 1 dose 11/15/2023 11/15/2023 completed ALPRAZolam (Xanax) 0.25 MG tablet Take 1 tablet (0.25 mg total) by mouth daily as needed for anxiety. 11/15/2023 active enoxaparin (LOVENOX) syringe 40 mg 40 mg, Subcutaneous, Every 24 hours scheduled (Daily), First dose on Wed11/15/23 at 0900Administer in abdomen (at least 2 inches from navel) 11/15/2023 active amLODIPine (NORVASC) tablet 5 mg Take 1 tablet (5 mg total) by mouth daily. 11/11/2023 active rosuvastatin (CRESTOR) tablet 10 mg Take 1 tablet (10 mg total) by mouth daily. 11/09/2023 active valsartan (DIOVAN) tablet 80 mg Take 1 tablet (80 mg total) by mouth 2 (two) times a day. 04/13/2023 11/15/2023 aborted valsartan (DIOVAN) tablet 80 mg Take 1 tablet (80 mg total) by mouth 2 (two) times a day. 04/13/2023 active valsartan-hydroCHLO ROthiazide (DIOVAN HCT) tablet 160-12.5 mg Take 1 tablet by mouth daily. 01/18/2023 05/10/2023 active aspirin EC 81 MG tablet Take 1 tablet (81 mg total) by mouth daily. 11/15/2023 aborted Citalopram Hydrobromide (CELEXA PO) Take 5 mg by mouth daily. 03/12/2023 active clonazePAM (KlonoPIN) 0.5 MG tablet Take 1 tablet (0.5 mg total) by mouth daily. 03/12/2023 aborted aspirin EC 81 MG tablet Take 1 tablet (81 mg total) by mouth daily. active Melatonin 3 MG CAPS Take 1 capsule by mouth every night at bedtime as needed. active Problems Problem Status Onset Date Problem Type Date of Resolution Source Dyspnea on exertion active 2023-01-18 ProblemAct [facility] Chest pain active 2023-11-15 ProblemAct [facility] Essential hypertension, benign active 2023-01-18 ProblemAct [facility] Subconjunctival hemorrhage of right eye active EncounterDiagnosisAct [facility] Chest discomfort active 2023-01-18 ProblemAct [facility] Mixed hyperlipidemia active 2023-01-18 ProblemAct [facility] Overweight (BMI 25.0-29.9) active 2023-01-18 ProblemAct [facility] Snoring active 2023-01-18 ProblemAct [facility] Other migraine without status migrainosus, not intractable active EncounterDiagnosisAct [facility] Encounters Encounter Type Encounter Reason Primary Diagnosis Location Date Inpatient Chest pain, unspecified Chest pain, unspecified [facility] 11/15/2023 Emergency Noninfective gastroenteritis and colitis Noninfective gastroenteritis and colitis, unspecified [facility] 05/25/2023 Emergency Chest pain, unspecified Chest pain, unspecified [facility] 04/26/2023 Care Team Organization Name Specialty Phone Email Start Date End Da te [facility] 05/25/2023 [facility] 05/25/2023 [facility]02 [facility] [place]/[facility]/2023 [facility] 12/31/2021 10/18/2023
--- OUTSIDE RECORDS SUMMARY | 2024-06-28 11:32 | XMS_ITS | Clinical Summary ---
Author Organization [employer] Address [address] [place] [address] 7 [place] [address] Care Team Providers Care Accelerator Systems Director Name Role Phone Andrew Sommer MD Primary Care Prov ider Allergies Active Allergy Reactions Criticality Noted Date Comments Latex 01/18/2023 Sulfa Antibiotics 01/18/2023 Medications rosuvastatin (Crestor) 10 MG tablet Take 10 mg by mouth in the morning. 01/19/20 23 Active amLODIPine (Norvasc) 5 MG tablet Take 5 mg by mouth Once per day. 11/11/19 24 Active ALPRAZolam (Xanax) 0.25 MG tablet Take 0.25 mg by mouth if needed each day. 11/15/19 24 Active ergocalciferol (Drisdol) 1.25 MG (14629 UT) capsule Take 1 capsule (1.25 mg) by mouth 1 (one) time per week. 12 capsule 3 06/28/19 25 026 Active albuterol 108 (90 Base) MCG/ACT inhalerIndicat ions:Acute viral syndrome Inhale 2 puffs every 6 (six) hours if needed for wheezing. 18 g 11 06/28/19 25 026 Active fluticasone (Flonase) 50 MCG/ACT nasal spray Administer 1-2 sprays into each nostril Once per day. Shake gently. Before first use, prime pump. After use, clean tip and replace cap. 16 g 3 06/28/19 25 026 Active fluticasone furoate (Arnuity Ellipta) 100 MCG/ACT inhalerIndicat ions:Acute viral syndrome Inhale 1 puff Once per day. Rinse mouth with water after use to reduce aftertaste and incidence of candidiasis. Do not swallow. 90 Act 3 06/28/19 25 026 Active Melatonin 3 MG capsule Take 3 mg by mouth at bedtime. 90 capsule 3 06/28/19 026 Active pantoprazole (ProtoNix) 40 MG EC tablet Take 40 mg by mouth in the morning. 06/09/19 23 025 Discontinued(Th erapy completed) Melatonin 3 MG capsule Take 3 mg by mouth at bedtime. 30 capsule 11 02/17/20 23 025 Discontinued(Re order (will not trigger notification to Pharmacy)) fluticasone furoate (Arnuity Ellipta) 100 MCG/ACT inhalerIndicat ions:Acute viral syndrome Inhale 1 puff Once per day. Rinse mouth with water after use to reduce aftertaste and incidence of candidiasis. Do not swallow. 1 each 2 12/02/19 24 025 Discontinued(Re order (will not trigger notification to Pharmacy)) albuterol 108 (90 Base) MCG/ACT inhalerIndicat ions:Acute viral syndrome Inhale 2 puffs every 6 (six) hours if needed for wheezing. 18 g 11 12/02/19 24 025 Discontinued(Re order (will not trigger notification to Pharmacy)) fluticasone (Flonase) 50 MCG/ACT nasal spray Administer 1-2 sprays into each nostril Once per day. Shake gently. Before first use, prime pump. After use, clean tip and replace cap. 16 g 2 05/16/19 25 025 Discontinued(Re order (will not trigger notification to Pharmacy)) Active Problems Problem Noted Date Diagnosed Date Chronic pain of both knees 06/27/2024 Assessment & Plan (06/27/2024 2:32 PM EDT): Will refer to PT, followed by ortho Mixed conductive and sensori neural hearing loss of both ears 06/27/2024 Assessment & Plan (06/27/2024 2:34 PM EDT): Will refer to audiology for hearing test Multiple joint pain 06/27/2024 Assessment & Plan (06/27/2024 2:35 PM EDT): Will check for RA as she has fam hx of RA and is complaining of multiple joint pains with swelling Acute viral syndrome 12/02/2023 Assessment & Plan (12/02/2023 2:51 PM EDT): COVID, Flu and Strep negative. Pt coughing intermittently during exam. -start azithromycin 250 mg -refilled inhalers. -supportive care discussed -ER precautions given Anxiety 11/18/2023 Assessment & Plan (11/18/2023 10:46 AM EDT): Seen at er and discharged with dx of panic attack and anxiety, was prescribed alprazolam, will refer to therapist Sinus congestion 11/18/2023 Assessment & Plan (11/18/2023 10:49 AM EDT): Will send rx for flonase, call back if not improving Chronic right shoulder pain 11/18/2023 Assessment & Plan (11/18/2023 10:51 AM EDT): Will refer to pt, continue home stretching, avoid heavy lifting Essential hypertension, benign 01/18/2023 1 04/19/2022 Assessment & Plan (06/27/2024 2:32 PM EDT): Could not provide me today result, refers has maintained below 140/90, keep bp log, keep low sodium diet and exercise as tolerated, new lans will be ordered Assessment & Plan (11/18/2023 10:45 AM EDT): Followed by cardiology, on amlodipine, she recently visit er due to chest pain and elevated bp, studies did not showed acute cardiac disease, her episode was more related to a panic attack Mixed hyperlipidemia 01/18/2023 02/16/2023 Encounters Date Type Department Care Team Description 06/27/2024 1:45 PM EDT Telemedicine [facility] [address] [place] [address] Andrew Sommer MD Essential hypertension, benign (Primary Dx); Acute viral syndrome; Chronic pain of both knees; Mixed conductive and sensorineural hearing loss of both ears; Vitamin D deficiency; Multiple joint pain 06/27/2024 Travel 06/07/2024 Telephone [facility] [address] [place] [address] Andrew Sommer MD Lab Orders (/) 06/07/2024 Telephone [facility] [address] [place] [address] Andrew Sommer MD Appointment Request 06/06/2024 Telephone [facility] [address] [place] [address] Andrew Sommer MD 06/01/2024 Orders Only [facility] [address] [place] [address] Andrew Sommer MD 05/15/2024 Refill [facility] [address] [place] [address] Andrew Sommer MD 04/20/2024 Telephone [facility] [address] [place] [address] Andrew Sommer MD from Last 3 Months Social History Tobacco Use Types Packs/Day Years Used Date Smoking Tobacco: Never Smokeless Tobacco: Never Tobacco Cessation:Counseling Given: Not Answered Comments Unknown Sex and Gender Information Value Date Recorded Sex Assigned at Female 12/29/2021 10:39 AM EDT Legal Sex Female 10:39 AM EDT Gender Identity Female 12/29/2021 10:39 AM EDT Sexual Orientation Straight 12/29/2021 10 :39 AM EDT Last Filed Vital Signs Vital Sign Reading Time Taken Comments Blood Pressure 125/84 12/02/2023 2:54 PM EDT Pulse 75 12/02/2023 2:54 PM EDT Temperature 36.8 ??C (98.2 ??F) 12/02/2023 2:54 PM ED T Respiratory Rate 16 12/02/2023 2:54 PM EDT Oxygen Saturation 98% 12/02/2023 2:54 PM EDT Inhaled Oxygen Concentration - - Weight 68.9 kg (152 lb) 12/02/2023 2:54 PM EDT Height 161 cm (5' 3.39 ) 07/02/2023 2:09 PM EDT Body Mass Index 26.6 07/02/2023 2:09 PM EDT Plan of Treatment Health Maintenance Due Date Last Done Comments CT Colonography 1955 Colonoscopy 1955 Colorectal Cancer Screening 1955 Depression Screening 1955 FIT DNA/Cologuard 1955 FIT 1955 FOBT 1955 SDOH Screening 1955 Sigmoidoscopy 1955 Alcohol/Substance Use Screening 1967 Hepatitis C Screening 08/29/1973 DTaP/Tdap/Td Vaccines (1 - Tdap) 08/29/1974 Pneumococcal Vaccine: 50+ Years (1 of 1 - PCV) 08/29/2005 Zoster Vaccines (1 of 2) 08/29/2005 COVID-19 Vaccine (4 - 2023-2 5 season) 2023 09/22/2021, 04/27/2020, 03/30/2020 Influenza Vaccine (#1) 2023 Tobacco Screening 12/01/2024 12/02/2023 Mammogram 07/13/2025 07/14/2023, 07/14/2023 Lipid Panel 08/12/2028 08/13/2023, 01/31/2021 RSV Patients and Patients Aged 60 years or older (1 - 1-dose 75+ series) 08/29/2030 HIB Vaccines Aged Out No longer eligi ble based on patient's age to complete this topic HPV Vaccines Aged Out No longer eligi ble based on patient's age to complete this topic Hepatitis A Vaccines Aged Out No long er eligible based on patient's age to complete this topic Hepatitis B Vaccines Aged Out No long er eligible based on patient's age to complete this topic IPV Vaccines Aged Out No longer eligi ble based on patient's age to complete this topic Meningococcal Vaccine Aged Out No talia gualberto eligible based on patient's age to complete this topic RSV under 20 months Aged Out No longe r eligible based on patient's age to complete this topic Rotavirus Vaccines Aged Out No longer eligible based on patient's age to complete this topic Procedures Procedure Name Priority Date/Time Associated Diagnosis Comments LIPID PANEL, STANDARD Routine 08/13/2023 10:14 AM EDT BI MAMMOGRAM DIAGNOSTIC TOMOSYNTHESIS BILATERAL STAT 07/14/2023 2:34 PM EDT from Last 3 Months or Most Recently Relevant to Health Maintenance Results * Lipid Panel, Standard (08/13/2023 10:14 AM EDT) Triglycerides 84 <150 mg/dL [facility] Comment:Desirable Triglyceri de: less than 150 mg/dLBorderline High Triglyceride 150-199 mg/dLHigh Triglyceride: 200-499 mg/dLVery High Triglyceride: greater than or equal to 5OO mg/dL Cholesterol 115 <200 mg/dL [facility] Comment:Desirable Cholestero l: less than 200 mg/dLBorderline High Cholesterol: 200-239 mg/dLHigh Cholesterol: greater than 239 mg/dL LDL Cholesterol Calculated 54 <100 mg/dL [facility] Comment:Desirable LDL: less than 100 mg/dLNear Optimal/Above Optimal LDL: 110- 129 mg/dLBorderline High LDL: 130-159 mg/dLHigh LDL: 160-189 mg/dLVery High LDL: greater than or equal to 190 mg/dL HDL Cholesterol 45 >40 mg/dL [facility] Comment:Desirable HDL: great er than 40 mg/dL Note: This HDL assay may give artificially low results in patients with liver disease. 08/13/2023 10:1 4 AM EDT 08/13/2023 10:14 AM EDT us Generic External Data Provider LAB BLOOD ORDERAB LES Final Result [facility] [address] [place] [phone] * BI Mammogram Diagnostic Tomosynthesis Bilateral (07/14/2023 2:34 PM EDT) Anatomical Region Laterality Modality Breast Bilateral Mammography 07/14/2023 2:34 PM EDT Narrative 07/14/2023 4:03 PM EDT ? [facility] ? [address] ?[place] [address] ? Mammography Report ? Signed ? Patient: Galindo,Zebun N ?MR#: [id number] ? : 1955 ?Acct:[id number] ? Age/Sex: 67 / F ?ADM Date: 07/14/23 ? Loc: HO.MAMMO ? Attending Dr: Racheal Vargas MD ? Ordering Physician: Racheal Vargas MD ?Results: 2Beni ?? gn Findings ? Date of Service: 07/14/23 ?Follow Up: 1 Year From Orig ?? inal Mammogram ? Procedure(s): MM tomosynthesis diagnostic BI ?? Accession Number(s): [id number] ? cc: Racheal Vargas MD ? EXAMINATION: ?? MM DIAGNOSTIC DIGITAL BREAST TOMOSYNTHESIS, BILATERAL ?? US BREAST LIMITED, BILATERAL ? MAMMOGRAPHY: ?? CLINICAL INFORMATION: ? Patient complaining of left breast upper outer quadrant mass and right ?? breast tenderness whole breast . Patient cannot discretely identify ?? the palpable left breast upper outer quadrant focus. Patient has ?? history of bilateral small cysts on prior diagnostic bilateral ?? ultrasound 04/12/2020. ? COMPARISON: ?? Mammography: 04/01/2020. ? TECHNIQUE: ?? Digital breast tomosynthesis is performed in both the craniocaudal and ?? mediolateral oblique views along with computer-aided detection (CAD). ?? Synthesized 2D images are generated from the tomosynthesis. In ?? addition, 3-D full-field right mediolateral view and left mediolateral ?? view were also obtained. ? FINDINGS: ?? There are scattered areas of fibroglandular density (ACR BI-RADS breast ?? composition Category b). ? There are bilateral regional calcifications which have a benign ?? morphology and are likely related to adenosis and/or dystrophic, the ?? majority being punctate and rounded. There is no tight grouping or ?? pleomorphism. These appear unchanged without aggressive features. ?? There are 2 slightly enlarged oval circumscribed masses in the left ?? breast lower inner quadrant, and right breast lower outer quadrant when ?? compared with the prior examination, and these findings will be ?? evaluated by ultrasound. Background stromal appears to have numerous ?? small circumscribed oval nodules in a mirror like distribution, most ?? likely small cysts as seen on prior bilateral ultrasound. ?? There are no suspicious masses, or areas of architectural distortion in ?? either breast. ? ULTRASOUND: ?? CLINICAL INFORMATION: ?? Evaluate enlarging circumscribed nodules left breast lower inner ?? quadrant, right breast lower outer quadrant, both middle one third. ? COMPARISON: ?? Bilateral breast ultrasound 04/12/2020. ? TECHNIQUE: ?? Targeted sonographic evaluation was performed using a high frequency ?? linear transducer. ??Selected archived documentation. ? FINDINGS: ? RIGHT BREAST: ?? -Right breast demonstrates a dominant simple cyst at the 8:00 axis ?? measuring 8 x 8 x 6 mm with good through transmission. ?? -In the 11:00 axis there is a 7 x 4 mm simple cyst. ?? -There are numerous smaller additional simple cysts consistent with ?? fibrocystic changes. ?? -There are no suspicious masses or abnormal shadowing. ? LEFT BREAST: ?? -Left breast demonstrates a simple cyst retroareolar 12:00 axis ?? measuring 7 x 7 x 9 mm. ?? -There is a smaller cyst at 3:00 measuring 6 mm in diameter. ?? -There are numerous smaller additional cysts consistent with ?? fibrocystic changes. ?? -There are no suspicious masses or abnormal shadowing. ? MM/MM tomosynthesis diagnostic BI ?? IMPRESSION: ?? -Slightly enlarging cysts in both breasts as detailed above, benign. No ?? findings suspicious for malignancy. ? -Fibrocystic nodular parenchyma, as seen previously, bilaterally. ? -Benign nonaggressive appearing calcifications in a regional ?? mirror-image distribution, most likely adenosis/dystrophic. ? -Recommend this patient return to routine annual screening. ? OVERALL ASSESSMENT: ?? Mammography: BI-RADS 2 - Benign Findings ?? Ultrasound: BI-RADS 2 - Benign Findings ? RECOMMENDATION: ?? 1 year F/U ? Results were provided to the patient at time of visit by the ?? technologist. ? This patient's information was entered into a reminder system with a ?? target due date for their next mammogram. ? Dictated By: ?Gaurav Zhou MD ? Signed By: ?<Electronically signed by Gaurav Zhou MD in OV> ?07/14/23 1559 ? DD/ 1434 ? TD/TT: ? Broiler Supervisor: ? Procedure Note Donlanetteter, Image - 07/14/2023 [facility] [address] [place] [address] Mammography Report Signed Patient: Charlee Galindo [facility]#: [id number] : 6Acct:[id number] Age/Sex: 67 / FADM Date: 07/14/23 Loc: HO.MAMMO Attending Dr: Racheal Vargas MD Ordering Physician: Racheal Vargas MDResults: 2Beni gn Findings Date of Service: 07/14/23Follow Up: 1 Year From Orig inal Mammogram Procedure(s): MM tomosynthesis diagnostic BI Accession Number(s): [id number] cc: Racheal Vargas MD EXAMINATION: MM DIAGNOSTIC DIGITAL BREAST TOMOSYNTHESIS, BILATERAL US BREAST LIMITED, BILATERAL MAMMOGRAPHY: CLINICAL INFORMATION: Patient complaining of left breast upper outer quadrant mass and right breast tenderness whole breast . Patient cannot discretely identify the palpable left breast upper outer quadrant focus. Patient has history of bilateral small cysts on prior diagnostic bilateral ultrasound 04/12/2020. COMPARISON: Mammography: 04/01/2020. TECHNIQUE: Digital breast tomosynthesis is performed in both the craniocaudal and mediolateral oblique views along with computer-aided detection (CAD). Synthesized 2D images are generated from the tomosynthesis. In addition, 3-D full-field right mediolateral view and left mediolateral view were also obtained. FINDINGS: There are scattered areas of fibroglandular density (ACR BI-RADS breast composition Category b). There are bilateral regional calcifications which have a benign morphology and are likely related to adenosis and/or dystrophic, the majority being punctate and rounded. There is no tight grouping or pleomorphism. These appear unchanged without aggressive features. There are 2 slightly enlarged oval circumscribed masses in the left breast lower inner quadrant, and right breast lower outer quadrant when compared with the prior examination, and these findings will be evaluated by ultrasound. Background stromal appears to have numerous small circumscribed oval nodules in a mirror like distribution, most likely small cysts as seen on prior bilateral ultrasound. There are no suspicious masses, or areas of architectural distortion in either breast. ULTRASOUND: CLINICAL INFORMATION: Evaluate enlarging circumscribed nodules left breast lower inner quadrant, right breast lower outer quadrant, both middle one third. COMPARISON: Bilateral breast ultrasound 04/12/2020. TECHNIQUE: Targeted sonographic evaluation was performed using a high frequency linear transducer. Selected archived documentation. FINDINGS: RIGHT BREAST: -Right breast demonstrates a dominant simple cyst at the 8:00 axis measuring 8 x 8 x 6 mm with good through transmission. -In the 11:00 axis there is a 7 x 4 mm simple cyst. -There are numerous smaller additional simple cysts consistent with fibrocystic changes. -There are no suspicious masses or abnormal shadowing. LEFT BREAST: -Left breast demonstrates a simple cyst retroareolar 12:00 axis measuring 7 x 7 x 9 mm. -There is a smaller cyst at 3:00 measuring 6 mm in diameter. -There are numerous smaller additional cysts consistent with fibrocystic changes. -There are no suspicious masses or abnormal shadowing. MM/MM tomosynthesis diagnostic BI IMPRESSION: -Slightly enlarging cysts in both breasts as detailed above, benign. No findings suspicious for malignancy. -Fibrocystic nodular parenchyma, as seen previously, bilaterally. -Benign nonaggressive appearing calcifications in a regional mirror-image distribution, most likely adenosis/dystrophic. -Recommend this patient return to routine annual screening. OVERALL ASSESSMENT: Mammography: BI-RADS 2 - Benign Findings Ultrasound: BI-RADS 2 - Benign Findings RECOMMENDATION: 1 year F/U Results were provided to the patient at time of visit by the technologist. This patient's information was entered into a reminder system with a target due date for their next mammogram. Dictated By: Gaurav Zhou MD Signed By: <Electronically signed by Gaurav Zhou MD in OV> 07/14/23 1559 DD/ 1434 TD/TT: Broiler Supervisor: us Racheal Vargas MD IMG BI PROCEDURES Final Resul t from Last 3 Months or Most Recently Relevant to Health Maintenance Insurance STANDARD Care Teams Accelerator Systems Director Relationship Specialty Start Date End Date Andrew Sommer MD [address] [place] [phone] PCP - General Internal Medicine 11/11/23
--- OUTSIDE RECORDS SUMMARY | 2024-06-28 11:32 | XMS_ITS | Clinical Summary ---
Author Organization [facility] Address [address] [place] [address] Phone Care Team Providers Care Supervisor Of Way Name Role Phone Maira Rivero MD Primary Care Provider [phone] Immunizations Name Administration Dates Next Due Moderna SARS-CoV-2 COVID-19, mRNA, LNP-S, preservative free 09/22/2021 Surgical History Surgery Date Site/Laterality Comments OTHER SURGICAL HISTORY PROCEDURE:HEMORROIDECTOMY LIPOMA RESECTION 2002 PROCEDURE:LIPOMA RESECTION SECTION 1981 PROCEDURE: SECTION Medical History Medical History Date Comments Hypertension 2022 DX:Hypertension Insomnia DX:Insomnia Panic attack 2018 DX:Panic attack Hx of cardiac cath 2019 DX:Hx of card iac cath;COMMENT:No obstructive CAD Family History Medical History Relation Name Comments Hypertension Brother 1 Coronary artery disease Brother 2 CABG Heart failure Brother 3 at 18 Hypertension Brother 4 Coronary artery disease Father Tona na, dide at 67 Cardiomyopathy Sister 1 Enlarged hear t Diabetes Sister 2 Diabetes Sister 3 Hypertension Sister 4 Relation Name Status Comments Brother 1 Alive Brother 2 Brother 3 Brother 4 Alive Brother 5 Alive Father Sister 1 Sister 2 Sister 3 Sister 4 Alive Social History Tobacco Use Types Packs/Day Years Used Date Smoking Tobacco: Never Alcohol Use Standard Drinks/Week Comments Never 0 (1 standard drink = 0.6 oz pur e alcohol) Comments Unknown Sex and Gender Information Value Date Recorded Sex Assigned at Not on file Legal Sex Female 8:36 PM EST Gender Identity Not on file Sexual Orientation Not on file Obstetrics History Last Filed Vital Signs Vital Sign Reading Time Taken Comments Blood Pressure 140/82 05/10/2023 1:43 PM EDT Pulse 84 05/10/2023 1:43 PM EDT Temperature - - Respiratory Rate - - Oxygen Saturation - - Inhaled Oxygen Concentration - - Weight 71.2 kg (157 lb) 05/10/2023 1:43 PM EDT Height 162.6 cm (5' 4 ) 05/10/2023 1:43 PM EDT Body Mass Index 26.95 05/10/2023 1:43 PM EDT Plan of Treatment Health Maintenance Due Date Last Done Comments Breast Cancer Screening 1955 DTaP,Tdap,and Td Vaccines (1 - Tdap) 08/29/1974 Pneumococcal Vaccine: 50+ Years (1 of 1 - PCV) 08/29/2005 Zoster Vaccines (1 of 2) 08/29/2005 Cholesterol Screening (Lipid Panel) 03/26/2023 Colorectal Cancer Screening: Colonoscopy 03/26/2023 Depression Screening 03/26/2023 Falls Risk Assessment 03/26/2023 Hepatitis C Screening 03/26/2023 Osteoporosis Screening (Bone Density Screening) 03/26/2023 Social Influencers of Health Screening 03/26/2023 COVID-19 Vaccine (2 - 2023-2 5 season) 2023 09/22/2021 Influenza Vaccine (Season Ended) 2024 Hypertension/CHF/CAD Annual BMP Blood Test 11/14/2024 11/15/2023, 11/15/2023, 04/26/2023 RSV Immunization Adult Patients (1 - 1-dose 75+ series) 08/29/2030 HIB [...] on patient's age to complete this topic MMR Vaccines Aged Out No longer eligi ble based on patient's age to complete this topic Meningococcal ACWY Vaccine Aged Out N o longer eligible based on patient's age to complete this topic Meningococcal B Vaccine Aged Out No l onger eligible based on patient's age to complete this topic RSV Immunization Patients Under 20 months Aged Out No longer eligible b ased on patient's age to complete this topic Varicella Vaccines Aged Out No longer eligible based on patient's age to complete this topic Care Teams Supervisor Of Way Relationship Specialty Start Date End Date Maira Rivero MD [address] [place] [phone] PCP - General 03/12/23
--- OUTSIDE RECORDS SUMMARY | 2024-06-28 11:32 | XMS_ITS | Encounter Summary ---
Author Organization [employer] Address [address] [facility] [address] [place] [address] Care Team Providers Care Pecan Huller Name Role Phone Andrew Sommer MD Primary Care Prov ider Reason for Visit * Reason Onset Date Comments Appointment Request 06/07/2024 Encounter Details Date Type Department Care Team ([facility] st Contact Info) Description 06/07/2024 Telephone [facility] [address] [place] [address] Andrew Sommer MD [address] [place] [address] Appointment Request Social History Tobacco Use Types Packs/Day Years Used Date Smoking Tobacco: Never Smokeless Tobacco: Never Comments Unknown Sex and Gender Information Value Date Recorded Sex Assigned at Female 12/29/2021 10:39 AM EDT Legal Sex Female 10:39 AM EDT Gender Identity Female 12/29/2021 10:39 AM EDT Sexual Orientation Straight 12/29/2021 10 :39 AM EDT documented as of this encounter Miscellaneous Notes * Telephone Encounter - Glenny Calabrese - 06/07/2024 12:34 PM EDT Pt 1 of 2 Tc from pt requesting schedule physical appt. documented in this encounter Plan of Treatment Not on file documented as of this encounter Visit Diagnoses Not on filedocumented in this encounter Care Teams Pecan Huller Relationship Specialty Start Date End Date Andrew Sommer MD [address] [place] [phone] PCP - General Internal Medicine 11/11/23 documented as of this encounter
[2024-06-28 11:44] LABS: Basophils Percent Auto 0.4 % (0-2); Eosinophils Absolute Auto 0.1 X10*3/uL (0.0-0.4); Eosinophils Percent Auto 1.7 % (0-4); Hematocrit 39.2 % (37.0-47.0); Hemoglobin 12.5 g/dl (12.0-16.0); Imm Gran Abs Auto 0.02 X10*3/uL (0.00-0.03); Imm Gran Pct Auto 0.4 % (0.0-0.4); Lymphocytes Absolute Auto 1.4 X10*3/uL (1.2-4.9); Lymphocytes Percent Auto 27.7 % (20-40); Mean Corpuscular HGB Conc 31.9 g/dl (31.0-35.0); Mean Corpuscular Hemoglobin 28.2 pg (27.0-33.0); Mean Corpuscular Volume 88.5 fL (80.0-98.0); Mean Platelet Volume 12.2 fL (9.4-12.3); Monocytes Absolute Auto 0.5 X10*3/uL (0.1-1.2); Monocytes Percent Auto 8.9 % (2-11); Neutrophils Absolute Auto 3.1 x10*3/uL (2.0-8.3); Neutrophils Percent Auto 60.9 % (45-73); Platelet Count 229 X10*3/uL (160-400); Red Blood Count 4.43 X10*6/uL (4.20-5.50); Red Cell Distribution Width 13.6 % (11.0-16.0); White Blood Count 5.2 X10*3/uL (4.8-10.8)
[2024-06-28 12:17] LABS: Estimated Average Glucose 123 mg/dL; Hemoglobin A1C 138.1205 umol/L; Hemoglobin A1c % 5.9 % (<6.0); Total Hemoglobin (HGBA1C) 3353.1438 umol/L
[2024-06-28 12:21] LABS: Alanine Aminotransferase 17 U/L (0-31); Albumin Level 4.1 g/dL (3.5-5.0); Alkaline Phosphatase 89 U/L (39-117); Anion Gap 12 (12-20); Aspartate Amino Transferase 24 U/L (5-31); Bilirubin Total 0.6 mg/dL (0.0-1.0); Blood Urea Nitrogen 13 mg/dL (9-16); C Reactive Protein 0.25 mg/dL (< or = 0.50); Calcium 9.4 mg/dL (8.4-10.2); Carbon Dioxide 25 mmol/L (22-29); Chloride 109 mmol/L (96-108); Cholesterol 114 mg/dL (<200); Erythrocyte Sedimentation Rate 25 MM/HR (0-20); Estimated Glomerular Filt Rate > 60; Glucose Random 100 mg/dL (60-115); HDL Cholesterol 50 mg/dL (>40); LDL Cholesterol Calculated 50 mg/dL (<100); Potassium 4.2 mmol/L (3.3-5.1); Sodium 142 mmol/L (135-145); Total Protein 7.4 g/dL (6.5-8.0); Triglycerides 71 mg/dL (<150)
[2024-06-28 12:25] LABS: Rheumatoid Factor 359.6 IU/mL (<15.0)
[2024-06-28 12:36] LABS: TSH reflex Free T4 2.34 uIU/mL (0.32-4.0); Vitamin D 25-OH Total 23.2 ng/mL (>30)
[2024-07-03 18:04] LABS: Cyclic Citrullinated Peptide <16 UNITS
== END 2024-06-28 10:19 | disposition home or self-care (01) ==
LOC: HO.LAB 10:18
PROVIDERS: PCP Internal Medicine; Visit Provider Internal Medicine
DX: I10 Essential (primary) hypertension (principal); M25.50 Pain in unspecified joint; E55.9 Vitamin D deficiency, unspecified
CPT/HCPCS: 36415; 80053; 80061; 82306; 83036; 84443; 85025; 85652; 86140; 86200; 86431

== ENCOUNTER 2024-07-17 10:22 | Outpatient (AMB) | payer MEDICAID, SELFPAY ==
--- NOTE | 2024-07-17 10:26 | A.OFFVIS_ITS ---
Intake Visit Reasons: Inj-B/L knee injection-last inj 01/20/24 Intake Note: Charlee is a 68 year old female who presents today for repeat bilateral injections - Last injections administered bilaterally on 01/20/24. She would like to repeat bilateral knee injections today Allergies paraben Allergy (Severe, Verified 12/21/23 07:59) urticaria Sulfa (Sulfonamide Antibiotics) [SULFA (SULFONAMIDE ANTIBIOTICS)] Allergy (Mild, Verified 12/21/23 07:59) HIVES sulfacetamide Allergy (Unknown, Verified 12/21/23 07:59) hives sulfur Allergy (Unknown, Verified 12/21/23 07:59) hives Latex, Natural Rubber Adverse Reaction (Verified 12/21/23 07:59) Unknown HPI HPI Inj-B/L knee injection-last inj 01/20/24: Details: Charlee is a 68 year old female who presents today for repeat bilateral injec tions - Last injections administered bilaterally on 01/20/24. She would like to repeat bilateral knee injections today [facility] Medical History HTN (hypertension) Bleeding hemorrhoids Takotsubo cardiomyopathy Hypercholesterolemia Surgical History History of hemorrhoidectomy Hx of cardiac cath History of cataract surgery Family History Mother No problems noted. Father No problems noted. Father CVD (cardiovascular disease) Mother CVD (cardiovascular disease) Social History Household Members: Family Housing: House Do you presently have visiting nurse or other home services: No Alcohol intake: never Patient Tobacco Use Status: Never used Tobacco service: No Current occupational status: retired Physical Exam Extrem Other: Skin clean dry and intact. Medial compartment tenderness to palpation bilaterally 0-125 degrees bilaterally Office Procedures Joint Inj/Aspir; Non-Pain Clin Joint Injection/Drain Details: Injected 1 mL of Decadron and 3 mL 1% lidocaine and 3 mL of 0.25% Marcaine. Site was prepped using aseptic technique. Patient tolerated the procedure well. Shoulders, Hips, Knees, Knee Large Joint Injection 59315: Bilateral Knee Coding Procedure code (CPT) selection complete Assessment & Plan Assessment & Plan (1) Osteoarthritis of knees, bilateral: Code(s): M17.0 - Bilateral primary osteoarthritis of knee Category: Medical Plan: Bilateral knee OA. Injected bilateral knees. Follow up 3 months if pain returns. Coding Level of Care Code Est Pt Level 3 (54585) Diagnoses Osteoarthritis of knees, bilateral M17.0 CPT Codes Shoulders, Hips, Knees, - Knee Large Joint Injection 63231: Bilateral Knee ([id number])
--- OUTSIDE RECORDS SUMMARY | 2024-07-17 10:57 | XMS_ITS | Encounter Summary ---
Author Organization [employer] Address [address] [facility] [address] [address] Care Team Providers Care Steamer Operator Name Role Phone Andrew Sommer MD Primary Care Prov ider Reason for Visit * Reason Onset Date Comments Appointment Request 06/07/2024 Encounter Details Date Type Department Care Team ([facility] st Contact Info) Description 06/07/2024 Telephone [facility] [address] [place] [address] Andrew Sommer MD [address] [place], [place] [phone] Appointment Request Social History Tobacco Use Types [...] on filedocumented in this encounter Care Teams Steamer Operator Relationship Specialty Start Date End Date Andrew Sommer MD [address] [place] [address] PCP - General Internal Medicine 11/11/23 documented as of this encounter
--- OUTSIDE RECORDS SUMMARY | 2024-07-17 10:57 | XMS_ITS | Encounter Summary ---
Author Organization [facility] [employer] Address [address] [facility] 7 [place] [address] Care Team Providers Care Bread Panner Name Role Phone Andrew Sommer MD Primary Care Prov ider Encounter Details Date Type Department Care Team ([facility] st Contact Info) Description 06/01/2024 Orders Only [facility] PEDS [address] [place] [address] Andrew Sommer MD [address] [place] [address] Social History Tobacco Use Types Packs/Day Years [...] on filedocumented in this encounter Care Teams Bread Panner Relationship Specialty Start Date End Date Andrew Sommer MD [address] [place] [address] PCP - General Internal Medicine 11/11/23 documented as of this encounter
--- OUTSIDE RECORDS SUMMARY | 2024-07-17 10:58 | XMS_ITS | Clinical Summary ---
Author Organization [facility] Address [address] [place] [address] Care Team Providers Care Venetian Blind Installer Name Role Phone Maira Rivero Primary Care Provider [phone] Allergies Active Allergy Reactions Criticality Noted Date [...] patient's age to complete this topic [place] [address] [place] [address] MULTIPLAN Care Teams Venetian Blind Installer Relationship Specialty Start Date End Date Maira Rivero [address] [place] [address] [place] [phone] PCP - General 05/25/23
--- OUTSIDE RECORDS SUMMARY | 2024-07-17 10:58 | XMS_ITS | Clinical Summary ---
Author Organization [facility] Address [address] [place] [address] Care Team Providers Care Guide Excursion Name Role Phone Maira Rivero MD Primary Care Provider [phone] Allergies Active Allergy Reactions Criticality Noted Date [...] Advance Directives For more information, please contact: [phone] Latest Code Status on File Code Status Date Activated Date Inactivated Comments Full Code 11/15/2023 6:14 AM 11/16/2023 12:37 AM This code status was ascertained . Care Teams Guide Excursion Relationship Specialty Start Date End Date Maira Rivero MD [address] [place] [phone] PCP - General Adult Medicine 03/12/23
--- OUTSIDE RECORDS SUMMARY | 2024-07-17 10:58 | XMS_ITS | Clinical Summary ---
Author Organization [facility] Address [address] [place] [address] Phone Care Team Providers Care Process Excellence Manager Name Role Phone Maira Rivero MD Primary Care Provider [phone] Immunizations Name Administration Dates Next Due Moderna [...] age to complete this topic Care Teams Process Excellence Manager Relationship Specialty Start Date End Date Maira Rivero MD [address] [place] [phone] PCP - General 03/12/23
--- OUTSIDE RECORDS SUMMARY | 2024-07-17 10:58 | XMS_ITS | Clinical Summary ---
Author Organization [employer] Address [address] [place] [address] 7 [place] [address] Care Team Providers Care Lift Manager Name Role Phone Andrew Sommer MD Primary [...] 11/15/19 24 Active ergocalciferol (Drisdol) 1.25 MG (89379 UT) capsule Take 1 capsule (1.25 mg) [...] mouth at bedtime. 90 capsule 3 06/28/19 25 026 Active pantoprazole (ProtoNix) 40 MG EC [...] Encounters Date Type Department Care Team Description 07/04/2024 Telephone [facility] [address] [place] [address] Andrew Sommer MD abnormal labs 06/27/2024 1:45 PM EDT [facility] [address] [place] [address] Andrew Sommer MD Essential hypertension, benign (Primary Dx); Acute viral syndrome; Chronic pain of both knees; Mixed conductive and sensorineural hearing loss of both ears; Vitamin D deficiency; Multiple joint pain 06/27/2024 Travel 06/07/[address] [address] Andrew Sommer MD Lab Orders (/) 06/07/[address] [address] Andrew Sommer MD Appointment Request 06/06/2024 Telephone [facility] [address] [place] [address] Andrew Sommer MD 06/01/2024 Orders Only [facility] [address] [place] [address] Andrew Sommer MD 05/15/2024 Refill [facility] [address] [place] [phone] Andrew Sommer MD 04/20/2024 Telephone [facility] [address] [place] [address] Andrew Sommer MD from Last 3 Months [...] 08/29/1974 Pneumococcal Vaccine: 50+ Years (1 of 2 - PCV) 08/29/1974 Zoster Vaccines (1 of 2) 08/29/2005 RSV Patients and Patients Aged 60 years or older (1 - Risk 60-74 years 1-dose series) 2015 COVID-19 Vaccine (4 - 2023-2 5 season) 2023 09/22/2021, 04/27/2020, 03/30/2020 Influenza Vaccine (#1) 2023 Tobacco Screening 12/01/2024 12/02/2023 Diabetes: Hemoglobin A1C 06/28/2025 025, 05/14/2023, 12/25/2020 Mammogram 07/13/2025 07/14/2023, 07/14/2023 Lipid Panel 06/28/2029 06/28/2024, 08/13/2023, 01/31/2021 HIB Vaccines Aged Out No longer eligi [...] Procedure Name Priority Date/Time Associated Diagnosis Comments C-REACTIVE PROTEIN Routine 06/28/2024 11 :01 AM EDT Multiple joint pain SED RATE BY MODIFIED WESTERGREN Routine 06/28/2024 11:01 AM EDT Multiple joint pain CYCLIC CITRULLINATED PEPTIDE (CCP) AB (IGG) Routine 06/28/2024 11:01 AM EDT Multiple joint pain RHEUMATOID FACTOR Routine 06/28/2024 11: 01 AM EDT Multiple joint pain VITAMIN D,25-OH,TOTAL,IA Routine 06/28/2024 11:01 AM EDT Vitamin D deficiency TSH W/REFLEX TO FT4 Routine 06/28/2024 1 1:01 AM EDT Essential hypertension, benign LIPID PANEL, STANDARD Routine 06/28/2024 11:01 AM EDT Essential hypertension, benign COMPREHENSIVE METABOLIC PANEL Routine 06/28/2024 11:01 AM EDT Essential hypertension, benign HEMOGLOBIN A1C Routine 06/28/2024 11:01 AM EDT Essential hypertension, benign CBC WITH AUTO DIFFERENTIAL Routine 06/28/2024 11:01 AM EDT Essential hypertension, benign BI MAMMOGRAM DIAGNOSTIC TOMOSYNTHESIS BILATERAL STAT 07/14/2023 2:34 PM EDT from Last 3 Months or Most Recently Relevant to Health Maintenance Results * (ABNORMAL) Vitamin D, 25-Hydroxy, Total, Immunoassay (06/28/2024 11:01 AM EDT) Vitamin D 25-OH Total 23.2(L) >30 ng/mL [facility] Comment: Health Based Reference Values*< 20 ??ng/mL ??Onvzrsxxw17-75 ng/mL ??Insufficient> 30 ??ng/mL ??Sufficient*Christina JONES. N Engl J Med. 2007;357:266-280There is no well-established upper level of normal vitamin Dlevels. Some laboratories use 50 ng/mL as an upper limit ofnormal. However, toxicity is patient-dependent and may occurat any level. Careful correlation with the patient'spresentation is necessary and, if there is concern forvitamin D toxicity, treatment should be consideredirrespective of the serum level.Care must be taken in interpreting Vitamin D results fromdifferent laboratories and methodologies. ??Published datademonstrated that results from patients undergoinghemodialysis may show a negative bias when tested withvarious automated 25-OH vitamin D assays when compared toLC- MS/MS.When testing samples from patients whose predominant form ofVitamin D is Vitamin D2, such as patients receiving VitaminD2 supplementation, results that are subtherapeutic shouldbe confirmed with another method such as LC-MS/MS. Blood Venous blood specimen / Unknown 06/28/2024 11:01 AM EDT 06/28/2024 11:01 AM EDT us Andrew Bray MD LAB BLOOD ORDERABL ES Final Result [facility] [address] [place] [phone] * TSH W/Reflex to FT4 (06/28/2024 11:01 AM EDT) TSH reflex Free T4 2.34 0.32 - 4.0 uIU/mL [facility] Blood Venous blood specimen / Unknown 06/28/2024 11:01 AM EDT 06/28/2024 11:01 AM EDT us Andrew Bray MD LAB BLOOD ORDERABL ES Final Result [facility] [address] [place] [address] [phone] * CBC auto differential (06/28/2024 11:01 AM EDT) White Blood Count 5.2 4.8 - 10.8 X10*3/uL [facility] Red Blood Count 4.43 4.20 - 5.50 X10*6/uL [facility] Hemoglobin 12.5 12.0 - 16.0 g/dl [facility] Hematocrit 39.2 37.0 - 47.0 % [facility] Mean Corpuscular Volume 88.5 80.0 - 98.0 fL [facility] Mean Corpuscular Hemoglobin 28.2 27.0 - 33.0 pg [facility] Mean Corpuscular HGB Conc 31.9 31.0 - 35.0 g/dl [facility] Red Cell Distribution Width 13.6 11.0 - 16.0 % [facility] Platelet Count 229 160 - 400 X10*3/uL [facility] Mean Platelet Volume 12.2 9.4 - 12.3 fL [facility] Neutrophils Percent Auto 60.9 45 - 73 % [facility] Imm Gran Pct Auto 0.4 0.0 - 0.4 % [facility] Lymphocytes Percent Auto 27.7 20 - 40 % [facility] Monocytes Percent Auto 8.9 2 - 11 % [facility] Eosinophils Percent Auto 1.7 0 - 4 % [facility] Basophils Percent Auto 0.4 0 - 2 % [facility] NRBC Pct Auto 0.0 0.0 - 0.2 /100WBC [facility] Neutrophils Absolute Auto 3.1 2.0 - 8.3 x10*3/uL [facility] Imm Gran Abs Auto 0.02 0.00 - 0.03 X10*3/uL [facility] Lymphocytes Absolute Auto 1.4 1.2 - 4.9 X10*3/uL [facility] Monocytes Absolute Auto 0.5 0.1 - 1.2 X10*3/uL [facility] Eosinophils Absolute Auto 0.1 0.0 - 0.4 X10*3/uL [facility] Basophils Absolute Auto 0.0 0.0 - 0.2 X10*3/uL [facility] NRBC Abs Auto 0.000 0.0 - 0.012 X10*3/uL [facility] Blood Venous blood specimen / Unknown 06/28/2024 11:01 AM EDT 06/28/2024 11:01 AM EDT Andrew Bray MD LAB BLOOD ORDERABL ES Final Result Performing Organization Address [facility] Co de Phone Number [facility] [address] [place] [phone] * Cyclic Citrullinated Peptide (CCP) Antibody (IgG) (06/28/2024 11:01 AM EDT) Pathologist [facility] Cyclic Citrullinated Peptide <16 UNITS [facility] Comment:Reference RangeNegat jhony: <20Weak Positive: 20-39Moderate Positive: 40-59Strong Positive: >59THIS TEST WAS PERFORMED AT:[facility] [address] [phone] RICHARDS MD Blood Venous blood specimen / Unknown 06/28/2024 11:01 AM EDT 06/28/2024 11:01 AM EDT Andrew Bray MD LAB BLOOD ORDERABL ES Final Result Performing Organization Address [facility]/ZIP Co de Phone Number [facility] [address] [place] [phone] * (ABNORMAL) Sed Rate by Modified Nay (06/28/2024 11:01 AM EDT) Erythrocyte Sedimentation Rate 25(H) 0 - 20 MM/HR [facility] Comment:Patients with polycy themia and many hemoglobin abnormalitiesmay have depressed sed rates whereas patients with anemiamay have elevated sed rates. Blood Venous blood specimen / Unknown 06/28/2024 11:01 AM EDT 06/28/2024 11:01 AM EDT Andrew Bray MD LAB BLOOD ORDERABL ES Final Result Performing Organization Address [facility] Co de Phone Number [facility] [address] [place] [phone] * (ABNORMAL) Rheumatoid Factor (06/28/2024 11:01 AM EDT) Rheumatoid Factor 359.6(H) <15.0 IU/mL [facility] Blood Venous blood specimen / Unknown 06/28/2024 11:01 AM EDT 06/28/2024 11:01 AM EDT Andrew Bray MD LAB BLOOD ORDERABL ES Final Result Performing Organization Address [facility] de Phone Number [facility] [address] [place] [phone] * C-reactive Protein (06/28/2024 11:01 AM EDT) C Reactive Protein 0.25 < or = 0.50 mg/dL [facility] Blood Venous blood specimen / Unknown 06/28/2024 11:01 AM EDT 06/28/2024 11:01 AM EDT Andrew Bray MD LAB BLOOD ORDERABL ES Final Result Performing Organization Address [facility] de Phone Number [facility] [address] [place] [phone] * Hemoglobin A1c (06/28/2024 11:01 AM EDT) Hemoglobin A1c 5.9 <6.0 % [facility] Comment:Hemoglobin A1C Refer ence Range Adults: 4.8 - 6.0 % Non diabetic: < 6.0 % Goal: < 7.0 %Additional Action Suggested: > 8.0 %Note: Hemoglobin A1c results are invalid for patients with abnormal amounts of HbF. Blood transfusions may impact the HbA1c concentration in the patient sample. Estimated Average Glucose 123 mg/dL [facility] Comment:eAG = Estimated ave rage glucose which is %A1C expressed asaverage glucose, using the formula of the Y6R-AbuixbjHqbkwqh Glucose study (ADAG), Diabetes Care, Vol.31,#8,2007 Blood Venous blood specimen / Unknown 06/28/2024 11:01 AM EDT 06/28/2024 11:01 AM EDT us Andrew Bray MD LAB BLOOD ORDERABL ES Final Result [facility] [address] [place] [phone] * Lipid Panel, Standard (06/28/2024 11:01 AM EDT) Triglycerides 71 <150 mg/dL [facility] Comment:Desirable Triglyceri de: less than 150 mg/dLBorderline High Triglyceride 150-199 mg/dLHigh Triglyceride: 200-499 mg/dLVery High Triglyceride: greater than or equal to 5OO mg/dL Cholesterol 114 <200 mg/dL [facility] Comment:Desirable Cholestero l: less than 200 mg/dLBorderline High Cholesterol: 200-239 mg/dLHigh Cholesterol: greater than 239 mg/dL LDL Cholesterol Calculated 50 <100 mg/dL [facility] Comment:Desirable LDL: less than 100 mg/dLNear Optimal/Above Optimal LDL: 110- 129 mg/dLBorderline High LDL: 130-159 mg/dLHigh LDL: 160-189 mg/dLVery High LDL: greater than or equal to 190 mg/dL HDL Cholesterol 50 >40 mg/dL [facility] Comment:Desirable HDL: great er than 40 mg/dL Note: This HDL assay may give artificially low results in patients with liver disease. Blood Venous blood specimen / Unknown 06/28/2024 11:01 AM EDT 06/28/2024 11:01 AM EDT us Andrew Bray MD LAB BLOOD ORDERABL ES Final Result [facility] [address] [place] [phone] * (ABNORMAL) Comprehensive Metabolic Panel (06/28/2024 11:01 AM EDT) Sodium 142 135 - 145 mmol/L [facility] Potassium 4.2 3.3 - 5.1 mmol/L [facility] Chloride 109(H) 96 - 108 mmol/L [facility] Carbon Dioxide 25 22 - 29 mmol/L [facility] Anion Gap 12 12 - 20 [facility] Urea Nitrogen (BUN) 13 9 - 16 mg/dL [facility] Creatinine, Serum 0.69 0.5 - 1.4 mg/dL [facility] Estimated Glomerular Filt Rate >60 [facility] Comment:Chronic Kidney Disea se: Estimated GFR < 60 mL/min/1.30d0Wiuupp Kidney Disease: Estimated GFR < 15 mL/min/1.73m2 Glucose 100 60 - 115 mg/dL [facility] Calcium 9.4 8.4 - 10.2 mg/dL [facility] Bilirubin, Total 0.6 0.0 - 1.0 mg/dL [facility] Aspartate Amino Transferase 24 5 - 31 U/L [facility] Alanine Aminotransferase 17 0 - 31 U/L [facility] Total Protein 7.4 6.5 - 8.0 g/dL [facility] Albumin Level 4.1 3.5 - 5.0 g/dL [facility] Alkaline Phosphatase 89 39 - 117 U/L [facility] Blood Venous blood specimen / Unknown 06/28/2024 11:01 AM EDT 06/28/2024 11:01 AM EDT us Andrew Roseann Bray MD LAB BLOOD ORDERABL ES Final Result [facility] [address] [place] [phone] * BI Mammogram Diagnostic Tomosynthesis Bilateral (07/14/2023 2:34 PM EDT) Anatomical Region Laterality Modality Breast Bilateral Mammography 07/14/2023 2:34 PM EDT Narrative 07/14/2023 4:03 PM EDT ? [facility] [place] ? [address] ?[place] [address] ? Mammography Report ? Signed ? Patient: JosieCharlee Menchaca ?MR#: [id number] ? : 1955 ?Acct:[id number] ? Age/Sex: 67 / F ?ADM Date: 07/14/23 ? Loc: HO.MAMMO ? Attending Dr: Racheal Vargas MD ? Ordering Physician: Racheal Vargas MD ?Results: 2Beni ?? gn Findings ? Date of Service: 07/14/23 ?Follow Up: 1 Year From Orig ?? inal Mammogram ? Procedure(s): MM tomosynthesis diagnostic BI ?? Accession Number(s): [id number] ? cc: Racheal Vargas MD ? EXAMINATION: [...] 1559 ? DD/ 1434 ? TD/TT: ? Hemmer Lockstitch: ? Procedure Note Francisco Javier, Image - 07/14/2023 [facility] [address] [place] [address] Dr. [place], [place] [address] Mammography Report Signed Patient: Charlee Galindo [facility]#: [id number] : 6Acct:[id number] Age/Sex: 67 / FADM Date: 07/14/23 Loc: [facility] Attending Dr: Racheal Vargas MD Ordering Physician: Racheal Vargas MDResults: 2Beni gn Findings Date of Service: 07/14/23Follow Up: 1 Year From [facility] ina Mammogram Procedure(s): MM tomosynthesis diagnostic BI Accession Number(s): [id number] cc: Racheal Vargas MD EXAMINATION: MM DIAGNOSTIC [...] in OV> 07/14/23 1559 DD/ 1434 TD/TT: Hemmer Lockstitch: Racheal Vargas MD IMG BI PROCEDURES Final Resul t from Last 3 Months or Most Recently Relevant to Health Maintenance Insurance [place] [address] STANDARD Care Teams Lift Manager Relationship Specialty Start Date End Date Andrew Sommer MD [address] [place] [phone] PCP - General Internal Medicine 11/11/23
== END 2024-07-17 10:40 | disposition home or self-care (01) ==
LOC: HO.HOS 10:22
PROVIDERS: PCP Internal Medicine; Visit Provider Orthopaedic Surgery
DX: M17.0 Bilateral primary osteoarthritis of knee (principal)
CPT/HCPCS: 20610; 99213

== ENCOUNTER → 2024-07-17 10:22 | Outpatient (BNVA) | payer MEDICAID, SELFPAY | PROVIDERS: PCP Internal Medicine; Visit Provider Orthopaedic Surgery | DX: M17.0 Bilateral primary osteoarthritis of knee (principal) | CPT/HCPCS: 20610; 99212; J0665; J1100; J2003 ==

== ENCOUNTER 2024-07-20 14:11 | Outpatient (AMB) | payer MEDICAID, SELFPAY ==
--- NOTE | 2024-07-20 14:16 | MHC.OFFVIS ---
Vital Signs 07/20/24 14:19 Height 5 ft 4 in Weight 152 lb 1.903 oz BMI 26.1 BP 110/64 Blood Pressure Location Lt brachial Position Sitting Pulse 65 Pulse Source Monitor Intake Visit Reasons: HTN (hypertension) Intake Note: HTN Telecommunications Network Planner Required: No Accompanied by: Significant Other Allergies paraben Allergy (Severe, Verified 12/21/23 07:59) urticaria Sulfa (Sulfonamide Antibiotics) [SULFA (SULFONAMIDE ANTIBIOTICS)] Allergy (Mild, Verified 12/21/23 07:59) HIVES sulfacetamide Allergy (Unknown, Verified 12/21/23 07:59) hives sulfur Allergy (Unknown, Verified 12/21/23 07:59) hives Latex, Natural Rubber Adverse Reaction (Verified 12/21/23 07:59) Unknown Medication List - Last Reconciled 07/20/24 by Saurav Shannon NP amlodipine (Norvasc) 5 mg PO DAILY Bifidobacterium infantis (Align (B.infantis)) 10.5 mg PO DAILY ergocalciferol (vitamin D2) 50 mcg PO DAILY rosuvastatin 10 mg PO DAILY HPI Comments Details: This is a 68-year-old female patient coming in for a follow-up visit. Patient with a history of hypertension and hypercholesterolemia which is well-controlled. Today, patient reports feeling well overall and denies any cardiac symptoms including exertional chest pain, shortness of breath, palpitations, dizziness, orthopnea, PND, leg edema, presyncope, or syncope. Patient states she is leaving for [place] tomorrow for the next couple of months and is requesting refills worth 3 months. Patient states s is compliant with all her medications. [facility] Medical History HTN (hypertension) Bleeding hemorrhoids Takotsubo cardiomyopathy Hypercholesterolemia Surgical History History of hemorrhoidectomy Hx of cardiac cath History of cataract surgery Family History Mother No problems noted. Father No problems noted. Father CVD (cardiovascular disease) Mother CVD (cardiovascular disease) Social History Household Members: Family Housing: House Do you presently have visiting nurse or other home services: No Alcohol intake: never Patient Tobacco Use Status: Never used Tobacco service: No Current occupational status: retired Review of Systems Const Denies chills, Denies fatigue, Denies fever(s), Denies frequent falls, Denies weakness, Denies weight gain and Denies weight loss ENT Denies dizziness Card Denies chest pain, Denies leg edema, Denies lightheadedness, Denies palpitations, Denies dyspnea and Denies dyspnea on exertion Resp Denies cough, Denies dyspnea and Denies dyspnea on exertion GI Denies hematochezia Musc Denies abnormal gait, Denies muscle weakness, Denies numbness, Denies radiating pain into limb and Denies tingling Neuro Denies abnormal gait, Denies dizziness, Denies frequent falls, Denies numbness, Denies tingling and Denies weakness Endo Denies fatigue and Denies palpitations Physical Exam Vital Signs: Last Vital Signs Pulse 65 07/20/24 14:19 BP 110/64 07/20/24 14:19 BMI result Body Mass Index 26.1 Const General: cooperative, healthy appearing, comfortable and no acute distress Orientation/consciousness: patient oriented x3 HEENT Head: Yes normal to inspection Neck Neck: Yes normal visual inspection, Yes trachea midline and Yes supple Chest Chest palpation & inspection: normal inspection of the chest Resp Effort & Inspection: normal respiratory effort Auscultation: clear to auscultation bilaterally, no crackles, no rales, no rhonchi and no wheezes Cardio Jugular venous distension: no JVD Palpation: normal PMI Rate: regular rate Rhythm: regular rhythm Heart sounds: S1 normal heart sound present, S2 normal heart sound present, no click, no gallops, no murmurs and no rubs Peripheral pulses: Peripheral pulses 2+ throughout GI Inspection: Yes normal to inspection Palpation (GI): Soft to palpation Auscultation: normal bowel sounds Skin General skin exam: no rashes or lesions noted Neuro General: patient oriented x3 Extrem General: Yes normal to inspection, No no pedal edema and No calf tenderness Psych Appearance: grossly normal Mental Status: mental status grossly normal Speech and movement: Normal speech and movement present Results Reviewed Results Reviewed: 04/23/2023-echo study showed LV EF between 65-70% with impaired relaxation filling pattern, mild aortic regurgitation, mild dilated ascending aorta at 4 cm. 04/28/2023- myocardial perfusion study was negative. Assessment & Plan Assessment & Plan (1) HTN (hypertension): Code(s): I10 - Essential (primary) hypertension Category: Medical Plan: Blood pressure today is well-controlled. Continue current regimen with amlodipine. Advised monitoring blood pressures at home. Ideally, blood pressure goal less than 130/80. (2) Thoracic aortic aneurysm: Code(s): I71.20 - Thoracic aortic aneurysm, without rupture, unspecified Category: Medical Plan: Echo showed mildly dilated ascending aorta at 4 cm. We will monitor this with echo periodically. (3) Hypercholesterolemia: Code(s): E78.00 - Pure hypercholesterolemia, unspecified Category: Medical Plan: Most recent LDL at 50. Continue statin therapy with an LDL goal less than 70. Advised heart healthy diet, regular exercise, med compliance, and management of vascular risk factors. Follow up in 1 year, sooner if needed. In the interim, patient will call the office with any concerns or change in symptoms. This note was generated using voice recognition software. While every effort has been made to ensure accuracy and proper sales representative door to door, there may be occasional errors that could affect the content or meaning of the described symptoms. Orders: Orders Basic Metabolic Panel 4 Months I10 - Essential (primary) hypertension Lipid Panel 4 Months E78.00 - Pure hypercholesterolemia, unspecified CA echo transthoracic complete 11 Months I71.20 - Thoracic aortic aneurysm, without rupture, unspecified AMB EKG-In Office Today I10 - Essential (primary) hypertension Medications: New ergocalciferol (vitamin D2) (Vitamin D2) 1,250 mcg PO QWEEK 30 caps 0RF Refilled rosuvastatin 10 mg PO DAILY 90 tabs 3RF Bifidobacterium infantis (Align (B.infantis)) 10.5 mg PO DAILY 90 tabs 2RF amlodipine (Norvasc) 5 mg PO DAILY 90 tabs 3RF Coding Level of Care Code Est Pt Level 4 (65535) Complex EM visit Add On G2211 Diagnoses HTN (hypertension) I10 Thoracic aortic aneurysm I71.20 Hypercholesterolemia E78.00 Time Spent (min) 32 Comment Time spent in reviewing the chart, test results, assessment, counseling and documentation.
[2024-07-20 14:19] VITALS: BP 110/64; PULSE 65; BMI 26.1
--- OUTSIDE RECORDS SUMMARY | 2024-07-20 14:19 | XMS_ITS | Encounter Summary ---
Author Organization [employer] Address [address] [facility] [address] [address] Care Team Providers Care Director Maternal Child Name Role Phone Andrew Sommer MD Primary Care Prov ider Reason for Visit * Reason Onset Date Comments Appointment Request 06/07/2024 Encounter Details Date Type Department Care Team ([facility] st Contact Info) Description 06/07/2024 Telephone [facility] [address] [place] [address] Andrew Sommer MD [address], [place] [phone] Appointment Request Social History Tobacco Use Types [...] on filedocumented in this encounter Care Teams Director Maternal Child Relationship Specialty Start Date End Date Andrew Sommer MD [address] [place] [address] PCP - General Internal Medicine 11/11/23 documented as of this encounter
== END 2024-07-20 14:56 | disposition home or self-care (01) ==
LOC: HO.HCS 14:11
PROVIDERS: PCP Internal Medicine
DX: I10 Essential (primary) hypertension (principal); I71.20 Thoracic aortic aneurysm, without rupture, unspecified; E78.00 Pure hypercholesterolemia, unspecified
CPT/HCPCS: 99214

== ENCOUNTER → 2024-07-20 14:11 | Outpatient (BNVA) | payer MEDICAID, SELFPAY | PROVIDERS: PCP Internal Medicine | DX: I10 Essential (primary) hypertension (principal); I71.20 Thoracic aortic aneurysm, without rupture, unspecified; E78.00 Pure hypercholesterolemia, unspecified | CPT/HCPCS: 99212 ==

== ENCOUNTER 2024-10-03 08:39 | Outpatient (REF) | payer MEDICAID, SELFPAY ==
--- OUTSIDE RECORDS SUMMARY | 2024-10-03 08:50 | XMS_ITS | Encounter Summary ---
Author Organization [employer] Address [address] [place] [address] Care Team Providers Care Planning Director Name Role Phone Andrew Sommer MD Primary Care Prov ider Reason for Visit * Reason Onset Date Comments Appointment Request 06/07/2024 Encounter Details Date Type Department Care Team (Late st Contact Info) Description 06/07/2024 Telephone [facility] [address] [place] [address] Andrew Sommer MD [address] [place] [address] Appointment Request Social History Tobacco Use Types [...] documented in this encounter Plan of Treatment Upcoming Encounters Date Type Department Care Team (Late st Contact Info) Description 10/06/2024 2:30 PM EDT Office Visit [facility] [address] [place] [address] Andrew Sommer MD [address] [place] [address] documented as of this encounter Visit Diagnoses Not on filedocumented in this encounter Care Teams Planning Director Relationship Specialty Start Date End Date Andrew Sommer MD [address] [place] [address] PCP - General Internal Medicine 11/11/23 documented as of this encounter
--- OUTSIDE RECORDS SUMMARY | 2024-10-03 08:51 | XMS_ITS | Clinical Summary ---
Author Organization [facility] Address [address] [place] [address] Care Team Providers Care Tailer In Name Role Phone Maira Rivero MD Primary Care Provider [phone] Allergies Active Allergy Reactions Criticality Noted Date [...] 71 11/15/2023 2:19 PM EDT Temperature 36.9 C (98.4 F) 11/15/2023 2:19 PM EDT Respiratory Rate 18 11/15/2023 2:19 PM EDT [...] Shingrix-Zoster Vaccine (2 of 2) 09/26/2021 08/02/19 22 COVID-19 Vaccine (2 - 2023-2 5 season) 2023 09/22/2021 Influenza Vaccine (#1) 2024 04/10/2021 RSV Adult > 60+ Yrs or Pregn ant (1 - 1-dose 75+ series) 08/29/2030 Hepatitis B Vaccines Aged Out No long er eligible based on patient's age to complete this topic RSV Ped < 20 months Aged Out No longe r eligible based on patient's age to complete this topic Advance Directives For more information, please contact: [phone] Latest Code Status on File Code Status Date Activated Date Inactivated Comments Full Code 11/15/2023 6:14 AM 11/16/2023 12:37 AM This code status was ascertained . Care Teams Tailer In Relationship Specialty Start Date End Date Maira Rivero MD [address] [place] [phone] PCP - General Adult Medicine 03/12/23
--- OUTSIDE RECORDS SUMMARY | 2024-10-03 08:51 | XMS_ITS | Patient Health Record ---
Author Organization [facility] REMOTE SENSING ADVIS[facility] Address [address] [place] [id number] Care Team Providers Care Game Bird Farmer Name Role Phone PAYTON GUAMAN Unavailable [phone] Allergies Allergen (clinical drug ingredient) Drug/Non Drug Allergy documented on EMR Reaction Allergy Type Onset Date Status Latex latex (uncoded) Unknown Allergy Acti ve sulfadiazine sulfADIAZINE Unknown Drug Allergy A ctive polyethylene glycol 3350 Unknown Drug Allergy Active Reason For Referral No Information Medications Medication SIG (Take, Route, Frequency, Duration) Notes Start Date End Date Status Vitamin D once daily Active PT for Rotator Cuff Range of motion, Strengthening, H EP as directed 2 times per week; Duration: 4-6 weeks 09/04/2021 Active Multivitamin 1 tab once a day Active Problems Problem Type SNOMED Code ICD Code Onset Dates Problem Status W/U Status Risk Notes Problem Full thickness rotator cuff tear (152024266) Complete rotator cuff tear or rupture of left shoulder, not specified as traumatic (M75.122) Active confirmed Plan Of Treatment No Information Insurance Providers Payer Name Payer Address Payer Phone Subscriber Number Group Number Insured Name Patient Relationship to Insured Coverage Start Date Coverage End Date [facility] [address] [place] [address] [id number] JOSHUA CASTELLANOS Self - patient is the insured
--- OUTSIDE RECORDS SUMMARY | 2024-10-03 08:51 | XMS_ITS | Clinical Summary ---
Author Organization [facility] Address [address] [place] [address] Care Team Providers Care Shuttle Route Vehicle Operator Name Role Phone Maira Rivero Primary Care Provider [phone] Allergies Active Allergy Reactions Criticality Noted Date [...] 73 05/25/2023 6:52 PM EDT Temperature 37.1 C (98.7 F) 05/25/2023 5:16 PM EDT Respiratory Rate 18 05/25/2023 6:52 PM EDT [...] season) 2023 09/22/2021 Influenza Vaccine (#1) 2024 HPV Vaccines Aged Out No longer eligi ble based on patient's age to complete this topic Hepatitis A Vaccines Aged Out No long er eligible based on patient's age to complete this topic Meningococcal Vaccine Aged Out No talia gualberto eligible based on patient's age to complete this topic Insurance [facility] Care Teams Shuttle Route Vehicle Operator Relationship Specialty Start Date End Date Maira Rivero [address] [place], [place] [address] [address] PCP - General 05/25/23
--- OUTSIDE RECORDS SUMMARY | 2024-10-03 08:51 | XMS_ITS ---
Author Name [facility] Organization Unknown Results Test Name/Text Value Interpretation Date Range Source Troponin I SerPl HS-mCnc 9.0 ng/L Normal 11/15/2023 0 - 14 [facility] RBC NO. BLD AUTO 4.35 M/uL Normal 11/15/2023 4.2 - 5.4 [facility] BASOPHILS IN BLOOD BY AUTOMATED COUNT 0.0 K/uL Normal 11/15/2023 0 - 0.2 [facility] MCV RBC AUTO 85.0 fL Normal 11/15/2023 78 - 100 [facility] NEUTROPHILS NFR BLD AUTO 61.7 % Normal 11/15/2023 44 - 74 [facility] RDW RBC AUTO RTO 14.9 % Normal 11/15/2023 12.1 - 16.2 [facility] DIFFERENTIAL TYPE AUTOMATED Normal 11/15/2023 C [facility] EOSINOPHIL NFR BLD AUTO 3.1 % Normal 11/15/2023 0 - 6 [facility] BASOPHILS NFR BLD AUTO 0.5 % Normal 11/15/2023 0 - 2 [facility] WBC NO. BLD AUTO 6.4 K/uL Normal 11/15/2023 4 - 10.5 CT [facility] NEUTROPHILS NO. BLD AUTO 3.9 K/uL Normal 11/15/2023 1.8 - 7.8 [facility] LYMPHOCYTES NFR BLD AUTO 24.4 % Normal 11/15/2023 20 - 48 [facility] MONOCYTES NFR BLD AUTO 10.3 % Normal 11/15/2023 2 - 12 [facility] MONOCYTES NO. BLD AUTO 0.7 K/uL Normal 11/15/2023 0 - 0.8 [facility] PLATELET NO. BLD AUTO 216.0 K/uL Normal 11/15/2023 150 - 450 [facility] HGB BLD MCNC 12.3 g/dL Below low normal 11/15/2023 12.5 - 16 [facility] HCT VFR BLD AUTO 36.9 % Below low normal 11/15/2023 37 - 47 [facility] MCH RBC QN AUTO 28.3 pg Normal 11/15/2023 25 - 33 [facility] EOSINOPHIL NO. BLD AUTO 0.2 K/uL Normal 11/15/2023 0 - 0.5 [facility] MCHC RBC AUTO MCNC 33.3 g/dL Normal 11/15/2023 32 - 36 [facility] LYMPHOCYTES NO. BLD AUTO 1.6 K/uL Normal 11/15/2023 1 - 3.2 [facility] PMV BLD AUTO 10.3 fL Normal 11/15/2023 7.4 - 11.4 [facility] Troponin I SerPl HS-mCnc 7.0 ng/L Normal 11/15/2023 0 - 14 [facility] CHLORIDE SERPL SCNC 108.0 mmol/L Above high normal 98 - 107 [facility] ANION GAP SERPL SCNC 8.0 mmol/L Normal 11/15/2023 5 - 14 [facility] GLUCOSE SERPL MCNC 125.0 mg/dL Normal 11/15/2023 70 - 199 [facility] Glomerular filtration rate/1.73 sq M. predicted 94.0 Normal 11/15/2023 60 - [facility] BUN SERPL MCNC 16.0 mg/dL Normal 11/15/2023 7 - 17 [facility] CALCIUM SERPL MCNC 10.0 mg/dL Normal 11/15/2023 8.4 - 10. 2 [facility] CREAT SERPL MCNC 0.7 mg/dL Normal 11/15/2023 0.5 - 1 [facility] POTASSIUM SERPL SCNC 3.4 mmol/L Below low normal 11/15/2023 3.5 - 5.1 [facility] SODIUM SERPL SCNC 141.0 mmol/L Normal 11/15/2023 135 - 14 5 [facility] HCO3 SER SCNC 25.0 mmol/L Normal 11/15/2023 24 - 32 [facility] METANEPHRINES INTERPRETATION See Note Normal 05/25/2023 [facility] NORMETANEPHRINE 0.22 nmol/L Normal 05/25/2023 0 - 0.89 [facility] METANEPHRINE <0.10 Normal 05/25/2023 0 - 0.49 [facility] TROPONIN I <0.01 ng/mL Normal 05/25/2023 - [facility] LIPASE 13.0 U/L Normal 05/25/2023 8 - 51 [facility] AST (SGOT) 21.0 U/L Normal 05/25/2023 17 - 35 [facility] PROTEIN TOTAL 6.5 g/dL Normal 05/25/2023 6.2 - 8.1 [facility] CHLORIDE 102.0 mmol/L Normal 05/25/2023 100 - 111 [facility] ANION GAP 8.0 mmol/L Normal 05/25/2023 3 - 11 [facility] BILIRUBIN, TOTAL 0.5 mg/dL Normal 05/25/2023 0.1 - 1.2 [facility] POTASSIUM 4.1 mmol/L Normal 05/25/2023 3.6 - 5.1 [facility] ALT (SGPT) 13.0 U/L Normal 05/25/2023 8 - 39 [facility] BICARBONATE 20.0 mmol/L Below low normal 05/25/2023 23 - 32 [facility] CALCIUM, TOTAL 9.6 mg/dL Normal 05/25/2023 8.4 - 10.2 [facility] CREATININE 0.7 mg/dL Normal 05/25/2023 0.6 - 1.2 [facility] ALKALINE PHOSPHATASE 69.0 U/L Normal 05/25/2023 39 - 113 [facility] UREA NITROGEN 6.0 mg/dL Below low normal 05/25/2023 8 - 24 [facility] GLOMERULAR FILTRATION RATE ML/MIN/1.73 SQ M.PREDICTED 95.0 mL/min/1.73m*2 Normal 05/25/2023 60 - [facility] GLUCOSE 105.0 mg/dL Normal 05/25/2023 70 - 200 [facility] SODIUM 130.0 mmol/L Below low normal 05/25/2023 137 - 144 [facility] ALBUMIN, AUTOMATED 3.7 g/dL Below low normal 05/25/2023 3.8 - 5.3 [facility] LACTIC ACID 1.1 mmol/L Normal 05/25/2023 0.5 - 1.9 [facility] IMMATURE GRANULOCYTE % 0.2 % Normal 05/25/2023 0 - 0.[address] [facility] [address] 0.0 10*3/uL Normal 05/25/2023 0 - 0.3 [facility] PLATELET COUNT 228.0 10*3/uL Normal 05/25/2023 150 - 440 [facility] HEMATOCRIT 34.5 % Below low normal 05/25/2023 35 - 47 [facility] MCHC 33.3 g/dL Normal 05/25/2023 32 - [address] [facility] [address] 0.7 10*3/uL Normal 05/25/2023 0.2 - 0.8 [facility] MCH 28.3 pg Normal 05/25/2023 26 - 34 [facility] AUTO NRBC % 0.0 % Normal 05/25/2023 0 - 0 [facility] LYMPHOCYTE % 15.1 % Below low normal 05/25/2023 20 - [address] [facility] [address] 1.2 10*3/uL Normal 05/25/2023 0.7 - 4.5 [facility] NEUTROPHIL % 76.1 % Above high normal 05/25/2023 40 - 70 [facility] MONOCYTE % 8.3 % Normal 05/25/2023 4 - [address] [facility] [address] 6.2 10*3/uL Normal 05/25/2023 1.4 - 6.3 [facility] EOSINOPHIL % 0.2 % Normal 05/25/2023 0 - 6 [facility] RED CELL COUNT 4.07 10*6/ L Normal 05/25/2023 3.8 - 5.2 [facility] WHITE CELL COUNT 8.2 10*3/uL Normal 05/25/2023 3.6 - 11 [facility] BASOPHILS % 0.1 % Normal 05/25/2023 0 - 2 [facility] HEMOGLOBIN 11.5 g/dL Below low normal 05/25/2023 12 - [address] [facility] [address] 0.0 10*3/uL Normal 05/25/2023 0 - 0. 2 [facility] RBC DISTRIBUTION WIDTH 12.8 % Normal 05/25/2023 11.6 - 14.8 [facility] MCV 84.8 fL Normal 05/25/2023 80 - 100 [facility] INR PPP 1.1 Normal 04/26/2023 0.8 - 1.1 [facility] PT TIME PPP 13.2 sec Normal 04/26/2023 10.5 - 13.3 [facility] Troponin I SerPl HS-mCnc 10.0 ng/L Normal 04/26/2023 0 - 14 [facility] LIPASE SERPL CCNC 16.0 U/L Normal 04/26/2023 11 - 82 C [facility] LDH SERPL L TO P CCNC 151.0 U/L Normal 04/26/2023 125 - 2 20 [facility] AST SERPL CCNC 21.0 U/L Normal 04/26/2023 5 - 40 [facility] ALP SERPL-CCNC 76.0 U/L Normal 04/26/2023 34 - 104 [facility] ALT SERPL CCNC 14.0 U/L Normal 04/26/2023 7 - 52 [facility] AMYLASE SERPL CCNC 32.0 U/L Normal 04/26/2023 29 - 103 [facility] RBC NO. BLD AUTO 3.87 M/uL Below low normal 04/26/2023 4.2 - 5.4 [facility] NEUTROPHILS NO. BLD AUTO 3.4 K/uL Normal 04/26/2023 1.8 - 7.8 [facility] HCT VFR BLD AUTO 33.5 % Below low normal 04/26/2023 37 - 47 [facility] EOSINOPHIL NFR BLD AUTO 2.6 % Normal 04/26/2023 0 - 6 [facility] PLATELET NO. BLD AUTO 183.0 K/uL Normal 04/26/2023 150 - 450 [facility] LYMPHOCYTES NO. BLD AUTO 1.8 K/uL Normal 04/26/2023 1 - 3.2 [facility] EOSINOPHIL NO. BLD AUTO 0.2 K/uL Normal 04/26/2023 0 - 0.5 [facility] RDW RBC AUTO RTO 14.1 % Normal 04/26/2023 12.1 - 16.2 [facility] DIFFERENTIAL TYPE AUTOMATED Normal 04/26/2023 C [facility] MONOCYTES NO. BLD AUTO 0.5 K/uL Normal 04/26/2023 0 - 0.8 [facility] LYMPHOCYTES NFR BLD AUTO 30.0 % Normal 04/26/2023 20 - 48 [facility] WBC NO. BLD AUTO 5.9 K/uL Normal 04/26/2023 4 - 10.5 [facility] NEUTROPHILS NFR BLD AUTO 57.7 % Normal 04/26/2023 44 - 74 [facility] MCHC RBC AUTO MCNC 34.1 g/dL Normal 04/26/2023 32 - 36 [facility] BASOPHILS NFR BLD AUTO 0.4 % Normal 04/26/2023 0 - 2 [facility] MONOCYTES NFR BLD AUTO 9.3 % Normal 04/26/2023 2 - 12 [facility] MCV RBC AUTO 86.5 fL Normal 04/26/2023 78 - 100 [facility] MCH RBC QN AUTO 29.5 pg Normal 04/26/2023 25 - 33 [facility] BASOPHILS IN BLOOD BY AUTOMATED COUNT 0.0 K/uL Normal 04/26/2023 0 - 0.2 [facility] HGB BLD MCNC 11.4 g/dL Below low normal 04/26/2023 12.5 - 16 [facility] PMV BLD AUTO 9.9 fL Normal 04/26/2023 7.4 - 11.4 [facility] MAGNESIUM SERPL MCNC 2.1 mg/dL Normal 04/26/2023 1.7 - 2. 8 [facility] CALCIUM SERPL MCNC 8.7 mg/dL Normal 04/26/2023 8.4 - 10.2 [facility] POTASSIUM SERPL SCNC 3.7 mmol/L Normal 04/26/2023 3.5 - 5 .1 [facility] BUN SERPL MCNC 15.0 mg/dL Normal 04/26/2023 7 - 17 [facility] CREAT SERPL MCNC 0.9 mg/dL Normal 04/26/2023 0.5 - 1 [facility] SODIUM SERPL SCNC 139.0 mmol/L Normal 04/26/2023 135 - 14 5 [facility] GLUCOSE SERPL MCNC 112.0 mg/dL Normal 04/26/2023 70 - 199 [facility] ANION GAP SERPL SCNC 8.0 mmol/L Normal 04/26/2023 5 - 14 [facility] HCO3 SER SCNC 22.0 mmol/L Below low normal 04/26/2023 24 - 3 2 [facility] Glomerular filtration rate/1.73 sq M. predicted 70.0 Normal 04/26/2023 60 - [facility] CHLORIDE SERPL SCNC 109.0 mmol/L Above high normal 4 98 - 107 [facility] Troponin I SerPl HS-mCnc 6.0 ng/L Normal 04/26/2023 0 - 14 [facility] BNP BLD MCNC 598.0 pg/mL Above high normal 04/26/2023 0 - 10 0 [facility] BILIRUB DIRECT SERPL MCNC 0.1 mg/dL Normal 04/26/2023 0 - 0.2 [facility] BILIRUB SERPL MCNC 0.3 mg/dL Normal 04/26/2023 0.3 - 1 [facility] History of Medication [...] every night at bedtime as needed. active Allergies Allergen Reaction Severity Comment Documented Date Source Statu s SULFA ANTIBIOTICS 01/18/2023 [facility] a ctive LATEX [facility] Problems Problem Status Onset Date Problem Type Date of Resolution Source Subconjunctival hemorrhage of right eye active EncounterDiagnosisAct [facility] Snoring active 2023-01-18 ProblemAct [facility] N Chest discomfort active 2023-01-18 ProblemAct C [facility] Mixed hyperlipidemia active 2023-01-18 ProblemAct [facility] Essential hypertension, benign active 2023-01-18 ProblemAct [facility] Dyspnea on exertion active 2023-01-18 ProblemAct [facility] Other migraine without status migrainosus, not intractable active EncounterDiagnosisAct [facility] Overweight (BMI 25.0-29.9) active 2023-01-18 ProblemAct [facility] Chest pain active 2023-11-15 ProblemAct [facility] Encounters Encounter Type Encounter Reason Primary Diagnosis Location Date Inpatient Chest pain, unspecified Chest pain, unspecified [facility] 11/15/2023 Emergency Noninfective gastroenteritis and colitis Noninfective gastroenteritis and colitis, unspecified [facility] 05/25/2023 Emergency Chest pain, unspecified Chest pain, unspecified [facility] 04/26/2023 Care Team Organization Name Specialty Phone Email Start Date End Da te [facility] 05/25/2023 [facility] 05/25/2023 [facility] [place] [facility] [place]2023 [facility] 12/31/2021 10/18/2023
--- OUTSIDE RECORDS SUMMARY | 2024-10-03 08:51 | XMS_ITS | Clinical Summary ---
Author Organization [facility] Address [address] [place] [address] Phone Care Team Providers Care Park Activities Coordinator Name Role Phone Maira Rivero MD Primary Care Provider [phone] Immunizations Name Administration Dates Next Due Moderna [...] Panel) 03/26/2023 Colorectal Cancer Screening: Colonoscopy 03/26/2023 Falls Risk Assessment 03/26/2023 Hepatitis C Screening 03/26/2023 Osteoporosis Screening (Bone Density Screening) 03/26/2023 Social Influencers of Health Screening 03/26/2023 COVID-19 Vaccine (2 - 2023-2 5 season) 2023 09/22/2021 Depression Screening 03/01/2024 Influenza Vaccine (#1) 2024 Hypertension/CHF/CAD Annual BMP Blood Test 11/14/2024 [...] age to complete this topic Care Teams Park Activities Coordinator Relationship Specialty Start Date End Date Maira Rivero MD [address] [place] [id number] PCP - General 03/12/23
[2024-10-03 12:10] LABS: Alanine Aminotransferase 14 U/L (0-31); Albumin Level 4.2 g/dL (3.5-5.0); Alkaline Phosphatase 90 U/L (39-117); Anion Gap 11 (12-20); Aspartate Amino Transferase 24 U/L (5-31); Blood Urea Nitrogen 13 mg/dL (9-16); Calcium 9.0 mg/dL (8.4-10.2); Carbon Dioxide 26 mmol/L (22-29); Chloride 109 mmol/L (96-108); Estimated Glomerular Filt Rate > 60; Potassium 4.4 mmol/L (3.3-5.1); Sodium 142 mmol/L (135-145); Total Protein 7.2 g/dL (6.5-8.0)
== END 2024-10-03 08:40 | disposition home or self-care (01) ==
LOC: HO.HHCL 08:39
PROVIDERS: PCP Internal Medicine; Referring Provider Nurse Practitioner; Visit Provider Internal Medicine
DX: R21 Rash and other nonspecific skin eruption (principal); M25.50 Pain in unspecified joint
CPT/HCPCS: 36415; 80053; 85652; 86140; 86200; 86431

== ENCOUNTER 2024-10-06 15:30 | Outpatient (REF) | payer MEDICAID, SELFPAY ==
--- NOTE | ~2024-10-06 | XR_ITS ---
EXAMINATION: XR HAND/WRIST, RIGHT XR HAND/WRIST, LEFT CLINICAL INFORMATION: evaluate for bone erosions COMPARISON: None TECHNIQUE: PA, lateral, and oblique views of the each hand and wrist. FINDINGS: RIGHT HAND/WRIST: No fracture, dislocation, or suspicious bone lesion. Normal alignment. No periarticular osteopenia or periarticular erosions. No significant arthropathy identified Carpal bones intact and normally aligned. No soft tissue abnormalities. LEFT HAND/WRIST: No fracture, dislocation, or suspicious bone lesion. Normal alignment. No periarticular osteopenia or periarticular erosions. No significant arthropathy identified Carpal bones intact and normally aligned. No soft tissue abnormalities. XR/XR Hand Bilat min 3v IMPRESSION: Normal radiographs of the hands and wrists. Electronically signed by: Gaurav Zhou MD 10/06/2024 03:56 PM EDT
--- OUTSIDE RECORDS SUMMARY | 2024-10-06 15:33 | XMS_ITS | Clinical Summary ---
Author Organization [facility] Address [address] [place] [address] Care Team Providers Care Airplane Designer Name Role Phone Maira Rivero MD Primary Care Provider [phone] Allergies Active Allergy Reactions Criticality Noted Date [...] Advance Directives For more information, please contact: [phone] Latest Code Status on File Code Status Date Activated Date Inactivated Comments Full Code 11/15/2023 6:14 AM 11/16/2023 12:37 AM This code status was ascertained . Care Teams Airplane Designer Relationship Specialty Start Date End Date Maira Rivero MD [address] [place] [phone] PCP - General Adult Medicine 03/12/23
--- OUTSIDE RECORDS SUMMARY | 2024-10-06 15:33 | XMS_ITS | Clinical Summary ---
Author Organization [facility] Address [address] [place] [address] Care Team Providers Care Gas Station Manager Name Role Phone Maira Rivero Primary Care Provider [phone] Allergies Active Allergy Reactions Criticality Noted Date [...] patient's age to complete this topic Insurance [facility] MULT[facility] Care Teams Gas Station Manager Relationship Specialty Start Date End Date Maira Rivero [address] [place], [place] [address] [id number] PCP - General 05/25/23
== END 2024-10-06 15:31 | disposition home or self-care (01) ==
LOC: HO.XRAY 15:30
PROVIDERS: PCP Internal Medicine; Visit Provider Internal Medicine
DX: M79.641 Pain in right hand (principal); M79.642 Pain in left hand
CPT/HCPCS: 73130

== ENCOUNTER → 2024-10-06 15:35 | Outpatient (BNV) | payer MEDICAID, SELFPAY | PROVIDERS: PCP Internal Medicine; Visit Provider Radiology Diagnostic Radiology | DX: M79.642 Pain in left hand (principal); M79.641 Pain in right hand | CPT/HCPCS: 73130 ==

== ENCOUNTER 2024-10-19 09:18 | Outpatient (AMB) | payer MEDICAID, SELFPAY ==
[2024-10-19 09:28] VITALS: BMI 26.1
--- NOTE | 2024-10-19 09:28 | MHC.OFFVIS ---
Vital Signs 10/19/24 09:28 Height 5 ft 4 in Weight 152 lb BMI 26.1 Intake Visit Reasons: Inj-B/L knee injection-last inj 07/17/24 Intake Note: Charlee is a 69 year old female who presents today for repeat injections in bilateral knees. Last injections done on 07/17/24. Patient reports that these injections were helpful and she would like to repeat them in both of her knees again today Allergies paraben Allergy (Severe, Verified 12/21/23 07:59) urticaria Sulfa (Sulfonamide Antibiotics) (SULFA (SULFONAMIDE ANTIBIOTICS)) Allergy (Mild, Verified 12/21/23 07:59) HIVES sulfacetamide Allergy (Unknown, Verified 12/21/23 07:59) hives sulfur Allergy (Unknown, Verified 12/21/23 07:59) hives Latex, Natural Rubber Adverse Reaction (Verified 12/21/23 07:59) Unknown HPI HPI Inj-B/L knee injection-last inj 07/17/24: Details: Charlee is a 69 year old female who presents today for repeat injections in bilateral knees. Last injections done on 07/17/24. Patient reports that these injections were helpful and she would like to repeat them in both of her knees again today. She feels minimal pain however. Her left knee has occasional discomfort. She has been riding a stationary biking complains of waking up in the morning with some back pain. [facility] Medical History HTN (hypertension) Bleeding hemorrhoids Takotsubo cardiomyopathy Hypercholesterolemia Surgical History History of hemorrhoidectomy Hx of cardiac cath History of cataract surgery Family History Mother No problems noted. Father No problems noted. Father CVD (cardiovascular disease) Mother CVD (cardiovascular disease) Social History Household Members: Family Housing: House Do you presently have visiting nurse or other home services: No Alcohol intake: never Patient Tobacco Use Status: Never used Tobacco service: No Current occupational status: retired Physical Exam Exam Exam: No acute distress. Varus alignment bilateral knees. No tenderness to palpation however. Crepitus with range of motion on the left but minimal. No effusion bilaterally. Vital Signs: BMI result Body Mass Index 26.1 Assessment & Plan Assessment & Plan (1) Lumbar muscle pain: Code(s): M79.18 - Myalgia, other site Category: Medical Plan: Lumbar muscle pain in the morning. Discussed options and we agreed physical therapy would be a good start. I put a referral in. (2) Left knee pain: Code(s): M25.562 - Pain in left knee Category: Medical Plan: Knees are doing well so no injection today. May return prior to winter trip to [facility] if pain persists. Coding Level of Care Code Est Pt Level 3 (35437) Complex EM visit Add On G2211 Diagnoses Lumbar muscle pain M79.18 Left knee pain M25.562
--- OUTSIDE RECORDS SUMMARY | 2024-10-19 10:21 | XMS_ITS | Encounter Summary ---
Author Organization [employer] Address [address] [place] [address] Care Team Providers Care Nuclear Plant Equipment Operator Name Role Phone Andrew Sommer MD Primary Care Prov ider Reason for Visit * Reason Onset Date Comments Appointment Request 06/07/2024 Encounter Details Date Type Department Care Team (Late st Contact Info) Description 06/07/2024 Telephone [facility] MED[facility]INE [address] [place] [address] Andrew Sommer MD [address] [place] [address] Appointment Request Social History Tobacco Use Types [...] on filedocumented in this encounter Care Teams Nuclear Plant Equipment Operator Relationship Specialty Start Date End Date WhitfieldAndrew Cedeño MD [address] [place] [id number] PCP - General Internal Medicine 11/11/23 documented as of this encounter
--- OUTSIDE RECORDS SUMMARY | 2024-10-19 10:22 | XMS_ITS | Clinical Summary ---
Author Organization [facility] Address [address] [place] [address] Care Team Providers Care Flare Maker Name Role Phone Maira Rivero MD Primary Care Provider [phone] Allergies Active Allergy Reactions Criticality Noted Date [...] Advance Directives For more information, please contact: [phone] Latest Code Status on File Code Status Date Activated Date Inactivated Comments Full Code 11/15/2023 6:14 AM 11/16/2023 12:37 AM This code status was ascertained . Care Teams Flare Maker Relationship Specialty Start Date End Date Maira Rivero MD [address] [place] [phone] PCP - General Adult Medicine 03/12/23
--- OUTSIDE RECORDS SUMMARY | 2024-10-19 10:22 | XMS_ITS | Clinical Summary ---
Author Organization [facility] Address [address] [place] [address] Phone Care Team Providers Care Shipping Inspector Name Role Phone Maira Rivero MD Primary Care Provider [phone] Immunizations Name Administration Dates Next Due Moderna [...] age to complete this topic Care Teams Shipping Inspector Relationship Specialty Start Date End Date Maira Rivero MD [address] [place] [id number] PCP - General 03/12/23
--- OUTSIDE RECORDS SUMMARY | 2024-10-19 10:22 | XMS_ITS | Patient Health Record ---
Author Organization [facility] Address [address] [place] [id number] Care Team Providers Care Women'S Activities Adviser Name Role Phone PAYTON GUAMAN Unavailable [phone] Allergies Allergen (clinical drug ingredient) Drug/Non Drug [...] Notes Problem Full thickness rotator cuff tear ([id number]) Complete rotator cuff tear or rupture of left shoulder, not specified as traumatic (M75.122) Active confirmed Plan Of Treatment No Information Insurance Providers Payer Name Payer Address Payer Phone Subscriber Number Group Number Insured Name Patient Relationship to Insured Coverage Start Date Coverage End Date [facility] [address] [place] [address] [id number] JOSHUA CASTELLANOS Self - patient is the insured
--- OUTSIDE RECORDS SUMMARY | 2024-10-19 10:22 | XMS_ITS | Clinical Summary ---
Author Organization [facility] Address [address] [place] [address] Care Team Providers Care Field Support Technician Name Role Phone Maira Rivero Primary Care Provider [phone] Allergies Active Allergy Reactions Criticality Noted Date [...] patient's age to complete this topic Insurance [facility] MULTIPLAN Care Teams Field Support Technician Relationship Specialty Start Date End Date Maira Rivero [address] [place], [place] [address] [id number] PCP - General 05/25/23
== END 2024-10-19 10:12 | disposition home or self-care (01) ==
LOC: HO.HOS 09:18
PROVIDERS: PCP Internal Medicine; Visit Provider Orthopaedic Surgery
DX: M79.18 Myalgia, other site (principal); M25.562 Pain in left knee
CPT/HCPCS: 99213

== ENCOUNTER → 2024-10-19 09:18 | Outpatient (BNVA) | payer MEDICAID, SELFPAY | PROVIDERS: PCP Internal Medicine; Visit Provider Orthopaedic Surgery | DX: M79.18 Myalgia, other site (principal); M25.562 Pain in left knee | CPT/HCPCS: 99212; J0665; J1100; J2003 ==

== ENCOUNTER 2024-10-20 12:47 | Outpatient (AMB) | payer MEDICAID, SELFPAY ==
--- OUTSIDE RECORDS SUMMARY | 2024-10-20 12:50 | XMS_ITS | Clinical Summary ---
Author Organization [facility] Address [address] [place] [address] Care Team Providers Care Electric Vehicle Electrician Name Role Phone Maira Rivero MD Primary Care Provider [phone] Allergies Active Allergy Reactions Criticality Noted Date [...] Advance Directives For more information, please contact: [phone] Latest Code Status on File Code Status Date Activated Date Inactivated Comments Full Code 11/15/2023 6:14 AM 11/16/2023 12:37 AM This code status was ascertained . Care Teams Electric Vehicle Electrician Relationship Specialty Start Date End Date Maira Rivero MD [address] [place] [phone] PCP - General Adult Medicine 03/12/23
--- OUTSIDE RECORDS SUMMARY | 2024-10-20 12:50 | XMS_ITS | Clinical Summary ---
Author Organization [facility] Address [address] [place] [address] Phone Care Team Providers Care Refrigeration Systems Installer Name Role Phone Maira Rivero MD Primary Care Provider [phone] Immunizations Name Administration Dates Next Due Moderna [...] age to complete this topic Care Teams Refrigeration Systems Installer Relationship Specialty Start Date End Date Maira Rivero MD [address] [place] [phone] PCP - General 03/12/23
--- OUTSIDE RECORDS SUMMARY | 2024-10-20 12:50 | XMS_ITS | Patient Health Record ---
Author Organization [facility] Address [address] [place] [phone] Care Team Providers Care Clinical Specialist Name Role Phone PAYTON GUAMAN Unavailable [phone] Allergies Allergen (clinical drug ingredient) Drug/Non Drug [...] Problem Status W/U Status Risk Notes Problem Complete rotator cuff tear or rupture of left shoulder, not specified as traumatic (M75.122) Active confirmed Plan Of Treatment No Information Insurance Providers Payer Name Payer Address Payer Phone Subscriber Number Group Number Insured Name Patient Relationship to Insured Coverage Start Date Coverage End Date [facility] [employer] [facility] [address] [place] [address] [id number] JOSHUA CASTELLANOS Self - patient is the insured
--- OUTSIDE RECORDS SUMMARY | 2024-10-20 12:50 | XMS_ITS | Encounter Summary ---
Author Organization [employer] Address [address] [place] [address] Care Team Providers Care Ramp Agent Name Role Phone Andrew Sommer MD Primary Care Prov ider Reason for Visit * Reason Onset Date Comments Appointment Request 06/07/2024 Encounter Details Date Type Department Care Team (Late st Contact Info) Description 06/07/2024 Telephone [facility] MED[facility]INE [address] [place] [address] Andrew Sommer MD [address] [place] [address] Appointment Request Social History Tobacco Use Types [...] on filedocumented in this encounter Care Teams Ramp Agent Relationship Specialty Start Date End Date WhitfieldAndrew Cedeño MD [address] [place] [id number] PCP - General Internal Medicine 11/11/23 documented as of this encounter
--- OUTSIDE RECORDS SUMMARY | 2024-10-20 12:50 | XMS_ITS | Clinical Summary ---
Author Organization [facility] Address [address] [place] [address] Care Team Providers Care Back Pad Inspector Name Role Phone Maira Rivero Primary Care Provider [phone] Allergies Active Allergy Reactions Criticality Noted Date [...] patient's age to complete this topic Insurance [facility] MULTIPLAN Care Teams Back Pad Inspector Relationship Specialty Start Date End Date Maira Rivero [address] [place], [place] [address] [id number] PCP - General 05/25/23
[2024-10-20 13:08] VITALS: BP 120/62; PULSE 74; BMI 26.1
--- NOTE | 2024-10-20 13:08 | A.OFFVIS_ITS ---
Vital Signs 10/20/24 13:08 Height 5 ft 4 in Weight 152 lb 1.903 oz BMI 26.1 BP 120/62 Blood Pressure Location Lt brachial Position Sitting Pulse 74 Pulse Source Pulse Oximeter Intake Visit Reasons: Follow up Allergies paraben Allergy (Severe, Verified 12/21/23 07:59) urticaria Sulfa (Sulfonamide Antibiotics) (SULFA (SULFONAMIDE ANTIBIOTICS)) Allergy (Mild, Verified 12/21/23 07:59) HIVES sulfacetamide Allergy (Unknown, Verified 12/21/23 07:59) hives sulfur Allergy (Unknown, Verified 12/21/23 07:59) hives Latex, Natural Rubber Adverse Reaction (Verified 12/21/23 07:59) Unknown Medication List - Last Reconciled 10/20/24 by Saurav Shannon NP amlodipine (Norvasc) 5 mg PO DAILY Bifidobacterium infantis (Align (B.infantis)) 10.5 mg PO DAILY ergocalciferol (vitamin D2) (Vitamin D2) 1,250 mcg PO QWEEK rosuvastatin 10 mg PO DAILY HPI Comments Details: This is a 69-year-old female patient coming in for a follow-up visit, accompanied by her . Patient with a history of hypertension and hypercholesterolemia with mildly enlarged aorta. Today, patient reports feeling well overall and denies any cardiac symptoms of exertional chest pain, shortness of breath, palpitations, dizziness, orthopnea, PND, leg edema, presyncope or syncope. Patient notes that her rheumatoid factor was a little elevated and is working with PCP to get worked up in regards to this. Patient otherwise is reporting compliance with all her medications. [facility] Medical History HTN (hypertension) Bleeding hemorrhoids Takotsubo cardiomyopathy Hypercholesterolemia Surgical History History of hemorrhoidectomy Hx of cardiac cath History of cataract surgery Family History Mother No problems noted. Father No problems noted. Father CVD (cardiovascular disease) Mother CVD (cardiovascular disease) Social History Household Members: Family Housing: House Do you presently have visiting nurse or other home services: No Alcohol intake: never Patient Tobacco Use Status: Never used Tobacco service: No Current occupational status: retired Review of Systems Const Denies weakness ENT Denies dizziness Card Denies chest pain, Denies chest pain with activity, Denies syncope, Denies rapid heart rate, Denies pedal edema, Denies edema, Denies leg edema, Denies lightheadedness, Denies palpitations, Denies dyspnea, Denies dyspnea on exertion and Denies orthopnea Resp Denies cough, Denies dyspnea and Denies dyspnea on exertion GI Denies hematochezia and Denies change in stool character Musc Denies abnormal gait, Denies muscle cramps, Denies muscle weakness, Denies numbness, Denies radiating pain into limb and Denies tingling Neuro Denies abnormal gait, Denies dizziness, Denies syncope, Denies numbness, Denies tingling and Denies weakness Endo Denies palpitations Physical Exam Vital Signs: Last Vital Signs Pulse 74 10/20/24 13:08 BP 120/62 10/20/24 13:08 BMI result Body Mass Index 26.1 Const General: cooperative, healthy appearing, comfortable and no acute distress Orientation/consciousness: patient oriented x3 HEENT Head: Yes normal to inspection Neck Neck: Yes normal visual inspection, Yes trachea midline and Yes supple Chest Chest palpation & inspection: normal inspection of the chest Resp Effort & Inspection: normal respiratory effort Auscultation: clear to auscultation bilaterally, no crackles, no rales, no rhonchi and no wheezes Cardio Jugular venous distension: no JVD Palpation: normal PMI Rate: regular rate Rhythm: regular rhythm Heart sounds: S1 normal heart sound present, S2 normal heart sound present, no click, no gallops, no murmurs and no rubs Peripheral pulses: Peripheral pulses 2+ throughout GI Inspection: Yes normal to inspection Palpation (GI): Soft to palpation Auscultation: normal bowel sounds Skin General skin exam: no rashes or lesions noted Neuro General: patient oriented x3 Extrem General: Yes normal to inspection, No no pedal edema and No calf tenderness Psych Appearance: grossly normal Mental Status: mental status grossly normal Speech and movement: Normal speech and movement present Assessment & Plan Assessment & Plan (1) HTN (hypertension): Code(s): I10 - Essential (primary) hypertension Category: Medical Plan: Today's blood pressure is well-controlled. Continue current regimen with a blood pressure goal less than 130/80. Advised monitoring blood pressures at home. (2) Thoracic aortic aneurysm: Code(s): I71.20 - Thoracic aortic aneurysm, without rupture, unspecified Category: Medical Plan: Echo in 2023 showed mildly dilated ascending aorta at 4 cm. Clinically stable and without any cardiac symptoms. Patient has an order for a repeat echo in less than a year. (3) Hypercholesterolemia: Code(s): E78.00 - Pure hypercholesterolemia, unspecified Category: Medical Plan: Most recent LDL at 50, within goal of LDL less than 70. Patient plans to repeat a lipid profile in 1 month. Continue current statin therapy. Advised heart healthy diet, regular exercise, med compliance, and management of vascular risk factors. Follow up in 1 year, sooner if needed. In the interim, patient will call the office with any concerns or change in symptoms. This note was generated using voice recognition software. While every effort has been made to ensure accuracy and proper shredder/granulator operator, there may be occasional e rrors that could affect the content or meaning of the described symptoms. Coding Level of Care Code Est Pt Level 4 (67623) Complex EM visit Add On G2211 Diagnoses HTN (hypertension) I10 Thoracic aortic aneurysm I71.20 Hypercholesterolemia E78.00 Time Spent (min) 31 Comment Time spent in reviewing the chart, test results, assessment, counseling and documentation.
== END 2024-10-20 13:35 | disposition home or self-care (01) ==
LOC: HO.HCS 12:47
PROVIDERS: PCP Internal Medicine
DX: I10 Essential (primary) hypertension (principal); I71.20 Thoracic aortic aneurysm, without rupture, unspecified; E78.00 Pure hypercholesterolemia, unspecified
CPT/HCPCS: 99214

== ENCOUNTER → 2024-10-20 12:47 | Outpatient (BNVA) | payer MEDICAID, SELFPAY | PROVIDERS: PCP Internal Medicine | DX: I10 Essential (primary) hypertension (principal); I71.20 Thoracic aortic aneurysm, without rupture, unspecified; E78.00 Pure hypercholesterolemia, unspecified | CPT/HCPCS: 99212 ==

== ENCOUNTER 2024-10-31 13:11 | Outpatient (REF) | payer MEDICAID, SELFPAY ==
--- OUTSIDE RECORDS SUMMARY | 2024-10-31 14:30 | XMS_ITS | Encounter Summary ---
Author Organization [employer] Address [address] [facility] [address], [place] [address] Care Team Providers Care Steel Chipper Name Role Phone Andrew Sommer MD Primary Care Prov ider Reason for Visit * Reason Onset Date Comments Lab Orders 10/02/2024 Encounter Details Date Type Department Care Team ([facility] st Contact Info) Description 10/02/2024 Telephone [facility] PEDS [address] [place], [place] [phone] Andrew Sommer MD [address] [place], [place] [phone] Lab Orders Social History Tobacco Use Types Packs/Day Years [...] encounter Miscellaneous Notes * Telephone Encounter - Delio Seymour - 10/02/2024 11:07 AM EDT Tc from pt daughter requesting a Blood work test focused on Liver and kidneys due to mom taking a test back in trip and coming out abnormal. Contact pt at [phone] documented in this encounter Plan of Treatment Not on file documented as of this encounter Visit Diagnoses Not on filedocumented in this encounter Care Teams Steel Chipper Relationship Specialty Start Date End Date Andrew Sommer MD [address] [place] [id number] PCP - General Internal Medicine 11/11/23 documented as of this encounter
--- OUTSIDE RECORDS SUMMARY | 2024-10-31 14:30 | XMS_ITS | Clinical Summary ---
Author Organization [employer] Address [address] [facility] 7[address] [place] [address] Care Team Providers Care Bilingual Legal Assistant Name Role Phone Andrew Sommer MD Primary Care Prov ider Allergies Active Allergy Reactions Criticality Noted Date Comments Latex 01/18/2023 Sulfa Antibiotics 01/18/2023 Medications rosuvastatin (Crestor) 10 MG tablet Take 10 mg by mouth in the morning. 3 Active amLODIPine (Norvasc) 5 MG tablet Take 5 mg by mouth Once per day. 4 Active ALPRAZolam (Xanax) 0.25 MG tablet Take 0.25 mg by mouth if needed each day. 4 Active ergocalciferol (Drisdol) 1.25 MG (31355 UT) capsule Take 1 capsule (1.25 mg) by mouth 1 (one) time per week. 12 capsule 3 5 06/28/19 26 Active albuterol 108 (90 Base) MCG/ACT inhalerIndicati ons:Acute viral syndrome Inhale 2 puffs every 6 (six) hours if needed for wheezing. 18 g 11 5 06/28/19 26 Active fluticasone (Flonase) 50 MCG/ACT nasal spray Administer 1-2 sprays into each nostril Once per day. Shake gently. Before first use, prime pump. After use, clean tip and replace cap. 16 g 3 5 06/28/19 26 Active fluticasone furoate (Arnuity Ellipta) 100 MCG/ACT inhalerIndicati ons:Acute viral syndrome Inhale 1 puff Once per day. Rinse mouth with water after use to reduce aftertaste and incidence of candidiasis. Do not swallow. 90 Act 3 5 06/28/19 26 Active Melatonin 3 MG capsule Take 3 mg by mouth at bedtime. 90 capsule 3 5 06/28/19 26 Active Active Problems Problem Noted Date Diagnosed Date Chronic pain of both knees 06/27/2024 Assessment & Plan (06/27/2024 2:32 PM EDT): Will refer to PT, followed by ortho Mixed conductive and sensori neural hearing loss of both ears 06/27/2024 Assessment & Plan (06/27/2024 2:34 PM EDT): Will refer to audiology for hearing test Multiple joint pain 06/27/2024 Assessment & Plan (10/06/2024 5:10 PM EDT): No rash noted today, she does have +RF with no specific physical findings and negative CCP, CRP, Sed rate. Will order bilateral hand xray to evaluate for erosions Assessment & Plan (06/27/2024 2:35 PM EDT): [...] Encounters Date Type Department Care Team Description 10/06/2024 2:30 PM EDT Office Visit [facility] [address] [place] [address] Andrew Sommer MD Pain in both hands (Primary Dx); Multiple joint pain 10/06/2024 Travel 10/04/2024 Results Follow-Up [facility] [address] [place] [address] Lorna Velazquez NP Comprehensive Metabolic Panel, POCT urinalysis dipstick manually resulted 10/02/2024 3:20 PM EDT Office Visit [facility] [address] [place] [address] Lorna Velazquez NP Rash (Primary Dx); Dark yellow-colored urine; Anxiety about health 10/02/2024 Travel 10/02/[address] [facility] [address] [place] [address] Andrew Sommer MD Nurse Triage 10/02/[address] [facility] [address] [place], [place] [phone] Andrew Sommer MD Lab Orders 08/11/[address] [facility] [address] [place] [address] Andrew Sommer MD Multiple joint pain (Primary Dx) from Last 3 Months Social History Tobacco [...] Sign Reading Time Taken Comments Blood Pressure 124/77 10/06/2024 2:28 PM EDT Pulse 78 10/06/2024 2:28 PM EDT Temperature 36.9 C (98.4 F) 10/06/2024 2:28 PM EDT Respiratory Rate 20 10/06/2024 2:28 PM EDT Oxygen Saturation 97% 10/02/2024 3:57 PM EDT Inhaled Oxygen Concentration - - Weight 68 kg (150 lb) 10/06/2024 2:28 PM EDT Height 160 cm (5' 3 ) 10/06/2024 2:28 PM EDT Body Mass Index 26.57 10/06/2024 2:28 PM EDT Plan of Treatment Health Maintenance Due Date Last Done Comments CT Colonography 1955 Depression Screening 1955 FIT DNA/Cologuard 1955 [...] 60-74 years 1-dose series) 2015 COVID-19 Vaccine (2024-2 6 season) 2024 09/22/2021, 04/27/2020, 03/30/2020 Influenza Vaccine (#1) 2024 Diabetes: Hemoglobin A1C 06/28/2025 025, 05/14/2023, 12/25/2020 Mammogram 07/13/2025 07/14/2023, 07/14/2023 Tobacco Screening 10/05/2025 10/05/2024 Colonoscopy 12/29/2025 12/30/2023 Colorectal Cancer Screening 12/29/2025 Lipid Panel 06/28/2029 06/28/2024, 08/13/2023, 01/31/2021 HIB [...] Procedure Name Priority Date/Time Associated Diagnosis Comments XR HAND 3+ VIEWS BILATERAL Routine 10/06/2024 3:38 PM EDT COMPREHENSIVE METABOLIC PANEL Routine 10/03/2024 8:47 AM EDT Rash C-REACTIVE PROTEIN Routine 10/03/2024 8: 47 AM EDT Multiple joint pain SED RATE BY MODIFIED WESTERGREN Routine 10/03/2024 8:47 AM EDT Multiple joint pain CYCLIC CITRULLINATED PEPTIDE (CCP) AB (IGG) Routine 10/03/2024 8:47 AM EDT Multiple joint pain RHEUMATOID FACTOR Routine 10/03/2024 8:4 7 AM EDT Multiple joint pain POCT URINALYSIS DIPSTICK Routine 10/02/2024 4:52 PM EDT Dark yellow-colored urine HEMOGLOBIN A1C Routine 06/28/2024 11:01 AM EDT Essential hypertension, benign LIPID PANEL, STANDARD Routine 06/28/2024 11:01 AM EDT Essential hypertension, benign HM COLONOSCOPY Routine 12/30/2023 BI MAMMOGRAM DIAGNOSTIC TOMOSYNTHESIS BILATERAL STAT 07/14/2023 2:34 PM EDT from Last 3 Months or Most Recently Relevant to Health Maintenance Results * XR Hand 3+Views Bilateral (10/06/2024 3:38 PM EDT) Anatomical Region Laterality Modality Upper Extremities, Hand Bilateral Radiogra phic Imaging 10/06/2024 3:38 PM EDT Narrative 10/06/2024 3:59 PM EDT [place] [address] XRay Report Signed Patient: Charlee Galindo MR#: [id number] : 1955 Acct:[id number] Age/Sex: 69 / F ADM Date: 10/06/24 Loc: PANKAJ Attending Dr: Andrew Bray MD Ordering Physician: Andrew Sommer MD Date of Service: 10/06/24 Procedure(s): XR Hand Bilat min 3v Accession Number(s): [id number] cc: Andrew Sommer MD EXAMINATION: XR HAND/WRIST, RIGHT XR HAND/WRIST, LEFT CLINICAL INFORMATION: evaluate for bone erosions COMPARISON: None TECHNIQUE: PA, lateral, and oblique views of the each hand and wrist. FINDINGS: RIGHT HAND/WRIST: No fracture, dislocation, or suspicious bone lesion. Normal alignment. No periarticular osteopenia or periarticular erosions. No significant arthropathy identified Carpal bones intact and normally aligned. No soft tissue abnormalities. LEFT HAND/WRIST: No fracture, dislocation, or suspicious bone lesion. Normal alignment. No periarticular osteopenia or periarticular erosions. No significant arthropathy identified Carpal bones intact and normally aligned. No soft tissue abnormalities. XR/XR Hand Bilat min 3v IMPRESSION: Normal radiographs of the hands and wrists. Electronically signed by: Gaurav Zhou MD 10/06/2024 03:56 PM EDT Dictated By: Gaurav Zhou MD Signed By: <Electronically signed by Gaurav Zhou MD in OV> 10/06/24 1556 DD/ 1538 TD/TT: 10/06/24 1548 Field Crop Harvest Contractor: Procedure Note Donotuseinterpreter, Image - 10/06/2024 [place] [address] XRay Report Signed Patient: Charlee Galindo NMR#: [id number] : 6Acct:[id number] Age/Sex: 69 / FADM Date: 10/06/24 Loc: HO.ANTIONETTE Attending Dr: Andrew Bray MD Ordering Physician: Andrew Sommer MD Date of Service: 10/06/24 Procedure(s): XR Hand Bilat min 3v Accession Number(s): [id number] cc: Andrew Sommer MD EXAMINATION: XR HAND/WRIST, RIGHT XR HAND/WRIST, LEFT CLINICAL INFORMATION: evaluate for bone erosions COMPARISON: None TECHNIQUE: PA, lateral, and oblique views of the each hand and wrist. FINDINGS: RIGHT HAND/WRIST: No fracture, dislocation, or suspicious bone lesion. Normal alignment. No periarticular osteopenia or periarticular erosions. No significant arthropathy identified Carpal bones intact and normally aligned. No soft tissue abnormalities. LEFT HAND/WRIST: No fracture, dislocation, or suspicious bone lesion. Normal alignment. No periarticular osteopenia or periarticular erosions. No significant arthropathy identified Carpal bones intact and normally aligned. No soft tissue abnormalities. XR/XR Hand Bilat min 3v IMPRESSION: Normal radiographs of the hands and wrists. Electronically signed by: Gaurav Zhou MD 10/06/2024 03:56 PM EDT RP Dictated By: Gaurav Zhou MD Signed By: <Electronically signed by Gaurav Zhou MD in OV> 10/06/24 1556 DD/ 1538 TD/TT: 10/06/24 1548 Field Crop Harvest Contractor: Andrew Bray MD IMG XR PROCEDURES Final Result * Cyclic Citrullinated Peptide (CCP) Antibody (IgG) (10/03/2024 8:47 AM EDT) Cyclic Citrullinated Peptide <16 UNITS [facility] Comment:Reference RangeNegat jhony: <20Weak Positive: 20-39Moderate Positive: 40-59Strong Positive: >59THIS TEST WAS PERFORMED AT:[facility] [address] [id number] RICHARDS MD Blood Venous blood specimen / Unknown 10/03/2024 8:47 AM EDT 10/03/2024 11:14 AM EDT Andrew Bray MD LAB BLOOD ORDERABL ES Final Result Performing Organization Address City/[facility] Co de Phone Number [facility] [address] [place], [place] [phone] * Sed Rate by Karina Tee (10/03/2024 8:47 AM EDT) Erythrocyte Sedimentation Rate 19 0 - 20 MM/HR [facility] Comment:Patients with polycy themia and many hemoglobin abnormalitiesmay have depressed sed rates whereas patients with anemiamay have elevated sed rates. Blood Venous blood specimen / Unknown 10/03/2024 8:47 AM EDT 10/03/2024 11:14 AM EDT Andrew Bray MD LAB BLOOD ORDERABL ES Final Result Performing Organization Address City/State/[facility] Co de Phone Number [facility] [address] [place] [phone] * (ABNORMAL) Rheumatoid Factor (10/03/2024 8:47 AM EDT) [facility] Rheumatoid Factor 314.5(H) <15.0 IU/mL [facility] Blood Venous blood specimen / Unknown 10/03/2024 8:47 AM EDT 10/03/2024 11:14 AM EDT Andrew Bray MD LAB BLOOD ORDERABL ES Final Result Performing Organization Address [facility] de Phone Number [facility] [address] [place] [phone] * C-reactive Protein (10/03/2024 8:47 AM EDT) [facility] C Reactive Protein 0.26 < or = 0.50 mg/dL [facility] Blood Venous blood specimen / Unknown 10/03/2024 8:47 AM EDT 10/03/2024 11:14 AM EDT Andrew Bray MD LAB BLOOD ORDERABL ES Final Result Performing Organization Address [facility] de Phone Number [facility] [address] [place] [phone] * (ABNORMAL) Comprehensive Metabolic Panel (10/03/2024 8:47 AM EDT) [facility] Sodium 142 135 - 145 mmol/L [facility] Potassium 4.4 3.3 - 5.1 mmol/L [facility] Chloride 109(H) 96 - 108 mmol/L [facility] Carbon Dioxide 26 22 - 29 mmol/L [facility] Anion Gap 11(L) 12 - 20 [facility] Urea Nitrogen (BUN) 13 9 - 16 mg/dL [facility] Creatinine, Serum 0.61 0.5 - 1.4 mg/dL [facility] Estimated Glomerular Filt Rate >60 [facility] Comment:Chronic Kidney Disea se: Estimated GFR < 60 mL/min/1.89q7Vtxqkp Kidney Disease: Estimated GFR < 15 mL/min/1.73m2 Glucose 97 60 - 115 mg/dL [facility] Calcium 9.0 8.4 - 10.2 mg/dL [facility] Bilirubin, Total 0.5 0.0 - 1.0 mg/dL [facility] Aspartate Amino Transferase 24 5 - 31 U/L [facility] Alanine Aminotransferase 14 0 - 31 U/L [facility] Total Protein 7.2 6.5 - 8.0 g/dL [facility] Albumin Level 4.2 3.5 - 5.0 g/dL [facility] Alkaline Phosphatase 90 39 - 117 U/L [facility] Blood Venous blood specimen / Unknown 10/03/2024 8:47 AM EDT 10/03/2024 11:14 AM EDT Lorna Lofton BLASTING ENTRY SPECIALIST LAB BLOOD ORDERABLES Final Resu lt [facility] [address] [place] [phone] * (ABNORMAL) POCT urinalysis dipstick manually resulted (10/02/2024 4:52 PM EDT) Color, UA [place] Clarity, UA Cloudy Glucose, UA Trace Comment:100mg/dl Bilirubin, UA Trace Comment:small Ketones, UA Negative Spec Grav, UA 1.030 Blood, UA Negative Negative, None Detected pH, UA 6.0 Protein, UA Trace Comment:30mg/dl Urobilinogen, UA 0.2 Leukocytes, UA Negative Negative, Rare, Trace Nitrite, UA Negative Negative, None Detected Appearance, UA orange cloudy QC Media Lot # [id number] Lot# Expiration Date [id number] Urine 10/02/2024 4:52 PM EDT Lorna Velazquez NP POINT OF CARE TEST ENTER/EDIT O RDERABLES Edited Result - Final * Hemoglobin A1c (06/28/2024 11:01 AM EDT) Hemoglobin A1c 5.9 <6.0 % [facility] Comment:Hemoglobin A1C Refer ence Range Adults: 4.8 - 6.0 % Non diabetic: < 6.0 % Goal: < 7.0 %Additional Action Suggested: > 8.0 %Note: Hemoglobin A1c results are invalid for patients with abnormal amounts of HbF. Blood transfusions may impact the HbA1c concentration in the patient sample. Estimated Average Glucose 123 mg/dL [facility] Comment:eAG = Estimated ave rage glucose which is %A1C expressed asaverage glucose, using the formula of the P7W-FhhednjCuxxsho Glucose study (ADAG), Diabetes Care, Vol.31,#8,Sep. 2007 Blood Venous blood specimen / Unknown 06/28/2024 11:01 AM EDT 06/28/2024 11:01 AM EDT Andrew Bray MD LAB BLOOD ORDERABL ES Final Result [facility] [address] [place] [phone] * Lipid Panel, Standard (06/28/2024 11:01 AM EDT) Triglycerides 71 <150 mg/dL [facility] Comment:Desirable Triglyceri de: less than 150 mg/dLBorderline High Triglyceride 150-199 mg/dLHigh Triglyceride: 200-499 mg/dLVery High Triglyceride: greater than or equal to 5OO mg/dL Cholesterol 114 <200 mg/dL [facility] Comment:Desirable Cholestero l: less than 200 mg/dLBorderline High Cholesterol: 200-239 mg/dLHigh Cholesterol: greater than 239 mg/dL LDL Cholesterol Calculated 50 <100 mg/dL [facility] Comment:Desirable LDL: less than 100 mg/dLNear Optimal/Above Optimal LDL: 110- 129 mg/dLBorderline High LDL: 130-159 mg/dLHigh LDL: 160-189 mg/dLVery High LDL: greater than or equal to 190 mg/dL HDL Cholesterol 50 >40 mg/dL [facility] Comment:Desirable HDL: great er than 40 mg/dL Note: This HDL assay may give artificially low results in patients with liver disease. Blood Venous blood specimen / Unknown 06/28/2024 11:01 AM EDT 06/28/2024 11:01 AM EDT Andrew Bray MD LAB BLOOD ORDERABL ES Final Result [facility] [address] [place] [phone] * Colonoscopy (12/30/2023) Colonoscopy Normal Normal Narrative Yoana Ferreira - 12/30/2023 Repeat Colonoscopy in 1-2 years or earlier if clinically indicated Historical Provider HEALTH MAINTENANCE Final Result * BI Mammogram Diagnostic Tomosynthesis Bilateral (07/14/2023 2:34 PM EDT) Anatomical Region Laterality Modality Breast Bilateral Mammography 07/14/2023 2:34 PM EDT Narrative 07/14/2023 4:03 PM EDT [address] [place] [address] Mammography Report Signed Patient: Charlee Galindo MR#: [id number] : 1955 Acct:[id number] Age/Sex: 67 / F ADM Date: 07/14/23 Loc: HO.MAMMO Attending Dr: Racheal Vargas MD Ordering Physician: Racheal Vargas MD Results: 2Beni gn Findings Date of Service: 07/14/23 Follow Up: 1 Year From Orig inal Mammogram Procedure(s): MM tomosynthesis diagnostic BI Accession Number(s): [id number] cc: Racheal Vargas MD EXAMINATION: MM DIAGNOSTIC [...] in OV> 07/14/23 1559 DD/ 1434 TD/TT: Field Crop Harvest Contractor: Procedure Note Donotuseinterpreter, Image - 07/14/2023 [facility] [address] [place] [address] Mammography Report Signed Patient: Charlee Galindo [facility]#: [id number] : 6Acct:[id number] Age/Sex: 67 / FADM Date: 07/14/23 Loc: HO.MAMMO Attending Dr: Racheal Vargas MD Ordering Physician: Racheal Vargas MDResults: 2Beni gn Findings Date of Service: 07/14/23Follow Up: 1 Year From Orig inal Mammogram Procedure(s): MM tomosynthesis diagnostic BI Accession Number(s): [id number] cc: Racheal Vargas MD EXAMINATION: MM DIAGNOSTIC [...] in OV> 07/14/23 1559 DD/ 1434 TD/TT: Field Crop Harvest Contractor: us Racheal Vargas MD IMG BI PROCEDURES Final Resul t from Last 3 Months or Most Recently Relevant to Health Maintenance Insurance [facility] STANDARD Care Teams Bilingual Legal Assistant Relationship Specialty Start Date End Date Andrew Sommer MD [address] [place] [address] PCP - General Internal Medicine 11/11/23
--- OUTSIDE RECORDS SUMMARY | 2024-10-31 14:30 | XMS_ITS | Encounter Summary ---
Author Organization [employer] Address [address] [place] [address] Care Team Providers Care Keg Washer Name Role Phone Andrew Sommer MD Primary Care Prov ider Reason for Visit * Reason Onset Date Comments Appointment Request 06/07/2024 Encounter Details Date Type Department Care Team (Late st Contact Info) Description 06/07/2024 Telephone [facility] [address] [place] [address] Anrdew Sommer MD [address] [place] [address] Appointment Request Social History Tobacco Use Types [...] on filedocumented in this encounter Care Teams Keg Washer Relationship Specialty Start Date End Date WhitfieldAndrew Cedeño MD [address] [place] [phone] PCP - General Internal Medicine 11/11/23 documented as of this encounter
--- OUTSIDE RECORDS SUMMARY | 2024-10-31 14:30 | XMS_ITS | Clinical Summary ---
Author Organization [facility] Address [address] [place] [address] Care Team Providers Care Catalog Librarian Name Role Phone Maira Rivero MD Primary Care Provider [phone] Allergies Active Allergy Reactions Criticality Noted Date [...] 09/26/2021 08/02/19 22 COVID-19 Vaccine (2 - 2024-2 6 season) 2024 09/22/2021 Influenza Vaccine (#1) 2024 04/10/2021 RSV Adult > 60+ Yrs or Pregn ant (1 - 1-dose 75+ series) 08/29/2030 Hepatitis B Vaccines Aged Out No long er eligible based on patient's age to complete this topic RSV Ped < 20 months Aged Out No longe r eligible based on patient's age to complete this topic Advance Directives For more information, please contact: [phone] Latest Code Status on File Code Status Date Activated Date Inactivated Comments Full Code 11/15/2023 6:14 AM 11/16/2023 12:37 AM This code status was ascertained . Care Teams Catalog Librarian Relationship Specialty Start Date End Date Maira Rivero MD [address] [place] [phone] PCP - General Adult Medicine 03/12/23
--- OUTSIDE RECORDS SUMMARY | 2024-10-31 14:30 | XMS_ITS | Encounter Summary ---
Author Organization [employer] Address [address] [facility] [address], [place] [address] Care Team Providers Care Chalk Molding Machine Operator Name Role Phone Andrew Sommer MD Primary Care Prov ider Reason for Visit * Reason Onset Date Comments Nurse Triage 10/02/2024 Encounter Details Date Type Department Care Team ([facility] st Contact Info) Description 10/02/2024 Telephone [facility] [address] [place], [place] [phone] Andrew Sommer MD [address] [place], [place] [phone] Nurse Triage Social History Tobacco Use Types Packs/Day Years [...] encounter Miscellaneous Notes * Telephone Encounter - Jacquelyn Eddy RN - 10/02/2024 11:31 AM EDT Triage call Pt requests to have senior technical writer speak with daughter, Anita. Daughter reports when mother returned from [facility] to [facility] 09/20/24 Pt had a rash which started around the 11 of September. The rash is described as having been all over bilateral arms and worse on the right arm, redness with pruritis. The appearance of rash has gone but, Pt continues to have itchiness. Daughter reports some aches and pains and some stomach upset.. Daughter is concerned about liver enzymes and is asking to see PCP. ASK apt with PCP 10/06/24 @ 230pm. Daughter agrees with this disposition and apt time. Insurance is verified as active prior to booking. Protocol Used: Itching - Localized (Adult) Protocol-Based Disposition: See in Office or Video Visit within 3 Days Video visit not offered Positive Triage Questions: * Patient wants to be seen * Cause unknown and present > 7 days * All higher-acuity triage questions were negative Care Advice Discussed: * Reassurance and Education - Itching * Don't Scratch * Reasons To Call Back - Looks infected (such as spreading redness, red streak, pus) - Itching becomes severe - Itching lasts over 7 days - You become worse * Telephone Encounter - Delio Seymour - 10/02/2024 11:10 AM EDT Symptom: Itching - No Rash Outcome: Schedule an urgent appointment (within 4 hours) or talk to a nurse or provider soon Reason: Severe itching now The caller accepted this outcome. Contact daughter at [phone] documented in this encounter Plan of Treatment Not on file documented as of this encounter Visit Diagnoses Not on filedocumented in this encounter Care Teams Chalk Molding Machine Operator Relationship Specialty Start Date End Date Andrew Sommer MD [address] [place] [phone] PCP - General Internal Medicine 11/11/23 documented as of this encounter
--- OUTSIDE RECORDS SUMMARY | 2024-10-31 14:30 | XMS_ITS | Encounter Summary ---
Author Organization [employer] Address [address] [place] [address] Care Team Providers Care Bug Trimmer Name Role Phone Andrew Sommer MD Primary Care Prov ider Encounter Details Date Type Department Care Team (Late st Contact Info) Description 06/01/2024 Orders Only [facility] [address] [place] [address] Andrew Sommer MD [address] [place] [address] Social History Tobacco Use Types Packs/Day Years [...] on filedocumented in this encounter Care Teams Bug Trimmer Relationship Specialty Start Date End Date Andrew Sommer MD [address] [place] [address] PCP - General Internal Medicine 11/11/23 documented as of this encounter
--- OUTSIDE RECORDS SUMMARY | 2024-10-31 14:30 | XMS_ITS | Clinical Summary ---
Author Organization [facility] Address [address] [place] [address] Care Team Providers Care General Machine Operator Name Role Phone Maira Rivero Primary Care Provider [phone] Allergies Active Allergy Reactions Criticality Noted Date [...] of 2) 08/29/2005 COVID-19 Vaccine (2 - 2024-2 6 season) 2024 09/22/2021 Influenza Vaccine (#1) 2024 HPV Vaccines Aged Out No longer eligi ble based on patient's age to complete this topic Hepatitis A Vaccines Aged Out No long er eligible based on patient's age to complete this topic Meningococcal Vaccine Aged Out No talia gualberto eligible based on patient's age to complete this topic Insurance [facility] Care Teams General Machine Operator Relationship Specialty Start Date End Date Maira Rivero [address] [place], [place] [address] [address] PCP - General 05/25/23
--- OUTSIDE RECORDS SUMMARY | 2024-10-31 14:30 | XMS_ITS | Clinical Summary ---
Author Organization [facility] Address [address] [place] [address] Phone Care Team Providers Care Director Construction Services Name Role Phone Maira Rivero MD Primary Care Provider [phone] Immunizations Name Administration Dates Next Due Moderna [...] 03/26/2023 Social Influencers of Health Screening 03/26/2023 Depression Screening 03/01/2024 COVID-19 Vaccine (2 - 2024-2 6 season) 2024 09/22/2021 Influenza Vaccine (#1) 2024 Hypertension/CHF/CAD Annual BMP [...] age to complete this topic Care Teams Director Construction Services Relationship Specialty Start Date End Date Maira Rivero MD [address] [place] [phone] PCP - General 03/12/23
--- NOTE | 2024-10-31 16:06 | MHC.AU.HA1 ---
Addendum entered and electronically signed by Ernesto Cohen, FLOR-A 10/31/24 16:44: Impressions taken without incidence Au and stored in hold drawer, wating on medical clearance to place order. Original Note: Hearing Aid Evaluation Date of Visit: 10/31/24 Historical Information: Description of Hearing: Borderline normal gradually sloping to moderate sensorineural hearing loss, bilateral. Current personal amplification information, if applicable: None. Summary: Seen for evaluation. Reports she has felt hard of hearing for 1-2 years. Notes ears feel heavy . Binaural amplification recommended to facilitate improved communication. Discussed options. Reviewed benefits and limitations of amplification. Discussed adjustment to amplification. Charlee is interested in an ITE style hearing aid, feeling that it will be more discreet as people are often wearing earbuds in their ears these days. She would like rechargeable. Charlee has an iPhone that she is interested in connecting the hearing aids with. Hearing Aid Prescription: Based on the individual?s shared listening needs, communication environments, dexterity, desire for connectivity, and personal preferences, the following prescription for amplification has been made: Right ear: Make, Model, Color: Goomeo AI 16 ITC R pink Battery Size: Rechargeable Left ear: Make, Model, Color: Goomeo AI 16 ITC R pink Battery Size: Rechargeable Plan of Care: Patient wishes to purchase hearing aids as prescribed Action Taken/Action Needed: Medical Clearance to be requested from PCP/ENT Primary Diagnosis: H90.3 Bilateral Sensorineural Hearing Loss Signature: Provider: Sury Blair, FLOR-A
== END 2024-10-31 13:12 | disposition home or self-care (01) ==
LOC: HO.SH 13:11
PROVIDERS: Visit Provider Internal Medicine
DX: Z01.118 Encounter for examination of ears and hearing with other abnormal findings (principal); H90.3 Sensorineural hearing loss, bilateral; Z46.1 Encounter for fitting and adjustment of hearing aid
CPT/HCPCS: 92557; 92567; 92591

== ENCOUNTER 2024-11-06 12:28 | Outpatient (REF) | payer MEDICAID, SELFPAY | END 2024-11-06 12:29 | disposition home or self-care (01) | LOC: HO.LAB 12:28 | PROVIDERS: PCP Internal Medicine; Visit Provider Internal Medicine Gastroenterology | DX: R10.11 Right upper quadrant pain (principal); G89.29 Other chronic pain; M79.18 Myalgia, other site; Z79.899 Other long term (current) drug therapy; H57.9 Unspecified disorder of eye and adnexa | CPT/HCPCS: 83013; 99212 ==

== ENCOUNTER 2024-11-06 12:28 | Outpatient (AMB) | payer MEDICAID, SELFPAY ==
--- NOTE | 2024-11-06 12:34 | MHC.OFFVIS ---
Vital Signs 11/06/24 12:46 Height 5 ft 4 in Weight 152 lb BMI 26.1 BP 122/66 Blood Pressure Location Lt brachial Position Sitting Pulse 72 Pulse Source Pulse Oximeter Pulse Oximetry (%) 98 Oxygen Delivery Method Room Air Intake Visit Reasons: f/u abdominal pains Intake Note: Est pt for mgmt of chronic abd pain. CC; Pt denies any GI changes or new sx since last visit. Vault Manager Required: No Accompanied by: Spouse Allergies paraben Allergy (Severe, Verified 12/21/23 07:59) urticaria Sulfa (Sulfonamide Antibiotics) (SULFA (SULFONAMIDE ANTIBIOTICS)) Allergy (Mild, Verified 12/21/23 07:59) HIVES sulfacetamide Allergy (Unknown, Verified 12/21/23 07:59) hives sulfur Allergy (Unknown, Verified 12/21/23 07:59) hives Latex, Natural Rubber Adverse Reaction (Verified 12/21/23 07:59) Unknown HPI HPI f/u abdominal pains: Details: 69 yr old f w/ hx of constipation here for f/u RECAP she had been having ongoing issues with constipation she can sit and takes time for stool to come out she has bilateral flank and side pain, for 10 days she has been having issues with hypertension she has swelling in the feet she has been taking rosuvastatin daily she has been taking pantoprazole and helsp reflux she has been drinking plenty of fluids she has general non localized stomach discomfort she has nausea, no vomiting she has burning in the feet, she tried miralax and it never really worked Endoscopies: Colonoscopy: 2020--- adenomatous polyps removed Colonoscopy and EGD: 2023-- multiple polyps removed, gastritis INTERIM: she has been taking align she feels it has helped she has pain in the left loin area urine is normal she has ongoing constipation she has poor fluid intake EXAM: GENERAL: The patient is well developed and nontoxic. VITAL SIGNS:see workflow HEENT: Nonicteric sclerae, PERRLA, EOMI. Oropharynx clear. Moist mucous membranes. Conjunctivae appear well perfused. No thyroid mass. CHEST: Chest wall is nontender. HEART: Regular rate and rhythm without murmurs. LUNGS: Clear to auscultation bilaterally. ABDOMEN: Soft, positive bowel sounds, tender epigastrium and suprapubic area, no organomegaly.no flank tenderness SKIN: No rash, no excessive bruising, petechiae, or purpura. NEUROLOGIC: Cranial nerves II-XII intact without motor/sensory deficit. Psych: normal affect tender left loin area worse wt lateral rotation and movement A/P: 1/ Constipation, probable slow transit, ddx: pelvic floor dysfunction, dysautonomia loan as she has what sounds like neuropathy--ongoing 2/ left loin pain, worse with movement PLAN: 1/ check for H pylori 2/ colonoscopy in 1 year 3/ US if nml then PT referral [facility] Medical History HTN (hypertension) Bleeding hemorrhoids Takotsubo cardiomyopathy Hypercholesterolemia Surgical History History of hemorrhoidectomy Hx of cardiac cath History of cataract surgery Family History Mother No problems noted. Father No problems noted. Father CVD (cardiovascular disease) Mother CVD (cardiovascular disease) Social History Household Members: Family Housing: House Do you presently have visiting nurse or other home services: No Alcohol intake: never Patient Tobacco Use Status: Never used Tobacco service: No Current occupational status: retired Physical Exam Vital Signs: Last Vital Signs Pulse 72 11/06/24 12:46 BP 122/66 11/06/24 12:46 Pulse Ox 98 11/06/24 12:46 Oxygen Delivery Method Room Air 11/06/24 12:46 BMI result Body Mass Index 26.1 Assessment & Plan Assessment & Plan (1) Lumbar muscle pain: Code(s): M79.18 - Myalgia, other site Category: Medical Plan: as above (2) RUQ abdominal pain: Code(s): R10.11 - Right upper quadrant pain Category: Medical Plan: as above Orders: Orders US abdomen complete Today M79.18 - Myalgia, other site, R10.11 - Right upper quadrant pain Medications: New psyllium husk (Metamucil Fiber (aspartame)) 1 packet PO BID 44 ea 2RF Coding Level of Care Code Est Pt Level 4 (04415) Diagnoses Lumbar muscle pain M79.18 RUQ abdominal pain R10.11
[2024-11-06 12:46] VITALS: BP 122/66; PULSE 72; O2SAT 98; BMI 26.1
--- OUTSIDE RECORDS SUMMARY | 2024-11-06 14:46 | XMS_ITS | Clinical Summary ---
Author Organization [facility] Address [address] [place] [address] Care Team Providers Care Box Closing Machine Operator Name Role Phone Maira Rivero MD Primary Care Provider [phone] Allergies Active Allergy Reactions Criticality Noted Date [...] Advance Directives For more information, please contact: [phone] Latest Code Status on File Code Status Date Activated Date Inactivated Comments Full Code 11/15/2023 6:14 AM 11/16/2023 12:37 AM This code status was ascertained . Care Teams Box Closing Machine Operator Relationship Specialty Start Date End Date Maira Rivero MD [address] [place] [phone] PCP - General Adult Medicine 03/12/23
--- OUTSIDE RECORDS SUMMARY | 2024-11-06 14:46 | XMS_ITS | Encounter Summary ---
Author Organization [employer] Address [address] [place] [address] [place] [address] Care Team Providers Care Photographer Lithographic Name Role Phone Andrew Sommer MD Primary Care Prov ider Encounter Details Date Type Department Care Team (Late st Contact Info) Description 06/01/2024 Orders Only [facility] [address] [place] [address] Andrew Sommer MD [address] [place] [address] Social History Tobacco Use Types Packs/Day Years [...] on filedocumented in this encounter Care Teams Photographer Lithographic Relationship Specialty Start Date End Date Andrew Sommer MD [address] [place] [address] PCP - General Internal Medicine 11/11/23 documented as of this encounter
--- OUTSIDE RECORDS SUMMARY | 2024-11-06 14:46 | XMS_ITS | Clinical Summary ---
Author Organization [facility] Address [address] [place] [address] Care Team Providers Care Budget Record Clerk Name Role Phone Maira Rivero Primary Care Provider [phone] Allergies Active Allergy Reactions Criticality Noted Date [...] patient's age to complete this topic Insurance [facility] Care Teams Budget Record Clerk Relationship Specialty Start Date End Date Maira Rivero [address] [place], [place] [address] [address] PCP - General 05/25/23
--- OUTSIDE RECORDS SUMMARY | 2024-11-06 14:46 | XMS_ITS | Patient Health Record ---
Author Organization [facility] Address [address] [place] [id number] Care Team Providers Care Exploration Driller Name Role Phone PAYTON GUAMAN Unavailable [phone] Allergies Allergen (clinical drug ingredient) Drug/Non Drug [...] Notes Problem Full thickness rotator cuff tear ([id number]) Complete rotator cuff tear or rupture of left shoulder, not specified as traumatic (M75.122) Active confirmed Plan Of Treatment No Information Insurance Providers Payer Name Payer Address Payer Phone Subscriber Number Group Number Insured Name Patient Relationship to Insured Coverage Start Date Coverage End Date [facility] [address] [place] [address] [id number] JOSHUA CASTELLANOS Self - patient is the insured
--- OUTSIDE RECORDS SUMMARY | 2024-11-06 14:46 | XMS_ITS | Clinical Summary ---
Author Organization [employer] Address [address] [facility] [address] [place] [address] Care Team Providers Care Timber Packer Name Role Phone Andrew Sommer MD Primary [...] day. 4 Active ergocalciferol (Drisdol) 1.25 MG (76266 UT) capsule Take 1 capsule (1.25 mg) [...] Description 10/06/2024 2:30 PM EDT Office Visit [facility] [address] [place] [address] Andrew Sommer MD Pain in both hands (Primary Dx); Multiple joint pain 10/06/2024 Travel 10/04/2024 Results Follow-Up [facility] [address] [place] [address] Lorna Velazquez NP Comprehensive Metabolic Panel, POCT urinalysis dipstick manually resulted 10/02/2024 3:20 PM EDT Office Visit [facility] [address] [place] [address] Lorna Velazquez NP Rash (Primary Dx); Dark yellow-colored urine; Anxiety about health 10/02/2024 Travel 10/02/2024 Telephone [facility] [address] [place] [address] Andrew Sommer MD Nurse Triage 10/02/2024 Telephone [facility] [address] [place], [place] [phone] Andrew Sommer MD Lab Orders 08/11/2024 Orders Only [facility] [address] [place] [address] Andrew Sommer MD Multiple joint pain (Primary [...] PM EDT Narrative 10/06/2024 3:59 PM EDT [place] [address] XRay Report Signed Patient: Charlee Galindo MR#: [id number] : 1955 Acct:[id number] Age/Sex: 69 / F ADM Date: 10/06/24 Loc: PANKAJ Attending Dr: Andrew Bray MD Ordering Physician: Andrew Sommer MD Date of Service: 10/06/24 Procedure(s): XR Hand Bilat min 3v Accession Number(s): [id number] cc: Andrew Sommer MD EXAMINATION: XR HAND/WRIST, [...] 10/06/24 1556 DD/ 1538 TD/TT: 10/06/24 1548 Golf Professional: Procedure Note Donotuseinterpreter, Image - 10/06/2024 [place] [address] XRay Report Signed Patient: Charlee Galindo NMR#: [id number] : 6Acct:[id number] Age/Sex: 69 / FADM Date: 10/06/24 Loc: HO.ANTIONETTE Attending Dr: Andrew Bray MD Ordering Physician: Andrew Sommer MD Date of Service: 10/06/24 Procedure(s): XR Hand Bilat min 3v Accession Number(s): [id number] cc: Andrew Sommer MD EXAMINATION: XR HAND/WRIST, [...] 10/06/24 1556 DD/ 1538 TD/TT: 10/06/24 1548 Golf Professional: Andrew Bray MD IMG XR PROCEDURES Final Result * Cyclic Citrullinated Peptide (CCP) Antibody (IgG) (10/03/2024 8:47 AM EDT) Cyclic Citrullinated Peptide <16 UNITS [facility] Comment:Reference RangeNegat jhony: <20Weak Positive: 20-39Moderate Positive: 40-59Strong Positive: >59THIS TEST WAS PERFORMED AT:[employer] [address] [phone] RICHARDS MD Blood Venous blood specimen / Unknown 10/03/2024 8:47 AM EDT 10/03/2024 11:14 AM EDT Andrew Bray MD LAB BLOOD ORDERABL ES Final Result Performing Organization Address City/[facility] Co de Phone Number [facility] [address] [place], [place] [phone] * Sed Rate by Karina Tee (10/03/2024 8:47 AM EDT) Erythrocyte Sedimentation Rate 19 0 - 20 MM/HR [facility] Comment:Patients with polycy themia and many hemoglobin abnormalitiesmay have depressed sed rates whereas patients with anemiamay have elevated sed rates. Blood Venous blood specimen / Unknown 10/03/2024 8:47 AM EDT 10/03/2024 11:14 AM EDT Andrew Bray MD LAB BLOOD ORDERABL ES Final Result Performing Organization Address City/State/[facility] Co de Phone Number [facility] [address] [place] [phone] * (ABNORMAL) Rheumatoid Factor (10/03/2024 8:47 AM EDT) [facility] Rheumatoid Factor 314.5(H) <15.0 IU/mL [facility] Blood Venous blood specimen / Unknown 10/03/2024 8:47 AM EDT 10/03/2024 11:14 AM EDT Andrew Bray MD LAB BLOOD ORDERABL ES Final Result Performing Organization Address [facility] de Phone Number [facility] [address] [place] [phone] * C-reactive Protein (10/03/2024 8:47 AM EDT) [facility] C Reactive Protein 0.26 < or = 0.50 mg/dL [facility] Blood Venous blood specimen / Unknown 10/03/2024 8:47 AM EDT 10/03/2024 11:14 AM EDT Andrew Bray MD LAB BLOOD ORDERABL ES Final Result Performing Organization Address [facility] de Phone Number [facility] [address] [place] [phone] * (ABNORMAL) Comprehensive Metabolic Panel (10/03/2024 8:47 AM EDT) [facility] Sodium 142 135 - 145 mmol/L [facility] Potassium 4.4 3.3 - 5.1 mmol/L [facility] Chloride 109(H) 96 - 108 mmol/L [facility] Carbon Dioxide 26 22 - 29 mmol/L [facility] Anion Gap 11(L) 12 - 20 [facility] Urea Nitrogen (BUN) 13 9 - 16 mg/dL [facility] Creatinine, Serum 0.61 0.5 - 1.4 mg/dL [facility] Estimated Glomerular Filt Rate >60 [facility] Comment:Chronic Kidney Disea se: Estimated GFR < 60 mL/min/1.98d0Rbtswa Kidney Disease: Estimated GFR < 15 mL/min/1.73m2 Glucose 97 60 - 115 mg/dL [facility] Calcium 9.0 8.4 - 10.2 mg/dL [facility] Bilirubin, Total 0.5 0.0 - 1.0 mg/dL [facility] Aspartate Amino Transferase 24 5 - 31 U/L [facility] Alanine Aminotransferase 14 0 - 31 U/L [facility] Total Protein 7.2 6.5 - 8.0 g/dL [facility] Albumin Level 4.2 3.5 - 5.0 g/dL [facility] Alkaline Phosphatase 90 39 - 117 U/L [facility] Blood Venous blood specimen / Unknown 10/03/2024 8:47 AM EDT 10/03/2024 11:14 AM EDT Lorna Lofton [facility] LAB BLOOD ORDERABLES Final Resu lt [facility] [address] [place] [phone] * (ABNORMAL) POCT urinalysis dipstick manually resulted (10/02/2024 4:52 PM EDT) Color, UA [place] Clarity, UA Cloudy Glucose, UA Trace Comment:100mg/dl [...] AM EDT) Hemoglobin A1c 5.9 <6.0 % [facility] Comment:Hemoglobin A1C Refer ence Range Adults: 4.8 - 6.0 % Non diabetic: < 6.0 % Goal: < 7.0 %Additional Action Suggested: > 8.0 %Note: Hemoglobin A1c results are invalid for patients with abnormal amounts of HbF. Blood transfusions may impact the HbA1c concentration in the patient sample. Estimated Average Glucose 123 mg/dL [facility] Comment:eAG = Estimated ave rage glucose which is %A1C expressed asaverage glucose, using the formula of the Z0F-YqmjoiaAjozpts Glucose study (ADAG), Diabetes Care, Vol.31,#8,Sep. 2007 Blood Venous blood specimen / Unknown 06/28/2024 11:01 AM EDT 06/28/2024 11:01 AM EDT Andrew Bray MD LAB BLOOD ORDERABL ES Final Result [facility] [address] [place] [phone] * Lipid Panel, Standard (06/28/2024 11:01 AM EDT) Triglycerides 71 <150 mg/dL [facility] Comment:Desirable Triglyceri de: less than 150 mg/dLBorderline High Triglyceride 150-199 mg/dLHigh Triglyceride: 200-499 mg/dLVery High Triglyceride: greater than or equal to 5OO mg/dL Cholesterol 114 <200 mg/dL [facility] Comment:Desirable Cholestero l: less than 200 mg/dLBorderline High Cholesterol: 200-239 mg/dLHigh Cholesterol: greater than 239 mg/dL LDL Cholesterol Calculated 50 <100 mg/dL [facility] Comment:Desirable LDL: less than 100 mg/dLNear Optimal/Above Optimal LDL: 110- 129 mg/dLBorderline High LDL: 130-159 mg/dLHigh LDL: 160-189 mg/dLVery High LDL: greater than or equal to 190 mg/dL HDL Cholesterol 50 >40 mg/dL [facility] Comment:Desirable HDL: great er than 40 mg/dL Note: This HDL assay may give artificially low results in patients with liver disease. Blood Venous blood specimen / Unknown 06/28/2024 11:01 AM EDT 06/28/2024 11:01 AM EDT Andrew Bray MD LAB BLOOD ORDERABL ES Final Result [facility] [address] [place] [phone] [phone] * Colonoscopy (12/30/2023) Colonoscopy Normal Normal Narrative Yoana Ferreira - 12/30/2023 Repeat Colonoscopy in 1-2 years or earlier if clinically indicated Historical Provider HEALTH MAINTENANCE Final Result * BI Mammogram Diagnostic Tomosynthesis Bilateral (07/14/2023 2:34 PM EDT) Anatomical Region Laterality Modality Breast Bilateral Mammography 07/14/2023 2:34 PM EDT Narrative 07/14/2023 4:03 PM EDT [address] [place] [address] Mammography Report Signed Patient: Charlee Galindo MR#: [id number] : 1955 Acct:[id number] Age/Sex: 67 / F ADM Date: 07/14/23 Loc: HO.MAMMO Attending Dr: Racheal Vargas MD Ordering Physician: Racheal Vargas MD Results: 2Beni gn Findings Date of Service: 07/14/23 Follow Up: 1 Year From Orig inal Mammogram Procedure(s): MM tomosynthesis diagnostic BI Accession Number(s): [id number] cc: Racheal Vargas MD EXAMINATION: MM DIAGNOSTIC [...] in OV> 07/14/23 1559 DD/ 1434 TD/TT: Golf Professional: Procedure Note Donotuseinterpreter, Image - 07/14/2023 [facility] [address] [place] [address] Mammography Report Signed Patient: Charlee Galindo [facility]#: [id number] : 6Acct:[id number] Age/Sex: 67 / FADM Date: 07/14/23 Loc: HO.MAMMO Attending Dr: Racheal Vargas MD Ordering Physician: Racheal Vargas MDResults: 2Beni gn Findings Date of Service: 07/14/23Follow Up: 1 Year From Orig inal Mammogram Procedure(s): MM tomosynthesis diagnostic BI Accession Number(s): [id number] cc: Racheal Vargas MD EXAMINATION: MM DIAGNOSTIC [...] in OV> 07/14/23 1559 DD/ 1434 TD/TT: Golf Professional: us Racheal Vargas MD IMG BI PROCEDURES Final Resul t from Last 3 Months or Most Recently Relevant to Health Maintenance Insurance [facility] STAND[facility] Care Teams Timber Packer Relationship Specialty Start Date End Date Andrew Sommer MD [address] [place] [address] PCP - General Internal Medicine 11/11/23
--- OUTSIDE RECORDS SUMMARY | 2024-11-06 14:46 | XMS_ITS | Clinical Summary ---
Author Organization [facility] Address [address] [place] [address] Phone Care Team Providers Care Manager Social Media Name Role Phone Maira Rivero MD Primary Care Provider [phone] Immunizations Name Administration Dates Next Due Moderna [...] age to complete this topic Care Teams Manager Social Media Relationship Specialty Start Date End Date Maira Rivero MD [address] [place] [phone] PCP - General 03/12/23
--- OUTSIDE RECORDS SUMMARY | 2024-11-06 14:46 | XMS_ITS | Encounter Summary ---
Author Organization [employer] Address [address] [facility] [address] [address] Care Team Providers Care School Social Worker Name Role Phone Andrew Sommer MD Primary Care Prov ider Reason for Visit * Reason Onset Date Comments Nurse Triage 10/02/2024 Encounter Details Date Type Department Care Team ([facility] st Contact Info) Description 10/02/2024 Telephone [facility] CHC MED & PEDS [address] [place], [place] [phone] Andrew Sommer MD [address] [place], [place] [phone] Nurse Triage Social History Tobacco Use Types [...] EDT Triage call Pt requests to have adjusto writer operator speak with daughter, Anita. Daughter reports when mother returned from [facility] to [facility] 09/20/24 Pt had a rash which started [...] caller accepted this outcome. Contact daughter at [phone] documented in this encounter Plan of Treatment Not on file documented as of this encounter Visit Diagnoses Not on filedocumented in this encounter Care Teams School Social Worker Relationship Specialty Start Date End Date Andrew Sommer MD [address] [place] [address] PCP - General Internal Medicine 11/11/23 documented as of this encounter
--- OUTSIDE RECORDS SUMMARY | 2024-11-06 14:46 | XMS_ITS | Encounter Summary ---
Author Organization [employer] Address 75 [facility] 7[place], [place] [address] Care Team Providers Care Hadoop Architect Name Role Phone Andrew Sommer MD Primary Care Prov ider Reason for Visit * Reason Onset Date Comments Lab Orders 10/02/2024 Encounter Details Date Type Department Care Team ([facility] st Contact Info) Description 10/02/2024 Telephone [facility] CHC MED & PEDS [address] [place], [place] [phone] Andrew Sommer MD [address] [place], [place] [phone] Lab Orders Social History Tobacco Use Types [...] encounter Miscellaneous Notes * Telephone Encounter - Deloi Seymour - 10/02/2024 11:07 AM EDT Tc from pt daughter requesting a Blood work test focused on Liver and kidneys due to mom taking a test back in trip and coming out abnormal. Contact pt at [phone] documented in this encounter Plan of Treatment Not on file documented as of this encounter Visit Diagnoses Not on filedocumented in this encounter Care Teams Hadoop Architect Relationship Specialty Start Date End Date Andrew Sommer MD [address] [place] [id number] PCP - General Internal Medicine 11/11/23 documented as of this encounter
--- OUTSIDE RECORDS SUMMARY | 2024-11-06 14:46 | XMS_ITS | Encounter Summary ---
Author Organization [employer] Address [address] [place] [address] Care Team Providers Care Six Sigma Black Trainer Name Role Phone Andrew Sommer MD Primary Care Prov ider Reason for Visit * Reason Onset Date Comments Appointment Request 06/07/2024 Encounter Details Date Type Department Care Team (Late st Contact Info) Description 06/07/2024 Telephone [facility] MEDICINE [address] [place] [address] Andrew Sommer MD [address] [place] [address] Appointment Request Social History Tobacco Use Types [...] on filedocumented in this encounter Care Teams Six Sigma Black Trainer Relationship Specialty Start Date End Date WhitfieldAndrew Cedeño MD [address] [place] [address] PCP - General Internal Medicine 11/11/23 documented as of this encounter
== END 2024-11-06 13:29 | disposition home or self-care (01) ==
LOC: HO.HGI 12:28
PROVIDERS: PCP Internal Medicine; Visit Provider Internal Medicine Gastroenterology
DX: M79.18 Myalgia, other site (principal); R10.11 Right upper quadrant pain
CPT/HCPCS: 99214

== ENCOUNTER 2024-11-06 14:21 | Outpatient (AMB) | payer MEDICAID, SELFPAY ==
[2024-11-06 14:22] VITALS: BP 120/62; PULSE 72; O2SAT 98
--- NOTE | 2024-11-06 14:22 | MHC.OFFWIV ---
Intake Vital Signs 11/06/24 14:22 Height 5 ft 4 in BP 120/62 Blood Pressure Location Lt brachial Position Sitting Pulse 72 Pulse Source Pulse Oximeter Pulse Oximetry (%) 98 Intake Visit Reasons: MATERIALS PLANNER-rt eye issue Intake Note: pt is here for right eye concerns, patient states there is some pain and she feels her eyesight has been changing Patient Tobacco Use Status: Never used Tobacco Allergies paraben Allergy (Severe, Verified 11/06/24 14:23) urticaria Sulfa (Sulfonamide Antibiotics) (SULFA (SULFONAMIDE ANTIBIOTICS)) Allergy (Mild, Verified 11/06/24 14:23) HIVES sulfacetamide Allergy (Unknown, Verified 11/06/24 14:23) hives sulfur Allergy (Unknown, Verified 11/06/24 14:23) hives Latex, Natural Rubber Adverse Reaction (Verified 11/06/24 14:23) Unknown Do you need a note to return to daycare/school/sports/work: No HPI HPI Comments History of Present Illness Details History of Present Illness - The patient is a 69-year-old female presenting with a bubble in the right eye . - She reports a bubble in her right eye noticed upon waking up yesterday morning, moving across the eye and resembling a hair or bubble. - The patient denies any recent trauma to the eye and experiences new ocular pain in the right eye. 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 - She denies blurry or double vision, trauma, discharge, or tearing. Physical Exam General: Cooperative, healthy appearing, comfortable, no acute distress and well developed Orientation: Patient oriented x3 Limitations: No limitations Head: Normal to inspection Face and sinus: Normal facial exam Eyes: Appearance normal, both eyes and all related structures. PERRLA. EOMI. No infection, pimple, mass, or abnormalities on the cornea or sclera observed Respiratory: Normal respiratory effort and able to speak in complete sentences. Clear to auscultation bilaterally Cardiovascular: Regular rate and rhythm. Normal S1 and S2 Skin: No rashes or lesions noted Patient was informed and verbally consented to the use of an ambient scribe for clinic note documentation during this visit. [facility] Medical History HTN (hypertension) Bleeding hemorrhoids Takotsubo cardiomyopathy Hypercholesterolemia Surgical History History of hemorrhoidectomy Hx of cardiac cath History of cataract surgery Family History Mother No problems noted. Father No problems noted. Father CVD (cardiovascular disease) Mother CVD (cardiovascular disease) Social History Household Members: Family Housing: House Do you presently have visiting nurse or other home services: No Alcohol intake: never Patient Tobacco Use Status: Never used Tobacco service: No Current occupational status: retired Review of Systems Const All systems reviewed & are unremarkable except as noted in HPI and below Physical Exam Vital Signs: Last Vital Signs Pulse 72 11/06/24 14:22 BP 120/62 11/06/24 14:22 Pulse Ox 98 11/06/24 14:22 Assessment & Plan Assessment & Plan (1) Eye problem: Code(s): H57.9 - Unspecified disorder of eye and adnexa Plan Most likely Vitreous Floater In The Right Eye vs FB vs corneal abrasion vs chemosis vs retinal detachment plan - Referral to an finishing inspector for a comprehensive eye examination with specialized equipment. - The patient was advised to inquire for a referral list of eye doctors who accept her insurance. - No immediate intervention was performed at urgent care; advised to follow up with an finishing inspector. Coding Level of Care Code Est Pt Level 3 (66308) Diagnoses Eye problem H57.9
== END 2024-11-06 15:21 | disposition home or self-care (01) ==
PROVIDERS: PCP Internal Medicine; Visit Provider Physician Assistant Medical
DX: H57.9 Unspecified disorder of eye and adnexa (principal)

== ENCOUNTER 2024-12-29 10:52 | Outpatient (REF) | payer MEDICAID, SELFPAY ==
--- NOTE | ~2024-12-29 | US_ITS ---
CLINICAL HISTORY: M79.18 - Myalgia, other site,ruq pain,upper abd tenderness --- Additional Notes or Special Instructions: left loin pain, and upper abdo tenderness US abdomen complete Comparison: US/LA/SR - US ABDOMEN COMPLETE - 01/21/24 11:[address]/REG/SR - CT ABDOMEN PELVIS WITHOUT IV CONTRAST - 07/11/22 20:09 EDT Findings: The majority of the pancreas is obscured by overlying bowel gas. The aorta and inferior vena cava are normal caliber. The liver is normal in size and echotexture. There is no intrahepatic bile duct dilatation. The common duct is 4 mm in diameter. The gallbladder is normal. There is no sonographic Edwards sign. The main portal vein is antegrade. The right kidney is 10.1 cm in length. Mild fullness of the right collecting system. The left kidney is 8.0 cm in length. The spleen is normal. No ascites. IMPRESSION: Technically difficult exam due to overlying bowel gas. Mild fullness of the right collecting system. Otherwise, normal abdominal ultrasound. This document has been electronically signed by: Herlinda Rios MD on 12/29/2024 20:09:00
--- OUTSIDE RECORDS SUMMARY | 2024-12-29 12:22 | XMS_ITS | Encounter Summary ---
Author Organization [employer] Address [address] [place] [address] [address] Care Team Providers Care Research Analyst Name Role Phone Andrew Sommer MD Primary Care Prov ider Encounter Details Date Type Department Care Team (Late st Contact Info) Description 06/01/2024 Orders Only [facility] MED & PEDS [address] [place] [address] Andrew Sommer MD [address] [place] [address] Social History Tobacco Use Types Packs/Day Years Used Date Smoking Tobacco: Never Smokeless Tobacco: Never Comments Unknown Sex and Gender Information Value Date Recorded Sex Assigned at Female 12/29/2021 10:39 AM EDT Legal Sex Female 10:39 AM EDT Gender Identity Female 12/29/2021 10:39 AM EDT Sexual Orientation Straight 12/29/2021 10 :39 AM EDT documented as of this encounter Plan of Treatment Upcoming Encounters Date Type Department Care Team (Late st Contact Info) Description 01/01/2025 1:30 PM EST Telemedicine [facility] MED & PEDS [address] [place] [address] Andrew Sommer MD [address] [place] [address] documented as of this encounter Visit Diagnoses Not on filedocumented in this encounter Care Teams Research Analyst Relationship Specialty Start Date End Date WhitfieldAndrew Cedeño MD [address] [place] [address] PCP - General Internal Medicine 11/11/23 documented as of this encounter
--- OUTSIDE RECORDS SUMMARY | 2024-12-29 12:22 | XMS_ITS | Encounter Summary ---
Author Organization [employer] Address [address] [address] Care Team Providers Care Pt Skilled Name Role Phone Andrew Sommer MD Primary Care Prov ider Reason for Visit * Reason Onset Date Comments Appointment Request 06/07/2024 Encounter Details Date Type Department Care Team (Late st Contact Info) Description 06/07/2024 Telephone [facility] MEDICINE [address] [place] [address] Andrew Sommer MD [address] [place] [address] Appointment Request Social History Tobacco Use Types [...] Info) Description 01/01/2025 1:30 PM EST Telemedicine [facility] CHC MED & PEDS [address] [place] [address] Andrew Sommer MD [address] [place] [address] documented as of this encounter Visit Diagnoses Not on filedocumented in this encounter Care Teams Pt Skilled Relationship Specialty Start Date End Date Andrew Sommer MD [address] [place] [address] PCP - General Internal Medicine 11/11/23 documented as of this encounter
--- OUTSIDE RECORDS SUMMARY | 2024-12-29 12:22 | XMS_ITS | Clinical Summary ---
Author Organization [facility] Address [address] [place] [address] Care Team Providers Care Envelope Adjuster Name Role Phone Maira Rivero Primary Care Provider [phone] Allergies Active Allergy Reactions Criticality Noted Date [...] patient's age to complete this topic Insurance [facility] Care Teams Envelope Adjuster Relationship Specialty Start Date End Date Maira Rivero [address] [place], [place] [address] [address] PCP - General 05/25/23
--- OUTSIDE RECORDS SUMMARY | 2024-12-29 12:22 | XMS_ITS | Encounter Summary ---
Author Organization [employer] Address 75 [facility] 7 [place] [address] Care Team Providers Care Chain Mortiser Operator Name Role Phone Andrew Sommer MD Primary Care Prov ider Reason for Visit * Reason Onset Date Comments Nurse Triage 12/28/2024 Encounter Details Date Type Department Care Team (Late st Contact Info) Description 12/28/2024 Telephone [facility] MEDICINE [address] [place] [address] Andrew Sommer MD [address] [place] [address] Nurse Triage Social History Tobacco Use Types [...] encounter Miscellaneous Notes * Telephone Encounter - Marlee Delong RN - 12/28/2024 3:57 PM EDT TC placed to pt and pt's daughter for triage. Spoke with pt's daughter (on HIPAA). Pt's daughter reports pt has been experiencing a dull, aching pain in lower back x 3-4 months. Pt's pain has worsened over the last week and has turned into a sharp pain rated at 9/10 and is radiating down left leg. Pt's daughter states the pt is reporting that it is uncomfortable and is complaining of numbness andweakness of the leg. Pt's daughter reports pt is walking as normal but is uncomfortable. Pt's daughter denies pain or burning with urination, blood in urine, nausea, vomiting, fever, dragging of foot/leg, inability to bear weight on foot/leg. Advised pt's daughter no availability at [facility] or [facility] today. Advised pt's daughter to bring pt to urgent care or ED for evaluation today. Pt's daughter verbalized understanding. Pt's daughter requesting follow up with PCP for pain and hearing aids. Pt's daughter states pt dropped form off to [facility] for hearing aids over three weeks ago and they have not heardback. Pt's daughter placed on hold and TC placed to Silvia Weir [facility] Kaila. No answer. TC placed Michele [facility] Forms. Genie states Silvia is the one who handles [facility] and can return call to pt's daughter as they are not available at this time. MRN and pt name provided to Genie and Genie states they will let Silvia know to follow up with them. Advised pt's daughter of forms department message. Pt's daughter verbalized understanding. Pt's daughter still requesting follow up with PCP regarding pt's pain. Pt booked with PCP for telehealth visit on 01/01/25. Pt's daughter reports they will bring pt to urgent care today and will follow up with PCP at telehealth appointment. Message forwardedto Silvia Weir as an FYI for follow up. Protocol Used: Back Pain (Adult) Protocol-Based Disposition: See in Office or Video Visit Today Video visit offer not recorded Positive Triage Questions: * Severe back pain (e.g., excruciating, unable to do any normal activities) and not improved after pain medicine and Care Advice * Numbness in a leg or foot (i.e., loss of sensation) * Pain radiates into the thigh or further down the leg * Back pain lasts > 2 weeks * Back pain is a chronic symptom (recurrent or ongoing AND lasting > 4 weeks) * All higher-acuity triage questions were negative Care Advice Discussed: * Reasons To Call Back - Severe pain not better after taking pain medicines - Moderate pain (interferes with normal activities) lasts over 3 days - Pain begins to shoot into the leg - Pain lasts over 2 weeks - Fever occurs - Numbness or weakness occurs - Loss of control of your bladder or bowel - You become worse * Telephone Encounter - Luís Erick - 12/28/2024 3:31 PM EDT Symptom: Leg Pain - Not From Injury Outcome: Schedule an urgent appointment (within 1 hour) or talk to a nurse or provider soon Reason: Trouble walking Please contact daughter/pt at [phone]. documented in this encounter Plan of Treatment Upcoming Encounters Date Type Department Care Team ([facility] st Contact Info) Description 01/01/2025 1:30 PM EST Telemedicine [facility] MED & PEDS [address] [place] [address] Andrew Sommer MD [address] [place] [address] documented as of this encounter Visit Diagnoses Not on filedocumented in this encounter Care Teams Chain Mortiser Operator Relationship Specialty Start Date End Date Andrew Sommer MD [address] [place] [address] PCP - General Internal Medicine 11/11/23 documented as of this encounter
--- OUTSIDE RECORDS SUMMARY | 2024-12-29 12:22 | XMS_ITS | Clinical Summary ---
Author Organization [facility] Address [address] [place] [address] Phone Care Team Providers Care Main Line Station Engineer Name Role Phone Maira Rivero MD Primary Care Provider Immunizations Immunization Administration Dates Next Due Moderna SARS-CoV-2 COVID-19, [...] Last Done Comments Breast Cancer Screening 1955 Colorectal Cancer Screening: Colonoscopy 1955 DTaP,Tdap,and Td Vaccines (1 - Tdap) 08/29/1974 Pneumococcal Vaccine: 50+ Years (1 of 1 - PCV) 08/29/2005 Zoster Vaccines (1 of 2) 08/29/2005 Cholesterol Screening (Lipid Panel) 03/26/2023 Falls Risk Assessment 03/26/2023 Hepatitis C [...] age to complete this topic Care Teams Main Line Station Engineer Relationship Specialty Start Date End Date Maira Rivero MD [address] [place] [address] PCP - General 03/12/23
--- OUTSIDE RECORDS SUMMARY | 2024-12-29 12:22 | XMS_ITS | Patient Health Record ---
Author Organization [facility] F UTILITY SALES REPRESENTATIVE [facility] Address [address] [place] [id number] Care Team Providers Care Hat Finishing Materials Preparer Name Role Phone PAYTON GUAMAN Unavailable [phone] Allergies Allergen (clinical drug ingredient) Drug/Non Drug [...] Notes Problem Full thickness rotator cuff tear ([id number]) Complete rotator cuff tear or rupture of left shoulder, not specified as traumatic (M75.122) Active confirmed Plan Of Treatment No Information Insurance Providers Payer Name Payer Address Payer Phone Subscriber Number Group Number Insured Name Patient Relationship to Insured Coverage Start Date Coverage End Date [facility] [address] [place] [address] [id number] JOSHUA CASTELLANOS Self - patient is the insured
--- OUTSIDE RECORDS SUMMARY | 2024-12-29 12:22 | XMS_ITS | Clinical Summary ---
Author Organization [facility] Address [address] [place] [address] Care Team Providers Care Flasher Adjuster Name Role Phone Maira Rivero MD Primary Care Provider [phone] Allergies Active Allergy Reactions Criticality Noted Date [...] Advance Directives For more information, please contact: [phone] Latest Code Status on File Code Status Date Activated Date Inactivated Comments Full Code 11/15/2023 6:14 AM 11/16/2023 12:37 AM This code status was ascertained . Care Teams Flasher Adjuster Relationship Specialty Start Date End Date Maira Rivero MD [address] [place] [phone] PCP - General Adult Medicine 03/12/23
--- OUTSIDE RECORDS SUMMARY | 2024-12-29 12:22 | XMS_ITS | Encounter Summary ---
Author Organization [employer] Address 75 [facility] 7 [place] [address] Care Team Providers Care Central Supply Nurse Name Role Phone Andrew Sommer MD Primary Care Prov ider Reason for Visit * Reason Onset Date Comments Nurse Triage 10/02/2024 Encounter Details Date Type Department Care Team ([facility] st Contact Info) Description 10/02/2024 Telephone [facility] CHC MED & PEDS [address] [place], [place] [phone] Andrew Sommer MD [address] [place], [place] [phone] Nurse Triage Social History Tobacco Use Types [...] EDT Triage call Pt requests to have service writer advisor speak with daughter, Anita. Daughter reports when mother returned from [facility] to [facility] 09/20/24 Pt had a rash which started [...] caller accepted this outcome. Contact daughter at [phone] documented in this encounter Plan of Treatment Upcoming Encounters Date Type Department Care Team ([facility] st Contact Info) Description 01/01/2025 1:30 PM EST Telemedicine [facility] MED & PEDS [address] [place] [address] Andrew Sommer MD [address] [place] [address] documented as of this encounter Visit Diagnoses Not on filedocumented in this encounter Care Teams Central Supply Nurse Relationship Specialty Start Date End Date Andrew Sommer MD [address] [place] [address] PCP - General Internal Medicine 11/11/23 documented as of this encounter
--- OUTSIDE RECORDS SUMMARY | 2024-12-29 12:22 | XMS_ITS | Encounter Summary ---
Author Organization [employer] Address 75 [facility] 7 [place] [address] Care Team Providers Care Bar Welder Name Role Phone Andrew Sommer MD Primary Care Prov ider Reason for Visit * Reason Onset Date Comments Lab Orders 10/02/2024 Encounter Details Date Type Department Care Team ([facility] st Contact Info) Description 10/02/2024 Telephone [facility] CHC MED & PEDS [address] [place], [place] [phone] Andrew Sommer MD [address] [place], [place] [phone] Lab Orders Social History Tobacco Use Types [...] and coming out abnormal. Contact pt at [phone] documented in this encounter Plan of Treatment Upcoming Encounters Date Type Department Care Team (Late st Contact Info) Description 01/01/2025 1:30 PM EST Telemedicine [facility] CHC MED & PEDS [address] [place] [address] Andrew Sommer MD [address] [place] [address] documented as of this encounter Visit Diagnoses Not on filedocumented in this encounter Care Teams Bar Welder Relationship Specialty Start Date End Date Andrew Sommer MD [address] [place] [address] PCP - General Internal Medicine 11/11/23 documented as of this encounter
--- OUTSIDE RECORDS SUMMARY | 2024-12-29 12:22 | XMS_ITS | Clinical Summary ---
Author Organization [employer] Address [address] [facility] 7[address] [place] [address] Care Team Providers Care Fence Setter Name Role Phone Andrew Sommer MD Primary [...] day. 4 Active ergocalciferol (Drisdol) 1.25 MG (80324 UT) capsule Take 1 capsule (1.25 mg) [...] Encounters Date Type Department Care Team Description 12/28/[address] [facility] [address] [place] [phone] Andrew Sommer MD Nurse Triage 11/06/2024 Orders Only GENERIC EXTERNAL DATA DEPARTMENT Provider, Generic External Data 11/06/[address] [facility] [address] [place] [address] Andrew Sommer MD ER Follow-up 10/06/2024 2:30 PM EDT Office Visit [facility] PED[facility] [address] [place] [address] Andrew Sommer MD Pain in both hands (Primary Dx); Multiple joint pain 10/06/2024 Travel 10/04/2024 Results Follow-Up [facility] [address] [place] [address] Lorna Velazquez NP Comprehensive Metabolic Panel, POCT urinalysis dipstick manually resulted 10/02/2024 3:20 PM EDT Office Visit [facility] [address] [place], [place] [phone] Lorna Velazquez NP Rash (Primary Dx); Dark yellow-colored urine; Anxiety about health 10/02/2024 Travel 10/02/2024 Telephone [facility] [address] [place] [address] Andrew Sommer MD Nurse Triage 10/02/2024 Telephone [facility] [address] [place] [address] Andrew Sommer MD Lab Orders from Last 3 Months Social History Tobacco [...] 10/06/2024 2:28 PM EDT Plan of Treatment Upcoming Encounters Date Type Department Care Team (Late st Contact Info) Description 01/01/2025 1:30 PM EST Telemedicine [facility] [address] [place] [address] Andrew Sommer MD [address] [place] [address] Health Maintenance Due Date Last Done Comments [...] 1-dose series) 2015 COVID-19 Vaccine (4 - 2024-2 6 season) 2024 09/22/2021, 04/27/2020, 03/30/2020 Influenza [...] Procedure Name Priority Date/Time Associated Diagnosis Comments HELICOBACTER PYLORI, UREA BREATH TEST Routine 11/06/2024 1:19 PM EDT XR HAND 3+ VIEWS BILATERAL Routine 10/06/2024 [...] Recently Relevant to Health Maintenance Results * Helicobacter pylori, Urea Breath Test (11/06/2024 1:19 PM EDT) H. pylori Breath Test Negative Negative [facility] Comment:Antimicrobials, prot on pump inhibitors and bismuthpreparations are known to suppress H. pylori. Ingestingthese medications within two weeks prior to performing thebreath test may produce negative test results. A positiveresult is still clinically valid. 11/06/2024 1:19 PM EDT 11/07/2024 3:57 PM EDT us Generic External Data Provider LAB BODY FLUIDS A ND STOOLS ORDERABLES Final Result [facility] [address] [place] [phone] * XR Hand 3+Views Bilateral (10/06/2024 3:38 PM EDT) Anatomical Region Laterality Modality Upper Extremities, Hand Bilateral Radiogra phic Imaging 10/06/2024 3:38 PM EDT Narrative 10/06/2024 3:59 PM EDT [address] [address] XRay Report Signed Patient: Charlee Galindo MR#: [id number] : 1955 Acct:[id number] Age/Sex: 69 / F ADM Date: 10/06/24 Loc: PANKAJ Attending Dr: Andrew Bray MD Ordering Physician: Andrew Sommer MD Date of Service: 10/06/24 Procedure(s): XR Hand Bilat min 3v Accession Number(s): [id number] cc: Andrew Sommer MD EXAMINATION: XR HAND/WRIST, [...] Zhou MD in OV> 10/06/24 1556 DD/ 153 TD/TT: 10/06/241547 Ring Cutter Lathe Operator: Procedure Note Donlanetteter, Image - 10/06/2024 [place] [address] XRay Report Signed Patient: Charlee Galindo NMR#: [id number] : 1955cct:[id number] Age/Sex: 69 / FADM Date: 10/06/24 Loc: HO.XRAY Attending Dr: Andrew Bray MD Ordering Physician: Andrew Sommer MD Date of Service: 10/06/24 Procedure(s): XR Hand Bilat min 3v Accession Number(s): [id number] cc: Andrew Sommer MD EXAMINATION: XR HAND/WRIST, [...] in OV> 10/06/24 1556 DD/ 1538 TD/TT: 10/06/241547 Ring Cutter Lathe Operator: us Andrew Bray MD IMG XR PROCEDURES Final Result * Cyclic Citrullinated Peptide (CCP) Antibody (IgG) (10/03/2024 8:47 AM EDT) Cyclic Citrullinated Peptide <16 UNITS [facility] Comment:Reference RangeNegat jhony: <20Weak Positive: 20-39Moderate Positive: 40-59Strong Positive: >59THIS TEST WAS PERFORMED AT:[facility] [address] [phone] RICHARDS MD Blood Venous blood specimen / Unknown 10/03/2024 8:47 AM EDT 10/03/2024 11:14 AM EDT Andrew Bray MD LAB BLOOD ORDERABL ES Final Result Performing Organization Address [facility]/ZIP Co de Phone Number [facility] [address] [place] [phone] * Sed Rate by Karina Tee (10/03/2024 8:47 AM EDT) Pathologist [facility] Erythrocyte Sedimentation Rate 19 0 - 20 MM/HR [facility] Comment:Patients with polycy themia and many hemoglobin abnormalitiesmay have depressed sed rates whereas patients with anemiamay have elevated sed rates. Blood Venous blood specimen / Unknown 10/03/2024 8:47 AM EDT 10/03/2024 11:14 AM EDT us Andrew Bray MD LAB BLOOD ORDERABL ES Final Result Performing Organization Address [facility]/ZIP Co de Phone Number [facility] [address] [place] [phone] * (ABNORMAL) Rheumatoid Factor (10/03/2024 8:47 AM EDT) Pathologist [facility] Rheumatoid Factor 314.5(H) <15.0 IU/mL [facility] Blood Venous blood specimen / Unknown 10/03/2024 8:47 AM EDT 10/03/2024 11:14 AM EDT Andrew Bray MD LAB BLOOD ORDERABL ES Final Result Performing Organization Address [facility]/ZIP Co de Phone Number [facility] [address] [place] [phone] * C-reactive Protein (10/03/2024 8:47 AM EDT) C Reactive Protein 0.26 < or = 0.50 mg/dL [facility] Blood Venous blood specimen / Unknown 10/03/2024 8:47 AM EDT 10/03/2024 11:14 AM EDT Andrew Bray MD LAB BLOOD ORDERABL ES Final Result Performing Organization Address [facility] Phone Number [facility] [address] [place] [phone] * (ABNORMAL) Comprehensive Metabolic Panel (10/03/2024 8:47 AM EDT) Sodium 142 135 - 145 mmol/L [facility] Potassium 4.4 3.3 - 5.1 mmol/L [facility] Chloride 109(H) 96 - 108 mmol/L [facility] Carbon Dioxide 26 22 - 29 mmol/L [facility] Anion Gap 11(L) 12 - 20 [facility] Urea Nitrogen (BUN) 13 9 - 16 mg/dL [facility] Creatinine, Serum 0.61 0.5 - 1.4 mg/dL [facility] Estimated Glomerular Filt Rate >60 [facility] Comment:Chronic Kidney Disea se: Estimated GFR < 60 mL/min/1.78n8Otbgrc Kidney Disease: Estimated GFR < 15 mL/min/1.73m2 Glucose 97 60 - 115 mg/dL [facility] Calcium 9.0 8.4 - 10.2 mg/dL [facility] Bilirubin, Total 0.5 0.0 - 1.0 mg/dL [facility] Aspartate Amino Transferase 24 5 - 31 U/L [facility] Alanine Aminotransferase 14 0 - 31 U/L [facility] Total Protein 7.2 6.5 - 8.0 g/dL [facility] Albumin Level 4.2 3.5 - 5.0 g/dL [facility] Alkaline Phosphatase 90 39 - 117 U/L [facility] Blood Venous blood specimen / Unknown 10/03/2024 8:47 AM EDT 10/03/2024 11:14 AM EDT Lorna Velazquez [employer] AG[employer] PRINCIPAL LAB BLOOD ORDERABLES Final Resu lt [facility] [address] [place] [phone] * (ABNORMAL) POCT urinalysis dipstick manually resulted (10/02/2024 4:52 PM EDT) Color, UA Norman Clarity, UA Cloudy Glucose, UA Trace Comment:100mg/dl [...] AM EDT) Hemoglobin A1c 5.9 <6.0 % [facility] Comment:Hemoglobin A1C Refer ence Range Adults: 4.8 - 6.0 % Non diabetic: < 6.0 % Goal: < 7.0 %Additional Action Suggested: > 8.0 %Note: Hemoglobin A1c results are invalid for patients with abnormal amounts of HbF. Blood transfusions may impact the HbA1c concentration in the patient sample. Estimated Average Glucose 123 mg/dL [facility] Comment:eAG = Estimated ave rage glucose which is %A1C expressed asaverage glucose, using the formula of the V8B-NjyjkytLumorzt Glucose study (ADAG), Diabetes Care, Vol.31,#8,Sep. 2007 Blood Venous blood specimen / Unknown 06/28/2024 11:01 AM EDT 06/28/2024 11:01 AM EDT us Andrew Bray MD LAB BLOOD ORDERABL ES Final Result [facility] [address] [place] [phone] * Lipid Panel, Standard (06/28/2024 11:01 AM EDT) Triglycerides 71 <150 mg/dL [facility] Comment:Desirable Triglyceri de: less than 150 mg/dLBorderline High Triglyceride 150-199 mg/dLHigh Triglyceride: 200-499 mg/dLVery High Triglyceride: greater than or equal to 5OO mg/dL Cholesterol 114 <200 mg/dL [facility] Comment:Desirable Cholestero l: less than 200 mg/dLBorderline High Cholesterol: 200-239 mg/dLHigh Cholesterol: greater than 239 mg/dL LDL Cholesterol Calculated 50 <100 mg/dL [facility] Comment:Desirable LDL: less than 100 mg/dLNear Optimal/Above Optimal LDL: 110- 129 mg/dLBorderline High LDL: 130-159 mg/dLHigh LDL: 160-189 mg/dLVery High LDL: greater than or equal to 190 mg/dL HDL Cholesterol 50 >40 mg/dL [facility] Comment:Desirable HDL: great er than 40 mg/dL Note: This HDL assay may give artificially low results in patients with liver disease. Blood Venous blood specimen / Unknown 06/28/2024 11:01 AM EDT 06/28/2024 11:01 AM EDT us Andrew Bray MD LAB BLOOD ORDERABL ES Final Result [facility] [address] [place] [phone] * Hm Colonoscopy (12/30/2023) Colonoscopy Normal Normal Narrative Yoana Ferreira - 12/30/2023 Repeat Colonoscopy in 1-2 years or earlier if clinically indicated us Historical Provider HEALTH MAINTENANCE Final Result * BI Mammogram Diagnostic Tomosynthesis Bilateral (07/14/2023 2:34 PM EDT) Anatomical Region Laterality Modality Breast Bilateral Mammography 07/14/2023 2:34 PM EDT Narrative 07/14/2023 4:03 PM EDT [address] [place] [address] Mammography Report Signed Patient: Charlee Galindo MR#: [id number] : 1955 Acct:[id number] Age/Sex: 67 / F ADM Date: 07/14/23 Loc: HO.MAMMO Attending Dr: Racheal Vargas MD Ordering Physician: Racheal Vargas MD Results: 2Beni gn Findings Date of Service: 07/14/23 Follow Up: 1 Year From Orig ina Mammogram Procedure(s): MM tomosynthesis diagnostic BI Accession Number(s): [id number] cc: Racheal Vargas MD EXAMINATION: MM DIAGNOSTIC [...] in OV> 07/14/23 1559 DD/ 1434 TD/TT: Ring Cutter Lathe Operator: Procedure Note Donotuseinterpreter, Image - 07/14/2023 [facility] [address] [place] [address] Mammography Report Signed Patient: Charlee Galindo [facility]#: [id number] : 6Acct:[id number] Age/Sex: 67 / FADM Date: 07/14/23 Loc: HO.MAMMO Attending Dr: Racheal Vargas MD Ordering Physician: Racheal Vargas MDResults: 2Beni gn Findings Date of Service: 07/14/23Follow Up: 1 Year From Orig ina Mammogram Procedure(s): MM tomosynthesis diagnostic BI Accession Number(s): [id number] cc: Racheal Vargas MD EXAMINATION: MM DIAGNOSTIC [...] in OV> 07/14/23 1559 DD/ 1434 TD/TT: Ring Cutter Lathe Operator: us Racheal Vargas MD IMG BI PROCEDURES Final Resul t from Last 3 Months or Most Recently Relevant to Health Maintenance Insurance [facility] STAND[facility] Care Teams Fence Setter Relationship Specialty Start Date End Date Andrew Sommer MD [address] [place] [address] PCP - General Internal Medicine 11/11/23
== END 2024-12-29 10:53 | disposition home or self-care (01) ==
LOC: HO.US 10:52
PROVIDERS: Visit Provider Internal Medicine Gastroenterology
DX: M79.18 Myalgia, other site (principal); R10.11 Right upper quadrant pain
CPT/HCPCS: 76700

== ENCOUNTER → 2024-12-29 10:55 | Outpatient (BNV) | payer MEDICAID, SELFPAY | PROVIDERS: Visit Provider Student in an Organized Health Care Education/Training Program | DX: M79.18 Myalgia, other site (principal); R10.32 Left lower quadrant pain | CPT/HCPCS: 76700 ==

== ENCOUNTER 2025-01-11 08:53 | Outpatient (REF) | payer MEDICAID, SELFPAY ==
--- OUTSIDE RECORDS SUMMARY | 2025-01-11 09:34 | XMS_ITS | Patient Health Record ---
Author Organization [facility] OR FIRST ASSIST REGISTERED [facility] Address [address] [place] [phone] Care Team Providers Care Hydrogen Power Plant Engineer Name Role Phone PAYTON GUAMAN Unavailable [phone] Allergies Allergen (clinical drug ingredient) Drug/Non Drug [...] Notes Problem Full thickness rotator cuff tear (198816032) Complete rotator cuff tear or rupture of left shoulder, not specified as traumatic (M75.122) Active confirmed Plan Of Treatment No Information Insurance Providers Payer Name Payer Address Payer Phone Subscriber Number Group Number Insured Name Patient Relationship to Insured Coverage Start Date Coverage End Date [facility] [address] [place] [address] [id number] JOSHUA CASTELLANOS Self - patient is the insured
--- OUTSIDE RECORDS SUMMARY | 2025-01-11 09:34 | XMS_ITS | Encounter Summary ---
Author Organization [employer] Address [address] [place] [address] Care Team Providers Care Boilermaker Name Role Phone Andrew Sommer MD Primary Care Prov ider Encounter Details Date Type Department Care Team (Late st Contact Info) Description 06/01/2024 Orders Only [facility] [address] [place] [address] Andrew Sommer MD [address] [place] [address] Social History Tobacco Use Types Packs/Day Years [...] on filedocumented in this encounter Care Teams Boilermaker Relationship Specialty Start Date End Date Andrew Sommer MD [address] [place] [address] PCP - General Internal Medicine 11/11/23 documented as of this encounter
--- OUTSIDE RECORDS SUMMARY | 2025-01-11 09:34 | XMS_ITS | Encounter Summary ---
Author Organization [employer] Address [address] [address] Care Team Providers Care Finishing Supervisor Plastic Sheets Name Role Phone Andrew Sommer MD Primary Care Prov ider Reason for Visit * Reason Onset Date Comments Appointment Request 06/07/2024 Encounter Details Date Type Department Care Team (Late st Contact Info) Description 06/07/2024 Telephone [facility] [address] [place] [address] Andrew Sommer MD [address] [place] [address] Appointment Request Social History Tobacco Use Types [...] on filedocumented in this encounter Care Teams Finishing Supervisor Plastic Sheets Relationship Specialty Start Date End Date WhitfieldAndrew Cedeño MD [address] [place] [phone] PCP - General Internal Medicine 11/11/23 documented as of this encounter
--- OUTSIDE RECORDS SUMMARY | 2025-01-11 09:34 | XMS_ITS | Clinical Summary ---
Author Organization [employer] Address [address] [facility] 7t [place] [address] Care Team Providers Care Comfort Advisor Name Role Phone Andrew Sommer MD Primary [...] day. 4 Active ergocalciferol (Drisdol) 1.25 MG (15338 UT) capsule Take 1 capsule (1.25 mg) [...] 90 capsule 3 5 06/28/19 26 Active cyclobenzaprine (Flexeril) 10 MG tablet Take 1 tablet (10 mg) by mouth 3 times daily for 10 days. 30 tablet 5 Active traMADol (Ultram) 50 MG tabletIndicatio ns:Acute left-sided low back pain with left-sided sciatica Take 1 tablet (50 mg) by mouth every 8 (eight) hours if needed for severe pain for up to 5 days. 15 tablet 5 01/07/20 25 Active Problems Problem Noted Date Diagnosed Date Chronic bronchitis, unspecif ied chronic bronchitis type (CMS/HCC) 01/01/2025 Acute left-sided low back pain with left-sided s ciatica 01/01/2025 Chronic pain of both knees 06/27/2024 Assessment [...] Encounters Date Type Department Care Team Description 01/01/2025 3:15 PM EST Telemedicine [facility] [address] [place] [address] Andrew Sommer MD Acute left-sided low back pain with left-sided sciatica (Primary Dx); Chronic bronchitis, unspecified chronic bronchitis type (CMS/HCC) (HCC); Dietary counseling; Exercise counseling 01/01/2025 Telephone [facility] [address] [facility] [place] [address] Andrew Sommer MD 01/01/2025 Travel 12/28/2024 Telephone [facility] [address] [place] [address] Andrew Sommer MD Nurse Triage 11/06/2024 Orders Only GENERIC EXTERNAL DATA DEPARTMENT Provider, Generic External Data 11/06/2024 Telephone [facility] [address] [place] [address] Andrew Sommer MD ER Follow-up from Last 3 Months Social History Tobacco Use Types Packs/Day Years Used Date Smoking Tobacco: Never Smokeless Tobacco: Never Tobacco Cessation:Counseling Given: Not Answered Depression Answer Date Recorded Patient Health Questionnaire-9 Score 0 01/01/2025 Patient Health Questionnaire-9 Score 0 01/01/2025 Last PHQ-9: Questionnaire Data Not on file 1 03/03/2024 Housing Stability Answer Date Recorded What is your housing situation today? I have osmin hdz 01/01/[address] you li ve. Do you have problems with any of the following? None of the above 01/01/2025 Food Insecurity Answer Date Recorded Within the past 12 months, y ou worried that your food would run out before you got money to buy more: Never True 01/01/2025 Within the past 12 months,th e food you bought just didn't last and you didn't have enough money to get more: Never True 04/2024 Transportation Answer Date Recorded In the past 12 months, has l ack of transportation kept you from medical appts, meetings, work or from getting things needed for daily living? No 01/01/2025 Utilities Answer Date Recorded In the past 12 months, has t he electric, gas, oil or water company threatened to shut off services in your home? No 01/01/2025 Depression Answer Date Recorded Patient Health Questionnaire-2 Score 0 01/01/2025 Internet Access Answer Date Recorded Internet Access Q1 Yes 01/01/2025 Internet Access Q2 Not on file 01/01/2025 Comments Unknown Sex and Gender Information Value [...] Date Last Done Comments CT Colonography 1955 FIT DNA/Cologuard 1955 FIT 1955 FOBT 1955 Sigmoidoscopy 1955 Hepatitis C Screening 08/29/1973 DTaP/Tdap/Td Vaccines (1 - Tdap) 08/29/1974 Pneumococcal Vaccine: 50+ Years (1 of 2 - PCV) 08/29/1974 RSV Patients and Patients Aged 60 years or older (1 - Risk 50-74 years 1-dose series) 08/29/2005 Zoster Vaccines (1 of 2) 08/29/2005 COVID-19 Vaccine (4 - 2024-2 6 season) 2024 09/22/2021, 04/27/2020, 03/30/2020 Influenza Vaccine (#1) 2024 Diabetes: Hemoglobin A1C 06/28/2025 025, 05/14/2023, 12/25/2020 Mammogram 07/13/2025 07/14/2023, 07/14/2023 Tobacco Screening 10/05/2025 10/05/2024 Colonoscopy 12/29/2025 12/30/2023 Colorectal Cancer Screening 12/29/2025 Alcohol/Substance Use Screening 01/01/2026 01/01/2025 Depression Screening 01/01/2026 01/01/2025, 01/01/2025 SDOH Screening 01/01/2026 01/01/2025 Lipid Panel 06/28/2029 06/28/2024, 08/13/2023, 01/31/2021 HIB [...] BREATH TEST Routine 11/06/2024 1:19 PM EDT HEMOGLOBIN A1C Routine 06/28/2024 11:01 AM EDT Essential hypertension, benign LIPID PANEL, STANDARD Routine 06/28/2024 11:01 AM EDT Essential hypertension, benign HM COLONOSCOPY Routine 12/30/2023 BI MAMMOGRAM DIAGNOSTIC TOMOSYNTHESIS BILATERAL STAT 07/14/2023 2:34 PM EDT from Last 3 Months or Most Recently Relevant to Health Maintenance Results * Helicobacter pylori, Urea Breath Test (11/06/2024 1:19 PM EDT) H. pylori Breath Test Negative Negative [facility] Comment:Antimicrobials, prot on pump inhibitors and bismuthpreparations are known to suppress H. pylori. Ingestingthese medications within two weeks prior to performing thebreath test may produce negative test results. A positiveresult is still clinically valid. 11/06/2024 1:19 PM EDT 11/07/2024 3:57 PM EDT us Generic External Data Provider LAB BODY FLUIDS A ND STOOLS ORDERABLES Final Result Performing Organization Address [facility] [place] [facility]/ZIP Co de Phone Number [facility] [address] [place] [phone] * Hemoglobin A1c (06/28/2024 11:01 AM EDT) Hemoglobin A1c 5.9 <6.0 % [facility] Comment:Hemoglobin A1C Refer ence Range Adults: 4.8 - 6.0 % Non diabetic: < 6.0 % Goal: < 7.0 %Additional Action Suggested: > 8.0 %Note: Hemoglobin A1c results are invalid for patients with abnormal amounts of HbF. Blood transfusions may impact the HbA1c concentration in the patient sample. Estimated Average Glucose 123 mg/dL [facility] Comment:eAG = Estimated ave rage glucose which is %A1C expressed asaverage glucose, using the formula of the Y3H-IvqzlhlGwjukta Glucose study (ADAG), Diabetes Care, Vol.31,#8,Sep. 2007 Blood Venous blood specimen / Unknown 06/28/2024 11:01 AM EDT 06/28/2024 11:01 AM EDT us Andrew Bray MD LAB BLOOD ORDERABL ES Final Result Performing Organization Address [facility]/ZIP Co de Phone Number [facility] [address] [place] [phone] * Lipid Panel, Standard (06/28/2024 11:01 AM EDT) Triglycerides 71 <150 mg/dL [facility] Comment:Desirable Triglyceri de: less than 150 mg/dLBorderline High Triglyceride 150-199 mg/dLHigh Triglyceride: 200-499 mg/dLVery High Triglyceride: greater than or equal to 5OO mg/dL Cholesterol 114 <200 mg/dL [facility] Comment:Desirable Cholestero l: less than 200 mg/dLBorderline High Cholesterol: 200-239 mg/dLHigh Cholesterol: greater than 239 mg/dL LDL Cholesterol Calculated 50 <100 mg/dL [facility] Comment:Desirable LDL: less than 100 mg/dLNear [...] MD LAB BLOOD ORDERABL ES Final Result [facility] [address] [place] [phone] * Colonoscopy (12/30/2023) Colonoscopy Normal Normal Narrative Yoana Ferreira - 12/30/2023 Repeat Colonoscopy in 1-2 years or earlier if clinically indicated Historical Provider HEALTH MAINTENANCE Final Result * BI Mammogram Diagnostic Tomosynthesis Bilateral (07/14/2023 2:34 PM EDT) Anatomical Region Laterality Modality Breast Bilateral Mammography 07/14/2023 2:34 PM EDT Narrative 07/14/2023 4:03 PM EDT [facility] [address] [place] [address] Mammography Report Signed Patient: Charlee Galindo MR#: [id number] : 1955 Acct:[id number] Age/Sex: 67 / F ADM Date: 07/14/23 Loc: HO.MAMMO Attending Dr: Racheal Vargas MD Ordering Physician: Racheal Vargas MD Results: 2Beni gn Findings Date of Service: 07/14/23 Follow Up: 1 Year From Orig inal Mammogram Procedure(s): MM tomosynthesis diagnostic BI Accession Number(s): [id number] cc: Racheal Vargas MD EXAMINATION: MM DIAGNOSTIC [...] in OV> 07/14/23 1559 DD/ 1434 TD/TT: Automatic Screwmaker: Procedure Note Donotuseinterpreter, Image - [facility] [address] [place], [place] [address] Mammography Report Signed Patient: Charlee Galindo [facility]#: [id number] : 6Acct:[id number] Age/Sex: 67 / FADM Date: 07/14/23 Loc: HO.MAMMO Attending Dr: Racheal Vargas MD Ordering Physician: Racheal Vargas MDResults: 2Beni gn Findings Date of Service: 07/14/23Follow Up: 1 Year From [facility] ina Mammogram Procedure(s): MM tomosynthesis diagnostic BI Accession Number(s): [id number] cc: Racheal Vargas MD EXAMINATION: MM DIAGNOSTIC [...] in OV> 07/14/23 1559 DD/ 1434 TD/TT: Automatic Screwmaker: us Racheal Vargas MD IMG BI PROCEDURES Final Resul t from Last 3 Months or Most Recently Relevant to Health Maintenance Insurance [facility] STANDARD Care Teams Comfort Advisor Relationship Specialty Start Date End Date Andrew Sommer MD [address] [place] [phone] PCP - General Internal Medicine 11/11/23
--- OUTSIDE RECORDS SUMMARY | 2025-01-11 09:34 | XMS_ITS | Encounter Summary ---
Author Organization [employer] Address [address] [facility] 7 [place] [address] Care Team Providers Care Stripper Latex Name Role Phone Andrew Sommer MD Primary Care Prov ider Reason for Visit * Reason Onset Date Comments Lab Orders 10/02/2024 Encounter Details Date Type Department Care Team ([facility] st Contact Info) Description 10/02/2024 Telephone [facility] [address] [place], [place] [phone] Andrew Sommer MD [address] [place], [place] [phone] Lab Orders Social History Tobacco Use Types [...] and coming out abnormal. Contact pt at [phone] documented in this encounter Plan of Treatment Not on file documented as of this encounter Visit Diagnoses Not on filedocumented in this encounter Care Teams Stripper Latex Relationship Specialty Start Date End Date Andrew Sommer MD [address] [place] [phone] PCP - General Internal Medicine 11/11/23 documented as of this encounter
--- OUTSIDE RECORDS SUMMARY | 2025-01-11 09:34 | XMS_ITS | Encounter Summary ---
Author Organization [employer] Address [address] [facility] 7 [place] [address] Care Team Providers Care Railcar Carpenter Name Role Phone Andrew Sommer MD Primary Care Prov ider Reason for Visit * Reason Onset Date Comments Nurse Triage 10/02/2024 Encounter Details Date Type Department Care Team ([facility] st Contact Info) Description 10/02/2024 Telephone [facility] & PEDS [address] [place], [place] [phone] Andrew Sommer MD [address] [place], [place] [phone] Nurse Triage Social History Tobacco Use Types [...] EDT Triage call Pt requests to have show card writer speak with daughter, Anita. Daughter reports when [facility] 09/20/24 Pt had a rash which [...] caller accepted this outcome. Contact daughter at [phone] documented in this encounter Plan of Treatment Not on file documented as of this encounter Visit Diagnoses Not on filedocumented in this encounter Care Teams Railcar Carpenter Relationship Specialty Start Date End Date Andrew Sommer MD [address] [place] [phone] PCP - General Internal Medicine 11/11/23 documented as of this encounter
--- OUTSIDE RECORDS SUMMARY | 2025-01-11 09:35 | XMS_ITS | Clinical Summary ---
Author Organization [facility] Address [address] [place] [address] Care Team Providers Care Medical Apparatus Model Maker Name Role Phone Maira Rivero Primary Care Provider [phone] Allergies Active Allergy Reactions Criticality Noted Date [...] patient's age to complete this topic Insurance [facility] Care Teams Medical Apparatus Model Maker Relationship Specialty Start Date End Date Maira Rivero [address] [place], [place] [address] [address] PCP - General 05/25/23
--- OUTSIDE RECORDS SUMMARY | 2025-01-11 09:35 | XMS_ITS | Encounter Summary ---
Author Organization [employer] Address [address] [facility] 7 [place] [address] Care Team Providers Care Refining Supervisor Name Role Phone Andrew Sommer MD Primary Care Prov ider Reason for Visit * Reason Onset Date Comments Nurse Triage 12/28/2024 Encounter Details Date Type Department Care Team (Late st Contact Info) Description 12/28/2024 Telephone [facility] [address] [place] [address] Andrew Sommer MD [address] [place] [address] Nurse Triage Social History Tobacco Use Types Packs/Day Years Used Date Smoking Tobacco: Never Smokeless Tobacco: Never Depression Answer Date Recorded Patient Health Questionnaire-9 Score 0 01/01/2025 Patient Health Questionnaire-9 Score 0 01/01/2025 Last PHQ-9: Questionnaire Data Not on file 1 03/03/2024 Housing Stability Answer Date Recorded What is your housing situation today? I have osminreji hdz 01/01/[address] you [...] foot/leg. Advised pt's daughter no availability at [facility] or [facility] today. Advised pt's daughter to bring pt to urgent care or ED for evaluation today. Pt's daughter verbalized understanding. Pt's daughter requesting follow up with PCP for pain and hearing aids. Pt's daughter states pt dropped form off to [facility] for hearing aids over three weeks ago and they have not heardback. Pt's daughter placed on hold and TC placed to Silvia Weir [facility] Forms. No answer. TC placed Michele [facility] Forms. Genie states Silvia is the one who handles [facility]C and can return call to pt's daughter [...] PCP at telehealth appointment. Message forwardedto Silvia DeckerDiana, as an FYI for follow up. Protocol [...] become worse * Telephone Encounter - Luís Suarez - 12/28/2024 3:31 PM EDT Symptom: Leg Pain - Not From Injury Outcome: Schedule an urgent appointment (within 1 hour) or talk to a nurse or provider soon Reason: Trouble walking Please contact daughter/pt at [phone]. documented in this encounter Plan of Treatment Not on file documented as of this encounter Visit Diagnoses Not on filedocumented in this encounter Care Teams Refining Supervisor Relationship Specialty Start Date End Date Andrew Sommer MD [address] [place] [phone] PCP - General Internal Medicine 11/11/23 documented as of this encounter
--- OUTSIDE RECORDS SUMMARY | 2025-01-11 09:35 | XMS_ITS | Clinical Summary ---
Author Organization [facility] Address [address] [place] [address] Phone Care Team Providers Care Historical Site Guide Name Role Phone Maira Rivero MD Primary Care Provider [phone] Immunizations Immunization Administration Dates Next Due Moderna [...] age to complete this topic Care Teams Historical Site Guide Relationship Specialty Start Date End Date Maira Rivero MD [address] [place] [phone] PCP - General 03/12/23
--- OUTSIDE RECORDS SUMMARY | 2025-01-11 09:35 | XMS_ITS | Clinical Summary ---
Author Organization [facility] Address [address] [place] [address] Care Team Providers Care Sales And Marketing Intern Name Role Phone Maira Rivero MD Primary Care Provider [phone] Allergies Active Allergy Reactions Criticality Noted Date [...] Advance Directives For more information, please contact: [phone] Latest Code Status on File Code Status Date Activated Date Inactivated Comments Full Code 11/15/2023 6:14 AM 11/16/2023 12:37 AM This code status was ascertained . Care Teams Sales And Marketing Intern Relationship Specialty Start Date End Date Maira Rivero MD [address] [place] [phone] PCP - General Adult Medicine 03/12/23
[2025-01-11 09:57] LABS: Anion Gap 12 (12-20); Blood Urea Nitrogen 12 mg/dL (9-16); Calcium 9.4 mg/dL (8.4-10.2); Carbon Dioxide 26 mmol/L (22-29); Chloride 111 mmol/L (96-108); Cholesterol 112 mg/dL (<200); Estimated Glomerular Filt Rate > 60; HDL Cholesterol 49 mg/dL (>40); Potassium 4.8 mmol/L (3.3-5.1); Sodium 144 mmol/L (135-145); Triglycerides 66 mg/dL (<150)
== END 2025-01-11 08:54 | disposition home or self-care (01) ==
LOC: HO.LAB 08:53
PROVIDERS: Absent Provider Internal Medicine Gastroenterology; PCP Internal Medicine
DX: I10 Essential (primary) hypertension (principal); E78.00 Pure hypercholesterolemia, unspecified
CPT/HCPCS: 36415; 80048; 80061

== ENCOUNTER 2025-01-11 09:16 | Outpatient (REF) | payer MEDICAID, SELFPAY ==
--- NOTE | 2025-01-11 10:52 | MHC.AU.HA2 ---
Hearing Instrument Fitting- Adult- Binaural Date of Visit: 01/11/25 Hearing Instruments Dispensed: Right Ear: Zohaib, Model, Color, Serial Number: James LIVINGSTON 16 ITC-R SN: [id number] Color: [place] Pin Feather Machine Operator Repair Warranty: 12/21/2027 Pin Feather Machine Operator Loss and Damage Warranty: 12/21/2027 [facility] Service Plan: 01/11/2026 Battery Size: Rechargeable Type of Wax Guard: HearClear Left Ear: Zohaib, Model, Color, Serial Number: James [place]IV[place]ON 16 ITC-R SN: [id number] Color: [place] Pin Feather Machine Operator Repair Warranty: 12/21/2027 Pin Feather Machine Operator Loss and Damage Warranty: 12/21/2027 [facility] Service Plan: 01/11/2026 Battery Size: Rechargeable Type of Wax Guard: HearClear Accessories/Assistive Technology: Media Director SN: [id number] Summary of Fitting: Ran feedback analyzer and real ear measures. Comfortable at real ear settings. Discussed care, use, and rechargeability including manually turning on/off, VC use, and changing wax guards. Practiced insertion and removal. Explained importance of daily, consistent use and acclimatization period. Paired to cellphone. At end of appointment, Elmern noted right MILLER felt heavy noting discomfort in canal. Attempted to buff - slight improvement noted. Will readdress at follow up if issue persists. Recommendations: A hearing instrument follow-up was scheduled. Diagnosis Code(s): Primary Diagnosis: H90.3 Bilateral Sensorineural Hearing Loss Signature: Provider: Sury Lin, [facility]
== END 2025-01-11 09:17 | disposition home or self-care (01) ==
LOC: HO.HAP 09:16
PROVIDERS: Visit Provider Internal Medicine
DX: Z46.1 Encounter for fitting and adjustment of hearing aid (principal); H90.3 Sensorineural hearing loss, bilateral
CPT/HCPCS: V5011; V5020; V5160; V5259

== ENCOUNTER 2025-01-18 10:47 | Outpatient (REF) | payer MEDICAID, SELFPAY ==
--- OUTSIDE RECORDS SUMMARY | 2025-01-18 16:17 | XMS_ITS | Clinical Summary ---
Author Organization [facility] Address [address] [place] [address] Care Team Providers Care Mechanical Estimator Name Role Phone Maira Rivero Primary Care Provider [phone] Allergies Active Allergy Reactions Criticality Noted Date [...] patient's age to complete this topic Insurance [facility] [employer] Care Teams Mechanical Estimator Relationship Specialty Start Date End Date Maira Rivero [address] [place], [place] [address] [address] PCP - General 05/25/23
== END 2025-01-18 10:48 | disposition home or self-care (01) ==
LOC: HO.HAP 10:47
PROVIDERS: Visit Provider Internal Medicine
DX: Z13.89 Encounter for screening for other disorder (principal)

== ENCOUNTER 2025-02-06 14:46 | Outpatient (REF) | payer MEDICAID, SELFPAY ==
--- NOTE | ~2025-02-06 | CT_ITS ---
EXAMINATION: CT ABDOMEN PELVIS WITH IV CONTRAST HISTORY: R10.9 - Unspecified abdominal pain, right sided pain/flank pain and fullness of renal collecting system on ultrasound. COMPARISON: Previous abdominal ultrasound most recent November [address] of the abdomen and pelvis June 2022 TECHNIQUE: CT scan of the abdomen and pelvis was performed following administration of 85 mL Omnipaque 350 using standard departmental protocol. Coronal and sagittal reformatted images were generated and reviewed. This CT exam was performed with one or more of the following dose reduction techniques: automated exposure control, adjustment of the mA and/or kV according to patient size, use of iterative reconstruction technique. DLP: 427 mGy-cm FINDINGS: LOWER CHEST: The visualized lung bases are clear. There is no pleural effusion. CARDIOVASCULATURE: The heart is normal in size. There is no pericardial effusion. LIVER: The liver is normal in size and contour. No liver mass is identified. The hepatic and portal veins are patent. GALLBLADDER / BILE DUCTS: The gallbladder is unremarkable. There is no intra biliary ductal dilatation. Dilated extrahepatic bile ducts, common bile duct measuring 11 mm. SPLEEN: The spleen is normal in size. No focal splenic lesion is identified. PANCREAS: The pancreas is unremarkable in appearance. ADRENAL GLANDS: Within normal limits. KIDNEYS/RETROPERITONEUM: No renal calculi are identified. There is no hydronephrosis. No renal masses are identified. No ureteral dilatation or ureteral stone. LYMPH NODES: No abdominal or pelvic lymphadenopathy. VASCULATURE: Atherosclerotic disease. No aneurysm. MESENTERY/PERITONEUM: No free fluid. No masses. There is no free intraperitoneal gas. STOMACH: Normal SMALL BOWEL: The small bowel is normal in caliber. COLON: Linear radiopaque density in the distal transverse colon measuring 1 cm in length. This may represent a biopsy clip or something the patient has ingested. Large bowel otherwise normal. APPENDIX: Normal. URINARY BLADDER/PELVIC ORGANS: The urinary bladder is unremarkable. Uterus and adnexa are unremarkable. BONES / SOFT TISSUES: Mild curvature of the lumbar spine to the right. Mild degenerative changes of the spine and hip joints. Mild 3 mm anterior subluxation of L5 with respect to S1 probably secondary to facet arthritis. Small umbilical hernia containing fat. CT/CT abdomen pelvis w IV con IMPRESSION: Mild extrahepatic biliary duct dilatation, common bile duct measuring 11 mm. No intrahepatic biliary duct dilatation and normal appearing gallbladder. This could be better evaluated with MR abdomen with MRCP. 1 cm linear radiopaque density in the distal transverse colon. This may represent a biopsy clip or something the patient has ingested. Otherwise unremarkable exam. Normal-appearing right kidney. Electronically signed by: Janie Miranda MD 02/06/2025 04:30 PM [facility]
[2025-02-06] MEDS: iohexoL 350 MG/ML 100 ML INFUS..BTL 85 ML IV (16:12)
--- OUTSIDE RECORDS SUMMARY | 2025-02-06 20:51 | XMS_ITS | Patient Health Record ---
Author Organization [facility] Address [address] [place] [phone] Care Team Providers Care Practice Lead Name Role Phone PAYTON GUAMAN Unavailable [phone] Allergies Allergen (clinical drug ingredient) Drug/Non Drug [...] Notes Problem Full thickness rotator cuff tear (881237255) Complete rotator cuff tear or rupture of left shoulder, not specified as traumatic (M75.122) Active confirmed Plan Of Treatment No Information Insurance Providers Payer Name Payer Address Payer Phone Subscriber Number Group Number Insured Name Patient Relationship to Insured Coverage Start Date Coverage End Date [facility] [address] [place] [address] [id number] JOSHUA CASTELLANOS Self - patient is the insured
--- OUTSIDE RECORDS SUMMARY | 2025-02-06 20:51 | XMS_ITS | Encounter Summary ---
Author Organization [employer] Address [address] [address] Care Team Providers Care Chief Relay Tester Name Role Phone Andrew Sommer MD Primary Care Prov ider Reason for Visit * Reason Onset Date Comments Appointment Request 06/07/2024 Encounter Details Date Type Department Care Team (Late st Contact Info) Description 06/07/2024 Telephone [facility] MEDICINE [address] [place] [address] Andrew Sommer MD [address] [place] [address] Appointment Request Social History Tobacco Use Types [...] on filedocumented in this encounter Care Teams Chief Relay Tester Relationship Specialty Start Date End Date WhitfieldAndrew Cedeño MD [address] [place] [phone] PCP - General Internal Medicine 11/11/23 documented as of this encounter
--- OUTSIDE RECORDS SUMMARY | 2025-02-06 20:52 | XMS_ITS | Clinical Summary ---
Author Organization [employer] Address [address] [facility] 7t [place] [address] Care Team Providers Care Canine Enforcement Officer Name Role Phone Andrew Sommer MD Primary [...] day. 4 Active ergocalciferol (Drisdol) 1.25 MG (86664 UT) capsule Take 1 capsule (1.25 mg) [...] times daily for 10 days. 30 tablet Active Active Problems Problem Noted Date Diagnosed [...] Encounters Date Type Department Care Team Description 01/31/2025 Telephone [facility] [address] [place] [address] Andrew Sommer MD new location referral 01/11/2025 Orders Only GENERIC EXTERNAL DATA DEPARTMENT Provider, Generic External Data 01/01/2025 3:15 PM EST Telemedicine [facility] [address] [place] [address] Andrew Sommer MD Acute left-sided low back pain with left-sided sciatica (Primary Dx); Chronic bronchitis, unspecified chronic bronchitis type (CMS/HCC) (HCC); Dietary counseling; Exercise counseling 01/01/2025 Telephone [facility] [address] [place] [address] Andrew Sommer MD 01/01/2025 Travel 12/28/2024 Telephone [facility] [address] [place], [place] [phone] WhitfieldAndrew Cedeño MD Nurse Triage from Last 3 Months Social History Tobacco [...] of 2) 08/29/2005 COVID-19 Vaccine (4 - season) 2024 09/22/2021, 04/27/2020, 03/30/2020 Influenza Vaccine (#1) 2024 Diabetes: Hemoglobin A1C 06/28/2025 025, 05/14/2023, 12/25/2020 Mammogram 07/13/2025 07/14/2023, 07/14/2023 Tobacco Screening 10/05/2025 10/05/2024 Colonoscopy 12/29/2025 12/30/2023 Colorectal Cancer Screening 12/29/2025 Alcohol/Substance Use Screening 01/01/2026 01/01/2025 Depression Screening 01/01/2026 01/01/2025, 01/02/20 SDOH Screening 01/01/2026 01/01/2025 Lipid Panel 01/11/2030 01/11/2025, 06/01, 08/13/2023, Additional history exists HIB Vaccines Aged Out No longer eligi [...] Associated Diagnosis Comments LIPID PANEL, STANDARD Routine 01/11/2025 9:11 AM EST BASIC METABOLIC PANEL Routine 01/11/2025 9:11 AM EST HEMOGLOBIN A1C Routine 06/28/2024 11:01 AM EDT Essential hypertension, benign HM COLONOSCOPY Routine 12/30/2023 BI MAMMOGRAM DIAGNOSTIC TOMOSYNTHESIS BILATERAL STAT 07/14/2023 2:34 PM EDT from Last 3 Months or Most Recently Relevant to Health Maintenance Results * Lipid Panel, Standard (01/11/2025 9:11 AM EST) Triglycerides 66 <150 mg/dL [facility] Comment:Desirable Triglyceri de: less than 150 mg/dLBorderline High Triglyceride 150-199 mg/dLHigh Triglyceride: 200-499 mg/dLVery High Triglyceride: greater than or equal to 5OO mg/dL Cholesterol 112 <200 mg/dL [facility] Comment:Desirable Cholestero l: less than 200 mg/dLBorderline High Cholesterol: 200-239 mg/dLHigh Cholesterol: greater than 239 mg/dL LDL Cholesterol Calculated 50 <100 mg/dL [facility] Comment:Desirable LDL: less than 100 mg/dLNear Optimal/Above Optimal LDL: 110- 129 mg/dLBorderline High LDL: 130-159 mg/dLHigh LDL: 160-189 mg/dLVery High LDL: greater than or equal to 190 mg/dL HDL Cholesterol 49 >40 mg/dL [facility] Comment:Desirable HDL: great er than 40 mg/dL Note: This HDL assay may give artificially low results in patients with liver disease. 01/11/2025 9:11 AM EST 01/11/2025 9:11 AM EST Generic External Data Provider LAB BLOOD ORDERAB LES Final Result Performing Organization Address [facility] [facility] Co de Phone Number [facility] [address] [place] [phone] * (ABNORMAL) Basic Metabolic Panel (01/11/2025 9:11 AM EST) Sodium 144 135 - 145 mmol/L [facility] Potassium 4.8 3.3 - 5.1 mmol/L [facility] Chloride 111(H) 96 - 108 mmol/L [facility] Carbon Dioxide 26 22 - 29 mmol/L [facility] Anion Gap 12 12 - 20 [facility] Urea Nitrogen (BUN) 12 9 - 16 mg/dL [facility] Creatinine, Serum 0.65 0.5 - 1.4 mg/dL [facility] Estimated Glomerular Filt Rate >60 [facility] Comment:Chronic Kidney Disea se: Estimated GFR < 60 mL/min/1.39y9Rakdkp Kidney Disease: Estimated GFR < 15 mL/min/1.73m2 Glucose 106 60 - 115 mg/dL [facility] Calcium 9.4 8.4 - 10.2 mg/dL [facility] 01/11/2025 9:11 AM EST 01/11/2025 9:11 AM EST us Generic External Data Provider LAB BLOOD ORDERAB LES Final Result Performing Organization Address [facility] [facility] Co de Phone Number [facility] [address] [place] [phone] * Hemoglobin A1c (06/28/2024 11:01 AM EDT) Hemoglobin A1c 5.9 <6.0 % [facility] Comment:Hemoglobin A1C Refer ence Range Adults: 4.8 - 6.0 % Non diabetic: < 6.0 % Goal: < 7.0 %Additional Action Suggested: > 8.0 %Note: Hemoglobin A1c results are invalid for patients with abnormal amounts of HbF. Blood transfusions may impact the HbA1c concentration in the patient sample. Estimated Average Glucose 123 mg/dL [facility] Comment:eAG = Estimated ave rage glucose which is %A1C expressed asaverage glucose, using the formula of the H3V-LxvigwiYiwtnsv Glucose study (ADAG), Diabetes Care, Vol.31,#8,Sep. 2007 Blood Venous blood specimen / Unknown 06/28/2024 11:01 AM EDT 06/28/2024 11:01 AM EDT Andrew Bray MD LAB BLOOD ORDERABL ES Final Result [facility] [address] [place] [phone] * Hm Colonoscopy (12/30/2023) Colonoscopy Normal Normal Narrative Yoana Ferreira - 12/30/2023 Repeat Colonoscopy in 1-2 years or earlier if clinically indicated Historical Provider HEALTH MAINTENANCE Final Result * BI Mammogram Diagnostic Tomosynthesis Bilateral (07/14/2023 2:34 PM EDT) Anatomical Region Laterality Modality Breast Bilateral Mammography 07/14/2023 2:34 PM EDT Narrative 07/14/2023 4:03 PM EDT [facility] [address] [place] [address] Mammography Report Signed Patient: Charlee Galindo MR#: [id number] : 1955 Acct:[id number] Age/Sex: 67 / F ADM Date: 07/14/23 Loc: HO.MAMMO Attending Dr: Racheal Vargas MD Ordering Physician: Racheal Vargas MD Results: 2Beni gn Findings Date of Service: 07/14/23 Follow Up: 1 Year From Orig inal Mammogram Procedure(s): MM tomosynthesis diagnostic BI Accession Number(s): [id number] cc: Racheal Vargas MD EXAMINATION: MM DIAGNOSTIC [...] in OV> 07/14/23 1559 DD/ 1434 TD/TT: Warehouse Stocker: Procedure Note Donotuseinterpreter, Image - 07/14/2023 [facility] [address] [place] [address] Mammography Report Signed Patient: Charlee Galindo [facility]#: [id number] : 6Acct:[id number] Age/Sex: 67 / FADM Date: 07/14/23 Loc: HO.MAMMO Attending Dr: Racheal Vargas MD Ordering Physician: Racheal Vargas MDResults: 2Beni gn Findings Date of Service: 07/14/23Follow Up: 1 Year From Orig inal Mammogram Procedure(s): MM tomosynthesis diagnostic BI Accession Number(s): [id number] cc: Racheal Vargas MD EXAMINATION: MM DIAGNOSTIC [...] in OV> 07/14/23 1559 DD/ 1434 TD/TT: Warehouse Stocker: us Racheal Vargas MD IMG BI PROCEDURES Final Resul t from Last 3 Months or Most Recently Relevant to Health Maintenance Insurance [facility] STANDARD Care Teams Canine Enforcement Officer Relationship Specialty Start Date End Date Andrew Sommer MD [address] [place] [phone] PCP - General Internal Medicine 11/11/23
--- OUTSIDE RECORDS SUMMARY | 2025-02-06 20:52 | XMS_ITS | Encounter Summary ---
Author Organization [employer] Address [address] [facility] 7 [place] [address] Care Team Providers Care Configuration Analyst Name Role Phone Andrew Sommer MD Primary Care Prov ider Reason for Visit * Reason Onset Date Comments Nurse Triage 10/02/2024 Encounter Details Date Type Department Care Team ([facility] st Contact Info) Description 10/02/2024 Telephone [facility]S [address] [place], [place] [phone] Andrew Sommer MD [address] [place], [place] [phone] Nurse Triage Social History Tobacco Use Types [...] EDT Triage call Pt requests to have marketing writer speak with daughter, Anita. Daughter reports when mother returned from [facility] to [facility] 09/20/24 Pt had a rash which [...] caller accepted this outcome. Contact daughter at [phone] documented in this encounter Plan of Treatment Not on file documented as of this encounter Visit Diagnoses Not on filedocumented in this encounter Care Teams Configuration Analyst Relationship Specialty Start Date End Date Andrew Sommer MD [address] [place] [phone] PCP - General Internal Medicine 11/11/23 documented as of this encounter
--- OUTSIDE RECORDS SUMMARY | 2025-02-06 20:52 | XMS_ITS | Encounter Summary ---
Author Organization [employer] Address [address] [facility] 7 [place] [address] Care Team Providers Care Gluing Machine Adjuster Name Role Phone Andrew Sommer MD Primary Care Prov ider Reason for Visit * Reason Onset Date Comments Nurse Triage 12/28/2024 Encounter Details Date Type Department Care Team (Late st Contact Info) Description 12/28/2024 Telephone [facility] [address] [place] [address] Andrew Sommer MD [address] [place] [address] Nurse Triage Social History Tobacco Use Types [...] foot/leg. Advised pt's daughter no availability at [facility] or [facility] today. Advised pt's daughter to bring pt to urgent care or ED for evaluation today. Pt's daughter verbalized understanding. Pt's daughter requesting follow up with PCP for pain and hearing aids. Pt's daughter states pt dropped form off to [facility] for hearing aids over three weeks ago and they have not heardback. Pt's daughter placed on hold and TC placed to Silvia Weir [facility] Forms. No answer. TC placed Michele [facility] Forms. Genie states Silvia is the [...] Reason: Trouble walking Please contact daughter/pt at [phone]. documented in this encounter Plan of Treatment Not on file documented as of this encounter Visit Diagnoses Not on filedocumented in this encounter Care Teams Gluing Machine Adjuster Relationship Specialty Start Date End Date Andrew Sommer MD [address] [place] [phone] PCP - General Internal Medicine 11/11/23 documented as of this encounter
--- OUTSIDE RECORDS SUMMARY | 2025-02-06 20:52 | XMS_ITS | Encounter Summary ---
Author Organization [employer] Address [address] [place] [address] Care Team Providers Care Peanut Sorter Name Role Phone Andrew Sommer MD Primary Care Prov ider Encounter Details Date Type Department Care Team (Late st Contact Info) Description 06/01/2024 Orders Only [facility] & PEDS [address] [place] [address] Andrew Sommer MD [address] [place] [address] Social History Tobacco Use Types Packs/Day Years [...] on filedocumented in this encounter Care Teams Peanut Sorter Relationship Specialty Start Date End Date Andrew Sommer MD [address] [place] [address] PCP - General Internal Medicine 11/11/23 documented as of this encounter
--- OUTSIDE RECORDS SUMMARY | 2025-02-06 20:52 | XMS_ITS | Clinical Summary ---
Author Organization [facility] Address [address] [place] [address] Care Team Providers Care Production Cloth Cutter Name Role Phone Maira Rivero Primary Care Provider [phone] Allergies Active Allergy Reactions Criticality Noted Date [...] patient's age to complete this topic Insurance [facility] Care Teams Production Cloth Cutter Relationship Specialty Start Date End Date Maira Rivero [address] [place], [place] [address] [phone] PCP - General 05/25/23
--- OUTSIDE RECORDS SUMMARY | 2025-02-06 20:52 | XMS_ITS | Encounter Summary ---
Author Organization [employer] Address [address] [facility] 7 [place] [address] Care Team Providers Care Metallurgical Lab Technician Name Role Phone Andrew Sommer MD Primary Care Prov ider Reason for Visit * Reason Onset Date Comments Lab Orders 10/02/2024 Encounter Details Date Type Department Care Team ([facility] st Contact Info) Description 10/02/2024 Telephone [facility] [address] [place], [place] [phone] Andrew Sommer MD [address] [place], [place] [phone] Lab Orders Social History Tobacco Use Types [...] and coming out abnormal. Contact pt at [phone] documented in this encounter Plan of Treatment Not on file documented as of this encounter Visit Diagnoses Not on filedocumented in this encounter Care Teams Metallurgical Lab Technician Relationship Specialty Start Date End Date Andrew Sommer MD [address] [place] [phone] PCP - General Internal Medicine 11/11/23 documented as of this encounter
--- OUTSIDE RECORDS SUMMARY | 2025-02-06 20:52 | XMS_ITS | Encounter Summary ---
Author Organization [employer] Address [address] [facility] 7 [place] [address] Care Team Providers Care Diabetes Educator Name Role Phone Andrew Sommer MD Primary Care Prov ider Reason for Visit * Reason Onset Date Comments new location referral 01/31/2025 Encounter Details Date Type Department Care Team (Late st Contact Info) Description 01/31/2025 Telephone [facility] [address] [place] [address] Andrew Sommer MD [address] [place] [address] new location referral Social History Tobacco Use Types Packs/Day Years [...] encounter Miscellaneous Notes * Telephone Encounter - Nicole Amador - 01/31/2025 1:31 PM EST TC from Dr. Morales pt requesting new referral : Referral for Mri re sent to : DATE: / TIME: / Address: [address] [place] [address] [place] [address] Visits: / Facility Name: [facility] Type of Specialist: / DX: / Provider : / Provider NPI : // Facility NPI: / Phone # : Fax #: / PCP Dr. Whitfield documented in this encounter Plan of Treatment Not on file documented as of this encounter Visit Diagnoses Not on filedocumented in this encounter Additional Health Concerns Assessment Noted Time PHQ-9 Depression Total Score: 0 01/02/20 25 1:40 PM EST documented as of this encounter Care Teams Diabetes Educator Relationship Specialty Start Date End Date Andrew Sommer MD [address] [place] [address] PCP - General Internal Medicine 11/11/23 documented as of this encounter
--- OUTSIDE RECORDS SUMMARY | 2025-02-06 20:52 | XMS_ITS | Clinical Summary ---
Author Organization [facility] Prior to 07/29/24 Address [address] [place] [address] Care Team Providers Care Telephone Directory Distributor Driver Name Role Phone Maira Rivero MD Primary Care Provider [phone] Allergies Active Allergy Reactions Criticality Noted Date [...] 2) 09/26/2021 08/02/19 COVID-19 Vaccine (2 - 2024-2 6 season) [...] Advance Directives For more information, please contact: [phone] Latest Code Status on File Code Status Date Activated Date Inactivated Comments Full Code 11/15/2023 6:14 AM 11/16/2023 12:37 AM This code status was ascertained . Care Teams Telephone Directory Distributor Driver Relationship Specialty Start Date End Date Maira Rivero MD [address] [place] [phone] PCP - General Adult Medicine 03/12/23
--- OUTSIDE RECORDS SUMMARY | 2025-02-06 20:52 | XMS_ITS | Clinical Summary ---
Author Organization [facility] Address [address] [place] [address] Phone Care Team Providers Care Heel Reducer Name Role Phone Maira Rivero MD Primary Care Provider [phone] Immunizations Immunization Administration Dates Next Due Moderna [...] age to complete this topic Care Teams Heel Reducer Relationship Specialty Start Date End Date Maira Rivero MD [address] [place] [phone] PCP - General 03/12/23
== END 2025-02-06 14:47 | disposition home or self-care (01) ==
LOC: HO.CT 14:46
PROVIDERS: Visit Provider Internal Medicine Gastroenterology
DX: R10.9 Unspecified abdominal pain (principal)
CPT/HCPCS: 74177; Q9967

== ENCOUNTER → 2025-02-06 14:48 | Outpatient (BNV) | payer MEDICAID, SELFPAY | PROVIDERS: Visit Provider Radiology Diagnostic Radiology | DX: K83.8 Other specified diseases of biliary tract (principal) | CPT/HCPCS: 74177 ==